=== PATIENT | female | born 1975 | race Caucasian/White ===

== ENCOUNTER 2019-11-19 10:32 | Outpatient (CLI) | payer BC, SELFPAY ==
--- NOTE | ~2019-11-19 | MM_ITS ---
EXAMINATION: MM screening [facility] BI w herrera HISTORY: Screening mammogram TECHNIQUE: Craniocaudal and mediolateral oblique 3-D tomosynthesis images were obtained and synthetic 2-D images were generated. CAD analysis was submitted and interpreted. COMPARISON: 10/10/2018 BREAST PARENCHYMAL COMPOSITION: There are scattered areas of fibroglandular density. FINDINGS: There is no evidence of suspicious mass, calcification, or architectural distortion to sugg est malignancy in either breast. There has been no suspicious interval change. IMPRESSION: 1. No mammographic evidence of malignancy. 2. Recommend routine screening mammography in one year. BI-RADS Category 1: Negative Reviewed, dictated and finalized at location A. AGE RECEIPT POSTER
== END 2019-11-19 10:33 | disposition home or self-care (01) ==
LOC: ANHIMG 10:34
PROVIDERS: PCP Family Medicine; Visit Provider Obstetrics & Gynecology
DX: Z12.31 Encounter for screening mammogram for malignant neoplasm of breast (principal)
CPT/HCPCS: 77063; 77067

== ENCOUNTER → 2020-07-18 12:40 | Outpatient (CLI) | payer BC, SELFPAY ==
--- NOTE | ~2020-07-18 | XR_ITS ---
EXAMINATION: XR finger 1st LT min 2V DATE: 07/18/2020 13:00 INDICATION: Left thumb pain. TECHNIQUE: 4 views of left thumb were obtained. COMPARISON: Left thumb radiograph 04/28/2018 FINDINGS: Bone alignment is normal. No fracture. There is mild osteoarthritis of first carpometacarpa l joint and first metacarpophalangeal joint. IMPRESSION: 1. Mild polyarticular osteoarthritis. Reviewed, dictated and finalized at location A. S COUNTERMAN
== END ==
PROVIDERS: PCP Family Medicine; Visit Provider Specialist
DX: M19.042 Primary osteoarthritis, left hand (principal)
CPT/HCPCS: 73140

== ENCOUNTER 2021-01-26 23:57 | Emergency (ER) | payer BC, SELFPAY ==
--- NOTE | ~2021-01-26 | XR_ITS ---
EXAMINATION: XR chest 1V portable DATE: 01/27/2021 00:38 INDICATION: Chest pain TECHNIQUE: frontal view of the chest was obtained. COMPARISON: Chest radiograph dated 05/11/2016 FINDINGS: The lungs remain clear with no focal airspace opacities, pulmonary edema, pleural effusion or pneumot horax. The cardiomediastinal silhouette is normal. Visualized bones and soft tissues are unremarkable . IMPRESSION: 1. No acute cardiopulmonary disease. Reviewed, dictated and finalized at location A.
[2021-01-27] VITALS (8 sets, daily range): BP systolic 105–178; BP diastolic 61–89; PULSE 59–103; RESP 15–24; TEMP 36.3; O2SAT 100
--- NOTE | 2021-01-27 00:26 | ECG_ITS ---
Measurements Intervals [place] Rate: 103 P: 66 CO: 144 QRS: 71 QRSD: 90 T: 45 QT: 337 QTc: 442 Interpretive Statements SINUS TACHYCARDIA VENTRICULAR BIGEMINY BASELINE ARTIFACT- V3 ABNORMAL ECG Electronically Signed On 01-27-2021 6:45:31 CDT by Slava Jenkins D.O.
[2021-01-27] MEDS: ASPIRIN 81 MG CHEWABLE TABLET 324 MG PO (00:48)
[2021-01-27] MEDS: LORazepam INJ (*CRX) 2 MG/ML VIAL 1 MG IV PUSH (00:57)
[2021-01-27 01:19] LABS: Basophils Percent Auto 0.4 % (0.2-1.2); Eosinophils Absolute Auto 0.1 K/mm3 (0-0.3); Eosinophils Percent Auto 1.6 % (0-4.4); Hematocrit 45.2 % (37.0-47.0); Hemoglobin 15.1 g/dL (12.0-15.0); Immature Granulocyte Absolute 0.02 K/mm3 (0.00-0.031); Immature Granulocyte Percent A 0.2 % (0-0.5); Lymphocytes Absolute Auto 2.14 K/mm3 (0.9-3.2); Lymphocytes Percent Auto 26.2 % (18.3-44.2); Mean Corpuscular HGB Conc 33.4 g/dl (32-36); Mean Corpuscular Hemoglobin 31.8 pg (26-34); Mean Corpuscular Volume 95.2 fl (80-100); Mean Platelet Volume 12.6 fl (7.4-10.4); Monocytes Absolute Auto 0.6 K/mm3 (0.1-0.6); Monocytes Percent Auto 7.7 % (2.6-8.5); Neutrophils Absolute Auto 5.2 K/mm3 (1.3-6.7); Neutrophils Percent Auto 63.9 % (45.5-73.1); Platelet Count Result 179 k/mm3 (150-375); Red Blood Count 4.75 M/mm3 (4.2-5.4); Red Cell Distribution Width 12.8 % (11.5-14.5); White Blood Count 8.2 K/mm3 (4.5-10.0)
[2021-01-27 01:30] LABS: Alanine Aminotransferase 19 U/L (4-35); Albumin Level 5.1 g/dL (3.5-5.1); Alkaline Phosphatase 59 U/L (38-126); Anion Gap 11 mmol/L (8-16); Aspartate Amino Transferase 24 U/L (14-36); Bilirubin,Total 0.5 mg/dL (0.2-1.3); Blood Urea Nitrogen 15 mg/dL (7-17); Calcium 10.2 mg/dL (8.4-10.2); Carbon Dioxide 27 mmol/L (22-30); Chloride 102 mmol/L (98-107); Estimated CRCL calculation 73 ml/min; Estimated Glomerular Filt Rate 60; Glucose 133 mg/dL (65-105); Potassium 3.6 mmol/L (3.4-5.0); Sodium 140 mmol/L (137-145)
[2021-01-27 01:41] LABS: Troponin I < 0.012 ng/mL (0.000-0.034)
--- NOTE | 2021-01-27 02:01 | ED.GENADULT ---
HPI - General Adult General Chief complaint: Unspecified Stated complaint: I feel off, I think I am having a heart attack. Time Seen by Provider: 01/27/21 00:07 History of Present Illness HPI narrative: Patient 45-year-old female presents the emergency department with chief complaint of feeling anxious and chest discomfort. Patient reports that she has been under a immense amount of stress and that her father just . 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 Patient states she was kind of overwhelmed by the sensation and decided to come to the emergency department for evaluation to make sure she was not having a heart attack. The patient reports she has no prior history of cardiac disease reports this has history of anxiety. Related Data Home Medications Medication Instructions Recorded Confirmed atorvastatin 01/27/21 01/27/21 buspirone mg 01/27/21 ergocalciferol (vitamin D2) 01/27/21 [Vitamin D2] metoprolol succinate PO 01/27/21 spironolactone 01/27/21 01/27/21 Allergies Allergy/AdvReac Type Severity Reaction Status Date / Time nitrofurantoin Allergy Hives Verified 01/27/21 00:09 [From Macrodantin] Review of Systems Review of Systems: Narrative: A 10 system review of systems was completed on the patient and is negative except for what is stated in the HPI. Nursing and ancillary documentation was reviewed. PMFSH Comments Patient has past medical history significant for anxiety, and PVCs Family history significant for atrial fibrillation Exam Narrative: Exam Narrative: GENERAL: Well-appearing, well-nourished, and in no acute distress. HEAD: Normocephalic, atraumatic. EYES: PERRLA and EOMI. ENT: Nares clear, no rhinorrhea or epistaxis. Mucous membranes moist. NECK: Supple. CHEST: Clear to auscultation. No respiratory distress. HEART: Regular rate and rhythm. No murmur heard. Normal peripheral pulses. ABDOMEN: Soft, nontender, nondistended, normal active bowel sounds. EXTREMITIES: Normal range of motion. No edema. SKIN: Warm, dry, no rash. NEURO: No focal deficits. Alert and oriented x3. PSYCH: Normal mood and affect. Course Course Emergency Course: EKG shows sinus rhythm rate of [address] elevation or ST depression Vital Signs Vital signs: Vital Signs Temperature 36.3 C L 01/27/21 00:03 Pulse Rate 103 H 01/27/21 00:03 Respiratory Rate 20 01/27/21 00:03 Blood Pressure 178/66 H 01/27/21 00:03 Pulse Oximetry 100 01/27/21 00:03 Temperature 36.3 C L 01/27/21 00:03 Pulse Rate 68 01/27/21 01:37 Respiratory Rate 24 H 01/27/21 01:37 Blood Pressure 111/73 01/27/21 01:37 Pulse Oximetry 100 01/27/21 01:37 Medical Decision Making Vital Signs Vital Signs: Vital Signs Temperature 36.3 C L 01/27/21 00:03 Pulse Rate 103 H 01/27/21 00:03 Respiratory Rate 20 01/27/21 00:03 Blood Pressure 178/66 H 01/27/21 00:03 Pulse Oximetry 100 01/27/21 00:03 Temperature 36.3 C L 01/27/21 00:03 Pulse Rate 68 01/27/21 01:37 Respiratory Rate 24 H 01/27/21 01:37 Blood Pressure 111/73 01/27/21 01:37 Pulse Oximetry 100 01/27/21 01:37 Lab Data Result diagrams: 01/27/21 01:01 01/27/21 01:01 Labs: Lab Results 01/27/21 01/27/21 Range/Units 01:01 01:01 WBC 8.2 (4.5-10.0) K/mm3 RBC 4.75 (4.2-5.4) M/mm3 Hgb 15.1 H (12.0-15.0) g/dL Hct 45.2 (37.0-47.0) % MCV 95.2 (80-100) fl MCH 31.8 (26-34) pg MCHC 33.4 (32-36) g/dl RDW 12.8 (11.5-14.5) % Plt Count 179 (150-375) k/mm3 MPV 12.6 H (7.4-10.4) fl Immature Gran % (Auto) 0.2 (0-0.5) % Neut % (Auto) 63.9 (45.5-73.1) % Lymph % (Auto) 26.2 (18.3-44.2) % [place] % (Auto) 7.7 (2.6-8.5) % Eos % (Auto) 1.6 (0-4.4) % Baso % (Auto) 0.4 (0.2-1.2) % Lymp
== END 2021-01-27 02:19 | disposition home or self-care (01) ==
PROVIDERS: Emergency Provider Emergency Medicine; PCP Family Medicine
DX: F41.0 Panic disorder [episodic paroxysmal anxiety] (principal); R07.89 Other chest pain; R00.0 Tachycardia, unspecified; R00.8 Other abnormalities of heart beat
CPT/HCPCS: 36415; 71045; 80053; 84484; 85025; 93005; 96374; 99284; A9270; J2060

== ENCOUNTER 2021-03-02 07:56 | Outpatient (CLI) | payer BC, SELFPAY ==
--- NOTE | ~2021-03-02 | MM_ITS ---
EXAMINATION: MM screening [facility] BI w herrera HISTORY: Screening mammogram TECHNIQUE: Craniocaudal and mediolateral oblique 3-D tomosynthesis images were obtained and synthetic 2-D images were generated. CAD analysis was submitted and interpreted. COMPARISON: 11/19/2019, 11/13/2018, 10/10/2018 BREAST PARENCHYMAL COMPOSITION: The breasts are heterogeneously dense, which may obscure small masses . FINDINGS: RIGHT BREAST: There is a possible mass in the middle third of inner breast best appreciated 4 cm from the nipple on the craniocaudal view. LEFT BREAST: An asymmetry is present in the posterior third breast just below the nipple axis on the mediolateral oblique view 8.5 cm from the nipple. IMPRESSION: 1. Bilateral breast findings as described above. 2. Additional mammographic views and possible breast ultrasound are recommended. BI-RADS Category 0: Incomplete: Needs additional imaging evaluation. Reviewed, dictated and finalized at location A. IMPRESSION: 1. Bilateral breast findings as described above. 2. Additional mammographic views and possible breast ultrasound are recommended . BI-RADS Category 0: Incomplete: Needs additional imaging evaluation.
== END 2021-03-02 07:57 | disposition home or self-care (01) ==
LOC: ANHIMG 07:58
PROVIDERS: PCP Family Medicine; Visit Provider Obstetrics & Gynecology
DX: Z12.31 Encounter for screening mammogram for malignant neoplasm of breast (principal); R92.8 Other abnormal and inconclusive findings on diagnostic imaging of breast
CPT/HCPCS: 77063; 77067

== ENCOUNTER 2021-05-18 11:56 | Outpatient (CLI) | payer OTHER, SELFPAY ==
--- NOTE | ~2021-05-18 | MMUS_ITS ---
EXAMINATION: MM diagnostic [facility] BI w herrera, US breast BI complete HISTORY: Follow-up breast asymmetries TECHNIQUE: Additional 3-D tomosynthesis images of the breasts were performed and synthetic 2-D images were generated. CAD analysis was submitted and interpreted. High resolution complete bilateral breas t ultrasound was performed. COMPARISON: Comparison to multiple prior studies sequentially, with oldest reviewed study dated 10/10. BREAST PARENCHYMAL COMPOSITION: Breast composed of scattered areas of fibroglandular density. FINDINGS: MAMMOGRAPHIC FINDINGS: There are no suspicious masses, calcifications or architectural distortion in either breast to sugges t malignancy. ULTRASOUND: Complete right breast ultrasound: At 2:00, 1 cm from the nipple, there is a 4 mm cyst. Complete left breast ultrasound: Normal heterogeneous echotexture without focal mass. IMPRESSION: 1. No evidence for malignancy in either breast. 2. Routine yearly screening mammogram and regular clinical breast examination are recommended. BI-RADS Category 2: Benign finding(s). Reviewed, dictated and finalized at location A. IMPRESSION: 1. No evidence for malignancy in either breast. 2. Routine yearly screening mammogram and regular clinical breast examination a re recommended. BI-RADS Category 2: Benign finding(s).
== END 2021-05-18 11:57 | disposition home or self-care (01) ==
PROVIDERS: PCP Family Medicine; Visit Provider Obstetrics & Gynecology
DX: R92.8 Other abnormal and inconclusive findings on diagnostic imaging of breast (principal)
CPT/HCPCS: 76641; 77062; 77066; G0279

== ENCOUNTER 2022-04-12 19:55 | Emergency (ER) | payer OTHER, SELFPAY ==
[2022-04-12] VITALS (7 sets, daily range): BP systolic 141–152; BP diastolic 53–87; PULSE 89–118; RESP 14–21; O2SAT 97–100
--- NOTE | ~2022-04-12 | XR_ITS ---
CORRECTED REPORT WRONG ORDER, TITLE CHANGE 04/13/22 PK EXAMINATION: XR chest PORTABLE 1 VIEW 04/12/2022 21:03 INDICATION: Chest palpitations PROCEDURE: AP portable chest COMPARISON: 01/27/2021 FINDINGS: The lungs are clear. The cardiomediastinal silhouette is within normal limits. There are no pleural effusions. There is no pneumothorax suspected. IMPRESSION: 1: NO ACUTE CARDIOPULMONARY DISEASE. Reviewed, dictated and finalized at location A. BERNSTEIN
--- NOTE | 2022-04-12 20:00 | ECG_ITS ---
Measurements Intervals [place] Rate: 128 P: 60 IA: 147 QRS: 58 QRSD: 91 T: 58 QT: 335 QTc: 489 Interpretive Statements SINUS TACHYCARDIA MINIMAL Q WAVES- ANTEROLAT/INF LEADS NONSPECIFIC ST & T-WAVE ABNORMALITY- ANTEROLAT/INF LEADS ABNORMAL ECG Electronically Signed On 04-12-2022 21:00:49 CDT by Slava Jenkins D.O.
[2022-04-12] MEDS: SODIUM CHLORIDE 0.9% IV 1,000 ML 999 ML IV CONT (20:58)
[2022-04-12 21:03] LABS: Basophils Percent Auto 0.3 % (0.2-1.2); Eosinophils Absolute Auto 0.3 K/mm3 (0-0.3); Eosinophils Percent Auto 5.1 % (0-4.4); Hematocrit 41.7 % (37.0-47.0); Immature Granulocyte Absolute 0.02 K/mm3 (0.00-0.031); Immature Granulocyte Percent A 0.3 % (0-0.5); Lymphocytes Absolute Auto 1.93 K/mm3 (0.9-3.2); Lymphocytes Percent Auto 30.6 % (18.3-44.2); Mean Corpuscular HGB Conc 33.6 g/dl (32-36); Mean Corpuscular Hemoglobin 31.3 pg (26-34); Mean Corpuscular Volume 93.1 fl (80-100); Mean Platelet Volume 11.6 fl (7.4-10.4); Monocytes Absolute Auto 0.4 K/mm3 (0.1-0.6); Neutrophils Absolute Auto 3.6 K/mm3 (1.3-6.7); Neutrophils Percent Auto 57.7 % (45.5-73.1); Platelet Count Result 173 k/mm3 (150-375); Red Blood Count 4.48 M/mm3 (4.2-5.4); Red Cell Distribution Width 12.6 % (11.5-14.5); White Blood Count 6.3 K/mm3 (4.5-10.0)
[2022-04-12 21:11] LABS: Prothrombin Time 12.8 Seconds (11.1-14.7)
[2022-04-12 21:12] LABS: Partial Thromboplastin Time 30.5 SECONDS (22.3-36.8)
[2022-04-12 21:14] LABS: Alanine Aminotransferase 20 U/L (6-35); Albumin Level 4.7 g/dL (3.5-5.1); Alkaline Phosphatase 68 U/L (38-126); Anion Gap 10 mmol/L (8-16); Aspartate Amino Transferase 26 U/L (14-36); Bilirubin,Total 0.5 mg/dL (0.2-1.3); Blood Urea Nitrogen 16 mg/dL (7-17); Calcium 9.6 mg/dL (8.4-10.2); Carbon Dioxide 31 mmol/L (22-30); Chloride 99 mmol/L (98-107); Estimated CRCL calculation 73 ml/min; Estimated Glomerular Filt Rate 60; Glucose 152 mg/dL (65-110); Potassium 3.8 mmol/L (3.4-5.0); Sodium 140 mmol/L (137-145)
[2022-04-12 21:25] LABS: Troponin I < 0.012 ng/mL (0.000-0.034)
--- NOTE | 2022-04-12 21:37 | ED.GENADULT ---
HPI - General Adult General Chief complaint: Arrhythmia/Palpitations Stated complaint: palpitations Time Seen by Provider: 04/12/22 20:33 History of Present Illness HPI narrative: Patient is a 46-year-old female who presents ER with concerns of palpitations. Reports her heart rate was going around 150 bpm. She was lightheaded. She also noted a significantly elevated blood pressure. She was evaluated by family Rosina who is a guillotine trimmer and was recommended that she take her metoprolol which she missed taking this morning. Typically patient takes 25 mg but she took an old dose of 50 mg this evening due to a missed dose. Patient has history of vasovagal syndrome that causes her to get lightheaded. Patient reports she was recently ill last week with a viral syndrome causing her to have postnasal drip which she still has. She took multiple COVID test that were all negative. Patient reports she feels bubbles in her lungs when she takes deep breath at times. She also has sensation of dropping beats frequently. Patient reports symptoms began after using an albuterol inhaler which she does not usually use. Her PCP also called her in a Z-Gal tonight which she did not take since she has had this cough for over a week. Patient also reports having a HIDA scan today because she has some chronic stomach issues since getting her COVID-vaccine. Related Data Home Medications Medication Instructions Recorded Confirmed atorvastatin 20 mg tablet 01/27/21 01/27/21 buspirone 7.5 mg tablet mg 01/27/21 ergocalciferol (vitamin D2) 1,250 01/27/21 mcg (50,000 unit) capsule (Vitamin D2) metoprolol succinate 25 mg PO 01/27/21 tablet,extended release 24 hr spironolactone 100 mg tablet 01/27/21 01/27/21 Allergies Allergy/AdvReac Type Severity Reaction Status Date / Time nitrofurantoin Allergy Intermediate HIVES Verified 02/09/21 12:31 adhesive tape Allergy Unknown Verified 02/09/21 12:31 Cephalosporins Allergy Unknown Unverified 02/09/21 12:31 erythromycin base Allergy Unknown Unverified 02/09/21 12:31 Iodinated Contrast Media Allergy Unknown Verified 02/09/21 12:31 meperidine Allergy Unknown Verified 02/09/21 12:31 morphine Allergy Unknown Verified 02/09/21 12:31 adhesive AdvReac Unknown BLISTERS Verified 02/09/21 12:31 NITROFURANTOIN MACROCRYSTAL Allergy Intermediate HIVES Uncoded 02/09/21 12:31 Contrast Media Allergy Unknown CT DYE Uncoded 02/09/21 12:31 GENERALANESTHET Allergy Unknown VASOVAGAL Uncoded 02/09/21 12:31 EFFECT -- HR DROP, N/V, TINGLING Review of Systems Review of Systems: All systems reviewed & are unremarkable except as noted in HPI and below Constitutional: Constitutional: Denies chills, Reports fatigue and Denies fever(s) ENT: Reports nasal congestion and Denies sore throat Cardiovascular: Cardiovascular: Reports chest pain (Tightness), Reports rapid heart rate and Denies radiating jaw, neck or arm pain Respiratory: Respiratory: Reports cough, Denies dyspnea and Denies wheezing Gastrointestinal: Gastrointestinal: Denies abdominal pain, Reports nausea and Denies vomiting Neurologic: Denies syncope, Denies focal weakness and Denies numbness PMFSH Past Medical History Medical History (Updated 04/12/22 @ 22:06 by Henrry Hamilton MD) Anxiety History of kidney stones Hypercholesterolemia Irritable bowel syndrome Vasovagal syncope Surgical History Surgical History (Updated 04/12/22 @ 22:06 by Henrry Hamilton MD) H/O shoulder surgery Right History of tonsillectomy Family History Family History (System 02/09/21 @ 12:31 by Radha Healy) Mother Family history of diabetes mellitus in first degree relative Other Diabetes mellitus Family history of arthritis Family history of cardiac disorder Family history of seizure disorder Hypertension Social History Social History (System 02/09/21 @ 12:31 by Radha Healy) Alcohol intake: current
[2022-04-12] MEDS: ONDANSETRON INJ 4 MG/2 ML VIAL IV PUSH (22:31)
== END 2022-04-12 22:39 | disposition home or self-care (01) ==
PROVIDERS: Emergency Provider Emergency Medicine; PCP Family Medicine
DX: I49.40 Unspecified premature depolarization (principal); E78.00 Pure hypercholesterolemia, unspecified; K58.9 Irritable bowel syndrome, unspecified; F41.9 Anxiety disorder, unspecified; Z87.442 Personal history of urinary calculi; R94.31 Abnormal electrocardiogram [ECG] [EKG]; R00.0 Tachycardia, unspecified
CPT/HCPCS: 36415; 71045; 71046; 80053; 84484; 85025; 85610; 85730; 93005; 96361; 96374; 99284; J2405; J7030

== ENCOUNTER 2022-06-07 07:24 | Outpatient (CLI) | payer BC, SELFPAY ==
--- NOTE | ~2022-06-07 | MM_ITS ---
EXAMINATION: MM screening [facility] BI w herrera HISTORY: Screening mammogram TECHNIQUE: Craniocaudal and mediolateral oblique 3-D tomosynthesis images were obtained and synthetic 2-D images were generated. CAD analysis was submitted and interpreted. COMPARISON: 05/18/2021, 03/02/2021, 11/19/2019 BREAST PARENCHYMAL COMPOSITION: The breasts are heterogeneously dense, which may obscure small masses . FINDINGS: There is no suspicious mass, calcification, or architectural distortion to suggest malignan cy in either breast. There has been no suspicious interval change. IMPRESSION: 1. No mammographic evidence of malignancy. 2. Recommend routine screening mammography in one year. BI-RADS Category 1: Negative Reviewed, dictated and finalized at location A.
== END 2022-06-07 07:25 | disposition home or self-care (01) ==
PROVIDERS: PCP Family Medicine; Visit Provider Obstetrics & Gynecology
DX: Z12.31 Encounter for screening mammogram for malignant neoplasm of breast (principal)
CPT/HCPCS: 77063; 77067

== ENCOUNTER 2022-06-26 07:47 | Outpatient (CLI) | payer BC, SELFPAY ==
--- NOTE | ~2022-06-26 | XR_ITS ---
EXAMINATION: XR barium swallow DATE: 06/26/2022 08:57 INDICATION: Chest pain and difficulty swallowing TECHNIQUE: The patient drank thick barium, gas-producing crystals, and thin barium. Fluoroscopy of th e hypopharynx and esophagus was performed. Fluoroscopy exposure time was 1.9 minutes. The DAP for thi s procedure was 11.87 Gycm2. COMPARISON: 10/24/2005 FINDINGS: There is no mass or stricture of the esophagus. Esophageal motility is normal. There is a s mall sliding hiatal hernia. There was no gastroesophageal reflux with provocative maneuvers. There is rightward deviation of the trachea and upper esophagus. IMPRESSION: 1. Rightward deviation of the trachea and upper esophagus. Further evaluation with CT of the chest is recommended. 2. Small sliding hiatal hernia, otherwise unremarkable esophagram. Reviewed, dictated and finalized at location A. IMPRESSION: 1. Rightward deviation of the trachea and upper esophagus. Further evaluation w ith CT of the chest is recommended. 2. Small sliding hiatal hernia, otherwise unremarkable esophagram.
== END 2022-06-26 07:48 | disposition home or self-care (01) ==
PROVIDERS: PCP Family Medicine
DX: R13.10 Dysphagia, unspecified (principal); J34.2 Deviated nasal septum; K44.9 Diaphragmatic hernia without obstruction or gangrene
CPT/HCPCS: 74220

== ENCOUNTER 2023-09-26 10:07 | Outpatient (CLI) | payer BC, SELFPAY ==
--- NOTE | ~2023-09-26 | MMUS_ITS ---
EXAMINATION: MM diagnostic [facility] BI w herrera, US breast BI limited HISTORY: Bilateral periareolar breast pain TECHNIQUE: Craniocaudal, mediolateral, and mediolateral oblique 3-D tomosynthesis images of the moises ts were performed and synthetic 2-D images were generated. CAD analysis was submitted and interpreted . High resolution limited bilateral breast ultrasound was performed. COMPARISON: 06/07/2022, 05/18/2021, 03/02/2021, 11/19/2019 BREAST PARENCHYMAL COMPOSITION: The breasts are heterogeneously dense, which may obscure small masses . FINDINGS: MAMMOGRAPHIC FINDINGS: No suspicious mass, calcification, or architectural distortion are identified in either breast to sug gest malignancy. There has been no suspicious interval change. No mammographic correlate is identifie d for the patient's reported bilateral periareolar breast pain. ULTRASOUND: There is no evidence of focal abnormal solid or cystic mass in the vicinity of the patient's bilatera l periareolar breast pain. IMPRESSION: 1. No specific mammographic or sonographic correlate is identified for the patient's bilateral periar eolar breast pain. Further evaluation at this time should be based on clinical assessment. Continued follow-up physical examination is recommended. 2. Recommend routine screening mammography in one year. BI-RADS Category 1: Negative Reviewed, dictated and finalized at location A. N ANNOUNCER IMPRESSION: 1. No specific mammographic or sonographic correlate is identified for the ewelina ent's bilateral periareolar breast pain. Further evaluation at this time should be based on clinical assessment. Continued follow-up physical examination is r ecommended. 2. Recommend routine screening mammography in one year. BI-RADS Category 1: Negative
== END 2023-09-26 10:08 | disposition home or self-care (01) ==
PROVIDERS: PCP Family Medicine; Visit Provider Obstetrics & Gynecology
DX: R92.8 Other abnormal and inconclusive findings on diagnostic imaging of breast (principal)
CPT/HCPCS: 76642; 77062; 77066; G0279

== ENCOUNTER 2024-05-14 10:15 | Outpatient (CLI) | payer BC, SELFPAY ==
--- NOTE | ~2024-05-14 | US_ITS ---
Renal-Bladder ultrasound Clinical History: Chronic kidney disease Technique: Real-time sonographic imaging of the kidneys and urinary bladder was performed. Findings: The right kidney measures 11.2 cm in length and the left kidney measures 11.1 cm. There is no hydronephrosis or renal calculus identified. Renal cortical echogenicity is within normal limits. No solid renal mass lesion is identified. Small right renal cyst present. The urinary bladder is moderately distended at the time of this exam. No intraluminal echoes are iden tified. No abnormal wall thickening is seen. Impression: Unremarkable ultrasound of the kidneys and urinary bladder. Reviewed, dictated and finalized at location M. Impression: Unremarkable ultrasound of the kidneys and urinary bladder.
== END 2024-05-14 10:16 | disposition home or self-care (01) ==
LOC: ANHIMG 10:18
PROVIDERS: PCP Family Medicine; Visit Provider Hospitalist
DX: I12.9 Hypertensive chronic kidney disease with stage 1 through stage 4 chronic kidney disease, or unspecified chronic kidney disease (principal); N18.2 Chronic kidney disease, stage 2 (mild); D86.9 Sarcoidosis, unspecified
CPT/HCPCS: 76775

== ENCOUNTER 2024-11-04 09:54 | Outpatient (CLI) | payer BC, SELFPAY ==
--- NOTE | ~2024-11-04 | MM_ITS ---
EXAMINATION: MM screening guido BI w herrera HISTORY: Screening TECHNIQUE: Craniocaudal and mediolateral oblique 3-D tomosynthesis images were obtained and synthetic 2-D images were generated. CAD analysis was submitted and interpreted. COMPARISON: Comparison to multiple prior studies sequentially, with oldest reviewed study dated 11/13. BREAST PARENCHYMAL COMPOSITION: Dense: The breasts are heterogeneously dense, which may obscure small masses FINDINGS: There is no evidence of suspicious mass, calcification, or architectural distortion to sugg est malignancy in either breast. There has been no suspicious interval change. IMPRESSION: 1. No mammographic evidence of malignancy. 2. Recommend routine screening mammography in one year. BI-RADS Category 1: Negative Reviewed, dictated and finalized at location B. E AND FLAME SPECIALIST
--- OUTSIDE RECORDS SUMMARY | 2024-11-04 10:07 | XMS_ITS ---
Author Organization [facility] Address [address] [place] [address] Care Team Providers Care Manager Client Name Role Phone Kirk NEGRON, William Primary Care Provider Agustin KOO CODING VALIDATOR, LESIA Nino [phone] REASON FOR VISIT HIDA 10.25 Encounters Encounter Location Date Provider Diagnosis [facility] [address] [facility] [address] [place] [address] 06/23/2024 LESIA KOO PLAN OF TREATMENT No Information Progress Notes * CONSUELO Rae SAENZB:0 1975 (49 yo F)Acc No.[id number]:06/23/2024 Patient: Petra BARON :1975 Age:49 Y Sex:Female [facility] [place] [address] * true * Date:
--- OUTSIDE RECORDS SUMMARY | 2024-11-04 10:07 | XMS_ITS | Referral Summary ---
Author Organization [facility] Address [address] [facility] [place] [address] Care Team Providers Care Line Repairer Name Role Phone Blake Herbert MD Primary Care Provider [phone] Source Comments [facility],non-owned Affiliates and Associated Physician Practices is amultiple site organization consisting of ambulatory clinics and hospital sitesin [place], [place], [place] and [place]. This disclosure is being madepursuant to the Care Everywhere program and may not contain all information available regarding this patient. Last updated 18.[facility] Allergies Active Allergy Reactions Criticality Noted Date Comments Adhesive Sensitivity Unknown High 01/01/2019 Surgical tap, Contrast-Iodinated Agents For Ct/Other Skin Reactions 07/28/2009 Demerol Skin Reactions 07/28/2009 Nitrofurantoin Other,Unknown,Rash Medium 01/01/2019 Medications * Be aware that medications may not be up to date on this document. Alwaysverify current medications with the patient. Medication Sig Dispensed Refills Start Date End Date Status Magnesium Glycinate 100 MG CAPS Take 100 mg by mouth once daily Active atorvastatin (Lipitor) 20 MG tablet 11/12/2022 Active busPIRone (Buspar) 7.5 MG tablet TAKE 1 & 1/2 (ONE & ONE-HALF) TABLETS BY MOUTH TWICE DAILY 12/25/2022 Active vitamin D3 (Cholecalciferol) 125 MCG (5000 UT) capsule Take 1 (one) capsule by mouth once daily Active vitamin B-12 (Cyanocobalamin) 1000 MCG tablet Take 1 (one) tablet by mouth once daily Active cyclobenzaprine (Flexeril) 5 MG tablet Take 1 (one) tablet by mouth 3 times daily 04/05/2023 Active dicyclomine (Bentyl) 10 MG capsule Take 1 (one) capsule by mouth as needed 03/01/2022 Active fluconazole (Diflucan) 200 MG tablet Take 1 (one) tablet by mouth as needed 12/21/2022 Active levothyroxine (Synthroid) 25 MCG tablet TAKE 1 TABLET BY MOUTH ONCE DAILY FOR 90 DAYS 04/11/2023 Active neomycin (Mycifradin) 500 MG tablet TAKE 1 TABLET BY MOUTH TWICE DAILY FOR 14 DAYS 12/14/2022 Active Xifaxan 550 MG tablet TAKE 1 TABLET BY MOUTH THREE TIMES DAILY FOR 14 DAYS 05/21/2023 Active propranolol ER 24hr (Inderal LA) 60 MG capsule Take 1 capsule by mouth once daily 90 capsule 3 08/12/2023 Active Active Problems Problem Noted Date Diagnosed Date 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 Stress incontinence 07/28/2009 Social History Tobacco Use Types Packs/Day Years Used Date Smoking Tobacco: Never Smokeless Tobacco: Never Tobacco Cessation:Counseling Given: Not Answered Alcohol Use Standard Drinks/Week Comments Never 0.8 (1 standard drink = 0.6 oz p ure alcohol) Sex and Gender Information Value Date Recorded Sex Assigned at Not on file Gender Identity Not on file Sexual Orientation Not on file Last Filed Vital Signs Vital Sign Reading Time Taken Comments Blood Pressure 117/71 05/27/2023 10:45 AM CDT Pulse 63 05/27/2023 10:45 AM CDT Temperature - - Respiratory Rate - - Oxygen Saturation - - Inhaled Oxygen Concentration - - Weight 91.6 kg (202 lb) 05/27/2023 10:45 AM CDT Height 172.7 cm (5' 8 ) 05/27/2023 10:45 AM CDT Body Mass Index 30.71 05/27/2023 10:45 AM CDT Plan of Treatment Not on file Care Teams Line Repairer Relationship Specialty Start Date End Date Blake Herbert MD [address] [place] [address] PCP - General 03/10/09
--- OUTSIDE RECORDS SUMMARY | 2024-11-04 10:07 | XMS_ITS ---
Author Organization [facility] Address [address] [place] [address] Care Team Providers Care Marketing Recruiter Name Role Phone Kirk NEGRON, William Primary Care Provider Agustin KOO CREAMERY WORKER, LESIA Nino REASON FOR VISIT New sxs Encounters Encounter Location Date Provider Diagnosis [facility] [address] [facility] [address] [place] [address] 08/17/2024 LESIA KOO PLAN OF TREATMENT No Information Progress Notes * JOSESITORae KWONGB:0 1975 (49 yo F)Acc No.[id number]:08/17/2024 Patient: Sarbjit BARONa :1975 Age:49 Y Sex:Female Address:[facility], [place] [address] * true * Date:
--- OUTSIDE RECORDS SUMMARY | 2024-11-04 10:07 | XMS_ITS | Clinical Summary ---
Author Organization [facility] Address [address] [facility] [place] [address] Care Team Providers Care Meatman Name Role Phone Blake Herbert MD Primary Care Provider [phone] Source Comments [facility],non-owned Affiliates and Associated Physician Practices is amultiple site organization consisting of ambulatory clinics and hospital sitesin [place], [place], [place] and [place]. This disclosure is being madepursuant to the Care Everywhere program and may not contain all information available regarding this patient. Last updated 18.[facility] [employer] Allergies Active Allergy Reactions Criticality Noted Date [...] disorders of urethra 11/01/2009 Stress incontinence 07/28/2009 Family History Medical History Relation Name Comments Elevated Lipids Father Hypertension Father Diabetes Maternal Grandfather Elevated Lipids Maternal Grandfather Hypertension Maternal Grandfather Osteoporosis Maternal Grandfather DVT - Deep Vein Thrombosis Maternal Grandmother Osteoporosis Maternal Grandmother Diabetes Mother Elevated Lipids Mother Hypertension Mother Osteoporosis Mother Cancer - Breast Other Cancer - Ovarian Other Depression Other bipolar Diabetes Other Endometriosis Other Diabetes Paternal Grandfather Hypertension Sister Cancer - Colon Neg Hx Heart Disease Neg Hx Interstitial Cystitis Neg Hx Pulmonary Embolism Neg Hx Vulvodynia Neg Hx Relation Name Status Comments Father Maternal Grandfather Maternal Grandmother Mother Other Paternal Grandfather Paternal Grandmother Sister Alive Social History Tobacco Use Types Packs/Day Years [...] 05/27/2023 10:45 AM CDT Plan of Treatment Health Maintenance Due Date Last Done Comments COLOGUARD (AGES 45-75) - COL ON CA SCREENING [address] COLONOGRAPHY - COLON CA SCREENING 1975 FIT - COLON CA SCREENING 1975 FLEX SIG - COLON CA SCREENING 1975 MAMMOGRAM 1975 PAP SMEAR 1975 HIV SCREENING 1990 HEPATITIS C SCREENING 05/30/1993 DTAP/TDAP/TD VACCINES (1 - Tdap) 1994 HEPATITIS B VACCINE (1 of 3 - 19+ 3-dose series) 1994 SCREENING FOR DIABETES 05/27/2023 COVID-19 VACCINE (3 - 2023-2 5 season) 2024 01/06/2021, 12/15/2020 INFLUENZA VACCINE (#1) 2024 07/16/2019 DEPRESSION SCREENING 09/16/2024 ZOSTER VACCINE (1 of 2) 2025 COLONOSCOPY - COLON CA SCREENING 04/07/2031 04/07/2021 Colorectal Cancer Screening 04/07/2031 HIB VACCINE Aged Out No longer eligi ble based on patient's age to complete this topic HPV VACCINE Aged Out No longer eligi ble based on patient's age to complete this topic MENINGOCOCCAL (Group B) VACCINE Aged Out No longer eligible b ased on patient's age to complete this topic MENINGOCOCCAL VACCINE Aged Out No marce porfirio eligible based on patient's age to complete this topic Care Teams Meatman Relationship Specialty Start Date End Date Blake Herbert MD [address] [place] [address] PCP - General 03/10/09
--- OUTSIDE RECORDS SUMMARY | 2024-11-04 10:07 | XMS_ITS | Continuity of Care Document ---
Author Organization [employer] Address [address] [place] [address] Phone Care Team Providers Care Manager Of Change Name Role Phone Lance Castellanos MD Unavailable Unavailable Allergies, Adverse Reactions, Alerts Substance Reaction Status Criticality MEPERIDINE HCL Active No Informatio n NITROFURANTOIN MACROCRYSTALLINE Active No Information Medications Medication Instructions Dosage Effective Dates (start - stop) Status Comments dicyclomine 10 mg capsule take 1 capsule by oral route 4 times every day 10 MG - Active Dr. Lance Castellanos Xifaxan 550 mg tablet take 1 tablet by oral route 3 times every day 550 MG - Active Dr. Lance Castellanos omeprazole 40 mg capsule,delayed release take 1 capsule by oral route every day before a meal 40 MG - Active Dr. Lance Castellanos magnesium 400 mg (as magnesium oxide) capsule - Active aspirin 81 mg tablet,delayed release take 1 tablet by oral route every day 81 MG - Active Flonase Allergy Relief 50 mcg/actuation nasal spray,suspension spray 1 - 2 spray by intranasal route every day in each nostril as needed 50-100 MCG - Active Zithromax Z-Gal 250 mg tablet take 2 tablet by oral route every day for 1 day then 1 tablet (250 mg) by oral route once daily for 4 days 500 MG - Active Diflucan 50 mg tablet take 2 tablet by oral route every day - Active Probiotic 10 billion cell capsule - Active spironolactone 100 mg tablet take 1 tablet by oral route every day 100 MG - Active atorvastatin 20 mg tablet take 1 tablet by oral route every day 20 MG - Active buspirone 7.5 mg tablet take 1 tablet by oral route every day 7.5 MG - Active METOPROLOL SUCCINATE (unknown strength) take 1 tablet by oral route every day Not Available - Active Procedures Procedure Date OFFICE [id number] BODY MASS INDEX [facility] SYST BP LT 130 MM HG DIAST BP < 80 MM HG GI TRACT CAPSULE ENDOSCOPY OFFICE QAZIX-RGA-BHPECYMJ BODY MASS INDEX DOCD SYST BP LT 130 MM HG DIAST BP < 80 MM HG OFFICE IZPMT-PUH-FUHPEIQN BODY MASS INDEX DOCD SYST BP LT 130 MM HG DIAST BP < 80 MM HG OFFICE VAGEE-RVK-[id number] BODY MASS INDEX DOCD SYST BP LT 130 MM HG DIAST BP < 80 MM HG COLONOSCOPY, FLEXIBLE, DIAGNOSTIC W/ COL LECTION OF SPECIMEN UPPER GI ENDOSCOPY BIOPSY DEAMIDATED GLADIN PEPTIDE IGA DEAMIDATED GLADIN PEPTIDE IGG TISSUE TRANSGLUTIMASE IGA TISSUE TRANSGLUTIMASE IGG ROUTINE VENIPUNCTURE OFFICE [id number]-NJQ-SGTWDCJG BODY MASS INDEX DOCD SYST BP LT 130 MM HG DIAST BP < 80 MM HG JLCBWFF-WINAQA-NTDM MED BODY MASS INDEX DOCD SYST BP LT 130 MM HG DIAST BP 80-89 MM HG Advance Directives Directive Yes / No Effective Date File Name No Information Encounters Encounter Description Practice Location Reason(s) For Visit Diagnoses Date Provider Providers Copied on Encounter [facility] [employer], [address], [place], [place], [id number] , [place] tel:[phone] [facility] No Information 3 Jasmin Lucas. [address] [facility] [place], [id number] , [place]. tel: [phone] [facility], [address], [place], [place], [address] , [place] tel: [phone] [facility] Enlarged thyroid 2 Jasmin Lucas. [address] [place] [address], [id number] , [place]. tel: [phone] [facility], [address], [place], [place], [address] , [place] tel: [phone] [facility] Deviated trachea 2 Jasmin Lucas. [address] [place] [address], [id number] , [place]. tel: [phone] OFFICE FITMK-SEX-PM PANDED [facility], [address], [place], [place], [address] , [place] tel: [phone] [facility] Dysphagia (chief complaint) Dysphagia, unspecified type 2 Juan Monet. [address] [place] [address], [id number] , [place]. tel: [phone] Referring Provider: William Bradley [address] [place] [address] , [place], [address]. tel:[phone] [facility], [address], [place], [place], [id number] , [place] tel: [phone] [facility] Generalized abdominal pain 2 Jasmin Lucas. [address] [place] [address], [id number] , [place]. tel: [phone] [facility] [address], [place], [place], [address] , [place] tel: [phone] [facility] Abdominal pain (chief complaint)C rohns flare up (chief complaint) No Information 2 Jasmin Lucas. [address] [place] [address], [id number] , [place]. tel: [phone] Referring Provider: Lance Castellanos, [address] [place] [address], [place], [address] . tel:[phone] OFFICE ZGKZQ-NAQ-MK [facility], [address], [place], [place], [address] , [place] tel: [phone] [facility] GI problems (chief complaint) Abdominal bloatingGeneraliz ed abdominal painIrritable bowel syndrome, unspecified typeFH: Crohn's disease 2 Jasmin Lucas. [address] [place] [address], [id number] , [place]. tel: [phone] Referring Provider: Jen[address] [place], [address]. tel:[phone] OFFICE HROEC-JHC-TL [facility], [address], [place], [place], [id number] , [place] tel: [phone] [facility] Abdominal pain (chief complaint) Irritable bowel syndrome with both constipation and diarrheaWeight lossGeneralized abdominal painAbdominal bloatingAbnormal finding on GI tract imaging 1 Juan Monet. [address] [place] [address], [id number] , [place]. tel: [phone] Referring Provider: Tierney Martinez, [address] [place] [address], [address] . tel:[phone] [facility], [address], [place], [place], [address] , [place] tel: [phone] [facility] No Information 1 Juan Monet. [address] [place] [address], [id number] , [place]. tel: [phone] OFFICE AXGWA-FBU-KE [facility], [address], [place], [place], [address] , [place] tel: [phone] [facility] Follow up from procedure (chief complaint) Generalized abdominal painIrritable bowel syndrome with both constipation and diarrheaWeight loss 1 Juan Monet. [address] [place] [address], [id number] , [place]. tel: [phone] Referring Provider: Jeni [address] [place], [address]. tel:[phone] [facility] [employer], [address], [place], [place], [id number] , [place] tel: [phone] [facility] No Information 1 Jasminmark Lucas. [address] [place], [place], [id number] , [place]. tel: [phone] Referring Provider: Jeni [address] [place], [address]. tel:[phone] [facility], [address], [place], [place], [address] , [place] tel: [phone] [facility] Elevated liver enzymes 1 Juan Monet. [address] [place], [place], [id number] , [place]. tel: [phone] OFFICE ZCCTZ-AVW-HJ [facility], [address], [place], [place], [id number] , [place] tel: [phone] [facility] Epigastric pain (chief complaint) Other dysphagiaElevated liver enzymesGeneralize d abdominal painWeight loss 1 Juan Monet. [address] [place] [address], [id number] , [place]. tel: [phone] Referring Provider: Jeni [address] [place], [address]. tel:[phone] CONSULT-OFFI CE-COMP [facility], [address], [place], [place], [address] , [place] tel: [phone] [facility] IBS (chief complaint) Irritable bowel syndrome with both constipation and diarrheaGeneraliz ed abdominal painOther hemorrhoids 0 Juan Monet. [address] [place], [place], [id number] , [place]. tel: [phone] Referring Provider: Jeni [address] [place], [address]. tel:[phone] Family History Family Member Type Diagnosis Age At Onset No Information Payers Payer name Insurance type Covered constitution party ID Authoriza tion(s) BCBS ACCESS BL [id number] Social History Type Description Quantity Date Captured Comments Alcohol Use Details Unknown Caffeine Use Details Unknown Tobacco Use Status No Information Smoking Status No Information Sex Female Chief Complaint And Reason For Visit No Information Reason For Referral Reason For Referral No Information Plan Of Treatment Date Type Action Status Referral Ordered: US Neck Appointment date/timeframe: 08/02/2022 ordered Referral Ordered: CT Chest WO contrast Appointment date/timeframe: 07/10/2022 ordered Referral Ordered: CT chest without contrast ordered Referral Ordered: Barium swallow Appointment date/timeframe: 06/26/2022 ordered Referral Ordered: Hepatobiliary iminodiacetic acid (HIDA) scan with gallbladder ejection fraction Appointment date/timeframe: 04/12/2022 ordered Referral Ordered: Capsule endoscopy from mouth to anus Appointment date/timeframe: 03/06/2022 ordered Referral Ordered: Small bowel series Appointment date/timeframe: 06/27/2021 ordered Referral Ordered: US RUQ abdomen Appointment date/timeframe: 03/21/2021 ordered Future Order: Lab Order Hepatic Function Panel (LFT) ([id number]), Collected on: , Sent on: Sent History Of Present Illness Encounter Date Complaint History Of Prese nt Illness Dysphagia Abdominal pain Crohns flare up GI problems Can't eat anythi ng or will get very distended and bloated. Makes it difficult to breath.Can only eat yogurt and smoothies (still get pain but not bloated as badly)Pain is in lower abdomen. Has gas pain in lower stomach. Has had extensive workup. US/ CT/EGD/Colon/labs/liver workupBentyl does help somewhat. If fast for 4-5 days will not get the pain.Bowels slightly on constipated side. (can go up to 3 days)Weight stable.Recent blood tests done (normal Abdominal pain Abdominal pain (comments) 46 yea r old female that presents for abdominal pain. She reports pain has been getting worse she had a CT scan that her pcp ordered. There was and area noted on the CT scan that was concerning to pcp. She has bloating, eating causes pain and bloating. Has been losing weight per patient, having intermittent fevers, swollen lymph nodes, having bone pain (legs feel heavy). She has normal bowel movements denies blood in stool. Was given Xifaxan and has not been able to take due to other infections. Follow up from procedure 45 year old female that presents for follow up from procedures. She had an EGD and colon. She has been feeling worse since her procedure. Having headache, feels like she has pins and needles. Was started on steroids, and antibiotics. She has seen OBGYN having pelvic US, is getting MRI next week for work up of MS. She is still losing weight, not eating much. She feels like when she needs to have BM pain on RLQ. She is on Bentyl helps with abd pain, taking omeprazole as needed. Stools are mostly diarrhea, has abdominal bloating. Lost 7 lbs since last seen. Denies blood in stool. Still some dysphagia with pills. She has to have BM shortly after eating this a new symptom for her. Has nausea when needing to have BM, then improves. Epigastric pain 45 year old that presents for several upper GI symptoms. She has increased stress due to her father passing away. She has had dysphagia, epigastric pain and lots of burning. She is not taking medications. Recently had appt with pcp and was noted to have elevated liver enzymes. She has + autoimmune markers. RUQ pain before BM. Bowel movements more on constipation side. Father one month ago. Weight loss, has lost 6 lbs over the past 2 weeks. IBS 44 year old irma brooks that presents for IBS. Family history of UC and Crohn's disease. Denies tob, rare ETOH. Anxiety triggers diarrhea, will start with diarrhea immediately after anxiety trigger. She also reports having constipation reports that stools are shaped like triangles, and other abnormal shapes. Some blood in stool, reports having hemorrhoids. Lower abdominal pain after bowel movement. Nauseated 15-20 minutes after bowel movement. When needs to have bowel movement will feel diaphoretic and dizzy. Weight stable. Denies UGI sx. Is on Elavil at bedtime, has been on for several years. Takes metamucil daily. Some back pain that radiates to right groin that gets better with bowel movements. Has had colonoscopies in late and 2004 only showed inflammation in colon from gastroenteritis. Functional Status Date Functional Assessmen t No Information Instructions Date Instruction Additional Infor nima We are ordering a ba rium swallow, our office will call with the results when they are availableFurther recommendations to follow when the results are availableTake omeprazole daily Related to Dysphagia, unspecified type Obtain SBC to rule o ut small bowel problems especially Crohn'sIf negative HIDA with EF to check Gall Bladder functionStart pancreatic enzymes Creon 36 unit (one with meals and large snacks)FODMAP list given for food that may cause symptoms of bloating and pain Related to Abdominal bloating See above Related to Irrit able bowel syndrome, unspecified type See above Related to FH: C rohn's disease See above Related to Gener alized abdominal pain Handout use dicyclomine as n eededstart night time medications Related to Generalized abdominal pain We are getting a small bowel ser ies Related to Abnormal finding on GI tract imaging monitor weight Related to Weigh t loss Take the Xifaxan Related to Abdo yadira bloating Start taking the ami triptyline at bedtimeContinue with probiotics dailyFollow the FODMAP dietFollow up in 6-[address] Castellanos Related to Irritable bowel syndrome with both constipation and diarrhea Continue to monitor your weight at home Related to Weight loss Continue to take the Bentyl as neededTake omeprazole as neededTry the WHOLE 30 dietFollow up in 6 months, or sooner for problems Related to Generalized abdominal pain Take the Xifaxan 1 p ill 3 times daily for 2 weeksCall the office for any problems Related to Irritable bowel syndrome with both constipation and diarrhea as above Related to Weigh t loss as above Related to Gener alized abdominal pain We are checking more labs and getting an ultrasound, our office will contact you with the results Related to Elevated liver enzymes We are getting you s cheduled for an EGD this will allow the doctor to examine your esophagus and stomachTake the omeprazole once daily 30 minutes before your 1st meal of the dayFurther recommendations to follow after the procedure Related to Other dysphagia use the cream for he morrhoids, use twice daily for 2 weeks Related to Other hemorrhoids Continue to avoid tr iggers for your IBSFollow up in 6 months or sooner Related to Irritable bowel syndrome with both constipation and diarrhea use the Bentyl as needed Related to Generalized abdominal pain Assessments Type Assessment Date No Information Patient Care Teams Name Effective Dates (start - stop) Status Members No Information
--- OUTSIDE RECORDS SUMMARY | 2024-11-04 10:07 | XMS_ITS | Encounter Summary ---
Author Organization [facility] Address [address] [place] [address] Care Team Providers Care Engineer Intern Name Role Phone William Bradley MD Primary Care Provider William Bradley MD Primary Care Provider Erik Reed MD Unavailable Abebe Moreau MD Unavailable [phone] Kanu Bustos MD Unavailable Karly Villarreal MD Unavailable Boogie Reilly MD Unavailable Encounter Details Date Type Department Care Team (Late st Contact Info) Description 03/05/2024 E-Visit [facility] Pulmonary [place] [address] [facility] [address] [place] [address] Abebe Moreau MD [address] [facility] [place] [address] [place] [address] Side effects/surgery Social History Tobacco Use Types Packs/Day Years Used Date Smoking Tobacco: Former Cigarettes 0.5 17 1 5 - 2011 Vaping Smokeless Tobacco: Never Alcohol Use Standard Drinks/Week Comments Yes 5 (1 standard drink = 0.6 oz pur e alcohol) AUDIT-C Answer Date Recorded Q1: How often do you have a drink containing alcohol? Never 01/08/2024 Q2: How many drinks containi ng alcohol do you have on a typical day when you are drinking? Patient does not drink Q3: How often do you have si x or more drinks on one occasion? Never 01/08/2024 PHQ-2 Answer Date Recorded PHQ-2 Total Score (If total score is 3 or more points, staff should administer the PHQ-9) 0 10/30/2022 Personal Safety Answer Date Recorded Have you ever been in or are you currently in a harmful physical or emotional relationship or is someone making you feel afraid or unsafe? 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 Not on file Not on file documented as of this encounter Plan of Treatment Not on file documented as of this encounter Visit Diagnoses Not on filedocumented in this encounter Care Teams Engineer Intern Relationship Specialty Start Date End Date William Bradley MD PCP - General Family Medicine 04/25/23 05/11/24 William Bradley MD PCP - General Family Medicine 05/12/24 Erik Reed MD [address] [place] [address] Referring Physician Interventional Cardiology 09/21/24 Abebe Moreau MD [address] [facility] [address] [place] [address] Consulting Physician Pulmonary Disease 09/21/24 Kanu Bustos MD [address] [facility] [address] [place] [address] Consulting Physician Internal Medicine 09/21/24 [place] [address] [facility] [address] [place] [address] Consulting Physician Rheumatology 09/21/24 Boogie Reilly MD [address] [id number] Referring Physician Hematology and Oncology 09/21/24 documented as of this encounter
--- OUTSIDE RECORDS SUMMARY | 2024-11-04 10:07 | XMS_ITS ---
Author Organization [facility] Address [address] [place] [address] Care Team Providers Care Taper Machine Name Role Phone Uri, Nini Primary Care Provider Unavail able Radha Lewis Unavailable [phone] [facility], Provider Unavailable Unavailab le Allergies Allergen (clinical drug ingredient) Drug/Non Drug Allergy documented on EMR Reaction Allergy Type Onset Date Status amoxicillin / clavulanate Augmentin hives Drug Allergy Active meperidine Demerol hives Drug Allergy Active nitrofurantoin Macrodantin hives Drug Allergy Active Penicillin shortness of breath Drug Allergy Active REASON FOR VISIT [facility] To [facility] Conversion Encounter Medications Medication SIG (Take, [...] Active Encounters Encounter Location Date Provider Diagnosis [facility] [address] [place] [address] 02/29/2024 Provider [facility]Migration Plan Of Treatment No Information Progress Notes * Rae DEWITTB: (49 yo F)Acc No.[id number]:02/29/2024 Patient: Carmelita Petra RUDD Provider: Naomi Chase :1975 A ge:48 Y S ex:Female Date:02/29/2024 [facility] Pcp:Nini Grewal Subjective: * Chief Complaints: * 1 . [facility] Conversion Encounter. * Medical History: * Medications: [...] * Procedure Codes: * Electronic signature of Isabel MARADIAGA-Migration on 11/04/2024 at 10:07 AM RECOOPERER Sign off status: Pending * Provider: Naomi Chase Date: 02/29/2024 Generated for Thomas garner/Benjy/Emile on: 11/04/2024 10:07 AM RECOOPERER
--- OUTSIDE RECORDS SUMMARY | 2024-11-04 10:07 | XMS_ITS | Encounter Summary ---
Author Organization [facility] Address [address] [place] [address] Care Team Providers Care Registered Sales Assistant Name Role Phone Blake Herbert MD Primary Care Provider [phone] Encounter Details Date Type Department Care Team (Late st Contact Info) Description 03/23/2022 Lab Requisition [facility] [address] [facility] [place] [id number] Jefry Smith MD [address] [facility] [address] [place] [address] Social History Tobacco Use Types Packs/Day Years Used Date Smoking Tobacco: Never Assessed Alcohol Use Standard Drinks/Week Comments Yes 0.8 (1 standard drink = 0.6 oz p ure alcohol) Sex and Gender Information Value Date Recorded Sex Assigned at Not on file Gender Identity Not on file Sexual Orientation Not on file documented as of this encounter Plan of Treatment Not on file documented as of this encounter Procedures Procedure Name Priority Date/Time Associated Diagnosis Comments DERMATOPATHOLOGY Routine 03/23/2022 12:0 0 AM CDT documented in this encounter Results * DERMATOPATHOLOGY (03/23/2022 12:00 AM CDT) Case Report Dermatopathology Report Case: [id number] Authorizing Provider: Jefry Smith MD Collected: 03/23/2022 12:00 AM Ordering Location: [facility] Received: 03/23/2022 04:49 PM Pathologist: Mary Arcos MD Specimen: Skin, right shoulder 2 12:18 PM CDT DERMATOPATHOLOGY LABORATORY Final Diagnosis Specimen A. SKIN, right shoulder: SEBORRHEIC KERATOSIS, IRRITATED AND INFLAMED (L82.0) 2 12:18 PM CDT DERMATOPATHOLOGY LABORATORY Clinical History Nevus vs. SK vs. Other. Path# [id number] 2 12:18 PM CDT DERMATOPATHOLOGY LABORATORY Gross Description Specimen A: Received is one formalin filled container labeled with the patient's name and designated right shoulder. The specimen consists of a shave biopsy measuring [id number]. Jar 0. 12:18 PM CDT DERMATOPATHOLOGY LABORATORY Microscopic Description Specimen A. SKIN, right shoulder: Sections show acanthosis, papillomatosis, hyperkeratosis, and squamous eddies. There is a lymphohistiocytic infiltrate within the papillary dermis. 12:18 PM CDT DERMATOPATHOLOGY LABORATORY Disclaimer An external and internal positive and negative controls are appropriate for the histochemical, immunohistochemical and immunofluorescence stain(s) in this case (if any), except where stated explicitly. The performance characteristics of the stain(s) cited in this report were developed and its performance characteristic determined by the Dermatopathology Laboratory at [facility], directed by Dr. Micha Gilbert. These tests need not be, and therefore are not, approved by the [place] Food and Drug Administration. The tests are used for clinical purposes. Billing Codes Specimen Charges Stain Charges 21970 1 2 12:18 PM CDT DERMATOPATHOLOGY LABORATORY Embedded Images 2 12:18 PM CDT DERMATOPATHOLOGY LABORATORY Pathology/Cytolog y TISSUE SPECIMEN FROM SKIN / Unknown 03/23/2022 03/23/2022 4:49 PM CDT Jefry Smith MD LAB - PATHOLOGY/CYTO LOGY ORDERABLES DERMATOPATHOLOGY LABORATORY [facility] - Department of Dermatology [address] [phone] documented in this encounter Visit Diagnoses Not on filedocumented in this encounter Care Teams Registered Sales Assistant Relationship Specialty Start Date End Date Blake Herbert MD [address] [place] [id number] PCP - General 03/10/09 documented as of this encounter
--- OUTSIDE RECORDS SUMMARY | 2024-11-04 10:07 | XMS_ITS | Patient Health Summary ---
Author Organization [facility] Address [address] [place] [address] Care Team Providers Care Communications Attendant Name Role Phone Blake Herbert MD Primary Care Provider [phone] Note from [facility],non-owned Affiliates and Associated Physician Practices is amultiple site organization consisting of ambulatory clinics and hospital sitesin [place], [place], [place] and [place]. This disclosure is being madepursuant to the Care Everywhere program and may not contain all information available regarding this patient. Last updated 18.[facility] Allergies * Adhesive Sensitivity(Unknown) -High Criticality * Contrast-Iodinated Agents For Ct/Other(Skin Reactions) * Demerol(Skin Reactions) * Nitrofurantoin(Other,Unknown,Rash) -Medium Criticality Medications * Be aware that medications may not be up to date on this document. Alwaysverify current medications with the patient. * Magnesium Glycinate 100 MG CAPS Take 100 mg by mouth once daily * atorvastatin (Lipitor) 20 MG tablet(Started 11/12/2022) * busPIRone (Buspar) 7.5 MG tablet(Started 12/25/2022) TAKE 1 & 1/2 (ONE & ONE-HALF) TABLETS BY MOUTH TWICE DAILY * vitamin D3 (Cholecalciferol) 125 MCG (5000 UT) capsule Take 1 (one) capsule by mouth once daily * vitamin B-12 (Cyanocobalamin) 1000 MCG tablet Take 1 (one) tablet by mouth once daily * cyclobenzaprine (Flexeril) 5 MG tablet(Started 04/05/2023) Take 1 (one) tablet by mouth 3 times daily * dicyclomine (Bentyl) 10 MG capsule(Started 03/01/2022) Take 1 (one) capsule by mouth as needed * fluconazole (Diflucan) 200 MG tablet(Started 12/21/2022) Take 1 (one) tablet by mouth as needed * levothyroxine (Synthroid) 25 MCG tablet(Started 04/11/2023) TAKE 1 TABLET BY MOUTH ONCE DAILY FOR 90 DAYS * neomycin (Mycifradin) 500 MG tablet(Started 12/14/2022) TAKE 1 TABLET BY MOUTH TWICE DAILY FOR 14 DAYS * Xifaxan 550 MG tablet(Started 05/21/2023) TAKE 1 TABLET BY MOUTH THREE TIMES DAILY FOR 14 DAYS * propranolol ER 24hr (Inderal LA) 60 MG capsule(Started 08/12/2023) Take 1 capsule by mouth once daily 3 refills by 08/11/2024 Active Problems Problem Noted Date Diagnosed Date [...] Mass Index 30.71 05/27/2023 10:45 AM CDT Procedures * CT CHEST WO CONTRAST(Performed 07/05/2022) Performed for Tracheal deviation * DERMATOPATHOLOGY(Performed 03/23/2022) * CULTURE URINE COMPREHENSIVE(Performed 07/28/2009) * URINALYSIS - POINT OF CARE (AMB) [facility](Performed 09/16/1998) Results * CT CHEST WO CONTRAST (07/05/2022 1:11 PM CDT) Anatomical Region Laterality Modality Chest Computed Tomogra phy 07/05/2022 1:15 PM CDT Impressions 07/05/2022 2:11 PM CDT IMPRESSION 1. PRESUMED ENLARGED LEFT THYROID GOITER WITH DEVIATION OF TRACHEA TO THE RIGHT. FURTHER EVALUATION WITH ULTRASOUND WOULD BE RECOMMENDED. 2. BILATERAL ATELECTASIS. 3. RIGHT RENAL CYST WITH CALCIFICATION. > Interpreting Provider: David Torres MD on 07/05/2022 2:11 PM Narrative 07/05/2022 2:[address] THORAX NONCONTRAST CLINICAL INDICATION: Shortness of breath. Tracheal deviation. TECHNIQUE: Axial images through thorax noncontrast. COMPARISON: None. FINDINGS There is a lobular presumed enlarged left thyroid lobe extending into the thoracic inlet. For instance, on series 4 image 65, this measures at least 3.60 x 3.3 cm x 6.74 cm (cephalocaudad). This deviates the trachea to the right. Heterogeneous appearance into the left lobe of the thyroid could represent nodules. This would be better evaluated with ultrasound. The unenhanced thoracic aorta is unremarkable. There is no pericardial effusion. There is mild right lower lobe atelectasis and left lower lobe atelectasis. No pleural effusion or pneumothorax is present. No pulmonary mass is demonstrated. There is no bulky axillary or mediastinal lymphadenopathy. There are multilevel degenerative changes of the spine. Images through the upper abdomen show a low-attenuation cyst on the right measuring 1.36 cm with some calcification in its dependent portion. Procedure Note David Torres MD - 07/05/2022 CT THORAX NONCONTRAST CLINICAL INDICATION: Shortness of breath. Tracheal deviation. TECHNIQUE: Axial images through thorax noncontrast. COMPARISON: None. FINDINGS There is a lobular presumed enlarged left thyroid lobe extending intothe thoracic inlet. For instance, on series 4 image 65, this measures atleast 3.60 x 3.3 cm x 6.74 cm (cephalocaudad). This deviates the trachea tothe right. Heterogeneous appearance into the left lobe of the thyroid could represent nodules. This would be better evaluated with ultrasound. The unenhanced thoracic aorta is unremarkable. There is no pericardial effusion. There is mild right lower lobe atelectasis and left lower lobe atelectasis. No pleural effusion or pneumothorax is present. Nopulmonary mass is demonstrated. There is no bulky axillary or mediastinal lymphadenopathy. There are multilevel degenerative changes of the spine. Images through the upper abdomen show a low-attenuation cyst on theright measuring 1.36 cm with some calcification in its dependent portion. IMPRESSION 1. PRESUMED ENLARGED LEFT THYROID GOITER WITH DEVIATION OF TRACHEA TOTHE RIGHT. FURTHER EVALUATION WITH ULTRASOUND WOULD BE RECOMMENDED. 2. BILATERAL ATELECTASIS. 3. RIGHT RENAL CYST WITH CALCIFICATION. > Interpreting Provider: David Torres MD on 07/05/2022 2:11 PM Lance Castellanos MD CT ORDERABLES * DERMATOPATHOLOGY (03/23/2022 12:00 AM CDT) Case Report Dermatopathology Report Case: [id number] Authorizing Provider: Jefry Smith MD Collected: 03/23/2022 12:00 AM Ordering Location: [facility] Lab Received: 03/23/2022 04:49 PM Pathologist: Mary Arcos MD Specimen: Skin, right shoulder 2 12:18 PM CDT DERMATOPATHOLOGY LABORATORY Final Diagnosis Specimen A. SKIN, right shoulder: SEBORRHEIC KERATOSIS, IRRITATED AND INFLAMED (L82.0) 2 12:18 PM CDT DERMATOPATHOLOGY LABORATORY Clinical History Nevus vs. SK vs. Other. Path# [id number] 2 12:18 PM CDT DERMATOPATHOLOGY LABORATORY Gross Description Specimen A: Received is one formalin filled container labeled with the patient's name and designated right shoulder. The specimen consists of a shave biopsy measuring [id number]. Jar 0. 2 12:18 PM CDT DERMATOPATHOLOGY LABORATORY Microscopic Description Specimen A. SKIN, right shoulder: Sections show acanthosis, papillomatosis, hyperkeratosis, and squamous eddies. There is a lymphohistiocytic infiltrate within the papillary dermis. 2 12:18 PM CDT DERMATOPATHOLOGY LABORATORY Disclaimer An external and internal positive and negative controls are appropriate for the histochemical, immunohistochemical and immunofluorescence stain(s) in this case (if any), except where stated explicitly. The performance characteristics of the stain(s) cited in this report were developed and its performance characteristic determined by the Dermatopathology Laboratory at [facility], directed by Dr. Micha Gilbert. These tests need not be, and therefore are not, approved by the [place] Food and Drug Administration. The tests are used for clinical purposes. Billing Codes Specimen Charges Stain Charges 34254 1 2 12:18 PM CDT DERMATOPATHOLOGY LABORATORY Embedded Images 2 12:18 PM CDT DERMATOPATHOLOGY LABORATORY Pathology/Cytolog y TISSUE SPECIMEN FROM SKIN / Unknown 03/23/2022 03/23/2022 4:49 PM CDT Jefry Smith MD LAB - PATHOLOGY/CYTO LOGY ORDERABLES DERMATOPATHOLOGY LABORATORY [facility] - Department of Dermatology [facility] Medicine [address] [place] [address], [address] [phone] * CULTURE URINE COMPREHENSIVE (07/28/2009 11:05 AM CLEANING VALIDATION CONSULTANT) Culture SEE NOTE [facility] ([facility]) Comment: CULTURE, URINE, SPECIAL MICRO NUMBER: [id number] TEST STATUS: FINAL SPECIMEN SOURCE: URINE (CATHETER COLLECTED) SPECIMEN COMMENTS: ADEQUATE RESULT: NO GROWTH REPORT COMMENT: PREFERRED LAB:->[facility] Test Performed at: [facility] [address] [place] [id number] CESAR GONZALEZ MD URINE SPECIMEN COLLECTION, CATHETERIZED / Unknown 07/28/2009 11:05 AM CLEANING VALIDATION CONSULTANT 07/28/2009 11:03 PM CLEANING VALIDATION CONSULTANT Narrative [facility] ([facility]) - 07/31/2009 10:00 AM CLEANING VALIDATION CONSULTANT Preferred Lab:->[facility] Evan Marsh MD LAB - MICROBIOLOGY O RDERABLES [facility] ([facility]) * URINALYSIS - POINT OF CARE (AMB) [facility] (09/16/1998 12:00 AM CLEANING VALIDATION CONSULTANT) Glucose UA neg [facility] Bilirubin UA POCT neg [facility] Ketones UA POCT neg [facility] Specific [place] UA 1.015 [facility] Blood Urine POCT [facility] pH UA 7.0 [facility] Protein UA neg [facility] Urobilinogen UA neg [facility] Nitrite UA neg [facility] WBC UA neg [facility] Urine specimen (specimen) 09/16/1998 [facility]ly [facility] Delfina Marsh MD LAB - POINT OF CARE ORDERABLES [facility] Care Teams Communications Attendant Relationship Specialty Start Date End Date Blake Herbert MD [address] [place] [address] PCP - General 03/10/09
--- OUTSIDE RECORDS SUMMARY | 2024-11-04 10:07 | XMS_ITS | Clinical Summary ---
Author Organization [facility] Address [address] [place] [address] Phone Care Team Providers Care Rubber Boots And Shoes Repairer Name Role Phone William Bradley MD Primary Care Provider [phone] Boogie Reilly MD Unavailable [phone] Allergies Active Allergy Reactions Criticality Noted Date Comments Meperidine Anaphylaxis,Hives High 10/18/2022 Nitrofurantoin Hives,Other (see Comments),Rash,Unknown Medium 01/01/2019 Wound Dressing Adhesive Rash High 01/01/2019 Surgical tap, Medications atorvastatin (LIPITOR) 20 MG Tablet Take 1 Tablet by mouth daily. 3 Active propranolol (INDERAL LA) 60 MG CAPSULE SR 24 HR Take 60 mg by mouth. 3 Active linaclotide (LINZESS) 145 MCG Capsule Take 145 mcg by mouth. 3 Active minoxidil (LONITEN) 2.5 MG Tablet TAKE 1/4 (ONE-FOURTH) TABLET BY MOUTH ONCE DAILY Active spironolactone (ALDACTONE) 100 MG Tablet Take 100 mg by mouth daily. Active Magnesium Gluconate 550 MG Tablet Take 30 mg by mouth. Active other by Other route. Catalyn vitamin Active [place] 3 1000 MG Capsule Take 2 g by mouth. Active PREMIUM NOTE INTEREST CALCULATOR CLERK Thyroid 30 MG Tablet 4 Active Cholecalciferol (D 5000) 125 mcg Capsule Take 5,000 Units by mouth. Active other by Other route. Ortho spore IG Active other by Other route. Christine colon CLR Active OIL OF [place] PO Take by mouth. Active Cetirizine HCl (ZYRTEC PO) Take by mouth. Active predniSONE (DELTASONE) 10 MG Tablet Take 10 mg by mouth daily. 4 Active atovaquone (MEPRON) 750 MG/5ML Suspension TAKE 10 ML BY MOUTH ONCE DAILY Active metoprolol tartrate (LOPRESSOR) 25 MG Tablet 4 Active ondansetron (ZOFRAN-ODT) 4 MG TABLET DISPERSIBLE DISSOLVE 1 TABLET IN MOUTH 4 TIMES DAILY NEEDED Active cyclobenzaprine (FLEXERIL) 5 MG Tablet Take 1 tablet 3 times a day by oral route as needed for 30 days. 4 Active Restasis 0.05 % Emulsion INSTILL 1 DROP INTO EACH EYE TWICE DAILY Active nystatin (MYCOSTATIN) 060116 UNIT/ML Suspension Take 5 mL 4 times a day by oral route for 7 days. Active nystatin (MYCOSTATIN) 313201 UNIT/GM Cream 4 Active Omeprazole 20 MG Tablet Delayed Response Take by mouth. Active Active Problems Problem Noted Date Diagnosed Date Coagulopathy 02/13/2024 Encounters Date Type Department Care Team Description 08/27/2024 11:00 AM FAMILY RESOURCE MANAGEMENT SPECIALIST Office Visit [facility] [address] [address] Boogie Reilly MD Coagulopathy (HCC) (Primary Dx) 08/27/2024 Travel from Last 3 Months Immunizations Immunization Administration Dates Next Due Covid-19, Mrna, Lnp-s, Pf, 30 Mcg/0.3 Ml Dose (P fizer) 01/06/2021,12/15/2020 TDAP Vaccine 12/17/2020 Family History Medical History Relation Name Comments Arthritis Father Cancer Father thyroid Cataract Father High Cholesterol Father Hypertension Father Other-comment Father scleroderma, r aynauds, ILD Arthritis Mother Cataract Mother Diabetes Mother Heart Attack Mother High Cholesterol Mother Hypertension Mother Hypothyroidism Mother Other-comment Mother ASRD Relation Name Status Comments Father Mother Social History Tobacco Use Types Packs/Day Years Used Date Smoking Tobacco: Former Cigarettes Q uit: 2012 Smokeless Tobacco: Never Tobacco Cessation:Counseling Given: Not Answered Alcohol Use Standard Drinks/Week Comments Never 0 (1 standard drink = 0.6 oz pur e alcohol) Comments Unknown Sex and Gender Information Value Date Recorded Sex Assigned at Not on file Legal Sex Female 12:29 PM CDT Gender Identity Not on file Sexual Orientation Not on file Last Filed Vital Signs Vital Sign Reading Time Taken Comments Blood Pressure 134/80 08/27/2024 11:00 AM FAMILY RESOURCE MANAGEMENT SPECIALIST Pulse 76 08/27/2024 11:00 AM FAMILY RESOURCE MANAGEMENT SPECIALIST Temperature 36.6 C (97.8 F) 08/27/2024 11:00 AM FAMILY RESOURCE MANAGEMENT SPECIALIST Respiratory Rate 18 08/27/2024 11:00 AM FAMILY RESOURCE MANAGEMENT SPECIALIST Oxygen Saturation 99% 08/27/2024 11:00 AM FAMILY RESOURCE MANAGEMENT SPECIALIST Inhaled Oxygen Concentration - - Weight 92.7 kg (204 lb 4.8 oz) 08/27/2024 11:00 AM FAMILY RESOURCE MANAGEMENT SPECIALIST Height 171.5 cm (5' 7.5 ) 08/27/2024 11:00 AM CS T Body Mass Index 31.53 08/27/2024 11:00 AM FAMILY RESOURCE MANAGEMENT SPECIALIST Plan of Treatment Upcoming Encounters Date Type Department Care Team (Late st Contact Info) Description 02/25/2025 11:00 AM CDT Lab [facility] [address] [phone] Lab, [facility] 02/25/2025 11:15 AM CDT Office Visit [facility] [address] [phone] Boogie Reilly MD [address] [place] [address] [place] [phone] Health Maintenance Due Date Last Done Comments Hepatitis C Virus (HCV) Screening 1975 Mammogram 1975 Hepatitis B Immunization (1 of 3 - 19+ 3-dose series) 1994 Pap Smear 1996 Cervical Cancer Screening (CCS) 2005 HPV/Cotest 2005 Discussion re Starting/Frequency of Mammograms 2015 Influenza Immunization (#1) 2024 07/16/2019 SARS-COV-2 Immunization ( season) 2024 01/06/2021, 12/15/2020 Td Immunization Every 10 Years (Adults With 1 Tdap) 12/17/2030 12/17/2020 Colonoscopy 01/07/2034 01/08/2024 Colorectal Cancer Screening 01/07/2034 Respiratory Syncytial Virus (RSV) Immunization (Adult) (1 - 1-dose 75+ series) 2050 01/08/2024 TdaP Immunization Discontinued 12/17/2020 Meningococcal Immunization (ACWY) Aged Out No longer eligible based on patient's age to complete this topic Pneumococcal Immunization Combined Aged Out No longer eligible based on patient's age to complete this topic Rotavirus Immunization Aged Out No lo nger eligible based on patient's age to complete this topic Insurance [facility] Care Teams Rubber Boots And Shoes Repairer Relationship Specialty Start Date End Date William Bradley MD [address] [place] [id number] PCP - General Family Medicine 01/13/24 Boogie Reilly MD [address] [place] [phone] Consulting Physician Oncology 01/13/24
--- OUTSIDE RECORDS SUMMARY | 2024-11-04 10:07 | XMS_ITS | Data Portability ---
Author Organization [facility] Address [address] [place] [address] Assessment No assessment recorded. Plan of Treatment Reminders Order Date Submit Date Provider Last Modified By Organization Details Last Modified Time Details Appointments ANY 2024 08:45A Huber Reed MD Not available Not available Not available ANY 2024 08:00A Huber Bradley MD Not available Not available Not available Lab lipid panel, serum 2024 025 [facility], [address] [place] [address] [place], [address], 10/07/2024 12:41:07 TSH, serum or plasma [address] Outpatient Lab, [address] [place] [address] [place], [address], 10/28/2024 08:11:49 CMP, serum or plasma 2024 025 [facility], [address] [place] [address] [place], [address], 10/07/2024 12:41:07 uric acid, serum or plasma [address] Outpatient Lab, [address] [place] [address] [place], [address], 10/28/2024 08:11:48 HbA1c (hemoglob in A1c), blood 2023 024 [facility], [address], [address], [place], [address], 08/11/2024 12:38:46 vitamin D, 25-hydrox y, total, serum 2023 024 [facility], [address], [address], [place], [address], 08/11/2024 12:38:49 potassium , serum or plasma 2023 024 [facility], [address], [address], [place], [address], 08/11/2024 12:38:44 TSH, ultra-sen sitive, serum 2023 024 [facility], [address], [address], [place], [address], 08/11/2024 12:38:47 Referral hand surgeon referral 2024 025 ATHBALDEV Hinds MD, [address], [address], [place], [address], 10/26/2024 11:35:[address] referral 2024 025 ATHBALDEV Fisher MD, [address] [facility], [address], [place], [address], 10/13/2024 12:23:10 gastroent erologist referral 2023 024 CRICKET Cardoza MD, [address] [facility] [address], [address], [place], [address], 09/01/2024 14:35:23 cardiolog ist referral 2023 024 CRICKET Young MD, [address] [facility], [address], [place], [address], 08/14/2024 15:55:19 dermatolo gist referral 2023 024 [facility]ICK[facility], [address] [facility] , [place], [address], 08/14/2024 15:40:32 otolaryng ologist referral 2023 024 CRICKET Hutchinson MD, [address], [place], [address], 07/15/2024 13:31:28 pulmonolo gist referral 2023 024 CRICKET Pirece DO, [address] [facility], [address], [place], [address], 07/15/2024 13:39:13 Procedures None recorded. Surgeries None recorded. Imaging CT, sinuses, w/o contrast [address] Patient Access Centralized Scheduling, Centralized Scheduling, [address] [facility] , [place], [address], 08/24/2024 12:58:37 Medication Orders triamcino lone acetonide 40 mg/mL suspensio n for injection [address] [facility] [address] [facility], [address] [place], [address], 10/15/2024 18:41:58 famotidin e 20 mg tablet [address] [facility], [address] [place], [address], 09/01/2024 13:42:41 sucralfat e 1 gram tablet [address] [facility], [address] [place], [address], 09/01/2024 13:42:41 nystatin 100,000 unit/mL oral suspensio n [address] [facility], [address] [place], [address], 08/10/2024 10:10:55 [place] Thyroid 30 mg tablet [address] [facility], [address] [place], [address], 08/10/2024 10:10:55 atorvasta tin 20 mg tablet [address] [facility], [address] [place], [address], 07/10/2024 10:05:52 [place] Thyroid 60 mg tablet [address] [facility], [facility] [place], [address], 07/10/2024 10:05:52 Patient TargetsNo targets recorded. Patient InstructionsNo instructions recorded. Reason for Referral Design Maker Referral fo r Chronic recurrent sinusitis Referring Physician: Family Alejandra Arango, Encounter Date: 07/10/2024 Air Transport Professionals Referral for O bstructive sleep apnea syndrome Referring Physician: Family Alejandra Arango, Encounter Date: 07/10/2024 Tour Bus Driver Referral for S ebaceous cyst of skin Referring Physician: Family Alejandra Arango, Encounter Date: 08/10/2024 Mail Handlers Supervisor Referral for At herosclerosis of coronary artery without angina pectoris Referring Physician: Family Alejandra Arango, Encounter Date: 08/10/2024 Metal Fabricator Apprentice Referral for Irritable bowel syndrome with diarrhea Referring Physician: Family Alejandra Arango, Encounter Date: 09/01/2024 Neurologist Referral for Pro lapsed cervical intervertebral disc Referring Physician: Family Alejandra Arango, Encounter Date: 10/07/2024 Hand Surgeon Referral for Os 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 Referring Physician: William Bradley, [facility], Encounter Date: 10/15/2024 Results Created Date Observation Date Name Description Value Unit Range Abnormal Flag Note LastModifiedBy Organization Detail LastModifiedTime 08/04/2008/04/2024 CBC WITH DIFF WBC 7.95 x10'3 /uL 4.5-11 .0 Not Available [facility] (Lab) [address], [place], [address], 08/04/2024 15:47:57 08/04/2008/04/2024 CBC WITH DIFF RBC 4.02 x10'6 /uL 4.20-5 .40 low Not Available [facility] (Lab) [address], [place], [address], 08/04/2024 15:47:57 08/04/2008/04/2024 CBC WITH DIFF hemoglobin 13.2 g/dL 12.0-1 6.0 Not Available [facility] (Lab) [address], [place], [address], 08/04/2024 15:47:57 08/04/2008/04/2024 CBC WITH DIFF hematocrit 39.9 % 38.0-4 8.0 Not Available [facility] (Lab) [address], [place], [address], 08/04/2024 15:47:57 08/04/2008/04/2024 CBC WITH DIFF MCV 99.3 fL 81.0-9 9.0 high Not Available [facility] (Lab) [address], [place], [address], 08/04/2024 15:47:57 08/04/2008/0408/04/2024 CBC WITH DIFF MCH 32.8 pg 27.0-3 1.0 high Not Available [facility] (Lab) [place], [address], 08/04/2024 15:47:57 08/04/20 24 08/04/2024 CBC WITH DIFF MCHC 33.1 g/dL 32.0-3 6.0 Not Available [facility] (Lab) [address], [place], [address], 08/04/2024 15:47:57 08/04/2008/04/2024 CBC WITH DIFF RDW 12.1 % 11.5-1 4.5 Not Available [facility] (Lab) [place], [address], 08/04/2024 15:47:57 08/04/20 24 08/04/2024 CBC WITH DIFF platelet count 179 x10'3 /uL 130-40 0 Not Available [facility] (Lab) [address], [place], [address], 08/04/2024 15:47:57 08/04/20 24 08/04/2024 CBC WITH DIFF MPV 10.6 fL 9.3-12 .2 Not Available [facility] (Lab) [address], [place], [address], 08/04/2024 15:47:57 08/04/20 24 08/04/2024 CBC WITH DIFF diff type AUTOMA KAY DIFFER ENTIAL Not Available [facility] (Lab) [address], [place], [address], 08/04/2024 15:47:57 08/04/20 24 08/04/2024 CBC WITH DIFF neutrophils 68.1 % Not Available [facility] (Lab) [address], [place], [address], 08/04/2024 15:47:57 08/04/20 24 08/04/2024 CBC WITH DIFF lymphocytes 21.3 % Not Available [facility] (Lab) [address], [place], [address], 08/04/2024 15:47:57 08/04/2008/04/2024 CBC WITH DIFF monocytes 7.9 % Not Available [facility] (Lab) [address], [place], [address], 08/04/2024 15:47:57 08/04/2008/04/2024 CBC WITH DIFF eosinophils 1.9 % Not Available [facility] (Lab) [address], [place], [address], 08/04/2024 15:47:57 08/04/2008/04/2024 CBC WITH DIFF basophils 0.3 % Not Available [facility] (Lab) [address], [place], [address], 08/04/2024 15:47:57 08/04/2008/04/2024 CBC WITH DIFF immature granulocytes 0.5 % Not Available [facility] (Lab) [address], [place], [address], 08/04/2024 15:47:57 08/04/20 24 08/04/2024 CBC WITH DIFF abs. neutrophils 5.42 x10'3 /uL 1.80-7 .70 Not Available [facility] (Lab) [address], [place], [address], 08/04/2024 15:47:57 08/04/20 24 08/04/2024 CBC WITH DIFF abs. lymphocytes 1.69 x10'3 /uL 1.00-4 .80 Not Available [facility] (Lab) [place], [address], 08/04/2024 15:47:57 08/04/20 24 08/04/2024 CBC WITH DIFF abs. monocytes 0.63 x10'3 /uL 0.24-0 .86 Not Available [facility] (Lab) [address], [place], [address], 08/04/2024 15:47:57 08/04/20 24 08/04/2024 CBC WITH DIFF abs. eosinophils 0.15 x10'3 /uL 0.04-0 .36 Not Available [facility] (Lab) [place], [address], 08/04/2024 15:47:57 08/04/20 24 08/04/2024 CBC WITH DIFF abs. basophils 0.02 x10'3 /uL 0.01-0 .08 Not Available [facility] (Lab) [address], [place], [address], 08/04/2024 15:47:57 08/04/20 24 08/04/2024 CBC WITH DIFF abs. immature grans 0.04 x10'3 /uL 0.00-0 .49 Not Available [facility] (Lab) [address], [place], [address], 08/04/2024 15:47:57 08/04/20 24 08/04/2024 IRON PROFI LE iron 69 mcg/d L 50.0-1 70.0 Not Available [facility] (Lab) [place], [address], 08/04/2024 16:17:13 08/04/20 24 08/04/2024 IRON PROFI LE iron binding cap 343 mcg/d L 250-45 0 Not Available [facility] (Lab) [place], [address], 08/04/2024 16:17:13 08/04/20 24 08/04/2024 IRON PROFI LE % iron saturation 20 % 20-55 Not Available [facility] (Lab) [address] [facility], [place], [address], 08/04/2024 16:17:13 08/04/20 24 08/04/2024 EDGAR TIN ferritin 38.3 NG/mL 8.0-38 8.0 Not Available [facility] (Lab) [place], [address], 08/04/2024 17:56:19 08/04/20 24 08/04/2024 FOLAT E folate 26.8 NG/mL 3.1-17 .5 high Not Available [facility] (Lab) [place], [address], 08/04/2024 17:56:21 08/04/20 24 08/04/2024 PLATE LET FUNCT ION ASSAY platelet function assay PLEASE SEE SCANNE D IMAGE IN EPIC NOTE: REFER TO [facility] REPOR T FOR INTER PRETI VE COMME NTS. [facility] [place], [place] [id number] [phone], CLIA [id number] Not Available [facility] (Lab) [place], [address], 08/04/2024 20:17:40 08/04/20 24 08/08/2024 INTRI NSIC FACTO R BLOCK ING AB intrinsic factor block Ab Negati ve Refer ence range : Negat terri For addit ional infor jael connelly refer to http: //[facility] lam.que stdia gnost ics.c om/fa q/IFA B (This link is being provi ded for infor марина larose/ educa tre l purpo ses only. ) Test Perfo rmed by [facility] , Betzy escalante, [facility], [address] [facility] , [facility], [place] Jacqui See M.D., Ph.D. , [facility] atori es [phone], CLIA [id number] Not Available [facility] (Lab) [address] [facility], [place], [address], 08/08/2024 17:23:57 08/04/2008/04/2024 Plate let funct ion.c ollag en + Adeno sine dipho sphat e induc ed and EPINE PHrin e induc ed panel - Blood platelet function.col lagen + adenosine diphosphate induced and epinephrine induced panel - blood PLEASE SEE SCANNE D IMAGE IN EPIC PLATE LET FUNCT ION ASSAY PLEAS E SEE SCANN ED IMAGE IN EPIC 08/04 7:17 PM [facility] Not Available Not Available 10/27/2024 14:49:19 08/04/2008/04/2024 Iron and Iron angelica ng capac ity panel - Serum or Plasm a iron [mass/volume ] in serum or plasma 69 text: 50.0 - 170.0 mcg/dL IRON 69 50.0 - 170.0 MCG/D L 08/04 3:17 PM [facility] Not Available Not Available 10/27/2024 14:49:19 08/04/20 24 08/04/2024 Iron and Iron angelica ng capac ity panel - Serum or Plasm a iron binding capacity [mass/volume ] in serum or plasma 343 text: 250 - 450 mcg/dL IRON ANGELICA NG CAPAC ITY 343 250 - 450 MCG/D L 08/04 3:17 PM [facility] Not Available Not Available 10/27/2024 14:49:19 08/04/20 24 08/04/2024 Iron and Iron angelica ng capac ity panel - Serum or Plasm a iron saturation [mass fraction] in serum or plasma 20 % low: 20%hig h: 55% IRON SATUR ATION 20 20 - 55 % 08/04 3:17 PM [facility] Not Available Not Available 10/27/2024 14:49:19 08/04/20 24 08/08/2024 Intri nsic facto r block ing Ab [Pres ence] in Serum intrinsic factor blocking Ab [presence] in serum Negati ve text: negati ve INTRI NSIC FACTO R BLOCK AB Negat terri Negat terri 08/08 4:23 PM [facility] Not Available Not Available 10/27/2024 14:49:19 08/04/20 24 08/04/2024 Folat e [Mass /volu me] in Serum or Plasm a folate [mass/volume ] in serum or plasma 26.8 text: 3.1 - 17.5 NG/mL high FOLAT E 26.8 (H) 3.1 - 17.5 NG/ML 08/04 4:56 PM [facility] Not Available Not Available 10/27/2024 14:49:19 08/04/20 24 08/04/2024 Folat e [Mass /volu me] in Serum or Plasm a interpretati on and review of laboratory results Abnorm al Not Available Not Available 14:49:19 08/04/20 24 08/04/2024 CBC W Auto Diffe bertrandti al panel - Blood leukocytes [#/volume] in blood by automated count 7.95 text: 4.5 - 11.0 x10'3/ uL WBC 7.95 4.5 - 11.0 x10'3 /uL 08/04 2:47 PM [facility] Not Available Not Available 10/27/2024 14:49:18 08/04/20 24 08/04/2024 CBC W Auto Diffe renti al panel - Blood erythrocytes [#/volume] in blood by automated count 4.02 text: 4.20 - 5.40 x10'6/ uL low RBC 4.02 (L) 4.20 - 5.40 x10'6 /uL 08/04 2:47 PM [facility] Not Available Not Available 10/27/2024 14:49:18 08/04/20 24 08/04/2024 CBC W Auto Diffe renti al panel - Blood hemoglobin [mass/volume ] in blood 13.2 text: 12.0 - 16.0 g/dL HGB 13.2 12.0 - 16.0 G/DL 08/04 2:47 PM [facility] Not Available Not Available 10/27/2024 14:49:18 08/04/20 24 08/04/2024 CBC W Auto Diffe renti al panel - Blood hematocrit [volume fraction] of blood 39.9 % low: 38%hig h: 48% HCT 39.9 38.0 - 48.0 % 08/04 2:47 PM [facility] Not Available Not Available 10/27/2024 14:49:18 08/04/20 24 08/04/2024 CBC W Auto Diffe renti al panel - Blood MCV [entitic volume] 99.3 text: 81.0 - 99.0 fL high MCV 99.3 (H) 81.0 - 99.0 FL 08/04 2:47 PM [facility] Not Available Not Available 10/27/2024 14:49:18 08/04/20 24 08/04/2024 CBC W Auto Diffe renti al panel - Blood MCH [entitic mass] 32.8 pg low: 27pghi gh: 31pg high MCH 32.8 (H) 27.0 - 31.0 PG 08/04 2:47 PM [facility] Not Available Not Available 10/27/2024 14:49:18 08/04/20 24 08/04/2024 CBC W Auto Diffe renti al panel - Blood MCHC [mass/volume ] 33.1 text: 32.0 - 36.0 g/dL MCHC 33.1 32.0 - 36.0 G/DL 08/04 2:47 PM [facility] Not Available Not Available 10/27/2024 14:49:18 08/04/20 24 08/04/2024 CBC W Auto Diffe renti al panel - Blood erythrocyte distribution width [entitic volume] by automated count 12.1 % low: 11.5%h igh: 14.5% RDW 12.1 11.5 - 14.5 % 08/04 2:47 PM [facility] Not Available Not Available 10/27/2024 14:49:18 08/04/20 24 08/04/2024 CBC W Auto Diffe renti al panel - Blood platelets [#/volume] in blood 179 text: 130 - 400 x10'3/ uL PLT 179 130 - 400 x10'3 /uL 08/04 2:47 PM [facility] Not Available Not Available 10/27/2024 14:49:18 08/04/20 24 08/04/2024 CBC W Auto Diffe renti al panel - Blood platelet mean volume [entitic volume] in blood 10.6 text: 9.3 - 12.2 fL MPV 10.6 9.3 - 12.2 FL 08/04 2:47 PM [facility] Not Available Not Available 10/27/2024 14:49:18 08/04/20 24 08/04/2024 CBC W Auto Diffe renti al panel - Blood differential cell count method - blood AUTOMA KAY DIFFER ENTIAL DIFFE RENTI AL TYPE AUTOM ATED DIFFE RENTI AL 08/04 2:47 PM [facility] Not Available Not Available 10/27/2024 14:49:18 08/04/20 24 08/04/2024 CBC W Auto Diffe renti al panel - Blood neutrophils/ 100 leukocytes in blood by automated count 68.1 % NEUTR OPHIL S % 68.1 % 08/04 2:47 PM [facility] Not Available Not Available 10/27/2024 14:49:18 08/04/20 24 08/04/2024 CBC W Auto Diffe renti al panel - Blood lymphocytes/ 100 leukocytes in blood by automated count 21.3 % LYMPH OCYTE S % 21.3 % 08/04 2:47 PM [facility] Not Available Not Available 10/27/2024 14:49:18 08/04/20 24 08/04/2024 CBC W Auto Diffe renti al panel - Blood monocytes/10 0 leukocytes in blood by automated count 7.9 % MONOC YTES % 7.9 % 08/04 2:47 PM [facility] Not Available Not Available 10/27/2024 14:49:18 08/04/20 24 08/04/2024 CBC W Auto Diffe renti al panel - Blood eosinophils/ 100 leukocytes in blood by automated count 1.9 % EOSIN OPHIL S 1.9 % 08/04 2:47 PM [facility] Not Available Not Available 10/27/2024 14:49:18 08/04/20 24 08/04/2024 CBC W Auto Diffe renti al panel - Blood basophils/10 0 leukocytes in blood by automated count 0.3 % BASOP HILS 0.3 % 08/04 2:47 PM [facility] Not Available Not Available 10/27/2024 14:49:18 08/04/20 24 08/04/2024 CBC W Auto Diffe renti al panel - Blood immature granulocytes /100 leukocytes in blood by automated count 0.5 % IMMAT URE GRANS % 0.5 % 08/04 2:47 PM [facility] Not Available Not Available 10/27/2024 14:49:18 08/04/20 24 08/04/2024 CBC W Auto Diffe renti al panel - Blood neutrophils [#/volume] in blood 5.42 text: 1.80 - 7.70 x10'3/ uL ABS. NEUTR OPHIL S 5.42 1.80 - 7.70 x10'3 /uL 08/04 2:47 PM [facility] Not Available Not Available 10/27/2024 14:49:18 08/04/20 24 08/04/2024 CBC W Auto Diffe renti al panel - Blood lymphocytes [#/volume] in blood 1.69 text: 1.00 - 4.80 x10'3/ uL ABS. LYMPH OCYTE S 1.69 1.00 - 4.80 x10'3 /uL 08/04 2:47 PM [facility] Not Available Not Available 10/27/2024 14:49:18 08/04/20 24 08/04/2024 CBC W Auto Diffe renti al panel - Blood monocytes [#/volume] in blood 0.63 text: 0.24 - 0.86 x10'3/ uL ABS. MONOC YTES 0.63 0.24 - 0.86 x10'3 /uL 08/04 2:47 PM [facility] Not Available Not Available 10/27/2024 14:49:18 08/04/20 24 08/04/2024 CBC W Auto Diffe renti al panel - Blood eosinophils [#/volume] in blood 0.15 text: 0.04 - 0.36 x10'3/ uL ABS. EOSIN OPHIL S 0.15 0.04 - 0.36 x10'3 /uL 08/04 2:47 PM [facility] Not Available Not Available 10/27/2024 14:49:18 08/04/20 24 08/04/2024 CBC W Auto Diffe renti al panel - Blood basophils [#/volume] in blood 0.02 text: 0.01 - 0.08 x10'3/ uL ABS. BASOP HILS 0.02 0.01 - 0.08 x10'3 /uL 08/04 2:47 PM [facility] Not Available Not Available 10/27/2024 14:49:18 08/04/20 24 08/04/2024 CBC W Auto Diffe renti al panel - Blood immature granulocytes [#/volume] in blood 0.04 text: 0.00 - 0.49 x10'3/ uL ABS. IMMAT URE GRANU LOCYT ES 0.04 0.00 - 0.49 x10'3 /uL 08/04 2:47 PM [facility] Not Available Not Available 10/27/2024 14:49:18 08/04/20 24 08/04/2024 CBC W Auto Diffe renti al panel - Blood interpretati on and review of laboratory results Abnorm al Not Available Not Available 14:49:18 08/04/20 24 08/04/2024 Edgar tin [Mass /volu me] in Serum or Plasm a ferritin [mass/volume ] in serum or plasma 38.3 text: 8.0 - 388.0 NG/mL EDGAR TIN 38.3 8.0 - 388.0 NG/ML 08/04 4:56 PM [facility] Not Available Not Available 10/27/2024 14:49:18 08/07/20 24 08/08/2024 VITAM IN B12 vitamin B12 1728 pg/mL 232-12 45 above high normal Not Available [facility] ([facility]) [address] [facility], [place], [address], 08/08/2024 08:24:54 08/10/2008/11/2024 POTAS SIUM potassium 4.1 mmol/ L 3.5-5. 2 Not Available [facility] ([facility]) [address] [facility], [place], [address], 08/11/2024 12:38:44 08/10/20 08/11/2024 HEMOG LOBIN A1C hemoglobin A1C 5.2 % 4.8-5. 6 Predi abete s: 5.7 - 6.4 Diabe krista: >6.4 Glyce oracio contr ol for adult s with diabe krista: <7.0 Not Available [facility] ([facility]) [address] [facility], [place], [address], 08/11/2024 12:38:46 08/10/2008/11/2024 TSH TSH 1.590 uIU/m L 0.450- 4.500 Not Available [facility] ([facility]) [address] [facility], [place], [address], 08/11/2024 12:38:47 08/10/2008/11/2024 VITAM IN D, 25-HY DROXY vitamin D, 25-hydroxy 37.4 NG/mL 30.0-1 00.0 Vitam in D defic iency has been defin ed by the Insti tute of Medic ine and an Endoc rine Socie ty pract ice guide line as a level of serum 25-OH vitam in D less than 20 ng/mL (1,2) . The Endoc rine Socie ty went on to furth er defin e vitam in D insuf ficie ncy as a level betwe en 21 and 29 ng/mL (2). 1. IOM (Inst itute of Medic ine). 2010. Dieta ry refer ence zeus es for calci um and D. Noris dooley [place]: [facility] Press . 2. Joseph melendez MF, Yenny bryant [place], Mercedes off-F errar i BECERRA, et al. Evalu ation , treat ment, and preve ntion of vitam in D defic iency : an Endoc rine Socie ty clini harvey pract ice guide line. JCEM. 2010; 96(7) :1911 -30. Not Available [facility] ([facility]) [address] [facility], [place], [address], 08/11/2024 12:38:49 10/28/19 25 08/04/2024 US, echoc ardio gram, trans thora cic, compl ete No observ ation record ed. [facility] Central Scheduling [address], [place], [address], 10/28/2024 17:40:22 Result Notes None recorded. Problems Name Problem SNOMED Code Status Onset Date Resolution Date Notes Provider Name and Address Organization Details Recorded Time Fatigue 50068533 Active 2022 William Bradley MD Attn: Herminia rodriges,[address] [facility], [place], [address], [place] [facility] 3 09:22:36 Hypercholester olemia 35617449 Active 2022 William Bradley MD Attn: Herminia rodriges,[address] [facility], [place], [address], [place] [facility] 3 09:22:36 Prolapsed lumbar intervertebral disc 625230046 Active 2022 William Bradley MD Attn: Herminia rodriges,[address] [facility], [place], [address], [place] [facility] 3 09:22:38 Prolapsed cervical intervertebral disc 288713794 Active 2022 William Bradley MD Attn: Herminia rodriges,[address] [facility], [place], [address], [place] [facility] 3 09:22:38 Irritable bowel syndrome with diarrhea 908994773 Active 2022 William Bradley MD Attn: Herminia rodriges,[address] [facility], [place], [address], [place] [facility] 3 09:22:39 Generalized anxiety disorder 22603389 Active 2022 William Bradley MD Attn: Herminia rodriges,[address] [facility], [place], [address], [place] [facility] 3 09:22:41 Ventricular premature complex 185425546 Active 2022 William Bradley MD Attn: Herminia rodriges,[address] [facility], [place], [address], [place] [facility] 3 09:22:43 Nausea [id number] Active 2022 William Bradley MD Attn: Frederickadrienne rodriges,[address] [facility], [place], [address], [place] [facility] 3 09:22:45 Esophageal dysphagia 94299189 Active 2022 William Bradley MD Attn: Herminia antelmo,[address] [facility], [place], [address], [place] [facility] 3 14:53:47 Hypothyroidism 28466508 Active 2022 William Bradley MD Attn: Herminia antelmo,[address] [facility], [place], [address], [place] [facility] 3 14:55:11 Goiter 3311857 Active 2022 William Bradley MD Attn: Herminia antelmo,[address] [facility], [place], [address], [place] [facility] 3 14:55:13 Dry eyes 134996600 Active 2023 William Bradley MD Attn: Herminia antelmo,[address] [facility] [facility], [place], [address], [place] [facility] 4 11:38:00 Mediastinal lymphadenopath y 85436674 Active 2023 William Bradley MD Attn: Herminia rodriges,[address] [facility], [place], [address], [place] [facility] 4 11:38:03 Palpitations 03466889 Active 2023 Erik Reed MD Attn: Herminia rodriges,[address] [facility], [place], [address], [place] [facility] 4 10:53:21 Peripheral edema 071125225 Active 2023 Erik Reed MD Attn: Herminia rodriges,[address] [place], [address], [place] [facility] 4 10:53:21 Mitral valve prolapse 123838467 Active 2023 Erik Reed MD Attn: Herminia antelmo,[address] [facility], [place], [address], [place] [facility] 4 10:53:22 Hyperlipidemia 34277440 Active 2023 Erik Reed MD Attn: Herminia rodriges,[address] [place], [address], [place] [facility] 4 10:53:24 Pure hypercholester olemia 402946804 Active 2023 Erik Reed MD Attn: Herminia rodriges,[address] [place], [address], [place] [facility] 4 11:48:26 Sarcoidosis 23130277 Active 2023 William Bradley MD Attn: Herminia rodriges,[address] [place], [address], [place] [facility] 4 12:44:40 Chronic constipation 186294429 Active 2023 William Bradley MD Attn: Herminia rodriges,[address] [place], [address], [place] [facility] 4 08:47:15 Abdominal pain 78162426 Active 2023 William Bradley MD Attn: Herminia rodriges,[address] [place], [address], [place] [facility] 4 08:47:18 Gastroesophage al reflux disease 162729262 Active 2023 Erik Reed MD Attn: Herminia rodriges,[address] [place], [address], [place] [facility] 4 10:51:29 Bilateral lower leg edema 620964345 Active 2023 William Bradley MD Attn: Herminia rodriges,[address], [place], [address] [facility] 4 10:19:59 Chronic recurrent sinusitis 436327712 Active 2023 William Bradley MD Attn: Herminia rodriges,[address] [facility], [place], [address], [place] [facility] 4 09:58:30 Obstructive sleep apnea syndrome 14911947 Active 2023 William Bradley MD Attn: Herminia rodriges,[address] [facility], [place], [address], [place] [facility] 4 09:58:33 Problem Notes None recorded. Procedures Surgical History Date Name Laterality Status Provider Name and Address Organization Details Recorded Time Tonsillectomy completed Melinda Moise MA [facility] 04/05/2023 09:01:44 Tubal Ligation completed Melinda Moise MA [facility] 04/05/2023 09:01:54 Imaging Results Imaging Date Name Status LastModified by Organiz ation Details LastModified Time 08/04/2024 US, echocardiogra m, transthoracic , complete completed [facility] Sched[facility] [address] [facility], [place], [address], 10/28/2024 17:40:22 Procedure Notes None recorded. Medical Equipment None Reported. Allergies Allergen ID Allergen Name Allergen Category Reaction Reaction Severity Criticality Documentation Date Start Date Code Code System Note Provider Name and Address Organization Details Recorded Time 923826 Demerol medicatio n Not available Not available Not available 04/05/2023 92076 1 RxNorm throa t const ricts Not Available Not Available Not Available 523942 Macrodant in medicatio n Not available Not available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
--- OUTSIDE RECORDS SUMMARY | 2024-11-04 10:08 | XMS_ITS | Encounter Summary ---
Author Organization [facility] Care Team Providers Care New Business Clerk Name Role Phone Unknown, Notinfile Primary Care Provider Unavail able William Bradley MD Primary Care Provider Nini Grewal Primary Care Provider + Nini Grewal Primary Care Provider + William Bradley MD Primary Care Provider [phone] William Bradley MD Primary Care Provider [phone] Erik Reed MD Unavailable [phone] Abebe Moreau MD Unavailable [phone] Kanu Bustos MD Unavailable Karly Villarreal MD Unavailable Boogie Reilly MD Unavailable [phone] Encounter Details Date Type Department Care Team (Latest Contact Info) Description 08/20/2017 Orders Only [facility]INCON[facility] ProviderWalker MD [address] [place] [address] Social History Tobacco Use Types Packs/Day Years Used Date Smoking Tobacco: Every Day Comments Unknown Sex and Gender Information Value Date Recorded Sex Assigned at Not on file Legal Sex Female 1:50 AM GRADER OPERATOR Gender Identity Female 05/17/2021 10:31 AM CDT Sexual Orientation Straight 05/17/2021 10 :31 AM CDT documented as of this encounter Plan of Treatment Not on file documented as of this encounter Procedures Procedure Name Priority Date/Time Associated Diagnosis Comments SCAN - LABS 08/21/2017 12:00 AM GRADER OPERATOR documented in this encounter Results * SCAN - LABS (08/21/2017 12:00 AM GRADER OPERATOR) Narrative 08/21/2017 12:00 AM GRADER OPERATOR Ordered by an unspecified provider. us Historical Provider Final Res ult documented in this encounter Visit Diagnoses Not on filedocumented in this encounter Additional Health Concerns Infection Onset Date Last Indicated Resolved Time COVID: Suspected 05/18/2021 05/18/2021 06/01/2021 3:05 AM CDT documented as of this encounter Care Teams New Business Clerk Relationship Specialty Start Date End Date Unknown, Notinfile PCP - General 04/30/18 05/13/18 William Bradley MD PCP - General 05/14/18 06/17/22 Nini Grewal PA PCP - General Family Medicine 06/18/22 03/21/23 Nini Grewal PA [address] [place] [address] [place] [address] PCP - General Family Medicine 03/25/23 04/24/23 William Bradley MD [address] [place] [address] [place] [address] PCP - General Family Medicine 04/25/23 05/11/24 William Bradley MD [address] [facility] [address] [place] [address] PCP - General Family Medicine 05/12/24 Erik Reed MD [address] [place] [address] 3 [place] [address] Referring Physician Interventional Cardiology 09/21/24 Abebe Moreau MD [address] [place] [address] Consulting Physician Pulmonary Disease 09/21/24 Kanu Bustos MD [address] [facility] [address] [place] [address] Consulting Physician Internal Medicine 09/21/24 [place] [address] [facility] [address] [place] [address] Consulting Physician Rheumatology 09/21/24 Boogie Reilly MD [address] [place] [address] Referring Physician Hematology and Oncology 09/21/24 documented as of this encounter
--- OUTSIDE RECORDS SUMMARY | 2024-11-04 10:08 | XMS_ITS | Encounter Summary ---
Author Organization [facility] Address [address] [place] [address] Care Team Providers Care Fundraising Coordinator Name Role Phone William Bradley MD Primary Care Provider [phone] Encounter Details Date Type Department Care Team (Late Contact Info) Description 02/20/2024 [employer] Message Enc [facility] - [place] [address] [place] [address] Aashish, [facility] Provider MRI cervical spine Social History Tobacco Use Types Packs/Day Years Used Date Smoking Tobacco: Former Cigarettes 0.5 25 1 987 - 2011 Smokeless Tobacco: Never Alcohol Use Standard Drinks/Week Comments Not Currently 0 (1 standard drink = 0.6 oz pur e alcohol) Comments No Sex and Gender Information Value Date Recorded Sex Assigned at Not on file Legal Sex Female 6:38 AM CDT Gender Identity Not on file Sexual Orientation Not on file documented as of this encounter Plan of Treatment Upcoming Encounters Date Type Department Care Team (Late Contact Info) Description 11/16/2024 8:40 AM INDUSTRY OPERATIONS INVESTIGATOR Office Visit [facility] Care - [facility] [address] [facility], [address] [place] [address] Tierney Constantino NP [address] [facility] [address] [place] [address] 11/16/2024 10:20 AM INDUSTRY OPERATIONS INVESTIGATOR Office Visit [facility] [place] [address] [place] [address] Bryan Parr MD [address] [place] [address] 11/19/2024 8:40 AM INDUSTRY OPERATIONS INVESTIGATOR Office Visit [facility]ty Care - [facility] [address] [facility] [place] [address] Ad Sawyer DO [address] [facility] [address] [place] [address] 01/01/2025 12:45 PM CDT Office Visit [facility] [address] Sabino Ambrose MD [address] [facility] [address] [place] [address] documented as of this encounter Visit Diagnoses Not on filedocumented in this encounter Care Teams Fundraising Coordinator Relationship Specialty Start Date End Date William Bradley MD [address] [facility] [address] [place] [address] PCP - General FAMILY PRACTICE 09/16/23 documented as of this encounter
--- OUTSIDE RECORDS SUMMARY | 2024-11-04 10:08 | XMS_ITS | Clinical Summary ---
Author Organization [facility] Address [address] [place] [address] Care Team Providers Care Research Psychologist Name Role Phone William Bradley MD Primary Care Provider [phone] Allergies Active Allergy Reactions Criticality Noted Date Comments Amoxicillin-Pot Clavulanate Hives 12/13/2023 Dermatitis Antigen Unknown High 01/01/2019 Surgical tap, Iodinated Contrast Media Rash,Other (see comment) Medium 07/28/2009 Meperidine Anaphylaxis,Hives High 10/18/2022 Meperidine Hcl Other (see comment),Hives,Rash Low 07/28/2009 Nitrofurantoin Hives,Other (see comment),Rash,Unknown Medium 01/01/2019 Penicillin G Shortness of Breath High 12/13/2023 Tape Contact Dermatitis High 01/01/2019 Surgical tap, Medications vitamin C (ASCORBIC ACID) 500 MG tablet Take 1 tablet (500 mg total) by mouth daily. Active atorvastatin (LIPITOR) 20 MG tablet Take 1 tablet (20 mg total) by mouth daily. 11/12/2022 Active Biotin w/ Vitamins C & E (HAIR SKIN & NAILS GUMMIES) 1250-7.5-7.5 MCG-MG-UNT Chew Tab Chew 1 tablet by mouth 2 (two) times daily. Active vitamin D3, cholecalciferol , (D 5000) 125 mcg capsule Take 1 capsule (5,000 Units total) by mouth daily. Active Cyanocobalamin 1000 MCG SL Tab Take 1,000 mcg by mouth daily. Active diphenhydrAMINE (BENADRYL) 50 MG Cap capsule Take 1 capsule (50 mg total) by mouth. 10/21/2023 Active propranolol LA (INDERAL LA) 60 MG 24 hr capsule Take 1 capsule (60 mg total) by mouth daily. 05/27/2023 Active aspirin 81 MG chewable tablet Chew 1 tablet (81 mg total) by mouth daily. Active linaCLOtide (LINZESS) 145 MCG capsule Take 1 capsule (145 mcg total) by mouth every morning before breakfast. Take on empty stomach at least 30 minutes prior to first meal of the day. Swallow whole. Do not open capsule or chew. Active minoxidil (LONITEN) 2.5 MG tablet Take 0.5 tablets (1.25 mg total) by mouth daily. Active spironolactone (ALDACTONE) 100 MG tablet Take 1 tablet (100 mg total) by mouth daily. Active cyanocobalamin (B-12) 1000 MCG/ML injection Inject 1,000 mLs (1,000,000 mcg total) into the muscle 2 (two) times a week. Active albuterol sulfate HFA 108 (90 Base) MCG/ACT inhaler Take 2 puffs by mouth. Active atovaquone (MEPRON) 750 MG/5ML suspension TAKE 10 ML BY MOUTH ONCE DAILY Active azithromycin (ZITHROMAX) 250 MG tablet TAKE 2 TABLETS BY MOUTH ON DAY 1, AND THEN TAKE 1 TABLET BY MOUTH ONCE A DAY ON DAY 2 THROUGH DAY 5 Active busPIRone (BUSPAR) 7.5 MG tablet Take 1.5 tablets (11.25 mg total) by mouth 2 (two) times daily. Active cephALEXin (KEFLEX) 500 MG capsule take 1 capsule by mouth three times daily for 5 days Active ciprofloxacin (CIPRO) 500 MG tablet Take 1 tablet (500 mg total) by mouth every 12 (twelve) hours. Active cyclobenzaprine (FLEXERIL) 5 MG tablet Take 1 tablet 3 times a day by oral route as needed for 30 days. 02/04/2024 Active fluconazole (DIFLUCAN) 100 MG tablet TAKE 1 TABLET BY MOUTH ONCE DAILY FOR 5 DAYS Active Active Problems Problem Noted Date Diagnosed Date Allergy to penicillin 12/13/2023 Dry eyes 10/23/2023 Mediastinal lymphadenopathy 10/21/2023 Goiter 05/17/2023 Hypothyroidism 05/17/2023 Fatigue 04/05/2023 Herniated lumbar intervertebral disc 04/05/2023 Prolapsed cervical intervertebral disc 3 Irritable bowel syndrome with diarrhea 3 Nausea 04/05/2023 Gastroesophageal reflux disease without esophagi tis 03/31/2023 Pulmonary nodule 03/26/2023 Rectal bleeding 01/25/2023 Overview (10/29/2023): Last Assessment & Plan: Intermittent bright red blood per rectum. -colonoscopy June 2023 with inadequate prep -reschedule colonoscopy in 6 months with extended bowel prep -The risks (risks of bleeding, infection, perforation requiring surgery, missed polyps/cancer, dental injury, aspiration pneumonia, anesthesia complications such as drug reaction and cardiopulmonary complications including rare chance of ), benefits, and alternatives of the planned procedure were explained to the patient who understands and consents to having procedure done. Abdominal pain 01/25/2023 Overview (12/13/2023): Last Assessment & Plan: Complains of abdominal pain since COVID vaccination December 2020, right lower quadrant, worse with standing, improved with sitting, sharp, occurs a few times a week, improved with BM. Prior workup has been unremarkable including colonoscopy in March of 2021 and capsule endoscopy in February of 2022. Given persistent symptoms for over 2 years, recommend further evaluation. Labs September 2022 with normal CBC and CMP. She was also tested for SIBO and was treated with Xifaxan with good results. Also started low FODMAP diet with good results. Suspect symptoms are secondary to IBS-C. -avoid NSAIDs -continue Linzess Irritable bowel syndrome with constipation 01/25 Overview (12/13/2023): Last Assessment & Plan: Chronic constipation for the past 2 years. -high-fiber diet -continue probiotics -continue Linzess Shortness of breath 12/31/2022 Bilateral atelectasis 12/31/2022 Thyroid nodule 11/01/2022 Seasonal allergic rhinitis 10/30/2022 Moderate persistent asthma without complication (HHS/HCC) 10/30/2022 Idiopathic urticaria 10/30/2022 Adverse reaction to food 10/30/2022 Allergic rhinitis due to animal hair and dander 10/30/2022 Chronic allergic conjunctivitis 10/30/2022 MVP (mitral valve prolapse) 05/10/2022 Gastroesophageal reflux dise ase with esophagitis without hemorrhage 02/02/2022 Elevated liver enzymes 06/16/2021 Dysphagia 06/16/2021 Overview (10/29/2023): Last Assessment & Plan: Intermittent dysphagia to solids. EGD June 2023 with irregular Z-line, status post dilation to 54 [place]bourg[place]. Pathology unremarkable. No further dysphagia since dilation. -monitor for recurrence Weight loss 06/16/2021 Heart palpitations 02/08/2021 Overview (12/13/2023): Last Assessment & Plan: Chronic condition uncontrolled Increase metoprolol xl 25mg bid 48 hr holter Echo 2d Frequent PVCs 11/07/2018 Vitamin D deficiency 03/06/2017 Vitamin B12 deficiency 03/06/2017 Panic attacks 02/07/2017 Constipation 02/07/2017 Overview (10/29/2023): Last Assessment & Plan: Chronic constipation for the past 2 years. -high-fiber diet -continue probiotics -continue Linzess Last Assessment & Plan: Chronic constipation for the past 2 years, recently having narrow caliber stool. -high-fiber diet -we will give Linzess samples and prescribe Linzess 145 mcg p.o. daily Generalized anxiety disorder 02/07/2017 Gastritis 06/21/2016 Hypercholesterolemia 08/30/2011 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 Stress incontinence 07/28/2009 Encounters Date Type Department Care Team Description 10/06/2024 Telephone [facility], [address] [address] Jacki Hartman, A Appointment Request (Self ref) 09/30/2024 Telephone [facility], [address] [place] [address] Jacki Hartman RMA Appointment Request (Self ref) 09/02/2024 Telephone [facility] - [facility] [address] [facility] [place] [id number] Tierney Constantino NP Referral 08/04/2024 2:23 PM TREE SURGEON - 08/04/2024 11:59 PM TREE SURGEON Hospital Encounter [facility] [place] [address] Boogie Reilly MD Discharge Disposition: Home or Self Care (Routine Discharge) 08/04/2024 Orders Only [facility] [place] [address] Boogie Reilly MD 08/04/2024 Travel from Last 3 Months Immunizations Name Administration Dates Next Due Influenza Adult (Generic) 07/16/2019 PFIZER COVID-19 (ORIGINAL FO RMULATION, PURPLE CAP) mRNA, LNP-S, PF, 30 MCG/0.3 ML DOSE 01/06/2021,12/15/2020 Tdap (Generic) 12/17/2020 Family History Medical History Relation Comments Arthritis Father Cancer Father Early Father Heart Disease Father Hyperlipidemia Father Hypertension Father Ulcerative Colitis Father aortic valve disease Father hypercholesterolemia Father malignant thyroid tumor Father sclerodermatomyositis Father Diabetes Maternal Grandfather Arthritis Mother Asthma Mother COPD Mother Diabetes Mother Early Mother HTN Mother Hyperlipidemia Mother Hypertension Mother Kidney Disease Mother Kidney failure Mother Miscarriages / Stillbirths Mother hypercholesterolemia Mother Arthritis Sister Crohns Disease Sister Relation Status Comments Father Maternal Grandfather Mother Sister Social History Tobacco Use Types Packs/Day Years Used Date Smoking Tobacco: Former Cigarettes 0.5 25 1 987 - 2012 Smokeless Tobacco: Never Tobacco Cessation:Counseling Given: Not Answered Alcohol Use Standard Drinks/Week Comments Not Currently 0 (1 standard drink = 0.6 oz pur e alcohol) Comments No Sex and Gender Information Value Date Recorded Sex Assigned at Not on file Legal Sex Female 6:38 AM CDT Gender Identity Not on file Sexual Orientation Not on file Last Filed Vital Signs Vital Sign Reading Time Taken Comments Blood Pressure 144/81 04/23/2024 10:10 AM CDT Pulse 79 04/23/2024 10:10 AM CDT Temperature 36.3 C (97.4 F) 04/23/2024 10:10 AM CDT Respiratory Rate 18 01/07/2024 8:44 AM CDT Oxygen Saturation 100% 04/23/2024 10:10 AM CDT Inhaled Oxygen Concentration - - Weight 88.7 kg (195 lb 9.6 oz) 04/23/2024 10:10 AM CDT Height 172.7 cm (5' 8 ) 04/23/2024 10:10 AM CDT Body Mass Index 29.74 04/23/2024 10:10 AM CDT Plan of Treatment Upcoming Encounters Date Type Department Care Team (Late st Contact Info) Description 11/16/2024 8:40 AM TREE SURGEON [facility] - [address], [address] [place] [phone] Tierney Constantino NP [address] [place] [address] [place] [address] 11/16/2024 10:20 AM TREE SURGEON Office Visit [facility] [place] [address] [place] [address] Bryan Parr MD [address] [place] [address] 11/19/2024 8:40 AM TREE SURGEON Office Visit [facility] - [address] [place] [phone] Ad Sawyer DO [address] [facility] [address] [place] [address] 01/01/2025 12:45 PM CDT Office Visit [facility] [address] Sabino Ambrose MD [address] [facility] [address] [place] [address] Health Maintenance Due Date Last Done Comments Cervical Cancer Screening Pa p Smear (Age 30 to 64) Every 3 Years 1975 Colorectal Cancer Screening Colonoscopy (10 Years) 1975 Annual Physical 1978 Pneumococcal Vaccine: Pediatrics (0 to 5 Years) and At-Risk Patients (6 to 64 Years) (1 of 2 - PCV) 1981 Hepatitis C 1993 Hepatitis B Vaccines (1 of 3 - 19+ 3-dose series) 1994 Cervical Cancer Screening Pa p with HPV Testing (Age 30 to 64) Every 5 Years 2005 Cervical Cancer Screening wi HPV 2005 Mammogram Screening 2015 COVID-19 Vaccine (2023-2 5 season) 2024 01/06/2021, 12/15/2020 Influenza Adult (#1) 2024 07/16/2019 PHQ-2 (Physician [place]) 09/16/2024 DTaP, Tdap and Td Vaccines ( 2 - Td or Tdap) 12/17/2030 12/17/2020 Meningococcal B Vaccine Aged Out No l onger eligible based on patient's age to complete this topic Meningococcal Vaccine Aged Out No marce porfirio eligible based on patient's age to complete this topic RSV Immunizations Under 20 Months Aged Out No longer eligible b ased on patient's age to complete this topic Procedures Procedure Name Priority Date/Time Associated Diagnosis Comments INTRINSIC FACTOR ANTIBODY Routine 08/04/2024 2:32 PM TREE SURGEON Coagulopathy ([facility]/HCC [facility]) FERRITIN Routine 08/04/2024 2:32 PM TREE SURGEON Coagulopathy (CMS/HCC HHS/HCC) IRON SAT PANEL (IRON,IBC,%SAT) Routine 08/04/2024 2:32 PM TREE SURGEON Coagulopathy (CMS/HCC HHS/HCC) FOLIC ACID SERUM Routine 08/04/2024 2:32 PM TREE SURGEON Coagulopathy (CMS/HCC HHS/HCC) PLATELET FUNCTION ASSAY Routine 08/04/2024 2:32 PM TREE SURGEON Coagulopathy (CMS/HCC HHS/HCC) CBC W/DIFF AUTOMATED Routine 08/04/2024 2:32 PM TREE SURGEON Coagulopathy (CMS/HCC HHS/HCC) from Last 3 Months Results * PLATELET FUNCTION ASSAY (08/04/2024 2:32 PM TREE SURGEON) [facility] PLATELET FUNCTION ASSAY PLEASE SEE SCANNED IMAGE IN EPIC 08/04/2024 7:17 PM TREE SURGEON [facility] Comment: NOTE: REFER TO [facility] REPORT FOR INTERPRETIVE COMMENTS. [place] [address] [phone], CLIA [id number] 08/04/2024 2:32 PM TREE SURGEON us Boogie Reilly MD LABORATORY Final Result [facility] [address] [place] [address], [place] [phone] * IRON SAT PANEL (IRON,IBC,%SAT) (08/04/2024 2:32 PM TREE SURGEON) Pathologist [facility] IRON 69 50.0 - 170.0 MCG/DL 08/04/2024 3:17 PM TREE SURGEON [facility] IRON BINDING CAPACITY 343 250 - 450 MCG/DL 08/04/2024 3:17 PM TREE SURGEON [facility] IRON SATURATION 20 20 - 55 % 3:17 PM TREE SURGEON [facility] 08/04/2024 2:32 PM TREE SURGEON Boogie Reilly MD LABORATORY Final Result Performing Organization Address [facility] Co de Phone Number [facility] [address] [place] [address], [place] [phone] * INTRINSIC FACTOR ANTIBODY (08/04/2024 2:32 PM TREE SURGEON) [facility] INTRINSIC FACTOR BLOCK AB Negative Negative 08/08/2024 4:23 PM TREE SURGEON [employer] [facility] Comment: For additional information, please refer to http://education.Storactive/faq/IFAB (This link is being provided for informational/ educational purposes only.) Test Performed by [employer], [employer] [place], [address] [place] [address] Mendez See M.D., Ph.D., Director of Laboratories , [facility] [id number] 08/04/2024 2:32 PM TREE SURGEON Boogie Reilly MD LABORATORY Final Result Performing Organization Address [facility] Co de Phone Number [facility] [id number] [place] [address], [place] [phone] * (ABNORMAL) FOLIC ACID SERUM (08/04/2024 2:32 PM TREE SURGEON) [facility] FOLATE 26.8(H) 3.1 - 17.5 NG/ML 08/04/2024 4:56 PM TREE SURGEON [facility] 08/04/2024 2:32 PM TREE SURGEON Boogie Reilly MD LABORATORY Final Result [facility] [address] [place] [address], [place] [phone] * (ABNORMAL) CBC W/DIFF AUTOMATED (08/04/2024 2:32 PM TREE SURGEON) [facility] WBC 7.95 4.5 - 11.0 x10'3/uL 08/04/2024 2:47 PM TREE SURGEON [facility] RBC 4.02(L) 4.20 - 5.40 x10'6/uL 08/04/2024 2:47 PM TREE SURGEON [facility] HGB 13.2 12.0 - 16.0 G/DL 08/04/2024 2:47 PM TREE SURGEON [facility] HCT 39.9 38.0 - 48.0 % 08/04/2024 2:47 PM TREE SURGEON [facility] MCV 99.3(H) 81.0 - 99.0 FL 08/04/2024 2:47 PM TREE SURGEON [facility] MCH 32.8(H) 27.0 - 31.0 PG 08/04/2024 2:47 PM TREE SURGEON [facility] MCHC 33.1 32.0 - 36.0 G/DL 08/04/2024 2:47 PM TREE SURGEON [facility] RDW 12.1 11.5 - 14.5 % 08/04/2024 2:47 PM TREE SURGEON [facility] PLT 179 130 - 400 x10'3/uL 08/04/2024 2:47 PM TREE SURGEON [facility] MPV 10.6 9.3 - 12.2 FL 08/04/2024 2:47 PM TREE SURGEON [facility] DIFFERENTIAL TYPE AUTOMATED DIFFERENTIAL 08/04/2024 2:47 PM TREE SURGEON [facility] NEUTROPHILS % 68.1 % 08/04/2024 2:47 PM TREE SURGEON [facility] LYMPHOCYTES % 21.3 % 08/04/2024 2:47 PM TREE SURGEON [facility] MONOCYTES % 7.9 % 08/04/2024 2:47 PM TREE SURGEON [facility] EOSINOPHILS 1.9 % 08/04/2024 2:47 PM TREE SURGEON [facility] BASOPHILS 0.3 % 08/04/2024 2:47 PM TREE SURGEON [facility] IMMATURE GRANS % 0.5 % 08/04/20 2:47 PM TREE SURGEON [facility] ABS. NEUTROPHILS 5.42 1.80 - 7.70 x10'3/uL 08/04/2024 2:47 PM TREE SURGEON [facility] ABS. LYMPHOCYTES 1.69 1.00 - 4.80 x10'3/uL 08/04/2024 2:47 PM TREE SURGEON [facility] ABS. MONOCYTES 0.63 0.24 - 0.86 x10'3/uL 08/04/2024 2:47 PM TREE SURGEON [facility] ABS. EOSINOPHILS 0.15 0.04 - 0.36 x10'3/uL 08/04/2024 2:47 PM TREE SURGEON [facility] ABS. BASOPHILS 0.02 0.01 - 0.08 x10'3/uL 08/04/2024 2:47 PM TREE SURGEON [facility] ABS. IMMATURE GRANULOCYTES 0.04 0.00 - 0.49 x10'3/uL 08/04/2024 2:47 PM TREE SURGEON [facility] 08/04/2024 2:32 PM TREE SURGEON us Boogie Reilly MD LABORATORY Final Result [facility] [address] [place] [address], [place] [phone] * FERRITIN (08/04/2024 2:32 PM TREE SURGEON) FERRITIN 38.3 8.0 - 388.0 NG/ML 08/04/2024 4:56 PM TREE SURGEON [facility] 08/04/2024 2:32 PM TREE SURGEON Boogie Reilly MD LABORATORY Final Result [facility] [address] [place] [address], [place] [phone] from Last 3 Months Insurance [facility] Care Teams Research Psychologist Relationship Specialty Start Date End Date William Bradley MD [address] [facility] [address] [place] [address] PCP - General FAMILY PRACTICE 09/16/23
--- OUTSIDE RECORDS SUMMARY | 2024-11-04 10:08 | XMS_ITS | Encounter Summary ---
Author Organization [facility] Facility Care Team Providers Care Manager Corporate Communications Name Role Phone iWlliam Bradley MD Primary Care Provider Nini Grewal Primary Care Provider + Nini Grewal Primary Care Provider + William Bradley MD Primary Care Provider [phone] William Bradley MD Primary Care Provider [phone] Erik Reed MD Unavailable [phone] Abebe Moreau MD Unavailable [phone] Kanu Bustos MD Unavailable Karly Villarreal MD Unavailable Boogie Reilly MD Unavailable [phone] Encounter Details Date Type Department Care Team (Latest Contact Info) Description 10/24/2018 Orders Only [facility] Provider, MD Walker [address] [place] [address] Social History Tobacco Use Types Packs/Day Years Used Date Smoking Tobacco: Every Day Comments Unknown Sex and Gender Information Value Date Recorded Sex Assigned at Not on file Legal Sex Female 1:50 AM EARTH SCIENCE 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 us Historical Provider [facility] Final Result documented in this encounter Visit Diagnoses Not on filedocumented in this encounter Additional Health Concerns Infection Onset Date Last Indicated Resolved Time COVID: Suspected 05/18/2021 05/18/2021 06/01/2021 3:05 AM CDT documented as of this encounter Care Teams Manager Corporate Communications Relationship Specialty Start Date End Date William Bradley MD PCP - General 05/14/18 06/17/22 Nini Grewal PA PCP - General Family Medicine 06/18/22 03/21/23 Nini Grewal PA [address] [facility] [address] [place] [address] PCP - General Family Medicine 03/25/23 04/24/23 William Bradley MD [address] [facility] [address] [place] [address] PCP - General Family Medicine 04/25/23 05/11/24 William Bradley MD [address] [facility] [address] [place] [address] PCP - General Family Medicine 05/12/24 Erik Reed MD [address] [place] [address] 3 [place] [address] Referring Physician Interventional Cardiology 09/21/24 Abebe Moreau MD [address] [facility] [address] [place], [place] [address] Consulting Physician Pulmonary Disease 09/21/24 Kanu Bustos MD [address] [facility] 1 [place], [place] [id number] Consulting Physician Internal Medicine 09/21/24 [place] [address] [facility] [address] [place] [address] Consulting Physician Rheumatology 09/21/24 Boogie Reilly MD [address] [place] [address] Referring Physician Hematology and Oncology 09/21/24 documented as of this encounter
--- OUTSIDE RECORDS SUMMARY | 2024-11-04 10:08 | XMS_ITS | Encounter Summary ---
Author Organization [facility] Facility Care Team Providers Care Leadership Program Intern Name Role Phone William Bradley MD Primary Care Provider Nini Grewal Primary Care Provider + Nini Grewal Primary Care Provider + William Bradley MD Primary Care Provider [phone] William Bradley MD Primary Care Provider [phone] Erik Reed MD Unavailable [phone] Abebe Moreau MD Unavailable [phone] Kanu Bustos MD Unavailable Karly Villarreal MD Unavailable Boogie Reilly MD Unavailable [phone] Encounter Details Date Type Department Care Team (Latest Contact Info) Description 10/10/2018 Orders Only [facility]IN[facility]V Provider, MD Walker [address] [place] [address] Social History Tobacco Use Types Packs/Day Years Used Date Smoking Tobacco: Every Day Comments Unknown Sex and Gender Information Value Date Recorded Sex Assigned at Not on file Legal Sex Female 1:50 AM 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 us Historical Provider [facility] Final Result documented in this encounter Visit Diagnoses Not on filedocumented in this encounter Additional Health Concerns Infection Onset Date Last Indicated Resolved Time COVID: Suspected 05/18/2021 05/18/2021 06/01/2021 3:05 AM CDT documented as of this encounter Care Teams Leadership Program Intern Relationship Specialty Start Date End Date William Bradley MD PCP - General 05/14/18 06/17/22 Nini Grewal PA PCP - General Family Medicine 06/18/22 03/21/23 Nini Grewal PA [address] [facility] [address] [address] [place] [address] PCP - General Family Medicine 03/25/23 04/24/23 William Bradley MD [address] [facility] [address] [place] [address] PCP - General Family Medicine 04/25/23 05/11/24 William Bradley MD [address] [facility] [address] [place] [address] PCP - General Family Medicine 05/12/24 Erik Reed MD [address] [place] [address] 3 [place] [address] Referring Physician Interventional Cardiology 09/21/24 Abebe Moreau MD [address] [facility] [address] [place], [place] [address] Consulting Physician Pulmonary Disease 09/21/24 Kanu Bustos MD [address] [facility] 1 [place], [place] [phone] Consulting Physician Internal Medicine 09/21/24 [place] [address] [facility] [address] [place] [address] Consulting Physician Rheumatology 09/21/24 Boogie Reilly MD [address] [place] [address] Referring Physician Hematology and Oncology 09/21/24 documented as of this encounter
--- OUTSIDE RECORDS SUMMARY | 2024-11-04 10:08 | XMS_ITS | Patient Health Record ---
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 Name Role Phone Kirk NEGRON, William Primary Care Provider Agustin KOO NP, [facility] [phone] ALLERGIES Allergen (clinical drug ingredient) Drug/Non Drug Allergy documented on EMR Reaction Allergy Type Onset Date Status meperidine Demerol throat swelling Drug Allergy Active nitrofurantoin Macrodantin hives Drug Allergy Active Adhesive blisters Allergy Active REASON FOR REFERRAL Reason EUS to assess pancre atic parenchyma; r/o chronic pancreatitis, papillary stenosis Scheduled for 06/15/24 1330 Diagnosis 1 Generalized abdomina l pain (R10.84) Diagnosis 2 Abdominal distension (gaseous) (R14.0) Referral Organization [facility] Referring Provider First Name LESIA Referring Provider Bang Name HAYES Referring Provider Speciality Gastrofaith perez Referred Organization [facility] Referred Provider Tanner Rehman Referred Address [address],[place], [id number], Referred Provider Specialty Gastroentero logy Procedure 1 ENDOSCOPIC ULTRASOUN D EXAM (95735) Referral Priority Routine Referral Appointment Date 06/15/2024 Reason Please consult for c onsideration of cholecystectomy Scheduled for 08/20/24 0945 Diagnosis 1 Abdominal distension (gaseous) (R14.0) Diagnosis 2 Generalized abdomina l pain (R10.84) Diagnosis 3 Abnormal findings on dx imaging of prt digestive tract (R93.3) Referral Organization [facility] Referring Provider First Name LESIA Referring Provider Bang Name HAYES Referring Provider Speciality Gastroente rology Referred Provider Pastor Webb Referred Provider Specialty Surgery Referral Priority Routine Referral Appointment Date 08/20/2024 MEDICATIONS Medication SIG (Take, Route, Frequency, Duration) Notes Start Date End Date Status Metoprolol Tartrate 25 MG 1 tablet with food Orally Twice a day Active Propranolol HCl ER 60 MG 1 capsule Orall y Once a day Active Spironolactone 100 MG 1 tablet Orally On ce a day Active GRADUATE RECRUITER Thyroid 30 MG 1 tablet on an empty stomach Orally Once a day Active predniSONE 20 MG 1 tablet Orally Once a day Active Minoxidil 2.5 MG 1/2 tablet orally on ce daily Orally Twice a day Active Linzess 145 MCG 1 capsule at least 3 0 minutes before the first meal of the day on an empty stomach Orally Once a day Not-Taking PROBLEMS Problem Type ICD Code Onset Dates Problem Status W/U Status Risk SNOMED Code Notes Problem Constipation, unspecified (K59.00) Active confirmed Constipation (47545532) Problem Irritable bowel syndrome with constipation (K58.1) Active confirmed Irritable bowel syndrome characterized by constipation (160707209) VITAL SIGNS Heart Rate 66 /min 06/23/2024 Blood pressure diastolic 85 mm Hg 06/23/2024 Height 68 in 06/23/2024 Blood pressure systolic 133 mm Hg 06/23/2024 Weight 203 lbs 06/23/2024 BMI 30.86 kg/m2 06/23/2024 Encounters Encounter Location Date Provider Diagnosis [facility] [address] [place] [address] 05/29/2024 LESIA KOO Abdominal distension (gaseous) R14.0 and Generalized abdominal pain R10.84 [facility] [address] [facility] [address] [place] [address] 06/23/2024 LESIA KOO Generalized abdominal pain R10.84 ; Abdominal distension (gaseous) R14.0 and Irritable bowel syndrome with constipation K58.1 [facility] [address] [facility] [address] [place] [address] 05/29/2024 LESIA KOO [facility] [address] [facility] [address] [place] [address] 06/23/2024 LESIA KOO [facility] [address] [facility] [address] [place] [address] 07/15/2024 LESIA KOO [facility] [address] [facility] [address] [place] [address] 08/17/2024 LESIA KOO ASSESSMENTS Encounter Date Diagnosis Assessment Notes Treatment Notes Treatment Clinical Notes Section Notes 05/29/2024 Generalized abdominal pain (ICD-10 - R10.84) discussed possible etiologies including SOD, chronic pancreatitis, functional GI, IBS, visceral hypersensitivity, MAST cell activation syndrome and others will start with EUS for evaluation at this time will discuss results after testing discussed possible trial of medication but would like to avoid at this time if normal discussed possible referral to saw repairer for further testing. 05/29/2024 Abdominal distension (gaseous) (ICD-10 - R14.0) discussed possible repeat SIBO testing recommended for her to start a daily probiotic like Align or Behance she no longer has constipation with using natural regimen, may continue at this time 06/23/2024 Generalized abdominal pain (ICD-10 - R10.84) I suspect that she may have two causes of her complaints. with the upper abdominal pain, distention and food intolerances, I suspect that her GB may be a factor as sludge was seen. Discussed HIDA scan and if EF is low, discussed possible surgcial referral As far as her lower abdominal pain, I suspect that she has IBS as she states that Elavil helped in the past and her new natural medication helps with her 'head' and seems to calm her stomach discussed possibly increasing her natural medciation as she is only taking 2tabs and it is recommended to take 4 Also discussed possible restart of TCA to help with her complaints. will call with update with the Ibsrela as this can help with her abdominal pain as well. 06/23/2024 Abdominal distension (gaseous) (ICD-10 - R14.0) 06/23/2024 Irritable bowel syndrome with constipation (ICD-10 - K58.1) samples of Ibsrela 50mg given at this time recommended for her to continue her probiotic but discontinue the digestive enzymes as this may be increasing her constiaption. 05/29/2024 Other Time spent: 45minutes. More than 50% spent reviewing diagnostic results, compliance with current medical therapy, counseling patient on low fat diet, weight reduction to normal BMI, normal BMI discussed, avoidance of ETOH/tobacco products, discussing treatment options. Have discussed details of EUS procedure including indications/risks/ex pected outcomes/limitations /possible medication side effects, and alternatives to procedure. All questions answered and patient expresses understanding. No contraindications noted. Instructed patient regarding management plan, follow-up visits, and stressed importance of compliance with plan. 06/23/2024 Other Time spent: 40 minutes. More than 50% spent reviewing diagnostic results, compliance with current medical therapy, counseling patient on low fat diet, weight reduction to normal BMI, normal BMI discussed, avoidance of ETOH/tobacco products, discussing treatment options. Have discussed details of EUS procedure. All questions answered and patient expresses understanding. No contraindications noted. Instructed patient regarding management plan, follow-up visits, and stressed importance of compliance with plan. PLAN OF TREATMENT Pending Test Test Name Order Date HIDA Scan 06/25/2024 Insurance Providers Payer Name Payer Address Payer Phone Subscriber Number Group Number Insured Name Patient Relationship to Insured Coverage Start Date Coverage End Date [facility] PPO [address] [place], [place] [id number] Petra Morejon Self - patient is the insured MEDICAL (GENERAL) HISTORY Medical History History ICD Code Hypothyroidism hypercholesterolemia hyperlipidemia anxiety irritable bowel syndrome sarcoidosis Surgical History Surgery Date(Month/Year) thyroidectomy tubal ligation EUS 06/15 [place]
--- OUTSIDE RECORDS SUMMARY | 2024-11-04 10:08 | XMS_ITS | Clinical Summary ---
Author Organization [facility] Building B Address [address] [place] [address] Care Team Providers Care Hat Brim Curler Name Role Phone William Bradley MD Primary Care Provider [phone] Erik Reed MD Unavailable Abebe Moreau MD Unavailable [phone] Kanu Bustos MD Unavailable Karly Villarreal MD Unavailable Boogie Reilly MD Unavailable Allergies Active Allergy Reactions Criticality Noted Date Comments Adhesive Blisters High 01/01/2019 Surgical tap, Iodinated Contrast Media Rash Medium 07/28/2009 As a child--recently had contrast with pre-med--tolerated well Meperidine Anaphylaxis,Hives High 10/18/2022 Nitrofurantoin Hives,Rash Medium 01/01/2019 Medications cholecalciferol (VITAMIN D-3) 5,000 unit capsule Take 1 capsule (5,000 Units total) by mouth daily K2 together Active atorvastatin (LIPITOR) 20 mg tabletIndications: Hypercholesterolem ia TAKE 1 TABLET DAILY 90 tablet 11/12/19 23 Active propranolol LA (INDERAL LA) 60 mg 24 hr capsule Take 1 capsule (60 mg total) by mouth daily 05/27/20 23 Active omega-3 fatty acids-fish oil 300-1,000 mg capsule Take 2 capsules (2 g total) by mouth daily Active RN TRANSITIONAL CARE Thyroid 60 mg tablet 0.5 tablets (30 mg total) daily 06/13/20 24 Active metoprolol tartrate (LOPRESSOR) 25 mg immediate release tablet Take 1 tablet (25 mg total) by mouth 2 (two) times a day as needed (PRN hor heart flutter/palpita tions) Active UNABLE TO FIND - ENTER DRUG NAME IN NOTES TO PHARMACY Albaplex Ac tive UNABLE TO FIND - ENTER DRUG NAME IN NOTES TO PHARMACY Arginex Ac tive UNABLE TO FIND - ENTER DRUG NAME IN NOTES TO PHARMACY Cerevive Ac tive UNABLE TO FIND - ENTER DRUG NAME IN NOTES TO PHARMACY Chapis Tomas's hair growth vitamin Active glutathione, bulk, 100 % powder Active UNABLE TO FIND - ENTER DRUG NAME IN NOTES TO PHARMACY Scrofulara Intrinsics ( inverted) Active UNABLE TO FIND - ENTER DRUG NAME IN NOTES TO PHARMACY Adapto code Active Restasis 0.05 % ophthalmic emulsion 1 drop 2 (two) times a day Active famotidine (PEPCID) 20 mg tablet Take 1 tablet (20 mg total) by mouth 2 (two) times a day 09/01/20 24 Active sucralfate (CARAFATE) 1 gram tablet 09/01/20 24 Active triamcinolone (KENALOG) 40 mg/mL injection Take 60 mg by injection route. 12/10/19 24 Active UNABLE TO FIND - ENTER DRUG NAME IN NOTES TO PHARMACY Med Name: L-Glutothyrone Active traMADoL (ULTRAM) 50 mg tablet Take 1 tablet (50 mg total) by mouth every 6 (six) hours 30 tablet 09/30/19 25 Active Additional Information Patient not taking.Reported on 10/15/2024 ondansetron ODT (ZOFRAN-ODT) 8 mg disintegrating tablet Take 1 tablet (8 mg total) by mouth every 8 (eight) hours as needed for nausea 20 tablet 09/30/19 25 Active UNABLE TO FIND Orthospore IG A ctive UNABLE TO FIND Gutflora complex Active predniSONE (DELTASONE) 10 mg tablet Take 1.5 tablets (15 mg) by mouth daily Take 1.5 tabs daily for 30 days then 1 tab daily for 30 days 45 tablet 1 10/15/19 25 025 Active atovaquone (MEPRON) suspension 750 mg/5 mL Take 10 mL (1,500 mg total) by mouth daily 300 mL 1 10/15/19 25 025 Active azithromycin (ZITHROMAX) 250 mg tablet Take 2 by mouth today then 1 daily for 4 days 6 tablet 10/15/19 25 025 Active Problems Problem Noted Date Diagnosed Date Chronic pansinusitis 09/01/2024 Assessment & Plan (09/01/2024 7:56 PM HELPDESK SPECIALIST): I am recommending a sinus CT scan for further evaluation this. She would like to go ahead and pursue that. I did note that she has a severe deviation of nasal septum to the right side with enlarged inferior turbinates. That could be causing some of her symptoms. She understands. Ear fullness, bilateral 09/01/2024 Assessment & Plan (09/01/2024 7:57 PM HELPDESK SPECIALIST): I reassured her that her ears look fine and I do not find any significant abnormalities. She is having no problems today. Ultimately we could consider doing some audiologic testing if this continues. For now I would watch it. Obstructive sleep apnea syndrome 07/10/2024 Essential hypertension 06/08/2024 Stage 3a chronic kidney disease 06/08/2024 Coagulopathy (CMS/HCC) 02/13/2024 Nonspecific abnormal finding of lung field 01/26 Dry eyes 10/23/2023 Mediastinal lymphadenopathy 10/21/2023 Herniated lumbar intervertebral disc 04/05/2023 Gastroesophageal reflux disease without esophagi tis 03/31/2023 Pulmonary nodule 03/26/2023 Abdominal pain 01/25/2023 Assessment & Plan (08/29/2023 11:28 AM HELPDESK SPECIALIST): Complains of abdominal pain since COVID vaccination [...] secondary to IBS-C. -avoid NSAIDs -continue Linzess Assessment & Plan (01/25/2023 8:51 AM CDT): Complains of abdominal pain since COVID vaccination [...] started low FODMAP diet with good results. -avoid NSAIDs -we will order labs: Lipase, TTG IgA, CRP, ESR -schedule EGD and colonoscopy -The risks (risks of bleeding, infection, perforation requiring surgery, missed polyps/cancer, dental injury, aspiration pneumonia, anesthesia complications such as drug reaction and cardiopulmonary complications including rare chance of ), benefits, and alternatives of the planned procedure were explained to the patient who understands and consents to having procedure done. Rectal bleeding 01/25/2023 Assessment & Plan (08/29/2023 11:28 AM HELPDESK SPECIALIST): Intermittent bright red blood per rectum. -colonoscopy [...] understands and consents to having procedure done. Assessment & Plan (01/25/2023 8:50 AM CDT): Intermittent bright red blood per rectum. -colonoscopy as above Irritable bowel syndrome with constipation 01/25 Assessment & Plan (08/29/2023 11:30 AM HELPDESK SPECIALIST): Chronic constipation for the past 2 years. -high-fiber diet -continue probiotics -continue Linzess Constipation 01/25/2023 Assessment & Plan (08/29/2023 11:18 AM HELPDESK SPECIALIST): Chronic constipation for the past 2 years, recently having narrow caliber stool. -high-fiber diet -we will give Linzess samples and prescribe Linzess 145 mcg p.o. daily Assessment & Plan (01/25/2023 8:50 AM CDT): Chronic constipation for the past 2 years, recently having narrow caliber stool. -high-fiber diet -we will give Linzess samples and prescribe Linzess 145 mcg p.o. daily Bilateral atelectasis 12/31/2022 Shortness of breath 12/31/2022 Thyroid nodule 11/01/2022 Adverse reaction to food 10/30/2022 Allergic rhinitis due to animal hair and dander 10/30/2022 Seasonal allergic rhinitis 10/30/2022 Chronic allergic conjunctivitis 10/30/2022 Chronic rhinitis 10/30/2022 Idiopathic urticaria 10/30/2022 Moderate persistent asthma without complication 10/30/2022 Uncomplicated severe persistent asthma 3 MVP (mitral valve prolapse) 05/10/2022 Gastroesophageal reflux dise ase with esophagitis without hemorrhage 02/02/2022 Hiatal hernia 02/01/2022 Elevated liver enzymes 06/16/2021 Dysphagia 06/16/2021 Assessment & Plan (08/29/2023 11:27 AM HELPDESK SPECIALIST): Intermittent dysphagia to solids. EGD June 2023 with irregular Z-line, status post dilation to 54 Armenian. Pathology unremarkable. No further dysphagia since dilation. -monitor for recurrence Assessment & Plan (01/25/2023 8:50 AM CDT): Intermittent dysphagia to solids. -schedule EGD -The risks (risks of bleeding, infection, perforation requiring surgery, missed polyps/cancer, dental injury, aspiration pneumonia, anesthesia complications such as drug reaction and cardiopulmonary complications including rare chance of ), benefits, and alternatives of the planned procedure were explained to the patient who understands and consents to having procedure done. Weight loss 06/16/2021 Heart palpitations 02/08/2021 Assessment & Plan (02/08/2021 12:33 PM CDT): Chronic condition uncontrolled Increase metoprolol xl 25mg bid 48 hr holter Echo 2d Frequent PVCs 11/07/2018 Vitamin B12 deficiency 03/06/2017 Vitamin D deficiency 03/06/2017 Mixed hyperlipidemia 02/08/2017 Generalized anxiety disorder 02/07/2017 Irritable bowel syndrome with diarrhea 7 Panic attacks 02/07/2017 Gastritis 06/21/2016 Hypercholesterolemia 08/30/2011 Stress incontinence 07/28/2009 Encounters Date Type Department Care Team Description 10/15/2024 9:45 AM HELPDESK SPECIALIST Lab [facility] Office Building [address] [place] [id number] Acute cough 10/15/2024 9:00 AM HELPDESK SPECIALIST Office Visit [facility] Pulmonary [address] [place] [address] bAebe Moreau MD Sarcoidosis (Primary Dx); Acute cough 10/07/2024 9:30 AM HELPDESK SPECIALIST Lab [facility] [address] [place] [address] 09/30/2024 12:55 PM HELPDESK SPECIALIST - 09/30/2024 2:50 PM HELPDESK SPECIALIST Surgery [facility] [place] [address] [place] [address] Pastor Webb MD LAPAROSCOPIC CHOLECYSTECTOMY 09/30/2024 12:13 PM HELPDESK SPECIALIST Anesthesia Event [facility] [place] [address] [place] [address] Carolynn Sim MD Lee, Walter, MD 09/30/2024 11:12 AM HELPDESK SPECIALIST - 09/30/2024 4:27 PM HELPDESK SPECIALIST Hospital Encounter [facility] [place] [address] [place] [address] Pastor Webb MD Biliary dyskinesia Discharge Disposition: Discharge to home or self care 09/24/[address] [facility] Otolaryngology [address] [place] [address] results 09/07/[address] [facility] Otolaryngology [address] [place] [phone] Gaetano Hutchinson MD Chronic pansinusitis (Primary Dx) 09/01/2024 9:00 AM HELPDESK SPECIALIST Office Visit [facility] Otolaryngology [address] [place] [phone] Gaetano Hutchinson MD Ear fullness, bilateral (Primary Dx); Chronic pansinusitis 08/30/2024 7:27 AM HELPDESK SPECIALIST - 08/30/2024 1:40 PM HELPDESK SPECIALIST Emergency [facility] Emergency Department [address] [place] [address] Domenic Fitch MD Abdominal pain, epigastric (Primary Dx); Acute LUQ pain; Diarrhea after vaccination Discharge Disposition: Discharge to home or self care 08/18/2024 2:30 PM HELPDESK SPECIALIST Office Visit [facility] Pulmonary [place] [address] [facility] [address] [place] [address] Abebe Moreau MD Sarcoidosis (Primary Dx); Mediastinal lymphadenopathy; Pulmonary nodule; Seasonal allergic rhinitis, unspecified trigger; Gastroesophageal reflux disease without esophagitis 08/04/2024 2:32 PM HELPDESK SPECIALIST - 08/04/2024 11:59 PM HELPDESK SPECIALIST [place] [address] Discharge Disposition: Discharge to home or self care from Last 3 Months Immunizations Immunization Administration Dates Next Due Influenza, Quadrivalent, Spl it, Preservative Free, Intramuscular 07/16/2019 Influenza, Unspecified 10/30/2022(Deferr ed: Patient Refused),05/30/2022(Deferred: Patient Refused) Pfizer SARS-CoV-2 Monovalent Vaccination (12+ Yrs) PURPLE 01/06/2021,12/15/2020 Tdap 12/17/2020 Surgical History Surgery Date Site/Laterality Comments KIDNEY STONE SURGERY TUBAL LIGATION SHOULDER SURGERY Right complete reconstruction x 3--somewhat restricted ROM ENDOPYLOMYOTOMY TONSILLECTOMY ABDOMINAL SURGERY COLONOSCOPY ESOPHAGOGASTRODUODENOSCOPY BLADDER SURGERY TVT ENDOMETRIAL ABLATION PELVIC LAPAROSCOPY for endometriosis WISDOM TOOTH EXTRACTION THYROIDECTOMY Left partial US GUIDED BIOPSY LYMPH NODE SUPERFICIAL LEFT 02/04/2024 N/A CHOLECYSTECTOMY 09/30/2024 lap rivera Medical History Medical History Date Comments tachycardia history--control led with meds--seethanh Nielsen Arthritis Kidney stone 10/18/2022 has 2 currently, but not causing any problems Anxiety Hypercholesteremia Pneumonia Peptic ulceration child IBS (irritable bowel syndrome) Small intestinal bacterial o vergrowth (SIBO) Mitral valve prolapse PONV (postoperative nausea and vomiting) Severe--usually gets a scopolomine patch Motion sickness Vasovagal syndrome Chronic constipation Hypothyroidism Fibroid Ovarian cyst Endometriosis Thyroid goiter 7 cm. removed 2022 Delayed emergence from general anesthesia chronic Stomach pain Sarcoidosis Cancer (CMS/HCC) (HCC) Autoimmune disease (CMS/HCC) (HCC) Kidney disease UTI (urinary tract infection) Sinusitis Hypercholesterolemia 08/30/2011 Generalized anxiety disorder 02/07/2017 Frequent PVCs 11/07/2018 Pulmonary nodule 03/26/2023 Stage 3a chronic kidney disease (HCC) 06/08/2024 Obstructive sleep apnea syndrome 07/10/2024 Coagulopathy (CMS/HCC) (HCC) 02/13/2024 SVT (supraventricular tachycardia) (HCC) GERD (gastroesophageal reflux disease) Chronic pain disorder Family History Medical History Relation Name Comments Arthritis Father Lance Cancer Father Lance Heart disease Father Lance Hypertension Father Lance Scleroderma Father Lance Thyroid disease Father Lance Alzheimer's disease Maternal Grandfather Dariel Cancer Maternal Grandfather Dariel Memory loss Maternal Grandfather Dariel Stroke Maternal Grandmother Chapis Anemia Mother Lauren Asthma Mother Lauren Depression Mother Lauren Diabetes Mother Lauren Hyperlipidemia Mother Lauren Hypertension Mother Lauren Kidney disease Mother Lauren Obesity Mother Lauren Relation Name Status Comments Father Lance Maternal Grandfather Dariel Maternal Grandmother Chapis Mother Lauren Sister Alive Social History Tobacco Use Types Packs/Day Years Used Date Smoking Tobacco: Former Cigarettes 0.5 17 1 995 - 2012 Vaping Smokeless Tobacco: Never Tobacco Cessation:Counseling Given: Not Answered Alcohol Use Standard Drinks/Week Comments Yes 5 (1 standard drink = 0.6 oz pur e alcohol) AUDIT-C Answer Date Recorded Q1: How often do you have a drink containing alcohol? Never 10/15/2024 Q2: How many drinks containi ng alcohol do you have on a typical day when you are drinking? Patient does not drink Q3: How often do you have si x or more drinks on one occasion? Never 10/15/2024 PHQ-2 Answer Date Recorded PHQ-2 Total Score (If total score is 3 or more points, staff should administer the PHQ-9) 0 10/30/2022 Personal Safety Answer Date Recorded Have you ever been in or are you currently in a harmful physical or emotional relationship or is someone making you feel afraid or unsafe? 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 Not on file Not on file Obstetrics History Last Filed Vital Signs Vital Sign Reading Time Taken Comments Blood Pressure 124/76 10/15/2024 9:09 AM HELPDESK SPECIALIST Pulse 76 10/15/2024 9:09 AM HELPDESK SPECIALIST Temperature 36.3 C (97.3 F) 10/15/2024 9:09 AM HELPDESK SPECIALIST Respiratory Rate 16 10/15/2024 9:09 AM HELPDESK SPECIALIST Oxygen Saturation 98% 10/15/2024 9:09 AM HELPDESK SPECIALIST Inhaled Oxygen Concentration - - Weight 90.9 kg (200 lb 6.4 oz) 10/15/2024 9:09 A M HELPDESK SPECIALIST Height 172.7 cm (5' 8 ) 10/15/2024 9:09 AM HELPDESK SPECIALIST Body Mass Index 30.47 10/15/2024 9:09 AM HELPDESK SPECIALIST Plan of Treatment Health Maintenance Due Date Last Done Comments Hepatitis B Screening 1993 Pneumococcal vaccine <65 (1 of 2 - PCV) 1994 Cervical Cancer Screening 09/14/2021 09/14/2020 Depression Screening 10/30/2023 10/30/2022, 02/08/2021, 11/21/2020, Additional history exists Regular Well Visit/Exam 18-64 10/30/2023 10/30/2022 Covid-19 Vaccine (3 - 2023-2 5 season) 2024 01/06/2021, 12/15/2020 Influenza Vaccine (#1) 2024 07/16/2019 Breast Cancer Screening-Mammogram 09/26/2024 09/26/2023, 06/07/2022, 03/02/2021 Colon Cancer Screening-Colonoscopy 01/07/2029 01/08/2024, 07/10/2023, 04/07/2021 DTaP/Tdap/Td Vaccine (2 - Td or Tdap) 12/17/2030 12/17/2020 Hepatitis C Screening Completed 09/24/2022 , 05/15/2021, 02/27/2021, Additional history exists Procedures Procedure Name Priority Date/Time Associated Diagnosis Comments INFLUENZA A/B, RSV, AND COVID-19 PCR Routine 10/15/2024 9:58 AM HELPDESK SPECIALIST Acute cough EGFR Routine 10/07/2024 9:43 AM HELPDESK SPECIALIST LIPID PANEL Routine 10/07/2024 9:43 AM HELPDESK SPECIALIST TSH Routine 10/07/2024 9:43 AM HELPDESK SPECIALIST URIC ACID Routine 10/07/2024 9:43 AM HELPDESK SPECIALIST COMPREHENSIVE METABOLIC PANEL Routine 10/07/2024 9:43 AM HELPDESK SPECIALIST SURGICAL PATHOLOGY Routine 09/30/2024 12 :42 PM HELPDESK SPECIALIST Biliary dyskinesia AR AN PROCEDURE PLACEHOLDER Routine 09/30/2024 12:26 PM HELPDESK SPECIALIST AR AN ELECTIVE ENDOTRACHEAL AIRWAY Routine 09/30/2024 12:26 PM HELPDESK SPECIALIST LAPAROSCOPIC CHOLECYSTECTOMY WITH CHOLANGIOGRAMS 09/30/2024 12:12 PM HELPDESK SPECIALIST BILIARY DYSKINESIA URINALYSIS AND REFLEX TO MICROSCOPIC AND CULTURE STAT 08/30/2024 12:[address] ABDOMEN PELVIS WO CONTRAST ED 08/30/2024 11:37 AM HELPDESK SPECIALIST US ABDOMEN LIMITED ED 08/30/2024 9: 04 AM HELPDESK SPECIALIST HCG, BLOOD, QUANTITATIVE STAT 08/30/2024 7:11 AM HELPDESK SPECIALIST EGFR STAT 08/30/2024 7:11 AM HELPDESK SPECIALIST DIFFERENTIAL AUTO STAT 08/30/2024 7:1 1 AM HELPDESK SPECIALIST LACTATE STAT 08/30/2024 7:11 AM HELPDESK SPECIALIST LIPASE STAT 08/30/2024 7:11 AM HELPDESK SPECIALIST COMPREHENSIVE METABOLIC PANEL STAT 08/30/2024 7:11 AM HELPDESK SPECIALIST CBC WITH AUTO DIFFERENTIAL STAT 08/30/2024 7:11 AM HELPDESK SPECIALIST PLATELET FUNCTION SCREEN STAT 08/04/2024 2:32 PM HELPDESK SPECIALIST COLONOSCOPY 01/08/2024 11:02 AM CDT HEPATITIS PANEL, ACUTE Routine 3 7:13 AM HELPDESK SPECIALIST Dizziness SOB (shortness of breath) Benign essential HTN Chronic fatigue HM MAMMOGRAPHY Routine 06/07/2022 PAP SMEAR Routine 09/14/2020 from Last 3 Months or Most Recently Relevant to Health Maintenance Results * Influenza A/B, RSV, and COVID-19 PCR Nasopharyngeal (10/15/2024 9:58 AM HELPDESK SPECIALIST) COVID-19 RNA Negative Negative Comment:Testing performed by : [facility], [address] [place] [address]., [id number] Influenza A RNA Negative Negative ULISES Comment:Testing performed by : [facility], [address] [place] [address], [place]., [address] Influenza B RNA Negative Negative ULISES GREEN Comment:Testing performed by : [facility], [address] [place] [address]., [id number] RSV RNA Negative Negative ULISES Comment: Interpretive data: Testing performed by [facility]. This test is performed using the [employer] Xpert Xpress CoV-2/Flu/RSV plus assay. This is a multiplex, real-time reverse transcriptase PCR assay intended for the qualitative detection of nucleic acid from SARS-CoV-2, influenza A, influenza B, and respiratory syncytial virus. This assay has been cleared by the [place] Food and Drug administration. The performance characteristics have been verified by the [facility]. Results must be considered in the clinical context, and a negative result does not rule out infection. Interpretive Data last revised 2023 Testing performed by: [address] [address] Nasopharyngeal 10/15/2024 9: 58 AM HELPDESK SPECIALIST 10/15/2024 10:38 AM HELPDESK SPECIALIST Narrative [facility]ISES GREEN - 10/15/2024 11:17 AM HELPDESK SPECIALIST Is the Patient experiencing symptoms consistent with COVID?->No Abebe Moreau MD LAB MICROBIOLOGY - GEN ERAL ORDERABLES Final Result [facility] [address] [facility] Department [place] [address] * eGFR (10/07/2024 9:43 AM HELPDESK SPECIALIST) eGFR 73 >=60 mL/min/1. 73 m2 Comment: Interpretive Data Reference Interval Normal >/= 90 mL/min/1.73m2 Mildly decreased* 60 - 89 mL/min/1.73m2 Mildly to moderately decreased 45 - 59 mL/min/1.73m2 Moderately to severely decreased 30 - 44 mL/min/1.73m2 Severely decreased 15 - 29 mL/min/1.73m2 Kidney Failure < 15 mL/min/1.73m2 *Relative to young adult level Estimated glomerular filtration rate is determined by the 2020 CKD-EPI equation recommended by the National Kidney Foundation (A Unifying Approach to GFR Estimation: Recommendations of the NKF-ASK Task Force on Reassessing the Inclusion of Race in Diagnosing Kidney Disease, JASN 2020). The CKD-EPI equation should not be used for patients with unstable renal function and has not been validated in children and those over 70. Current interpretive data was last reviewed 2021. Blood 10/07/2024 9:43 AM HELPDESK SPECIALIST 10/07/2024 9:51 AM HELPDESK SPECIALIST William Bradley MD LAB BLOOD ORDERABLES Final Resu lt Performing Organization Address [facility] Co de Phone Number [address] [place] [address] * Uric acid (10/07/2024 9:43 AM HELPDESK SPECIALIST) Uric acid 6.4 2.5 - 7.0 mg/dL Blood 10/07/2024 9:43 AM HELPDESK SPECIALIST 10/07/2024 9:51 AM HELPDESK SPECIALIST us William Bradley MD LAB BLOOD ORDERABLES Final Resu lt Performing Organization Address [facility] de Phone Number [address] [place] [address] * TSH (10/07/2024 9:43 AM HELPDESK SPECIALIST) Thyroid Stimulating Hormone 1.27 0.30 - 4.20 mcIUnit/mL Blood 10/07/2024 9:43 AM HELPDESK SPECIALIST 10/07/2024 9:51 AM HELPDESK SPECIALIST William Bradley MD LAB BLOOD ORDERABLES Final Resu lt Performing Organization Address [facility] de Phone Number [address] [place] [address] * Lipid panel (10/07/2024 9:43 AM HELPDESK SPECIALIST) Cholesterol 167 30 - 199 mg/dL Comment: Interpretive Data Ages < or = 19 years Acceptable: <170 mg/dL Borderline high: 170-199 mg/dL High: >or= 200 mg/dL Ages > or = 20 years Desirable: <200 mg/dL Borderline high: 200-239 mg/dL High: >or= 240 mg/dL Literature References: 1. Expert Panel on Integrated Guidelines for Cardiovascular Health and Risk Reduction in Children and Adolescents. Pediatrics 2011;128:S213 2. NCEP Expert Panel. Circulation 2004;110:227 Current Interpretive Data was last revised on 2018. Triglycerides 142 <=149 mg/dL ULISES Comment: Interpretive Data Ages < or = 9 years Acceptable: <75 mg/dL Borderline high: 75-99 mg/dL High: >or= 100 mg/dL Ages 10 to 20 years Acceptable: <90 mg/dL Borderline high: 90-129 mg/dL High: >or= 130 mg/dL Ages > or = 20 years Desirable: <150 mg/dL Borderline high: 150-199 mg/dL High: 200-499 mg/dL Very high: >or= 499 mg/dL Literature References: 1. Expert Panel on Integrated Guidelines for Cardiovascular Health and Risk Reduction in Children and Adolescents. Pediatrics 2011;128:S213 2. NCEP Expert Panel. Circulation 2004;110:227 Current Interpretive Data was last revised on 2018. HDL 48 >=40 mg/dL [facility] Comment: Interpretive Data Ages < or = 19 years Acceptable: >45 mg/dL Borderline low: 40-45 mg/dL Low: <40 mg/dL Ages > or = 20 years Desirable: >or= 60 mg/dL Low: <40 mg/dL Literature References: 1. Expert Panel on Integrated Guidelines for Cardiovascular Health and Risk Reduction in Children and Adolescents. Pediatrics 2011;128:S213 2. NCEP Expert Panel. Circulation 2004;110:227 Current Interpretive Data was last revised on 2018. LDL, calculated 94 <=129 mg/dL [facility] Comment: Interpretive Data Ages < or = 19 years Acceptable: <110 mg/dL Borderline high: 110-129 mg/dL High: >or= 130 mg/dL Ages > or = 20 years Optimal: <100 mg/dL Near optimal: 100-129 mg/dL Borderline high: 130-159 mg/dL High: >160 mg/dL Calculated using the Cowart LDL-C estimating equation. This equation was implemented on 2024. Prior to this date LDL-C was estimated using the Friedewald equation. Literature References: 1. Expert Panel on Integrated Guidelines for Cardiovascular Health and Risk Reduction in Children and Adolescents. Pediatrics 2011;128:S213 2. NCEP Expert Panel. Circulation 2004;110:227 3. Supa Ngo et al. CHANEL Cardiol. 2020 January 14;5(5):540-548. doi: 10.1001/[email or web address] Current Interpretive Data was last revised on 2024. Non-HDL Cholesterol 119 mg/dL [facility] Comment: Interpretive Data Ages < or = 19 years Acceptable: <120 mg/dL Borderline high: 120-144 mg/dL High: >145 mg/dL Ages > or = 20 years When triglycerides are >200 mg/dL, Non-HDL cholesterol is a secondary target of therapy with treatment goals that are 30 mg/dL greater than the LDL cholesterol target. Literature References: 1. Expert Panel on Integrated Guidelines for Cardiovascular Health and Risk Reduction in Children and Adolescents. Pediatrics 2011;128:S213 2. NCEP Expert Panel. Circulation 2004;110:227 Current Interpretive Data was last revised on 2018. Chol/HDL ratio 3 [facility] Blood 10/07/2024 9:43 AM HELPDESK SPECIALIST 10/07/2024 9:51 AM HELPDESK SPECIALIST us William Bradley MD LAB BLOOD ORDERABLES Final Resu lt [facility] [address] [facility] Department [place] [address] * Comprehensive metabolic panel (10/07/2024 9:43 AM HELPDESK SPECIALIST) Sodium 139 135 - 145 mmol/L Potassium, pl 4.5 3.3 - 4.9 mmol/L [facility] Chloride 101 97 - 110 mmol/L [facility] CO2 30 22 - 32 mmol/L [facility] Anion gap 8 2 - 15 mmol/L [facility] BUN 13 6 - 25 mg/dL [facility] Creatinine 0.95 0.60 - 1.10 mg/dL [facility] Glucose 95 70 - 199 mg/dL [facility] Comment: Interpretive Data Fasting glucose >/= 126 mg/dl is diagnostic for diabetes. Fasting is defined as no caloric intake for at least 8 hours. Fasting glucose between 100 mg/dl to 125 mg/dl is diagnostic of prediabetes. In a patient with classic symptoms of hyperglycemia or hyperglycemic crisis, a random glucose >/= 200 mg/dl is diagnostic for diabetes. In the absence of unequivocal hyperglycemia, results should be confirmed by repeat testing. The classification and Diagnosis of Diabetes Diabetes Care 202; 46: S19-S40. Current interpretive data was last revised 2022. Calcium 9.8 8.5 - 10.3 mg/dL [facility] Bilirubin, total 0.4 0.1 - 1.2 mg/dL [facility] Protein, pl 7.0 6.5 - 8.5 g/dL [facility] Albumin 4.4 3.5 - 5.0 g/dL [facility] Alk phos 62 40 - 130 Units/L [facility] ALT 14 7 - 45 Units/L [facility] AST 12 10 - 45 Units/L [facility] Blood 10/07/2024 9:43 AM HELPDESK SPECIALIST 10/07/2024 9:51 AM HELPDESK SPECIALIST us William Bradley MD LAB BLOOD ORDERABLES Final Resu lt [facility] [address] [place] [address] Department of Laboratories [place], [place] [id number] * Surgical pathology (09/30/2024 12:42 PM HELPDESK SPECIALIST) Tissue (Gallbladder) 09/30/2024 12:42 PM HELPDESK SPECIALIST Narrative PATHOLOGY [facility] - 10/05/2024 1:44 PM HELPDESK SPECIALIST [facility] Department of Pathology [address] [place] [id number] Note to Patients: This report may contain a detailed description of human tissue sent by a health care provider to the laboratory for pathologic evaluation. The content of this report is essential for diagnosis and may provide important critical findings. This information may be unfamiliar to patients to review without a medical professional present. It is advised that the patient review this report in the presence of a health care provider who can answer questions and explain the details. Final Report Patient Name: ALONSO DEWITT : 1975 (Age: 49) Gender: F Address: [address] [place] [address] Hospital #: [id number] Service: Surgery Location: Patient Type: [facility] OUTPATIENT Taken: 09/30/2024 Received: 09/30/2024 Accessioned: 10/01/2024 Reported: 10/05/2024 Physician(s): Elvia Joshi M.D. Diagnosis: Gallbladder, cholecystectomy: - Mild cholecystitis Cici Marina M.D., Ph.D. Report Electronically Reviewed and Signed Out By Cici Marina M.D., Ph.D. 10/05/2024 13:44:36 Specimen(s) Received: A: Gallbladder Microscopic Description: Unless gross-only is specified, the final diagnosis for each specimen is based on a microscopic examination of each tissue sample. Clinical History: The patient is a 49-year-old woman with biliary dyskinesia. Operative procedure: laparoscopic cholecystectomy with cholangiograms. Gross Description Received in a single formalin filled container labeled with the patient's identifiers and gallbladder is an 8.3 x 3.2 x 3.0 cm intact gallbladder with glistening, green serosa and stapled cystic duct. The wall thickness measures 0.1 cm and the mucosa is green and velvety. There are no stones within the gallbladder or specimen container. Labeled A1 including the cystic duct margin. Jar 1. [id number]/10/01/2024 11:00 Kathy Villalta MS, PA (ASC Microscopic slide review and interpretation for this case was performed at [facility], Department of Surgical Pathology, [address] [facility] [address], [id number], [place] [address] CLIA # [id number] us Pastor Webb MD LAB PATHOLOGY ORDERABLES Fi nal Result PATHOLOGY [facility] * AR AN ELECTIVE ENDOTRACHEAL AIRWAY, AR AN PROCEDURE PLACEHOLDER (09/30/2024 12:26 PM HELPDESK SPECIALIST) Narrative Kate Obrien CRNA - 09/30/2024 12:26 PM HELPDESK SPECIALIST Kate Obrien CRNA 09/30/2024 12:27 PM Airway Patient location: OR Urgency: elective Indications for airway management: anesthesia Difficult airway: no Staff: Placed by: MOLECULAR PHYSICIST: Kate Obrien CRNA Emergent airway documentation: Risks and benefits discussed: yes Consent obtained: yes Consent given by: patient Airway prep: Preoxygenated: yes Patient position: sniffing Mask difficulty assessment: 2 - vent by mask + OA or adjuvant Spontaneous ventilation during airway: absent Sedation level during airway: deep Final airway details: Final airway type: endotracheal airway Tube type: ETT ETT size: 7.0 mm Cuffed: yes Technique used for successful ETT placement: direct laryngoscopy Devices/Methods used in placement: intubating stylet Insertion site: oral Blade type: Ministerio Blade size: 3 Cormack-Lehane (direct): grade I - full view of glottis Cuff volume: 6 mL Cuff inflated with: air ETT to teeth: 20 cm Placement verified by: auscultation and CO2 detection Airway secured with: silk tape Number of attempts: 1 Additional comments: Atraumatic placement by Gisela GERARDO us Carolynn Sim MD ANESTHESIA ORDERABLES Final Resu lt * (ABNORMAL) Urinalysis reflex to microscopic and culture Urine (08/30/2024 12:09 PM HELPDESK SPECIALIST) Color, ur Yellow Yellow Comment:Testing performed by : [address] [address] Clarity, ur Clear Clear [facility] Comment:Testing performed by : [address] [address] Specific gravity, ur 1.021 1.003 - 1.030 [facility] Comment:Testing performed by : [address] [address] pH, urine 5.5 [facility] Comment: Interpretive Data U rine pH is affected by diet, medications, systemic acid-base disturbances, and renal tubular function. pH may affect urinary stone formation. For example, urine pH below 6.0 may help reduce the tendency for calcium phosphate stones and pH greater than 6.0 may reduce the tendency for uric acid stone formation. Source: [facility] Let Current Interpretive Data was last revised on 2017 Testing performed by: [facility], [address] [place] [address], [place]., [address] Protein, ur ql Negative Negative [facility] Comment:Testing performed by : [facility], [address] [place] [address], [place]., [address] Glucose, ur ql Negative Negative [facility] Comment:Testing performed by : [address], [place]., [address] Ketones, ur Trace(A) Negative [facility] Comment:Testing performed by : [address], [place]., [address] Bilirubin, ur Negative Negative [facility] Comment:Testing performed by : [facility], [address] [place] [address], [place]., [address] Blood, ur Negative Negative [facility] Comment:Testing performed by : [address], [place]., [address] Urobilinogen, ur <2.0 <2.0 mg/dL [facility] Comment:Testing performed by : [address], [place]., [address] Nitrite, ur Negative Negative [facility] Comment:Testing performed by : [address], [place]., [address] Leukocyte esterase, ur Negative Negative [facility] Comment:Testing performed by : [address], [place]., [address] UA reflex comment Reflex conditions for microscopic UA and culture not met. [facility] Comment:Testing performed by : [address] [address] Urine 08/30/2024 12:0 9 PM HELPDESK SPECIALIST 08/30/2024 12:11 PM HELPDESK SPECIALIST us Domenic Fitch MD LAB MICROBIOLOGY - GENERAL ORDERABLES Final Result [facility] [address] [facility] Department [place] [address] * CT Abdomen Pelvis WO Contrast (08/30/2024 11:37 AM HELPDESK SPECIALIST) Anatomical Region Laterality Modality Body N/A Computed Tomogra phy 08/30/2024 12:4 6 PM HELPDESK SPECIALIST Narrative 08/30/2024 12:56 PM HELPDESK SPECIALIST EXAM DESCRIPTION: CT ABDOMEN PELVIS WO CONTRAST REASON FOR STUDY: do with valsalva has hernia around 0200 woke up feeling nauseas and having diarrhea. Pt states she is having gallbladder removed in September. Also states a blocked bile duct. TECHNIQUE: CT scan of the abdomen and pelvis performed without intravenous and without oral contrast using helical scanning technique. Reconstructed coronal and sagittal MPR images reviewed. All images stored on PACS. Automated exposure control was used as a dose optimization technique for this examination. COMPARISON: 06/08/2021 FINDINGS: The sensitivity for detection of visceral lesions is diminished without the use of intravenous contrast. LOWER CHEST: No significant pulmonary abnormalities. No effusion. LIVER: Normal size. No identified cystic or solid masses. GALLBLADDER: No stones identified. No wall thickening or inflammatory changes. BILE DUCTS: No intrahepatic or extrahepatic ductal dilatation. SPLEEN: Normal size. No focal lesions. PANCREAS: No identified cystic or solid masses. No significant calcifications. No adjacent inflammation or peripancreatic fluid collections. Pancreatic duct not dilated. ADRENALS: Normal. KIDNEYS/URINARY TRACT: There is no mass or hydronephrosis. Nonobstructing calculi are seen in both kidneys. Urinary bladder is unremarkable. GI: No definite bowel obstruction. Several slightly prominent small bowel loops in the left abdomen might be related to adynamic ileus. No obvious wall thickening. Normal appendix. No significant diverticular disease. PERITONEUM: No ascites or free air. No definite hernia was seen on this exam. RETROPERITONEUM: No mass or adenopathy. REPRODUCTIVE: No significant abnormality. VASCULATURE: No abdominal aortic aneurysm. MUSCULOSKELETAL: No significant abnormality. OTHER: No other abnormality. IMPRESSION: Several slightly prominent small bowel loops in the left abdomen perhaps due to adynamic ileus or enteritis. If small bowel obstruction is suspected clinically at least follow-up abdomen x-rays are recommended. No definite hernia. THIS IS AN ELECTRONICALLY VERIFIED FINAL REPORT 08/30/2024 12:56 PM - Electronically signed by Tyler Glaser M.D. LACEY: LACEY Report ID: [id number] Reading Location: [id number] Procedure Note Ayaan Glaser MD - 08/30/2024 EXAM DESCRIPTION: CT ABDOMEN PELVIS WO CONTRAST REASON FOR STUDY: do with valsalva has hernia around 0200 woke up feeling nauseas and having diarrhea. Pt states she is having gallbladder removed in September. Also states a blocked bile duct. TECHNIQUE: CT scan of the abdomen and pelvis performed without intravenousand without oral contrast using helical scanning technique. Reconstructed coronal and sagittal MPR images reviewed. All images stored on PACS.Automated exposure control was used as a dose optimization technique for this examination. COMPARISON: 06/08/2021 FINDINGS: The sensitivity for detection of visceral lesions is diminished without the use of intravenous contrast. LOWER CHEST: No significant pulmonary abnormalities. No effusion. LIVER: Normal size. No identified cystic or solid masses. GALLBLADDER: No stones identified. No wall thickening or inflammatory changes. BILE DUCTS: No intrahepatic or extrahepatic ductal dilatation. SPLEEN: Normal size. No focal lesions. PANCREAS: No identified cystic or solid masses. No significant calcifications. No adjacent inflammation or peripancreatic fluidcollections. Pancreatic duct not dilated. ADRENALS: Normal. KIDNEYS/URINARY TRACT: There is no mass or hydronephrosis.Nonobstructing calculi are seen in both kidneys. Urinary bladder is unremarkable. GI: No definite bowel obstruction. Several slightly prominent smallbowel loops in the left abdomen might be related to adynamic ileus. No obviouswall thickening. Normal appendix. No significant diverticular disease. PERITONEUM: No ascites or free air. No definite hernia was seen onthis exam. RETROPERITONEUM: No mass or adenopathy. REPRODUCTIVE: No significant abnormality. VASCULATURE: No abdominal aortic aneurysm. MUSCULOSKELETAL: No significant abnormality. OTHER: No other abnormality. IMPRESSION: Several slightly prominent small bowel loops in the left abdomen perhapsdue to adynamic ileus or enteritis. If small bowel obstruction is suspected clinically at least follow-up abdomen x-rays are recommended. No definite hernia. THIS IS AN ELECTRONICALLY VERIFIED FINAL REPORT 08/30/2024 12:56 PM - Electronically signed by Tyler Glaser M.D. LACEY: LACEY Report ID: [id number] Reading Location: [id number] Domenic Fitch MD [facility] CT PROCEDURES F inal Result * US Abdomen Limited (08/30/2024 9:04 AM HELPDESK SPECIALIST) Anatomical Region Laterality Modality Abdomen N/A Ultrasound 08/30/2024 9:29 AM HELPDESK SPECIALIST Narrative 08/30/2024 9:38 AM HELPDESK SPECIALIST EXAM DESCRIPTION: US ABDOMEN LIMITED REASON FOR STUDY: epigastric luq pain, has gb scheduled for removal and also has CBD obstruction TECHNIQUE: Ultrasound of the complete abdomen was performed with grayscale and color doppler. COMPARISON: Cranial ultrasound dated 07/10/[address] of the abdomen and pelvis dated 06/08/2021. FINDINGS: PANCREAS: Significant portion of the pancreas is obscured due to bowel gas. Limited evaluation of the pancreas is unremarkable LIVER: The liver appears normal in echotexture and echogenicity. No focal lesion identified. The main portal vein is patent with antegrade flow. GALLBLADDER: The gallbladder appears unremarkable. No cholelithiasis. No gallbladder wall thickening or pericholecystic fluid. No positive sonographic Waggoner sign reported. BILIARY: There is no intrahepatic or extrahepatic biliary ductal dilatation. Common bile duct measures 0.3 cm in diameter. RIGHT KIDNEY: Normal size. Normal echogenicity. There are two benign simple cysts, largest measuring 1.7 x 1.7 x 1.4 cm at the superior pole. No solid renal masses. A hyperechoic 5 mm focus is seen at the superior pole adjacent to a cyst possibly representing a nonobstructing renal calculus. No hydronephrosis. Measures 10.5 x 4.0 x 3.8 cm. LEFT KIDNEY: Normal size. Normal echogenicity. There are two benign simple cysts, largest measuring 1.2 x 1.3 x 1.0 cm at the inferior pole. No solid renal masses. No hydronephrosis. Measures 11.3 x 4.7 x 4.9 cm. SPLEEN: Normal size. Normal echogenicity. No solid mass or cyst. Measures 11.9 cm in length. OTHER: No other significant findings. IMPRESSION: 1. No acute findings. 2. Benign bilateral renal cysts. 3. Possible 5 mm nonobstructing right renal calculus. THIS IS AN ELECTRONICALLY VERIFIED FINAL REPORT 08/30/2024 9:38 AM - Electronically signed by Darian Lugo M.D. MF: [id number] Report ID: [id number] Reading Location: [place] [address] Procedure Note Darian Lugo, DO - 08/30/2024 EXAM DESCRIPTION: US ABDOMEN LIMITED REASON FOR STUDY: epigastric luq pain, has gb scheduled for removal andalso has CBD obstruction TECHNIQUE: Ultrasound of the complete abdomen was performed with grayscaleand color doppler. COMPARISON: Cranial ultrasound dated 07/10/[address] of the abdomenand pelvis dated 06/08/2021. FINDINGS: PANCREAS: Significant portion of the pancreas is obscured dueto bowel gas. Limited evaluation of the pancreas is unremarkable LIVER: The liver appears normal in echotexture and echogenicity. Nofocal lesion identified. The main portal vein is patent with antegrade flow. GALLBLADDER: The gallbladder appears unremarkable. No cholelithiasis.No gallbladder wall thickening or pericholecystic fluid. No positivesonographic Waggoner sign reported. BILIARY: There is no intrahepatic or extrahepatic biliary ductaldilatation. Common bile duct measures 0.3 cm in diameter. RIGHT KIDNEY: Normal size. Normal echogenicity. There are two benignsimple cysts, largest measuring 1.7 x 1.7 x 1.4 cm at the superior pole. Nosolid renal masses. A hyperechoic 5 mm focus is seen at the superior poleadjacent to a cyst possibly representing a nonobstructing renal calculus. No hydronephrosis. Measures 10.5 x 4.0 x 3.8 cm. LEFT KIDNEY: Normal size. Normal echogenicity. There are two benignsimple cysts, largest measuring 1.2 x 1.3 x 1.0 cm at the inferior pole. Nosolid renal masses. No hydronephrosis. Measures 11.3 x 4.7 x 4.9 cm. SPLEEN: Normal size. Normal echogenicity. No solid mass or cyst.Measures 11.9 cm in length. OTHER: No other significant findings. IMPRESSION: 1. No acute findings. 2. Benign bilateral renal cysts. 3. Possible 5 mm nonobstructing right renal calculus. THIS IS AN ELECTRONICALLY VERIFIED FINAL REPORT 08/30/2024 9:38 AM - Electronically signed by Darian Lugo M.D. MF: [id number] Report ID: [id number] Reading Location: [place] [address] Domenic Fitch MD IMG US PROCEDURES F inal Result * Lactate (08/30/2024 7:11 AM HELPDESK SPECIALIST) Lactate 1.7 0.7 - 2.0 mmol/L Comment:Testing performed by : [facility], [address] [place] [address]., [address] Blood 08/30/2024 7:11 AM HELPDESK SPECIALIST 08/30/2024 7:17 AM HELPDESK SPECIALIST Domenic Fitch MD LAB BLOOD ORDERABLE S Final Result [facility] [address] [facility] Department [place] [address] * eGFR (08/30/2024 7:11 AM HELPDESK SPECIALIST) eGFR 78 >=60 mL/min/1. 73 m2 Comment: Interpretive Data Reference Interval Normal >/= 90 mL/min/1.73m2 Mildly decreased* 60 - 89 mL/min/1.73m2 Mildly to moderately decreased 45 - 59 mL/min/1.73m2 Moderately to severely decreased 30 - 44 mL/min/1.73m2 Severely decreased 15 - 29 mL/min/1.73m2 Kidney Failure < 15 mL/min/1.73m2 *Relative to young adult level Estimated glomerular filtration rate is determined by the 2020 CKD-EPI equation recommended by the National Kidney Foundation (A Unifying Approach to GFR Estimation: Recommendations of the NKF-ASK Task Force on Reassessing the Inclusion of Race in Diagnosing Kidney Disease, JASN 2020). The CKD-EPI equation should not be used for patients with unstable renal function and has not been validated in children and those over 70. Current interpretive data was last reviewed 2021. Testing performed by: [address] [address] Blood 08/30/2024 7:11 AM HELPDESK SPECIALIST 08/30/2024 7:16 AM HELPDESK SPECIALIST us Domenic Fitch MD LAB BLOOD ORDERABLE S Final Result [facility] [address] [facility] Department [place] [address] * (ABNORMAL) Differential, auto (08/30/2024 7:11 AM HELPDESK SPECIALIST) Neutrophil abs 10.1(H) 1.5 - 6.5 K/cumm Comment:Testing performed by : [address] [address] Imm gran abs 0.1 0.0 - 0.1 K/cumm [facility] Comment:Testing performed by : [address] [address] Lymphocyte abs 0.3(L) 0.8 - 3.3 K/cumm [facility] Comment:Testing performed by : [address] [address] Monocyte abs 0.6 0.2 - 0.8 K/cumm [facility] Comment:Testing performed by : [address] [address] Eosinophil abs 0.1 0.0 - 0.5 K/cumm [facility] Comment:Testing performed by : [address] [address] Basophil abs 0.0 0.0 - 0.1 K/cumm [facility] Comment:Testing performed by : [address] [address] Neutrophil pct 90.8 % [facility] Comment: Interpretive Data Percent cell count reference ranges are not reported, since discordance with absolute values may lead to misinterpretation of CBC data. Current Interpretive Data was last revised on 2017. Testing performed by: [address] [address] Imm gran pct 0.6 % [facility] Comment: Interpretive Data Percent cell count reference ranges are not reported, since discordance with absolute values may lead to misinterpretation of CBC data. Current Interpretive Data was last revised on 2017. Testing performed by: [address] [address] Lymphocyte pct 2.3 % [facility] Comment: Interpretive Data Percent cell count reference ranges are not reported, since discordance with absolute values may lead to misinterpretation of CBC data. Current Interpretive Data was last revised on 2017. Testing performed by: [address] [address] Monocyte pct 5.0 % [facility] Comment: Interpretive Data Percent cell count reference ranges are not reported, since discordance with absolute values may lead to misinterpretation of CBC data. Current Interpretive Data was last revised on 2017. Testing performed by: [address] [address] Eosinophil pct 0.9 % [facility] Comment: Interpretive Data Percent cell count reference ranges are not reported, since discordance with absolute values may lead to misinterpretation of CBC data. Current Interpretive Data was last revised on 2017. Testing performed by: [address] [address] Basophil pct 0.4 % [facility] Comment: Interpretive Data Percent cell count reference ranges are not reported, since discordance with absolute values may lead to misinterpretation of CBC data. Current Interpretive Data was last revised on 2017. Testing performed by: [address] [address] Blood 08/30/2024 7:11 AM HELPDESK SPECIALIST 08/30/2024 7:16 AM HELPDESK SPECIALIST us Domenic Fitch MD LAB BLOOD ORDERABLE S Final Result [facility] [address] [facility] Department [place] [address] * (ABNORMAL) CBC with auto differential (08/30/2024 7:11 AM HELPDESK SPECIALIST) [facility] WBC 11.2(H) 3.8 - 9.9 K/cumm Comment:Testing performed by : [address] [address] Hgb 15.5 11.9 - 15.5 g/dL [facility] Comment:Testing performed by : [address] [address] Hct 44.1 35.6 - 45.5 % [facility] Comment:Testing performed by : [address], [address] Plt 150 150 - 400 K/cumm [facility] Comment:Testing performed by : [address] [address] MPV 10.8 9.1 - 12.3 fL [facility] Comment:Testing performed by : [address], [address] RBC 4.76 3.90 - 5.20 M/cumm [facility] Comment:Testing performed by : [address], [address] MCV 92.6 81.3 - 96.4 fL [facility] Comment:Testing performed by : [address] [address] MCH 32.6 27.1 - 33.3 pg [facility] Comment:Testing performed by : [address] [address] MCHC 35.1 32.3 - 35.7 g/dL [facility] Comment:Testing performed by : [address], [address] RDW CV 11.9 11.1 - 14.9 % [facility] Comment:Testing performed by : [address], [address] RDW SD 40.3 35.7 - 48.1 fL [facility] Comment:Testing performed by : [address] [address] NRBC abs 0.00 0.00 - 0.01 K/cumm [facility] Comment:Testing performed by : [address] [address] Blood (Blood, Venous) 08/30/2024 7:11 AM HELPDESK SPECIALIST 08/30/2024 7:16 AM HELPDESK SPECIALIST Result [facility] Domenic Fitch MD LAB BLOOD ORDERABLE S Final Result Performing Organization Address [facility] de Phone Number [address] [address] * hCG, blood, quantitative (08/30/2024 7:11 AM HELPDESK SPECIALIST) Pathologist [facility] hCG, quant <5.0 0.0 - 5.0 IUnits/L Comment: Interpretive Data Male: < 5 IU/L Non- premenopausal Female: <5 IU/L The Rubi hCG Beta Quant assay procedure was used. Results from different manufacturers or methods may not be comparable. Serial testing should be performed using the same method. Interpretive Data was last revised on 2023 Testing performed by: [address] [address] Blood 08/30/2024 7:11 AM HELPDESK SPECIALIST 08/30/2024 7:16 AM HELPDESK SPECIALIST Result [facility] Domenic Fitch MD LAB BLOOD ORDERABLE S Final Result Performing Organization Address [facility] de Phone Number [address] [address] * Lipase (08/30/2024 7:11 AM HELPDESK SPECIALIST) Pathologist [facility] Lipase 28 10 - 99 Units/L Comment:Testing performed by : [address] [address] Blood (Blood, Venous) 08/30/2024 7:11 AM HELPDESK SPECIALIST 08/30/2024 7:16 AM HELPDESK SPECIALIST Result [facility] Domenic Fitch MD LAB BLOOD ORDERABLE S Final Result [facility] [address] [facility] Department [place] [address] * Comprehensive metabolic panel (08/30/2024 7:11 AM HELPDESK SPECIALIST) Sodium 141 135 - 145 mmol/L Comment:Testing performed by : [address] [address] Potassium, pl 3.9 3.3 - 4.9 mmol/L [facility] Comment:Testing performed by : [address], [place]., [address] Chloride 103 97 - 110 mmol/L [facility] Comment:Testing performed by : [address], [place]., [address] CO2 24 22 - 32 mmol/L [facility] Comment:Testing performed by : [address] [address] Anion gap 14 2 - 15 mmol/L [facility] Comment:Testing performed by : [address] [address] BUN 21 6 - 25 mg/dL [facility] Comment:Testing performed by : [address] [address] Creatinine 0.90 0.60 - 1.10 mg/dL [facility] Comment:Testing performed by : [address] [address] Glucose 139 70 - 199 mg/dL [facility] Comment: Interpretive Data Fasting glucose >/= 126 mg/dl is diagnostic for diabetes. Fasting is defined as no caloric intake for at least 8 hours. Fasting glucose between 100 mg/dl to 125 mg/dl is diagnostic of prediabetes. In a patient with classic symptoms of hyperglycemia or hyperglycemic crisis, a random glucose >/= 200 mg/dl is diagnostic for diabetes. In the absence of unequivocal hyperglycemia, results should be confirmed by repeat testing. The classification and Diagnosis of Diabetes Diabetes Care 202; 46: S19-S40. Current interpretive data was last revised 2022. Testing performed by: [address] [address] Calcium 9.6 8.5 - 10.3 mg/dL [facility] Comment:Testing performed by : [address], [address] Bilirubin, total 1.2 0.1 - 1.2 mg/dL [facility] Comment:Testing performed by : [address], [facility], [address] Protein, pl 6.8 6.5 - 8.5 g/dL [facility] Comment:Testing performed by : [address], [facility], [address] Albumin 4.5 3.5 - 5.0 g/dL [facility] Comment:Testing performed by : [address], [address] Alk phos 45 40 - 130 Units/L [facility] Comment:Testing performed by : [address], [address] ALT 19 7 - 45 Units/L [facility] Comment:Testing performed by : [address], [address] AST 14 10 - 45 Units/L [facility] Comment:Testing performed by : [address], [address] Blood 08/30/2024 7:11 AM HELPDESK SPECIALIST 08/30/2024 7:16 AM HELPDESK SPECIALIST us Domenic Fitch MD LAB BLOOD ORDERABLE S Final Result [facility] [address] [facility] Department [place] [address] * Platelet Function Screen (08/04/2024 2:32 PM HELPDESK SPECIALIST) [facility] PFA-100, epinephrine 118 60 - 160 sec PFA-100, ADP 109 50 - 110 sec [facility] Comment: Interpretive Data: The PFA-100 Collagen/Epinephrine (Col/Epi) and Collagen/ADP (Col/ADP) closure times are used to detect primary hemostasis dysfunction due to intrinsic platelet defects, exposure to some platelet inhibiting drugs, or von Willebrand disease. The closure times have not been validated for their negative or positive predictive values regarding bleeding complications following invasive procedures, or determination of aspirin or clopidogrel resistance. To minimize the likelihood of false positive results, testing should be performed on patients who are not anemic (HCT <35 %) or thrombocytopenic (PLT < 150,000/mcL), and who are taking no, or at least a minimum of, concurrent medications. Interpretation of Results: Prolonged Col/Epi and normal Col/ADP closure times may be due to aspirin or a medication containing a platelet function inhibiting drug (not sufficiently sensitive to clopidogrel to decide therapeutic decisions). Prolonged Col/Epi and/or Col/ADP closure times may be consistent with von Willebrand disease or congenital qualitative platelet disorders in the appropriate clinical setting. More specific tests for these disorders should be considered after assessing for possible acquired conditions that can result in prolonged closure times. Normal Col/Epi and/or Col/ADP closure times do not rule out all types of qualitative platelet disorders or von Willebrand disease. Current interpretive data last revised 2023. Blood 08/04/2024 2:32 PM HELPDESK SPECIALIST 08/04/2024 3:44 PM HELPDESK SPECIALIST us Notinfile Unknown LAB BLOOD ORDERABLES Final Res ult [facility] Department [place] [address] * Colonoscopy (01/08/2024 11:02 AM CDT) Anatomical Region Laterality Modality Other Narrative Procedure Note Dewayne Briggs MD - 01/08/2024 11:02 AM CDT [facility] GI ENDOSCOPY Patient Name: Alonso Hackett Procedure Date: 01/08/2024 11:02 AM Date of : 1975 Admit Type: Outpatient Age: 48 Gender: Female Attending MD: Dewayne Briggs M.D. Room: [facility] ENDOSCOPY ROOM 06 Note Status: Finalized Procedure: Colonoscopy Indications: Rectal bleeding, prior colonoscopy with poor prep Referring MD: William Bradley M.D. Providers: Dewayne Briggs M.D. Medicines: Monitored Anesthesia Care Complications: No immediate complications. Estimated Blood Loss: Estimated blood loss: none. Procedure: Pre-Anesthesia Assessment: - Prior to the procedure, a History and Physicalwas performed, and patient medications and allergieswere reviewed. The risks and benefits of the procedureand the sedation options and risks were discussed withthe patient. All questions were answered and informed consent was obtained. Patient identification and proposed procedure were verified. After reviewingthe risks and benefits, the patient was deemed in satisfactory condition to undergo the procedure.The anesthesia plan was to use monitored anesthesiacare (MAC). Immediately prior to administration of medications, the patient was re-assessed foradequacy to receive sedatives. The heart rate, respiratory rate, oxygen saturations, blood pressure, adequacyof pulmonary ventilation, and response to care were monitored throughout the procedure. The physical status of the patient was re-assessed after the procedure. The benefits, risks and alternatives of theprocedure and sedation were discussed and informed consentwas obtained. All questions were answered. Please referto the signed informed consent document in the medical record. The scope was passed under direct vision.The [id number]-[id number] colonoscope was introduced through theanus and advanced to the cecum, identified byappendiceal orifice and ileocecal valve. The colonoscopy was performed without difficulty. The patient tolerated the procedure well. The quality of the bowel preparation was adequate. Scope withdrawal time was11 minutes. Prep was administered in a split dose. Findings: The perianal and digital rectal examinations were normal. Two polyps were found in the recto-sigmoid colon. The polyps were diminutive in size. These polyps were removed with a cold biopsy forceps. Resection and retrieval were complete. Non-bleeding internal hemorrhoids were found during retroflexion. The hemorrhoids were small. The exam was otherwise without abnormality. Stool sent to rule out ova and parasites. A few small-mouthed diverticula were found in the sigmoid colon. Impression: - Two diminutive polyps at the recto-sigmoid colon, removed with a cold biopsy forceps. Resected and retrieved. - Non-bleeding internal hemorrhoids. - The examination was otherwise normal. - Diverticulosis in the sigmoid colon. Recommendation: - Patient has a contact number available for emergencies. The signs and symptoms of potential delayed complications were discussed with thepatient. Return to normal activities tomorrow. Written discharge instructions were provided to thepatient. - High fiber diet. - Continue present medications. - Await pathology results. - Repeat colonoscopy in 5 years for surveillance. - Return to GI clinic as previously scheduled. Dewayne Briggs M.D. Dewayne Briggs M.D. 01/08/2024 11:29:31 AM . Number of Addenda: 0 Note Initiated On: 01/08/2024 11:02 AM Recognized by the [employer] for promoting quality in endoscopy us Dewayne Briggs MD ENDOSCOPY PROCEDURES Final Resul t * Hepatitis panel, acute (09/24/2022 7:13 AM HELPDESK SPECIALIST) Hep A IgM Negative Negative [facility] - 01 HepBsAg Negative Negative [facility] - 01 Hep B core IgM Negative Negative [facility] - 01 Hep C Ab <0.1 0.0 - 0.9 s/co ratio [facility] - 01 Blood 09/24/2022 7:13 AM HELPDESK SPECIALIST 09/24/2022 Narrative [facility] - 09/25/2022 6:09 AM HELPDESK SPECIALIST Performed at: - [facility] [address] [id number] [employer]: Jose Dacosta PhD, Phone: [phone] us Nini MCCORMICK LAB MICROBIOLOGY - GENER AL ORDERABLES Final Result [facility] - 01 * HM MAMMOGRAPHY (06/07/2022) Historical Provider HEALTH MAINTENANCE Final Result * Pap Smear (09/14/2020) 09/14/2020 Historical Provider LAB PATHOLOGY ORDERABLES Final Result from Last 3 Months or Most Recently Relevant to Health Maintenance Insurance [employer] ACCESS CHOICE [employer] ACCESS CHOICE [facility] ACCESS CHOICE Advance Directives For more information, please contact: [phone] * Full Code (Latest Code Status on File) Date Activated Date Inactivated Comments 06/15/2024 2:04 PM 06/15/2024 7:50 PM * Full Code Date Activated Date Inactivated Comments 11/01/2022 1:53 PM 11/02/2022 6:56 PM Care Teams Hat Brim Curler Relationship Specialty Start Date End Date William Bradley MD PCP - General Family Medicine 05/12/24 Erik Reed MD [address] [facility] 3 [place] [address] Referring Physician Interventional Cardiology 09/21/24 Abebe Moreau MD [address] [facility] [address] [place], [place] [id number] Consulting Physician Pulmonary Disease 09/21/24 Kanu Bustos MD [address] [facility] 1 [place] [address] Consulting Physician Internal Medicine 09/21/24 [place] [address] [facility] [address] [place] [address] Consulting Physician Rheumatology 09/21/24 Boogie Reilly MD [address] [facility] 100 [place] [address] Referring Physician Hematology and Oncology 09/21/24
--- OUTSIDE RECORDS SUMMARY | 2024-11-04 10:08 | XMS_ITS | Clinical Summary ---
Author Organization [facility] Address [address] [place] [address] [place] [address] Care Team Providers Care Marine Fisheries Technician Name Role Phone Unavailable Primary Care Provider Unavailabl e Social History Tobacco Use Types Packs/Day Years Used Date Smoking Tobacco: Never Assessed Comments Unknown Sex and Gender Information Value Date Recorded Sex Assigned at Not on file Legal Sex Female 5:44 PM [employer] Gender Identity Not on file Sexual Orientation Not on file Plan of Treatment Health Maintenance Due Date Last Done Comments HEPATITIS B VACCINES (1 of 3 - 19+ 3-dose series) 05/17 CERVICAL CANCER SCREENING 2005 BREAST CANCER SCREENING 2015 COLORECTAL SCREENING 2020 Colorectal Cancer Screening 2020 FIT-DNA Q 3 years 2020 FIT/FOBT Q 1 year 2020 Flex Sig/CT Colonography Q 5 years 2020 INFLUENZA VACCINE (#1) 2024 07/16/2019 DTAP/TDAP/TD VACCINES (2 - Td or Tdap) 12/17/[address] [place] [address] [place] [address] [employer] ACCESS
--- OUTSIDE RECORDS SUMMARY | 2024-11-04 10:08 | XMS_ITS | Clinical Summary ---
Author Organization [facility] Address [address] [place] [phone] Phone Care Team Providers Care Grades 7 And 8 Teacher Name Role Phone William Bradley MD Primary Care Provider [phone] Allergies Active Allergy Reactions Criticality Noted Date Comments Meperidine throat issue 05/07/2024 Nitrofurantoin Hives 05/07/2024 Protective Adhesive Powder blisters 4 Medications Medication Sig Dispensed Refills Start Date End Date Status atovaquone (MEPRON) 750 MG/5ML suspension Take 750 mg by mouth 1 (one) time each day Active metoprolol tartrate (LOPRESSOR) 25 MG tablet Take 25 mg by mouth if needed Active propranolol LA (INDERAL LA) 60 MG 24 hr capsule Take 60 mg by mouth 1 (one) time each day Active predniSONE (DELTASONE) 20 MG tablet Take 20 mg by mouth 1 (one) time each day Active thyroid (ARMOUR) 30 MG tablet Take 30 mg by mouth 1 (one) time each day Active atorvastatin (LIPITOR) 20 MG tablet Take 20 mg by mouth 1 (one) time each day Active Gardiner-3 Fatty Acids (OMEGA-3 FISH OIL PO) Take by mouth Active Psyllium (NATRUL COLON CARE PO) Take by mouth Active Vitamin D-Vitamin K (D3 + K2 PO) Take 5,000 Units by mouth 1 (one) time each day Drops Active nystatin (MYCOSTATIN) cream Apply topically 2 (two) times a day Active Active Problems Problem Noted Date Diagnosed Date Stage 3a chronic kidney disease 06/08/2024 Essential hypertension 06/08/2024 Proteinuria 06/08/2024 Vitamin D deficiency 06/08/2024 Resolved Problems Problem Noted Date Diagnosed Date Resolved Date Dysuria 05/07/2024 07/02/2024 Hypothyroidism 05/07/2024 06/08/2024 Hyperlipidemia 05/07/2024 06/08/2024 Encounters Date Type Department Care Team Description 08/27/2024 2:40 PM SHEET METAL DUCT WORKER SUPERVISOR Office Visit [facility] [address] [place] [address] 1 [place] [address] Kanu Bustos MD Chronic kidney disease stage 2 (Primary Dx); Essential hypertension 08/20/2024 Orders Only [facility] [address] [place] [address] Kanu Bustos MD from Last 3 Months Family History Medical History Relation Comments Heart disease Father Hyperlipidemia Father Hypertension Father Hyperlipidemia Mother Hypertension Mother Kidney disease Mother Crohn's disease Sister Relation Status Comments Father Mother Sister Social History Tobacco Use Types Packs/Day Years Used Date Smoking Tobacco: Unknown Smokeless Tobacco: Never Tobacco Cessation:Counseling Given: Not Answered Alcohol Use Standard Drinks/Week Comments Not Currently 0 (1 standard drink = 0.6 oz pur e alcohol) Sex and Gender Information Value Date Recorded Sex Assigned at Not on file Gender Identity Not on file Sexual Orientation Not on file Last Filed Vital Signs Vital Sign Reading Time Taken Comments Blood Pressure 142/85 08/27/2024 2:41 PM SHEET [employer] WORKER SUPERVISOR Pulse 85 08/27/2024 2:41 PM SHEET [employer] WORKER SUPERVISOR Temperature - - Respiratory Rate - - Oxygen Saturation - - Inhaled Oxygen Concentration - - Weight 93 kg (205 lb) 08/27/2024 2:41 PM SHEET METAL [employer] WORKER SUPERVISOR Height 170.2 cm (5' 7 ) 08/27/2024 2:41 PM SHEET MET[employer] WORKER SUPERVISOR Body Mass Index 32.11 08/27/2024 2:41 PM SHEET METAL [employer] WORKER SUPERVISOR Plan of Treatment Upcoming Encounters Date Type Department Care Team ([facility] st Contact Info) Description 12/01/2024 3:20 PM CDT Office Visit [facility] [address] [facility] 1 [place] [address] Kanu Bustos MD [address] [place] [address] Health Maintenance Due Date Last Done Comments Pneumococcal PPSV23 Highest Risk Adult (1 of 3 - PCV13) 1994 Influenza Vaccine (#1) 2024 07/16/2019, 2018 Procedures Procedure Name Priority Date/Time Associated Diagnosis Comments SPECIMEN STATUS REPORT Routine 08/20/2024 6:50 AM SHEET METAL [employer] WORKER SUPERVISOR VITAMIN D, 25-HYDROXY, SERUM Routine 08/20/2024 6:50 AM SHEET MET[employer] WORKER SUPERVISOR HEMOGLOBIN A1C Routine 08/20/2024 6:50 AM SHEET METAL [employer] WORKER SUPERVISOR LITHOLINK CKD PROGRAM Routine 08/20/2024 6:50 AM SHEET METAL DU[employer] WORKER SUPERVISOR TOTAL PROTEIN W/ CREATININE, URINE, RANDOM Routine 08/20/2024 6:50 AM SHEET METAL DU[employer] WORKER SUPERVISOR RENAL FUNCTION PANEL (RFP) Routine 08/20/2024 6:50 AM SHEET METAL DU[employer] WORKER SUPERVISOR URINALYSIS ROUTINE W/ REFLEX MICROSCOPIC Routine 08/20/2024 6:50 AM SHEET METAL DU[employer] WORKER SUPERVISOR CBC/DIFF AMBIGUOUS DEFAULT Routine 08/20/2024 6:50 AM SHEET METAL [employer] WORKER SUPERVISOR from Last 3 Months Results * Specimen Status Report (08/20/2024 6:50 AM SHEET METAL DU[employer] WORKER SUPERVISOR) Specimen Status Report Comment [facility] 1 Comment: Ambig Abbrev RP10 Default Ambig Abbrev RP10 Default A hand-written panel/profile was received from your office. In accordance with the [facility] Ambiguous Test Code Policy dated March 2003, we have completed your order by using the closest currently or formerly recognized AMA panel. We have assigned Renal Panel (10), Test Code #326146 to this request. If this is not the testing you wished to receive on this specimen, please contact the [facility] Client Inquiry/Technical Services Department to clarify the test order. We appreciate your business. 08/20/2024 6:50 AM SHEET METAL [employer] WORKER SUPERVISOR 08/19/2024 11:00 PM SHEET METAL DU[employer] WORKER SUPERVISOR Narrative [facility] - 08/21/2024 10:12 AM SHEET METAL DUCT WORKER SUPERVISOR Performed at: [address] [id number] Costume Draper: Jose Dacosta PhD, Phone: [phone] Kanu Bustos MD LAB BLOOD ORDERABLES Performing Organization Address [facility] de Phone Number [facility] 1 * Total Protein w/ Creatinine, Urine, Random (08/20/2024 6:50 AM SHEET METAL DU[employer] WORKER SUPERVISOR) Creatinine, Urine 49.9 Not Estab. mg/dL [facility] 1 Protein, Urine 4.4 Not Estab. mg/dL [facility] 1 Protein/Creatin ine, Urine 88 0 - 200 mg/g creat [facility] 1 08/20/2024 6:50 AM SHEET METAL DU[employer] WORKER SUPERVISOR 08/19/2024 11:00 PM SHEET METAL DU[employer] WORKER SUPERVISOR Narrative [facility] - 08/21/2024 10:12 AM SHEET METAL DUCT WORKER SUPERVISOR Performed at: [address] [id number] Costume Draper: Jose Dacosta PhD, Phone: [phone] Kanu Bustos MD LAB URINE ORDERABLES Performing Organization Address [facility] de Phone Number [facility] 1 * Vitamin D, 25-Hydroxy, Serum (08/20/2024 6:50 AM SHEET METAL DU[employer] WORKER SUPERVISOR) 25-Hydroxyvitami n D2+25-Hydroxyvit johnson D3, Serum/Plasma 39.8 30.0 - 100.0 ng/mL [facility] 1 Comment: Vitamin D deficiency has been defined by the [place] of [employer] and an Endocrine Society practice guideline as a level of serum 25-OH vitamin D less than 20 ng/mL (1,2). The Endocrine Society went on to further define vitamin D insufficiency as a level between 21 and 29 ng/mL (2). 1. IOM ([place] of Medicine). 2010. Dietary reference intakes for calcium and D. [place]: The National Academies Press. 2. Marko JIMENEZ, Fermin BOWER, Raymundo BECERRA, et al. Evaluation, treatment, and prevention of vitamin D deficiency: an Endocrine Society clinical practice guideline. JCEM. 2010; 96(1):1911-30. 08/20/2024 6:50 AM SHEET METAL DUCT WORKER SUPERVISOR 08/19/2024 11:00 PM SHEET METAL DUCT WORKER SUPERVISOR Narrative [facility] - 08/21/2024 10:12 AM SHEET METAL DUCT WORKER SUPERVISOR Performed at: 01 - [address] [id number] Costume Draper: Jose Dacosta PhD, Phone: [phone] Kanu Bustos MD LAB BLOOD ORDERABLES [facility] * (ABNORMAL) CBC/Diff Ambiguous Default (08/20/2024 6:50 AM SHEET METAL [employer] WORKER SUPERVISOR) Leukocytes, Blood 7.1 3.4 - 10.8 x10E3/uL [facility] 1 Erythrocytes (RBC) 4.09 3.77 - 5.28 x10E6/uL [facility] 1 Hemoglobin (HGB) 13.4 11.1 - 15.9 g/dL [facility] 1 Hematocrit (HCT) 39.9 34.0 - 46.6 % [facility] 1 MCV 98(H) 79 - 97 fL [facility] 1 MCH 32.8 26.6 - 33.0 pg [facility] 1 MCHC 33.6 31.5 - 35.7 g/dL [facility] 1 Erythrocyte Distribution Width (RDW) 11.4(L) 11.7 - 15.4 % [facility] 1 Platelets, Blood 192 150 - 450 x10E3/uL [facility] 1 Neutrophils/100 leukocytes, Blood 60 Not Estab. % [facility] 1 Lymphocytes/100 leukocytes, Blood 27 Not Estab. % [facility] 1 Monocytes/100 leukocytes, Blood 10 Not Estab. % [facility] 1 Eosinophils/100 leukocytes, Blood 2 Not Estab. % [facility] 1 Basophils/100 leukocytes, Blood 1 Not Estab. % [facility] 1 Neutrophils, Blood 4.4 1.4 - 7.0 x10E3/uL [facility] 1 Lymphocytes, Blood 1.9 0.7 - 3.1 x10E3/uL [facility] 1 Monocytes, Blood 0.7 0.1 - 0.9 x10E3/uL [facility] 1 Eosinophils, Blood 0.1 0.0 - 0.4 x10E3/uL [facility] 1 Basophils, Blood 0.0 0.0 - 0.2 x10E3/uL [facility] 1 Immature granulocytes/100 leukocytes, Blood 0 Not Estab. % [facility] 1 Immature granulocytes, Blood 0.0 0.0 - 0.1 x10E3/uL [facility] 1 Comment: A hand-written panel/profile was received from your office. In accordance with the [facility] Ambiguous Test Code Policy dated March 2003, we have assigned CBC with Differential/Platelet, Test Code #[id number] to this request. If this is not the testing you wished to receive on this specimen, please contact the [facility] Client Inquiry/ Technical Services Department to clarify the test order. We appreciate your business. 08/20/2024 6:50 AM SHEET METAL [employer] WORKER SUPERVISOR 08/19/2024 11:00 PM SHEET METAL [employer] WORKER SUPERVISOR Narrative [facility] - 08/21/2024 10:12 AM SHEET METAL [employer] WORKER SUPERVISOR Performed at: [address] [id number] Costume Draper: Jose Dacosta PhD, Phone: [phone] Specimen Comment: A courtesy copy of this report has been sent to [phone] Kanu Bustos MD LAB BLOOD ORDERABLES [facility] 1 * [facility] (08/20/2024 6:50 AM SHEET METAL DUCT WORKER SUPERVISOR) Interpretation Note [facility] 2 Comment: Wash Tub Machine Operator's Note: CBC Note: A hand-written panel/profile was received from your office. In accordance with the [facility] Ambiguous Test Code Policy dated March 2003, we have assigned CBC with Differential/Platelet, Test Code #[id number] to this request. If this is not the testing you wished to receive on this specimen, please contact the [facility] Client Inquiry/ Technical Services Department to clarify the test order. We appreciate your business. Wash Tub Machine Operator's Note: Kasey Rea RP10 Default: A hand-written panel/profile was received from your office. In accordance with the [facility] Code [facility] dated March 2003, we have completed your order by using the closest currently or formerly recognized AMA panel. We have assigned Renal Panel (10), Test Code #[id number] to this request. If this is not the testing you wished to receive on this specimen, please contact the [facility] to clarify the test order. We appreciate your business. Supplemental report is available. PDF Image . [facility] 2 08/20/2024 6:50 AM SHEET METAL DUCT WORKER SUPERVISOR 08/19/2024 11:00 PM SHEET METAL DUCT WORKER SUPERVISOR Narrative [facility] - 08/21/2024 10:12 AM SHEET METAL DUCT WORKER SUPERVISOR Performed at: [address] [place] [address] Clinical / Digital [address] [place] [id number] Costume Draper: Tierney Albert MD, Phone: [phone] Kanu Bustos MD LAB BLOOD ORDERABLES [facility] 2 * (ABNORMAL) Renal Function Panel (RFP) (08/20/2024 6:50 AM SHEET METAL DUCT WORKER SUPERVISOR) Glucose, Serum/Plasma 80 70 - 99 mg/dL [facility] 1 Urea nitrogen, Serum/Plasma (BUN) 23 6 - 24 mg/dL [facility] 1 Creatinine, Serum/Plasma 1.16(H) 0.57 - 1.00 mg/dL [facility] 1 Estimated Glomerular Filtration Rate (eGFR) 58(L) >59 mL/min/1.7 3 [facility] 1 Urea nitrogen/Creati nine, Serum/Plasma 20 9 - 23 [facility] 1 Sodium, Serum/Plasma 143 134 - 144 mmol/L [facility] 1 Potassium, Serum/Plasma 4.3 3.5 - 5.2 mmol/L [facility] 1 Chloride, Serum/Plasma 102 96 - 106 mmol/L [facility] 1 Carbon dioxide CO2), total, Serum/Plasma 29 20 - 29 mmol/L [facility] 1 Calcium, Serum/Plasma 9.5 8.7 - 10.2 mg/dL [facility] 1 Phosphate, Serum/Plasma 4.6(H) 3.0 - 4.3 mg/dL [facility] 1 Albumin, Serum/Plasma 4.3 3.9 - 4.9 g/dL [facility] 1 08/20/2024 6:50 AM SHEET METAL DUCT WORKER SUPERVISOR 08/19/2024 11:00 PM SHEET METAL DUCT WORKER SUPERVISOR Narrative [facility] - 08/21/2024 10:12 AM SHEET METAL DUCT WORKER SUPERVISOR Performed at: [address] [place] [id number] Costume Draper: Jose Dacosta PhD, Phone: [phone] Kanu Bustos MD LAB BLOOD ORDERABLES Performing Organization Address City/[facility] Co de Phone Number [facility] 1 * Hemoglobin A1c (08/20/2024 6:50 AM SHEET METAL DUCT WORKER SUPERVISOR) Pathologist [facility] Hemoglobin A1c/Hemoglobin, total, Blood 5.3 4.8 - 5.6 % [facility] 1 Comment: Prediabetes: 5.7 - 6.4 Diabetes: >6.4 Glycemic control for adults with diabetes: <7.0 08/20/2024 6:50 AM SHEET METAL DUCT WORKER SUPERVISOR 08/19/2024 11:00 PM SHEET METAL DUCT WORKER SUPERVISOR Narrative [facility] - 08/21/2024 10:12 AM SHEET METAL DUCT WORKER SUPERVISOR Performed at: [address] [place] [id number] Costume Draper: Jose Dacosta PhD, Phone: [phone] Kanu Bustos MD LAB BLOOD ORDERABLES Performing Organization Address City/[facility]/ZIP Co de Phone Number [facility] * Urinalysis, Routine W/ Reflex Microscopic (08/20/2024 6:50 AM SHEET METAL DUCT WORKER SUPERVISOR) Specific gravity of Urine 1.010 1.005 - 1.030 [facility] 1 pH of Urine 6.5 5.0 - 7.5 [facility] 1 Color of Urine Yellow Yellow [facility] 1 Appearance of Urine Clear Clear [facility] 1 Leukocyte esterase, Urine Negative Negative [facility] 1 Protein, Urine Negative Negative/Tra ce [facility] 1 Glucose, Urine Negative Negative [facility] 1 Ketones, Urine Negative Negative [facility] 1 Hemoglobin, Urine Negative Negative [facility] 1 Bilirubin, total, Urine Negative Negative [facility] 1 Urobilinogen, Urine 0.2 0.2 - 1.0 mg/dL [facility] 1 Nitrite, Urine Negative Negative [facility] 1 Microscopic Examination Comment [facility] 1 Comment:Microscopic not susanne cated and not performed. 08/20/2024 6:50 AM SHEET METAL DUCT WORKER SUPERVISOR 08/19/2024 11:00 PM SHEET METAL DUCT WORKER SUPERVISOR Narrative [facility] - 08/21/2024 10:12 AM SHEET METAL DUCT WORKER SUPERVISOR Performed at: 01 - [facility] [address] [id number] Costume Draper: Jose Dacosta PhD, Phone: [phone] Kanu Bustos MD LAB URINE ORDERABLES [facility] 1 from Last 3 Months Care Teams Grades 7 And 8 Teacher Relationship Specialty Start Date End Date William Bradley MD [address] [place] [id number] PCP - General 05/11/24
--- OUTSIDE RECORDS SUMMARY | 2024-11-04 10:08 | XMS_ITS | Referral Summary ---
Author Organization [facility] Medical Office Building B Address [address] [place] [address] Care Team Providers Care Countersinker Name Role Phone William Bradley MD Primary Care Provider Erik Reed MD Unavailable Abebe Moreau MD Unavailable Kanu Bustos MD Unavailable Karly Villarreal MD Unavailable Boogie Reilly MD Unavailable [phone] Encounters Date Type Department Care Team Description 10/15/2024 9:45 AM SPOOL HAULER Lab [facility] Building 1 Lab [address] [place] [address] Acute cough 10/15/2024 9:00 AM SPOOL HAULER Office Visit [facility] Pul[facility] [place] [address] [facility] [address] [place] [address] Abebe Moreau MD Sarcoidosis (Primary Dx); Acute cough 10/07/2024 9:30 AM SPOOL HAULER Lab [facility] Lab [address] [place] [address] 09/30/2024 12:55 PM SPOOL HAULER - 09/30/2024 2:50 PM SPOOL HAULER Surgery [facility] OR [address] [place] [address] Pastor Webb MD LAPAROSCOPIC CHOLECYSTECTOMY 09/30/2024 12:13 PM SPOOL HAULER Anesthesia Event [facility] OR [address] [place] [address] Carolynn Sim MD Lee, Walter, MD 09/30/2024 11:12 AM SPOOL HAULER - 09/30/2024 4:27 PM SPOOL HAULER Hospital Encounter [facility] OR [address] [place] [address] Pastor Webb MD Biliary dyskinesia Discharge Disposition: Discharge to home or self care 09/24/2024 Telephone [facility] [address] [place] [phone] results 09/07/2024 Imaging Exam [facility] [address] [place] [phone] Gaetano Hutchinson MD Chronic pansinusitis (Primary Dx) 09/01/2024 9:00 AM SPOOL HAULER Office Visit [facility] [address] [place] [phone] Gaetano Hutchinson MD Ear fullness, bilateral (Primary Dx); Chronic pansinusitis 08/30/2024 7:27 AM SPOOL HAULER - 08/30/2024 1:40 PM SPOOL HAULER Emergency [facility] Emergency Department [address] [place] [address] Domenic Fitch MD Abdominal pain, epigastric (Primary Dx); Acute LUQ pain; Diarrhea after vaccination Discharge Disposition: Discharge to home or self care 08/18/2024 2:30 PM SPOOL HAULER Office Visit [facility] Pul[facility] [place] [address] 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 She would like to go ahead and pursue that. I did note that she has a severe deviation of nasal septum to the right side with enlarged inferior turbinates. That could be causing some of her symptoms. She understands. Ear fullness, bilateral 09/01/2024 Assessment & Plan (09/01/2024 7:57 PM SPOOL HAULER): I reassured her that her ears look [...] 01/25/2023 Assessment & Plan (08/29/2023 11:28 AM SPOOL HAULER): Complains of abdominal pain since COVID vaccination [...] 01/25/2023 Assessment & Plan (08/29/2023 11:28 AM SPOOL HAULER): Intermittent bright red blood per rectum. -colonoscopy [...] 01/25 Assessment & Plan (08/29/2023 11:30 AM SPOOL HAULER): Chronic constipation for the past 2 years. -high-fiber diet -continue probiotics -continue Linzess Constipation 01/25/2023 Assessment & Plan (08/29/2023 11:18 AM SPOOL HAULER): Chronic constipation for the past 2 years, [...] 06/16/2021 Assessment & Plan (08/29/2023 11:27 AM SPOOL HAULER): Intermittent dysphagia to solids. EGD June 2023 with irregular Z-line, status post dilation to 54 [place]. Pathology unremarkable. No further dysphagia since dilation. [...] Gastritis 06/21/2016 Hypercholesterolemia 08/30/2011 Stress incontinence 07/28/2009 Immunizations Immunization Administration Dates Next Due Influenza, Quadrivalent, Spl it, Preservative Free, Intramuscular 07/16/2019 Influenza, Unspecified 10/30/2022(Deferr ed: Patient Refused),05/30/2022(Deferred: Patient Refused) Pfizer SARS-CoV-2 Monovalent Vaccination (12+ Yrs) PURPLE 01/06/2021,12/15/2020 Tdap 12/17/2020 Social History Tobacco Use Types Packs/Day Years Used Date Smoking Tobacco: Former Cigarettes 0.5 17 1 5 - 2011 Vaping Smokeless Tobacco: Never Tobacco Cessation:Counseling Given: [...] on file Legal Sex Female 1:50 AM SPOOL HAULER Gender Identity Female 05/17/2021 10:31 AM CDT Sexual Orientation Straight 05/17/2021 10 :31 AM CDT 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 Not on file Not on file Last Filed Vital Signs Vital Sign Reading Time Taken Comments Blood Pressure 124/76 10/15/2024 9:09 AM SPOOL HAULER Pulse 76 10/15/2024 9:09 AM SPOOL HAULER Temperature 36.3 C (97.3 F) 10/15/2024 9:09 AM SPOOL HAULER Respiratory Rate 16 10/15/2024 9:09 AM SPOOL HAULER Oxygen Saturation 98% 10/15/2024 9:09 AM SPOOL HAULER Inhaled Oxygen Concentration - - Weight 90.9 kg (200 lb 6.4 oz) 10/15/2024 9:09 A M SPOOL HAULER Height 172.7 cm (5' 8 ) 10/15/2024 9:09 AM SPOOL HAULER Body Mass Index 30.47 10/15/2024 9:09 AM SPOOL HAULER Plan of Treatment Not on file Procedures Procedure Name Priority Date/Time Associated Diagnosis Comments INFLUENZA A/B, RSV, AND COVID-19 PCR Routine 10/15/2024 9:58 AM SPOOL HAULER Acute cough EGFR Routine 10/07/2024 9:43 AM SPOOL HAULER LIPID PANEL Routine 10/07/2024 9:43 AM SPOOL HAULER TSH Routine 10/07/2024 9:43 AM SPOOL HAULER URIC ACID Routine 10/07/2024 9:43 AM SPOOL HAULER COMPREHENSIVE METABOLIC PANEL Routine 10/07/2024 9:43 AM SPOOL HAULER SURGICAL PATHOLOGY Routine 09/30/2024 12 :42 PM SPOOL HAULER Biliary dyskinesia CO AN PROCEDURE PLACEHOLDER Routine 09/30/2024 12:26 PM SPOOL HAULER CO AN ELECTIVE ENDOTRACHEAL AIRWAY Routine 09/30/2024 12:26 PM SPOOL HAULER LAPAROSCOPIC CHOLECYSTECTOMY WITH CHOLANGIOGRAMS 09/30/2024 12:12 PM SPOOL HAULER BILIARY DYSKINESIA URINALYSIS AND REFLEX TO MICROSCOPIC AND CULTURE STAT 08/30/2024 12:[address] ABDOMEN PELVIS WO CONTRAST ED 08/30/2024 11:37 AM SPOOL HAULER US ABDOMEN LIMITED ED 08/30/2024 9: 04 AM SPOOL HAULER HCG, BLOOD, QUANTITATIVE STAT 08/30/2024 7:11 AM SPOOL HAULER EGFR STAT 08/30/2024 7:11 AM SPOOL HAULER DIFFERENTIAL AUTO STAT 08/30/2024 7:1 1 AM SPOOL HAULER LACTATE STAT 08/30/2024 7:11 AM SPOOL HAULER LIPASE STAT 08/30/2024 7:11 AM SPOOL HAULER COMPREHENSIVE METABOLIC PANEL STAT 08/30/2024 7:11 AM SPOOL HAULER CBC WITH AUTO DIFFERENTIAL STAT 08/30/2024 7:11 AM SPOOL HAULER PLATELET FUNCTION SCREEN STAT 08/04/2024 2:32 PM SPOOL HAULER COLONOSCOPY 01/08/2024 11:02 AM CDT HEPATITIS PANEL, ACUTE Routine 7:13 AM SPOOL HAULER Dizziness SOB (shortness of breath) Benign essential HTN Chronic fatigue HM MAMMOGRAPHY Routine 06/07/2022 PAP SMEAR Routine 09/14/2020 from Last 3 Months or Most Recently Relevant to Health Maintenance Results * Influenza A/B, RSV, and COVID-19 PCR Nasopharyngeal (10/15/2024 9:58 AM SPOOL HAULER) COVID-19 RNA Negative Negative Comment:Testing performed by : [address] [address] Influenza A RNA Negative Negative [facility] Comment:Testing performed by : [address] [address] Influenza B RNA Negative Negative [facility] Comment:Testing performed by : [address] [address] RSV RNA Negative Negative [facility] Comment: Interpretive data: Testing performed by [facility]. This test is performed using the [employer] Xpert Xpress CoV-2/Flu/RSV plus assay. This is a multiplex, real-time reverse transcriptase PCR assay intended for the qualitative detection of nucleic acid from SARS-CoV-2, influenza A, influenza B, and respiratory syncytial virus. This assay has been cleared by the [place] Food and Drug administration. The performance characteristics have been verified by the [facility]. Results must be considered in the clinical context, and a negative result does not rule out infection. Interpretive Data last revised 2023 Testing performed by: [address] [address] Nasopharyngeal 10/15/2024 9: 58 AM SPOOL HAULER 10/15/2024 10:38 AM SPOOL HAULER Narrative [facility] - 10/15/2024 11:17 AM SPOOL HAULER Is the Patient experiencing symptoms consistent with COVID?->No bAebe Moreau MD LAB MICROBIOLOGY - GEN ERAL ORDERABLES Final Result Performing Organization Address [facility] Co de Phone Number [address] [place] [address] * eGFR (10/07/2024 9:43 AM SPOOL HAULER) eGFR 73 >=60 mL/min/1. 73 m2 Comment: [...] last reviewed 2021. Blood 10/07/2024 9:43 AM SPOOL HAULER 10/07/2024 9:51 AM SPOOL HAULER us William Bradley MD LAB BLOOD ORDERABLES Final Resu lt Performing Organization Address City/[facility]/ZIP Co de Phone Number [address] [place] [address] * Uric acid (10/07/2024 9:43 AM SPOOL HAULER) Uric acid 6.4 2.5 - 7.0 mg/dL Blood 10/07/2024 9:43 AM SPOOL HAULER 10/07/2024 9:51 AM SPOOL HAULER William Bradley MD LAB BLOOD ORDERABLES Final Resu lt Performing Organization Address City/[facility] Co de Phone Number [address] [address] * TSH (10/07/2024 9:43 AM SPOOL HAULER) Thyroid Stimulating Hormone 1.27 0.30 - 4.20 mcIUnit/mL Blood 10/07/2024 9:43 AM SPOOL HAULER 10/07/2024 9:51 AM SPOOL HAULER William Bradley MD LAB BLOOD ORDERABLES Final Resu lt Performing Organization Address [facility] de Phone Number [address] [address] * Lipid panel (10/07/2024 9:43 AM SPOOL HAULER) Cholesterol 167 30 - 199 mg/dL Comment: [...] revised on 2018. Triglycerides 142 <=149 mg/dL [facility] Comment: Interpretive Data Ages < or [...] mg/dL High: >160 mg/dL Calculated using the Supa LDL-C estimating equation. This equation was implemented [...] revised on 2024. Non-HDL Cholesterol 119 mg/dL [facility] Comment: Interpretive Data Ages < [...] last revised on 2018. Chol/HDL ratio 3 [facility] Blood 10/07/2024 9:43 AM SPOOL HAULER 10/07/2024 9:51 AM SPOOL HAULER William Bradley MD LAB BLOOD ORDERABLES Final Resu lt [facility] [address] [facility] Department [place] [address] * Comprehensive metabolic panel (10/07/2024 9:43 AM SPOOL HAULER) Sodium 139 135 - 145 mmol/L Potassium, pl 4.5 3.3 - 4.9 mmol/L [facility] Chloride 101 97 - 110 mmol/L [facility] CO2 30 22 - 32 mmol/L [facility] Anion gap 8 2 - 15 mmol/L [facility] BUN 13 6 - 25 mg/dL [facility] Creatinine 0.95 0.60 - 1.10 mg/dL [facility] Glucose 95 70 - 199 mg/dL [facility] Comment: Interpretive Data Fasting glucose >/= [...] 2022. Calcium 9.8 8.5 - 10.3 mg/dL [facility] Bilirubin, total 0.4 0.1 - 1.2 mg/dL [facility] Protein, pl 7.0 6.5 - 8.5 g/dL [facility] Albumin 4.4 3.5 - 5.0 g/dL [facility] Alk phos 62 40 - 130 Units/L [facility] ALT 14 7 - 45 Units/L [facility] AST 12 10 - 45 Units/L [facility] Blood 10/07/2024 9:43 AM SPOOL HAULER 10/07/2024 9:51 AM SPOOL HAULER us William Bradley MD LAB BLOOD ORDERABLES Final Resu lt [facility] [address] [place] [address] * Surgical pathology (09/30/2024 12:42 PM SPOOL HAULER) Tissue (Gallbladder) 09/30/2024 12:42 PM SPOOL HAULER Narrative PATHOLOGY [facility] - 10/05/2024 1:44 PM SPOOL HAULER [facility] Department of Pathology [address] [place] [address] Note to Patients: This report may contain [...] : 1975 (Age: 49) Gender: F Address: [address] [place] [address] Hospital #: [id number] Service: Surgery Location: Patient Type: [facility] OUTPATIENT Taken: 09/30/2024 Received: 09/30/2024 Accessioned: 10/01/2024 [...] interpretation for this case was performed at [facility], Department of Surgical Pathology, [address] [facility] [place], [id number], [place] [address] CLIA # [id number] Pastor Webb MD LAB PATHOLOGY ORDERABLES Fi nal Result PATHOLOGY [facility] * CO AN ELECTIVE ENDOTRACHEAL AIRWAY, CO AN PROCEDURE PLACEHOLDER (09/30/2024 12:26 PM SPOOL HAULER) Narrative Kate Obrien CRNA - 09/30/2024 12:26 PM SPOOL HAULER Kate Obrien CRNA 09/30/2024 12:27 PM Airway Patient location: OR Urgency: elective Indications for airway management: anesthesia Difficult airway: no Staff: Placed by: STONE REPAIRER: Kate Obrien CRNA Emergent airway documentation: Risks [...] microscopic and culture Urine (08/30/2024 12:09 PM SPOOL HAULER) Color, ur Yellow Yellow Comment:Testing performed by : [address] [address] Clarity, ur Clear Clear [facility] Comment:Testing performed by : [address] [address] Specific gravity, ur 1.021 1.003 - 1.030 [facility] Comment:Testing performed by : [address] [address] pH, urine 5.5 [facility] Comment: Interpretive Data U rine pH is affected by diet, medications, systemic acid-base disturbances, and renal tubular function. pH may affect urinary stone formation. For example, urine pH below 6.0 may help reduce the tendency for calcium phosphate stones and pH greater than 6.0 may reduce the tendency for uric acid stone formation. Source: [facility] [employer] Current Interpretive Data was last revised on 2017 Testing performed by: [address] [address] Protein, ur ql Negative Negative [facility] Comment:Testing performed by : [address] [address] Glucose, ur ql Negative Negative [facility] Comment:Testing performed by : [address] [address] Ketones, ur Trace(A) Negative [facility] Comment:Testing performed by : [address] [address] Bilirubin, ur Negative Negative [facility] Comment:Testing performed by : [address] [address] Blood, ur Negative Negative [facility] Comment:Testing performed by : [address], [place]., [address] Urobilinogen, ur <2.0 <2.0 mg/dL [facility] GREEN Comment:Testing performed by : [address] [address] Nitrite, ur Negative Negative [facility] Comment:Testing performed by : [address] [address] Leukocyte esterase, ur Negative Negative [facility] Comment:Testing performed by : [address] [address] UA reflex comment Reflex conditions for microscopic UA and culture not met. [facility] Comment:Testing performed by : [address] [address] Urine 08/30/2024 12:0 9 PM SPOOL HAULER 08/30/2024 12:11 PM SPOOL HAULER Domenic Fitch MD LAB MICROBIOLOGY - GENERAL ORDERABLES Final Result Performing Organization Address City/State/[facility] Co de Phone Number [facility] [address] [facility] Department [place] [address] * CT Abdomen Pelvis WO Contrast (08/30/2024 11:37 AM SPOOL HAULER) Anatomical Region Laterality Modality Body N/A Computed Tomogra phy 08/30/2024 12:4 6 PM SPOOL HAULER Narrative 08/30/2024 12:56 PM SPOOL HAULER EXAM DESCRIPTION: CT ABDOMEN PELVIS WO CONTRAST [...] Tyler Glaser M.D. LACEY: LACEY Report ID: [id number] Reading Location: [id number] Procedure Note Ayaan Glaser MD - 08/30/2024 [...] Tyler Glaser M.D. LACEY: LACEY Report ID: [id number] Reading Location: [id number] Domenic Fitch MD IMG CT PROCEDURES F inal Result * US Abdomen Limited (08/30/2024 9:04 AM SPOOL HAULER) Anatomical Region Laterality Modality Abdomen N/A Ultrasound 08/30/2024 9:29 AM SPOOL HAULER Narrative 08/30/2024 9:38 AM SPOOL HAULER EXAM DESCRIPTION: US ABDOMEN LIMITED REASON FOR [...] thickening or pericholecystic fluid. No positive sonographic Lyford sign reported. BILIARY: There is no intrahepatic [...] Darian Lugo M.D. MF: BARBARA Report ID: [id number] Reading Location: [id number] Procedure Note Darian Lugo, DO - 08/30/2024 [...] wall thickening or pericholecystic fluid. No positivesonographic Lyford sign reported. BILIARY: There is no intrahepatic [...] Darian Lugo M.D. MF: BARBARA Report ID: [id number] Reading Location: [place] [address] us Domenic Fitch MD [facility] US PROCEDURES F inal Result * Lactate (08/30/2024 7:11 AM SPOOL HAULER) Lactate 1.7 0.7 - 2.0 mmol/L Comment:Testing performed by : [facility], [address] [place] [address], [place]., [address] Blood 08/30/2024 7:11 AM SPOOL HAULER 08/30/2024 7:17 AM SPOOL HAULER Domenic Fitch MD LAB BLOOD ORDERABLE S Final Result Performing Organization Address [facility] Co de Phone Number [facility] [address] [facility] [place] [address] * eGFR (08/30/2024 7:11 AM SPOOL HAULER) eGFR 78 >=60 mL/min/1. 73 m2 Comment: [...] was last reviewed 2021. Testing performed by: [facility], [address] [place] [address]., [address] Blood 08/30/2024 7:11 AM SPOOL HAULER 08/30/2024 7:16 AM SPOOL HAULER Domenic Fitch MD LAB BLOOD ORDERABLE S Final Result [facility] [address] [facility] Department [place] [address] * (ABNORMAL) Differential, auto (08/30/2024 7:11 AM SPOOL HAULER) Neutrophil abs 10.1(H) 1.5 - 6.5 K/cumm Comment:Testing performed by : [address] [address] Imm gran abs 0.1 0.0 - 0.1 K/cumm [facility] Comment:Testing performed by : [address] [address] Lymphocyte abs 0.3(L) 0.8 - 3.3 K/cumm [facility] Comment:Testing performed by : [address] [address] Monocyte abs 0.6 0.2 - 0.8 K/cumm [facility] Comment:Testing performed by : [address], [place]., [address] Eosinophil abs 0.1 0.0 - 0.5 K/cumm [facility] Comment:Testing performed by : [address] [address] Basophil abs 0.0 0.0 - 0.1 K/cumm [facility] Comment:Testing performed by : [address] [address] Neutrophil pct 90.8 % [facility] Comment: Interpretive Data Percent cell count reference ranges are not reported, since discordance with absolute values may lead to misinterpretation of CBC data. Current Interpretive Data was last revised on 2017. Testing performed by: [address] [address] Imm gran pct 0.6 % [facility] Comment: Interpretive Data Percent cell count reference ranges are not reported, since discordance with absolute values may lead to misinterpretation of CBC data. Current Interpretive Data was last revised on 2017. Testing performed by: [address] [address] Lymphocyte pct 2.3 % [facility] Comment: Interpretive Data Percent cell count reference ranges are not reported, since discordance with absolute values may lead to misinterpretation of CBC data. Current Interpretive Data was last revised on 2017. Testing performed by: [address] [address] Monocyte pct 5.0 % [facility] Comment: Interpretive Data Percent cell count reference ranges are not reported, since discordance with absolute values may lead to misinterpretation of CBC data. Current Interpretive Data was last revised on 2017. Testing performed by: [address] [address] Eosinophil pct 0.9 % [facility] Comment: Interpretive Data Percent cell count reference ranges are not reported, since discordance with absolute values may lead to misinterpretation of CBC data. Current Interpretive Data was last revised on 2017. Testing performed by: [address] [address] Basophil pct 0.4 % [facility] Comment: Interpretive Data Percent cell count reference ranges are not reported, since discordance with absolute values may lead to misinterpretation of CBC data. Current Interpretive Data was last revised on 2017. Testing performed by: [address] [address] Blood 08/30/2024 7:11 AM SPOOL HAULER 08/30/2024 7:16 AM SPOOL HAULER us Domenic Fitch MD LAB BLOOD ORDERABLE S Final Result [facility] [address] [facility] Department of Laboratories [place], [place] [id number] * (ABNORMAL) CBC with auto differential (08/30/2024 7:11 AM SPOOL HAULER) WBC 11.2(H) 3.8 - 9.9 K/cumm Comment:Testing performed by : [address] [address] Hgb 15.5 11.9 - 15.5 g/dL [facility] GREEN Comment:Testing performed by : [address] [address] Hct 44.1 35.6 - 45.5 % [facility] GREEN Comment:Testing performed by : [address] [address] Plt 150 150 - 400 K/cumm [facility] GREEN Comment:Testing performed by : [address] [address] MPV 10.8 9.1 - 12.3 fL [facility] GREEN Comment:Testing performed by : [facility], [address] [place] [address]., [address] RBC 4.76 3.90 - 5.20 M/cumm [facility] GREEN Comment:Testing performed by : [address] [address] MCV 92.6 81.3 - 96.4 fL [facility] GREEN Comment:Testing performed by : [address] [address] MCH 32.6 27.1 - 33.3 pg [facility] GREEN Comment:Testing performed by : [address] [address] MCHC 35.1 32.3 - 35.7 g/dL [facility] GREEN Comment:Testing performed by : [address] [address] RDW CV 11.9 11.1 - 14.9 % [facility] Comment:Testing performed by : [address], [address] RDW SD 40.3 35.7 - 48.1 fL [facility] Comment:Testing performed by : [address] [address] NRBC abs 0.00 0.00 - 0.01 K/cumm [facility] Comment:Testing performed by : [address] [address] Blood (Blood, Venous) 08/30/2024 7:11 AM SPOOL HAULER 08/30/2024 7:16 AM SPOOL HAULER us Domenic Fitch MD LAB BLOOD ORDERABLE S Final Result [facility] [address] [facility] Department [place] [address] * hCG, blood, quantitative (08/30/2024 7:11 AM SPOOL HAULER) Pathologist [facility] [place] hCG, quant <5.0 0.0 - 5.0 IUnits/L Comment: Interpretive Data Male: < 5 IU/L Non- premenopausal Female: <5 IU/L The [employer]i hCG Beta Quant assay procedure was used. Results from different manufacturers or methods may not be comparable. Serial testing should be performed using the same method. Interpretive Data was last revised on 2023 Testing performed by: [address] [address] Blood 08/30/2024 7:11 AM SPOOL HAULER 08/30/2024 7:16 AM SPOOL HAULER Domenic Fitch MD LAB BLOOD ORDERABLE S Final Result Performing Organization Address [facility] Co de Phone Number [address] [place] [address] * Lipase (08/30/2024 7:11 AM SPOOL HAULER) Pathologist [facility] [place] Lipase 28 10 - 99 Units/L Comment:Testing performed by : [address] [address] Blood (Blood, Venous) 08/30/2024 7:11 AM SPOOL HAULER 08/30/2024 7:16 AM SPOOL HAULER Domenic Fitch MD LAB BLOOD ORDERABLE S Final Result Performing Organization Address City/[facility] Co de Phone Number [address] [address] * Comprehensive metabolic panel (08/30/2024 7:11 AM SPOOL HAULER) Pathologist [facility] [place] Sodium 141 135 - 145 mmol/L Comment:Testing performed by : [address] [address] Potassium, pl 3.9 3.3 - 4.9 mmol/L [facility] GREEN Comment:Testing performed by : [address] [address] Chloride 103 97 - 110 mmol/L [facility] Comment:Testing performed by : [address] [address] CO2 24 22 - 32 mmol/L [facility] [place] Comment:Testing performed by : [address] [address] Anion gap 14 2 - 15 mmol/L ULISES Comment:Testing performed by : [address] [address] BUN 21 6 - 25 mg/dL ULISES Comment:Testing performed by : [address], [place]., [address] Creatinine 0.90 0.60 - 1.10 mg/dL ULISES Comment:Testing performed by : [address] [address] Glucose 139 70 - 199 mg/dL ULISES [...] last revised 2022. Testing performed by: [address] [address] Calcium 9.6 8.5 - 10.3 mg/dL ULISES Comment:Testing performed by : [address] [address] Bilirubin, total 1.2 0.1 - 1.2 mg/dL ULISES Comment:Testing performed by : [address] [address] Protein, pl 6.8 6.5 - 8.5 g/dL [facility]ISES Comment:Testing performed by : [address] [address] Albumin 4.5 3.5 - 5.0 g/dL ULISES Comment:Testing performed by : [address] [address] Alk phos 45 40 - 130 Units/L ULISES Comment:Testing performed by : [address] [address] ALT 19 7 - 45 Units/L [facility] [place] Comment:Testing performed by : [facility], [address] [place] [address]., [address] AST 14 10 - 45 Units/L ULISES Comment:Testing performed by : [facility], [address] [place] [address]., [address] Blood 08/30/2024 7:11 AM SPOOL HAULER 08/30/2024 7:16 AM SPOOL HAULER us Domenic Fitch MD LAB BLOOD ORDERABLE S Final Result [facility] [address] [facility] [place] [address] * Platelet Function Screen (08/04/2024 2:32 PM SPOOL HAULER) PFA-100, epinephrine 118 60 - 160 sec PFA-100, ADP 109 50 - 110 sec [facility] Comment: Interpretive Data: The PFA-100 [...] last revised 2023. Blood 08/04/2024 2:32 PM SPOOL HAULER 08/04/2024 3:44 PM SPOOL HAULER us Notinfile Unknown LAB BLOOD ORDERABLES Final Res ult [facility] [place] [address] * Colonoscopy (01/08/2024 11:02 AM CDT) Anatomical Region Laterality Modality Other Narrative Procedure Note Dewayne Briggs MD - 01/08/2024 11:02 AM CDT [facility] END[facility] Patient Name: Alonso Hackett Procedure Date: 01/08/2024 11:02 AM Date of : 1975 Admit Type: Outpatient Age: 48 Gender: Female Attending MD: Dewayne Briggs M.D. Room: [facility] ENDOSCOPY ROOM 06 Note Status: Finalized Procedure: [...] The scope was passed under direct vision.The [id number]-[id number] colonoscope was introduced through theanus and advanced [...] On: 01/08/2024 11:02 AM Recognized by the Citizen Of [place] [employer] Gastrointestinal Endoscopy for promoting quality in endoscopy Dewayne Briggs MD ENDOSCOPY PROCEDURES Final Resul t * Hepatitis panel, acute (09/24/2022 7:13 AM SPOOL HAULER) Hep A IgM Negative Negative [facility] - 01 HepBsAg Negative Negative [facility] - 01 Hep B core IgM Negative Negative [facility] - 01 Hep C Ab <0.1 0.0 - 0.9 s/co ratio [facility] - 01 Blood 09/24/2022 7:13 AM SPOOL HAULER 09/24/2022 Narrative [facility] - 09/25/2022 6:09 AM SPOOL HAULER Performed at: [facility] [address] [id number] Ordnance Artificer Helper: Jose Dacosta PhD, Phone: [phone] Nini MCCORMICK LAB MICROBIOLOGY - GENER AL ORDERABLES Final Result [facility] - 01 * HM MAMMOGRAPHY (06/07/2022) Historical Provider HEALTH MAINTENANCE Final Result * Pap Smear (09/14/2020) 09/14/2020 Historical Provider LAB PATHOLOGY ORDERABLES Final Result from Last 3 Months or Most Recently Relevant to Health Maintenance Insurance [facility] ACCESS CHOICE [facility] [place] CHOICE [facility] ACCESS CHOICE Advance Directives For more information, please contact: [phone] * Full Code (Latest Code Status on File) Date Activated Date Inactivated Comments 06/15/2024 2:04 PM 06/15/2024 7:50 PM * Full Code Date Activated Date Inactivated Comments 11/01/2022 1:53 PM 11/02/2022 6:56 PM Care Teams Countersinker Relationship Specialty Start Date End Date William Bradley MD PCP - General Family Medicine 05/12/24 Erik Reed MD [address] [place] [address] 3 [place] [address] Referring Physician Interventional Cardiology 09/21/24 Abebe Moreau MD [address] [facility] 350 [place] [address] Consulting Physician Pulmonary Disease 09/21/24 Kanu Bustos MD [address] [facility] 1 [place] [address] Consulting Physician Internal Medicine 09/21/24 [place] [address] [address] Consulting Physician Rheumatology 09/21/24 Boogie Reilly MD [address] [place] [address] Referring Physician Hematology and Oncology 09/21/24
--- OUTSIDE RECORDS SUMMARY | 2024-11-04 10:08 | XMS_ITS ---
Author Organization [facility] Address [address] [place] [address] Care Team Providers Care Machine Bender Name Role Phone Kirk NEGRON, William Primary Care Provider Agustin KOO HIGH SCHOOL SOCIAL STUDIES TUTOR, LESIA Nino REASON FOR VISIT refer to [facility] Encounters Encounter Location Date Provider Diagnosis [facility] [address] [place] [address] 07/15/2024 LESIA KOO PLAN OF TREATMENT No Information Progress Notes * CONSUELO Rae SAENZB:0 1975 (49 yo F)Acc No.[id number]:07/15/2024 Patient: Petra BARON :1975 Age:49 Y Sex:Female [facility] [place] [address] * true * Date:
--- OUTSIDE RECORDS SUMMARY | 2024-11-04 10:08 | XMS_ITS | Encounter Summary ---
Author Organization [facility] Facility Care Team Providers Care Radiological Defense Officer Name Role Phone Unknown, Notinfile Primary Care Provider Unavail able William Bradley MD Primary Care Provider Nini Grewal Primary Care Provider + Nini Grewal Primary Care Provider + William Bradley MD Primary Care Provider William Bradley MD Primary Care Provider [phone] Erik Reed MD Unavailable [phone] Abebe Moreau MD Unavailable Kanu Bustos MD Unavailable Karly Villarreal MD Unavailable Boogie Reilly MD Unavailable [phone] Encounter Details Date Type Department Care Team (Latest Contact Info) Description 01/30/2017 Orders Only [facility]IN[facility] ProviderWalker MD [address] [place] [address] Social History Tobacco Use Types Packs/Day Years Used Date Smoking Tobacco: Every Day Comments Unknown Sex and Gender Information Value Date Recorded Sex Assigned at Not on file Legal Sex Female 1:50 AM INCIDENT RESPONSE MANAGER Gender Identity Female 05/17/2021 10:31 AM CDT Sexual Orientation Straight 05/17/2021 10 :31 AM CDT documented as of this encounter Plan of Treatment Not on file documented as of this encounter Procedures Procedure Name Priority Date/Time Associated Diagnosis Comments PROCEDURE - RESULT 02/20/2017 12 :00 AM CDT documented in this encounter Results * PROCEDURE - RESULT (02/20/2017 12:00 AM CDT) Narrative 02/20/2017 12:00 AM CDT Ordered by an unspecified provider. us Historical Provider Final Res ult documented in this encounter Visit Diagnoses Not on filedocumented in this encounter Additional Health Concerns Infection Onset Date Last Indicated Resolved Time COVID: Suspected 05/18/2021 05/18/2021 06/01/2021 3:05 AM CDT documented as of this encounter Care Teams Radiological Defense Officer Relationship Specialty Start Date End Date Unknown, Notinfile PCP - General 04/30/18 05/13/18 William Bradley MD PCP - General 05/14/18 06/17/22 Nini Grewal PA PCP - General Family Medicine 06/18/22 03/21/23 Nini Grewal PA [address] [facility] [address] [place] [address] PCP - General Family Medicine 03/25/23 04/24/23 [place] [address] [place] [address] [place] [address] PCP - General Family Medicine 04/25/23 05/11/24 William Bradley MD [address] [facility] [address] [place] [address] PCP - General Family Medicine 05/12/24 Erik Reed MD [address] [place] [address] 3 [place] [address] Referring Physician Interventional Cardiology 09/21/24 [place] [address] [place] [address] [address] [place] [address] Consulting Physician Pulmonary Disease 09/21/24 Kanu Bustos MD [address] [facility] 1 [place] [address] Consulting Physician Internal Medicine 09/21/24 [place] [address] [facility] 70 [place] [address] Consulting Physician Rheumatology 09/21/24 Boogie Reilly MD [address] [place] [address] Referring Physician Hematology and Oncology 09/21/24 documented as of this encounter
--- OUTSIDE RECORDS SUMMARY | 2024-11-04 10:08 | XMS_ITS | Patient Health Record ---
Author Organization [facility] Address [address] [place] [address] Care Team Providers Care Real Estate Loan Officer Name Role Phone Nini Grewal Primary Care Provider Unavail able Radha Lewis Unavailable [phone] [facility], Provider Unavailable Unavailab le Allergies Allergen (clinical drug ingredient) Drug/Non Drug Allergy documented on EMR Reaction Allergy Type Onset Date Status amoxicillin / clavulanate Augmentin hives Drug Allergy Active meperidine Demerol hives Drug Allergy Active nitrofurantoin Macrodantin hives Drug Allergy Active nitrofurantoin Macrodantin hives Drug Allergy Active Penicillin shortness of breath Drug Allergy Active Reason For Referral No Information Medications Medication SIG (Take, Route, Frequency, Duration) Notes Start Date End Date Status METOPROLOL 25 mg 1 tab(s) orally once a day Active MAGNESIUM ACETATE, 500 G *Please review for potential replacement for e-prescription and drug interaction check* Active ATORVASTATIN 20 mg 1 tab(s) orally once a day Active busPIRone HCl 7.5 MG 1 tab(s) orally 2 times a day Active BUSPIRONE 7.5 mg 1 tab(s) orally 2 times a day Active Atorvastatin Calcium 20 MG 1 tab(s) orally once a day Active Metoprolol Succinate ER 25 MG 1 tab(s) orally once a day Active Social History Tobacco Use: Social History Observation Description Date Details (start date - stop date) Former Smoker 10/19/1987 - 10/17/2011 Smoking Smart Form: Question Answer Notes Are you a: former smoker When did you start smoking? 10/19/1987 When did you stop smoking? 10/17/2011 How long it has been since you last smoked? > 10 years Problems Problem Type SNOMED Code ICD Code Onset Dates Problem Status W/U Status Risk Notes Problem Chronic allergic conjunctivitis (49737979) Other chronic allergic conjunctivitis (H10.45) Active confirmed Problem Allergic rhinitis caused by pollen (disorder) (67357512) Allergic rhinitis due to pollen (J30.1) Active confirmed Problem Allergic rhinitis (47586254) Other allergic rhinitis (J30.89) Active confirmed Problem Chronic rhinitis (49795933) Chronic rhinitis (J31.0) Active confirmed Problem Uncomplicated mild persistent asthma (732539555) Mild persistent asthma, uncomplicated (J45.30) Active confirmed Problem Uncomplicated moderate persistent asthma (618173483) Moderate persistent asthma, uncomplicated (J45.40) Active confirmed Problem Uncomplicated severe persistent asthma (803846192) Severe persistent asthma, uncomplicated (J45.50) Active confirmed Problem Adverse reaction to food (553949500) Other adverse food reactions, not elsewhere classified, initial encounter (T78.1XXA) Active confirmed Problem Allergic rhinitis caused by animal hair and dander (550873918532875) Allergic rhinitis due to animal (cat) (dog) hair and dander (J30.81) Active confirmed Problem Chronic rhinitis (49501114) Chronic rhinitis (J31.0) Active confirmed Problem Idiopathic urticaria (44443602) Idiopathic urticaria (L50.1) Active confirmed Problem Allergy to penicillin (65639950) Allergy status to penicillin (Z88.0) Active confirmed Encounters Encounter Location Date Provider Diagnosis [facility] - [address] [address] 02/29/2024 Provider ZZ-Migration Plan Of Treatment No Information Insurance Providers Payer Name Payer Address Payer Phone Subscriber Number Group Number Insured Name Patient Relationship to Insured Coverage Start Date Coverage End Date [facility] [id number] [place] [address] [id number] Petra Will Self - patient is the insured Medical (General) History Surgical History Surgery Date(Month/Year) tonsillectomy 09/16/1981 shoulder recon 09/16/1996 TUBAL AND ABLATION 09/16/2016 TVT 09/16/2006
== END 2024-11-04 09:55 | disposition home or self-care (01) ==
LOC: ANHIMG 09:57
PROVIDERS: PCP Family Medicine; Visit Provider Obstetrics & Gynecology
DX: Z12.31 Encounter for screening mammogram for malignant neoplasm of breast (principal)
CPT/HCPCS: 77063; 77067

== ENCOUNTER 2025-01-07 20:22 | Emergency (ER) | payer BC, SELFPAY ==
--- NOTE | ~2025-01-07 | XR_ITS ---
CHEST RADIOGRAPH, PA AND LATERAL CLINICAL HISTORY: cp . COMPARISON: 04/12/2022 TECHNIQUE: PA and lateral views of the chest. FINDINGS The cardiomediastinal silhouette is unremarkable. The lungs are clear. Visualized osseous structures and soft tissues are unremarkable. IMPRESSION: No focal infiltrate or effusion. Reviewed, dictated and finalized at location A.
--- OUTSIDE RECORDS SUMMARY | 2025-01-07 20:25 | XMS_ITS ---
Author Organization [facility] Address [address] [place] [address] Care Team Providers Care Gear Tester Name Role Phone Kirk NEGRON, William Primary Care Provider Agustin KOO ENVIRONMENTAL RESOURCE SPECIALIST, LESIA Nino [phone] REASON FOR VISIT New sxs Encounters Encounter Location Date Provider Diagnosis [facility] [address] [facility] [address] [place] [address] 08/17/2024 LESIA KOO PLAN OF TREATMENT No Information Progress Notes * CONSUELORae JERRYB:0 1975 (49 yo F)Acc No.[id number]:08/17/2024 Patient: Sarbjit BARONa :1975 Age:49 Y Sex:Female Address:[facility] [facility], [place] [address] * true * Date:
--- OUTSIDE RECORDS SUMMARY | 2025-01-07 20:25 | XMS_ITS | Clinical Summary ---
Author Organization [facility] Address [address] [facility] [place] [address] Care Team Providers Care Railroad Wheels And Axles Inspector Name Role Phone Blake Herbert MD Primary Care Provider [phone] Source Comments [facility],non-owned Affiliates and Associated Physician Practices is amultiple site organization consisting of ambulatory clinics and hospital sitesin [place], [place], [place] and [place]. This disclosure is being madepursuant to the Care Everywhere program and may not contain all information available regarding this patient. Last updated [facility] [employer] Allergies Active Allergy Reactions Criticality Noted Date Comments Adhesive Sensitivity Unknown High 01/01/2019 Surgical tap, Contrast-Iodinated Agents For Ct/Other Skin Reactions 07/28/2009 Demerol Skin Reactions 07/28/2009 Nitrofurantoin Other,Unknown,Rash Medium 01/01/2019 Medications * Be aware that medications may not be up to date on this document. Alwaysverify current medications with the patient. Magnesium Glycinate 100 MG CAPS Take 100 mg by mouth once daily Active atorvastatin (Lipitor) 20 MG tablet 11/12/2022 Active busPIRone (Buspar) 7.5 MG tablet TAKE 1 & 1/2 (ONE & ONE-HALF) TABLETS BY MOUTH TWICE DAILY 12/25/2022 Active vitamin D3 (Cholecalcifero l) 125 MCG (5000 UT) capsule Take 1 (one) capsule by mouth once daily Active vitamin B-12 (Cyanocobalamin ) 1000 MCG tablet Take 1 (one) tablet [...] drink = 0.6 oz p ure alcohol) Comments Unknown Sex and Gender Information Value Date Recorded Sex Assigned at Not on file Legal Sex Female 7:32 PM FINANCIAL SERVICES PROFESSIONAL Gender Identity Not on file Sexual Orientation [...] - 2023-2 5 season) 2024 01/06/2021, 12/15/2020 DEPRESSION SCREENING 09/16/2024 INFLUENZA VACCINE (Season Ended) 2025 07/16/2019 ZOSTER VACCINE (1 of 2) 2025 COLONOSCOPY - COLON CA SCREENING 04/07/2031 04/07/2021 Colorectal Cancer Screening 04/07/2031 HIB VACCINE Aged Out No longer eligi ble based on patient's age to complete this topic HPV VACCINE Aged Out No longer eligi ble based on patient's age to complete this topic MENINGOCOCCAL (Group B) VACCINE SHARED DECISION-MAKING Aged Out No longer eligible based on patient's age to complete this topic MENINGOCOCCAL GROUPS A/C/Y/W VACCINE Aged Out No longer eligible b ased on patient's age to complete this topic Insurance [facility] Address: [facility] [id number] [place] [address] Care Teams Railroad Wheels And Axles Inspector Relationship Specialty Start Date End Date Blake Herbert MD [address] [place] [address] PCP - General 03/10/09
--- OUTSIDE RECORDS SUMMARY | 2025-01-07 20:25 | XMS_ITS | Data Portability ---
Author Organization [facility] JONJennifer Address [address] [place] [address] Assessment No assessment recorded. Plan of Treatment Reminders Order Date Submit Date Provider Last Modified By Organization Details Last Modified Time Details Appointments ANY 2024 08:00A Huber Bradley MD Not available Not available Not available ANY 2024 08:45A Huber Bradley MD Not available Not available Not available Lab unlisted lab - vitamin D, 25-hydrox y 20[email or web address], [address], [place], [place], [address], 01/07/2025 09:35:54 celiac disease comprehen sive panel, serum 2024 [email or web address], [address], [facility] [address], [place], [address], 01/07/2025 09:35:54 cortisol, am, serum [email or web address], [address], [facility] [address], [place], [address], 01/07/2025 09:35:54 CBC [address], [address], [address], [place], [address], 01/07/2025 21:04:13 folate, serum [address], [address], [address], [place], [address], 01/07/2025 09:35:54 iron + total iron-bind ing capacity (TIBC), serum [address], [address], [address], [place], [address], 01/07/2025 09:35:54 vitamin B12, serum [address], [address], [address], [place], [address], 01/07/2025 09:35:54 CMP, serum or plasma [address], [address], [address], [place], [address], 01/07/2025 09:35:54 vitamin B1 (thiamine ), blood [address], [address], [address], [place], [address], 01/07/2025 09:35:54 vitamin B6 (pyridoxi ne), plasma [address], [address], [address], [place], [address], 01/07/2025 09:35:54 lipid panel, serum 2024 025 ASHU [facility], [facility] [place], [address], 10/07/2024 12:41:07 TSH, serum or plasma 2024 025 [email or web address] [facility], [facility] [place], [address], 10/28/2024 08:11:49 CMP, serum or plasma 2024 025 [facility], [facility] [place], [address], 10/07/2024 12:41:07 uric acid, serum or plasma 2024 025 [email or web address] [facility], [address] [facility] [place], [address], 10/28/2024 08:11:48 HbA1c (hemoglob in A1c), blood 2023 024 ASHU [facility], [address], [address], [place], [address], 08/11/2024 12:38:46 vitamin D, 25-hydrox y, total, serum 2023 024 ARCADIA [facility], [address] [facility], [address], [place], [address], 08/11/2024 12:38:49 potassium , serum or plasma 2023 024 ARCADIA [facility], [address] [facility], [address], [place], [address], 08/11/2024 12:38:44 TSH, ultra-sen sitive, serum 2023 024 [facility], [address] [facility], [address], [place], [address], 08/11/2024 12:38:47 Referral handling tech & immunolog ist referral 2024 025 [facility], [place], [address] [place], [address], 01/07/2025 10:33:04 hand surgeon referral 2024 025 ASHU Hinds MD, [address], [address], [place], [address], 11/16/2024 12:02:[address] referral 2024 025 CRICKET Fisher MD, [address] [facility], [address], [place], [address], 11/19/2024 12:25:21 gastroent erologist referral 2023 024 ASHU Cardoza MD, [address] [facility], [address], [place], [address], 12/30/2024 04:28:27 cardiolog ist referral 2023 024 CRICKET Young MD, [address] [facility], [address], [place], [address], 08/14/2024 15:55:19 dermatolo gist referral 2023 024 ASHU [facility], [address] [place] [address] , [place], [address], 11/12/2024 10:33:09 Procedures None recorded. Surgeries None recorded. Imaging None recorded. Medication Orders Medrol (Gal) 4 mg tablets in a dose pack 2024 025 [email or web address] [facility], [address] [facility], [place], [address], 01/07/2025 09:35:54 triamcino lone acetonide 40 mg/mL suspensio n for injection 2024 025 [facility] [address] [place], [address], 01/06/2025 13:29:50 famotidin e 20 mg tablet 2023 024 [email or web address] [facility], [address] [place], [address], 09/01/2024 13:42:41 sucralfat e 1 gram tablet 2023 024 [email or web address], [address] [place], [address], 09/01/2024 13:42:41 nystatin 100,000 unit/mL oral suspensio n 2023 024 [email or web address], [address] [place], [address], 08/10/2024 10:10:55 Sigurd Thyroid 30 mg tablet 2023 024 [email or web address], [address] [place], [address], 08/10/2024 10:10:55 Patient TargetsNo targets recorded. Patient Instructions Encounter Date Encounter Id Patient Instructions Last Modified By Organization Details Last Modified Time 01/07/2025 [id number] A healthy lifestyle: care instructions [email or web address] Not available 01/07/2025 09:35:54 Reason for Referral Aerodynamics Teacher Referral for S ebaceous cyst of skin Referring Physician: Family Alejandra Arango, Encounter Date: 08/10/2024 Home Hospice Rn Referral for At herosclerosis of coronary artery without angina pectoris Referring Physician: Family Alejandra Arango, Encounter Date: 08/10/2024 Pail Bailer Referral for Irritable bowel syndrome with diarrhea Referring Physician: Family Alejandra Arango, Encounter Date: 09/01/2024 Neurologist Referral for Pro lapsed cervical intervertebral disc Referring Physician: Family Alejandra Arango, Encounter Date: 10/07/2024 Hand Surgeon Referral for Os 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 Referring Physician: Family Alejandra Arango, Encounter Date: 10/15/2024 Water/Wastewater Project Manager & Rubberizing Mechanic Ref erral for Itching Referring Physician: William Bradley, [facility], Encounter Date: 01/07/2025 Results Created Date Observation Date Name Description Value Unit Range Abnormal Flag Note LastModifiedBy Organization Detail LastModifiedTime 08/04/20 24 08/04/2024 CBC WITH DIFF WBC 7.95 x10'3 /uL 4.5-11 .0 Not Available [facility] (Lab) [address] [facility], [place], [address], 08/04/2024 15:47:57 08/04/20 24 08/04/2024 CBC WITH DIFF RBC 4.02 x10'6 /uL 4.20-5 .40 low Not Available [facility] (Lab) [address] [facility], [place], [address], 08/04/2024 15:47:57 08/04/20 24 08/04/2024 CBC WITH DIFF hemoglobin 13.2 g/dL 12.0-1 6.0 Not Available [facility] (Lab) [address] [facility], [place], [address], 08/04/2024 15:47:57 08/04/20 24 08/04/2024 CBC WITH DIFF hematocrit 39.9 % 38.0-4 8.0 Not Available [facility] (Lab) [address] [facility], [place], [address], 08/04/2024 15:47:57 08/04/20 24 08/04/2024 CBC WITH DIFF MCV 99.3 fL 81.0-9 9.0 high Not Available [facility] (Lab) [address] [facility], [place], [address], 08/04/2024 15:47:57 08/04/20 24 08/04/2024 CBC WITH DIFF MCH 32.8 pg 27.0-3 1.0 high Not Available [facility] (Lab) [address], [place], [address], 08/04/2024 15:47:57 08/04/2008/04/2024 CBC WITH DIFF MCHC 33.1 g/dL 32.0-3 6.0 Not Available [facility] (Lab) [address] [facility], [place], [address], 08/04/2024 15:47:57 08/04/2008/04/2024 CBC WITH DIFF RDW 12.1 % 11.5-1 4.5 Not Available [facility] (Lab) [address] [facility], [place], [address], 08/04/2024 15:47:57 08/04/2008/04/2024 CBC WITH DIFF platelet count 179 x10'3 /uL 130-40 0 Not Available [facility] (Lab) [address] [facility], [place], [address], 08/04/2024 15:47:57 08/04/20 24 08/04/2024 CBC WITH DIFF MPV 10.6 fL 9.3-12 .2 Not Available [facility] (Lab) [address] [facility], [place], [address], 08/04/2024 15:47:57 08/04/2008/04/2024 CBC WITH DIFF diff type AUTOMA KAY DIFFER ENTIAL Not Available [facility] (Lab) [address], [place], [address], 08/04/2024 15:47:57 08/04/20 24 08/04/2024 CBC WITH DIFF neutrophils 68.1 % Not Available [facility] (Lab) [address], [place], [address], 08/04/2024 15:47:57 08/04/20 24 08/04/2024 CBC WITH DIFF lymphocytes 21.3 % Not Available [facility] (Lab) [address], [place], [address], 08/04/2024 15:47:57 08/04/20 24 08/04/2024 CBC WITH DIFF monocytes 7.9 % Not Available [facility] (Lab) [address], [place], [address], 08/04/2024 15:47:57 08/04/2008/04/2024 CBC WITH DIFF eosinophils 1.9 % Not Available [facility] (Lab) [address] [facility], [place], [address], 08/04/2024 15:47:57 08/04/20 24 08/04/2024 CBC WITH DIFF basophils 0.3 % Not Available [facility] (Lab) [address] [facility], [place], [address], 08/04/2024 15:47:57 08/04/20 24 08/04/2024 CBC WITH DIFF immature granulocytes 0.5 % Not Available [facility] (Lab) [address] [facility], [place], [address], 08/04/2024 15:47:57 08/04/20 24 08/04/2024 CBC WITH DIFF abs. neutrophils 5.42 x10'3 /uL 1.80-7 .70 Not Available [facility] (Lab) [address], [place], [address], 08/04/2024 15:47:57 08/04/20 24 08/04/2024 CBC WITH DIFF abs. lymphocytes 1.69 x10'3 /uL 1.00-4 .80 Not Available [facility] (Lab) [place], [address], 08/04/2024 15:47:57 08/04/20 24 08/04/2024 CBC WITH DIFF abs. monocytes 0.63 x10'3 /uL 0.24-0 .86 Not Available [facility] (Lab) [place], [address], 08/04/2024 15:47:57 08/04/20 24 08/04/2024 CBC WITH DIFF abs. eosinophils 0.15 x10'3 /uL 0.04-0 .36 Not Available [facility] (Lab) [place], [address], 08/04/2024 15:47:57 08/04/20 24 08/04/2024 CBC WITH DIFF abs. basophils 0.02 x10'3 /uL 0.01-0 .08 Not Available [facility] (Lab) [address], [place], [address], 08/04/2024 15:47:57 08/04/20 24 08/04/2024 CBC WITH DIFF abs. immature grans 0.04 x10'3 /uL 0.00-0 .49 Not Available [facility] (Lab) [address], [place], [address], 08/04/2024 15:47:57 08/04/20 24 08/04/2024 IRON PROFI LE iron 69 mcg/d L 50.0-1 70.0 Not Available [facility] (Lab) [place], [address], 08/04/2024 16:17:13 08/04/20 24 08/04/2024 IRON PROFI LE iron binding cap 343 mcg/d L 250-45 0 Not Available [facility] (Lab) [place], [address], 08/04/2024 16:17:13 08/04/20 24 08/04/2024 IRON PROFI LE % iron saturation 20 % 20-55 Not Available [facility] (Lab) [place], [address], 08/04/2024 16:17:13 08/04/20 24 08/04/2024 EDGAR TIN ferritin 38.3 NG/mL 8.0-38 8.0 Not Available [facility] (Lab) [place], [address], 08/04/2024 17:56:19 08/04/20 24 08/04/2024 FOLAT E folate 26.8 NG/mL 3.1-17 .5 high Not Available [facility] (Lab) [place], [address], 08/04/2024 17:56:21 08/04/20 24 08/04/2024 PLATE LET FUNCT ION ASSAY platelet function assay PLEASE SEE SCANNE D IMAGE IN EPIC NOTE: REFER TO [facility] REPOR T FOR INTER PRETI VE COMME NTS. Test Perfo rmed by [facility] [place] [address] 1005 [phone], CLIA [id number] Not Available [facility] (Lab) [place], [address], 08/04/2024 20:17:40 08/04/20 24 08/08/2024 INTRI NSIC FACTO R BLOCK ING AB intrinsic factor block Ab Negati ve Refer ence range : Negat summer For addit ional infor jael connelly refer to http: //allison grandeque stdia gnost ics.c om/fa q/IFA B (This link is being provi ded for infor марина larose/ educa tre l purpo ses only. ) Test Perfo rmed by Betzy Glez, [facility], [id number] [facility] , [facility], [place] Jacqui See M.D., Ph.D. , [employer]c tor of [employer] atori es , CLIA [id number] Not Available [facility] (Lab) [address] [facility], [place], [address], 08/08/2024 17:23:57 08/04/20 24 08/04/2024 Plate let funct ion.c ollag en + Adeno sine dipho sphat e induc ed and EPINE PHrin e induc ed panel - Blood platelet function.col lagen + adenosine diphosphate induced and epinephrine induced panel - blood PLEASE SEE SCANNE D IMAGE IN EPIC PLATE LET FUNCT ION ASSAY PLEAS E SEE SCANN ED IMAGE IN EPIC 08/04 7:17 PM SHIP KEEPER [facility] Not Available Not Available 10/27/2024 14:49:19 08/04/20 24 08/04/2024 Iron and Iron ketan ng capac ity panel - Serum or Plasm a iron [mass/volume ] in serum or plasma 69 text: 50.0 - 170.0 mcg/dL IRON 69 50.0 - 170.0 MCG/D L 08/04 3:17 PM SHIP KEEPER [facility] Not Available Not Available 10/27/2024 14:49:19 08/04/20 24 08/04/2024 Iron and Iron ketan ng capac ity panel - Serum or Plasm a iron binding capacity [mass/volume ] in serum or plasma 343 text: 250 - 450 mcg/dL IRON KETAN NG CAPAC ITY 343 250 - 450 MCG/D L 08/04 3:17 PM SHIP KEEPER [facility] Not Available Not Available 10/27/2024 14:49:19 08/04/20 24 08/04/2024 Iron and Iron ketan ng capac ity panel - Serum or Plasm a iron saturation [mass fraction] in serum or plasma 20 % low: 20%hig h: 55% IRON SATUR ATION 20 20 - 55 % 08/04 3:17 PM SHIP KEEPER [facility] Not Available Not Available 10/27/2024 14:49:19 08/04/20 24 08/08/2024 Intri nsic facto r block ing Ab [Pres ence] in Serum intrinsic factor blocking Ab [presence] in serum Negati ve text: negati ve INTRI NSIC FACTO R BLOCK AB Negat summer Negat summer 08/08 4:23 PM SHIP KEEPER [facility] Not Available Not Available 10/27/2024 14:49:19 08/04/20 24 08/04/2024 Folat e [Mass /volu me] in Serum or Plasm a folate [mass/volume ] in serum or plasma 26.8 text: 3.1 - 17.5 NG/mL high FOLAT E 26.8 (H) 3.1 - 17.5 NG/ML 08/04 4:56 PM SHIP KEEPER [facility] Not Available Not Available 10/27/2024 14:49:19 08/04/20 24 08/04/2024 Folat e [Mass /volu me] in Serum or Plasm a interpretati on and review of laboratory results Abnorm al Not Available Not Available 14:49:19 08/04/20 24 08/04/2024 CBC W Auto Diffe renti al panel - Blood leukocytes [#/volume] in blood by automated count 7.95 text: 4.5 - 11.0 x10'3/ uL WBC 7.95 4.5 - 11.0 x10'3 /uL 08/04 2:47 PM SHIP KEEPER [facility] Not Available Not Available 10/27/2024 14:49:18 11/19/08/04/2024 CBC W Auto Diffe renti al panel - Blood erythrocytes [#/volume] in blood by automated count 4.02 text: 4.20 - 5.40 x10'6/ uL low RBC 4.02 (L) 4.20 - 5.40 x10'6 /uL 08/04 2:47 PM SHIP KEEPER [facility] Not Available Not Available 10/27/2024 14:49:18 08/04/20 24 08/04/2024 CBC W Auto Diffe renti al panel - Blood hemoglobin [mass/volume ] in blood 13.2 text: 12.0 - 16.0 g/dL HGB 13.2 12.0 - 16.0 G/DL 08/04 2:47 PM SHIP KEEPER [facility] Not Available Not Available 10/27/2024 14:49:18 08/04/20 24 08/04/2024 CBC W Auto Diffe renti al panel - Blood hematocrit [volume fraction] of blood 39.9 % low: 38%hig h: 48% HCT 39.9 38.0 - 48.0 % 08/04 2:47 PM SHIP KEEPER [facility] Not Available Not Available 10/27/2024 14:49:18 08/04/20 24 08/04/2024 CBC W Auto Diffe renti al panel - Blood MCV [entitic volume] 99.3 text: 81.0 - 99.0 fL high MCV 99.3 (H) 81.0 - 99.0 FL 08/04 2:47 PM SHIP KEEPER [facility] Not Available Not Available 10/27/2024 14:49:18 08/04/20 24 08/04/2024 CBC W Auto Diffe renti al panel - Blood MCH [entitic mass] 32.8 pg low: 27pghi gh: 31pg high MCH 32.8 (H) 27.0 - 31.0 PG 08/04 2:47 PM SHIP KEEPER [facility] Not Available Not Available 10/27/2024 14:49:18 08/04/20 24 08/04/2024 CBC W Auto Diffe renti al panel - Blood MCHC [mass/volume ] 33.1 text: 32.0 - 36.0 g/dL MCHC 33.1 32.0 - 36.0 G/DL 08/04 2:47 PM SHIP KEEPER [facility] Not Available Not Available 10/27/2024 14:49:18 08/04/20 24 08/04/2024 CBC W Auto Diffe renti al panel - Blood erythrocyte distribution width [entitic volume] by automated count 12.1 % low: 11.5%h igh: 14.5% RDW 12.1 11.5 - 14.5 % 08/04 2:47 PM SHIP KEEPER [facility] Not Available Not Available 10/27/2024 14:49:18 08/04/20 24 08/04/2024 CBC W Auto Diffe renti al panel - Blood platelets [#/volume] in blood 179 text: 130 - 400 x10'3/ uL PLT 179 130 - 400 x10'3 /uL 08/04 2:47 PM SHIP KEEPER [facility] Not Available Not Available 10/27/2024 14:49:18 08/04/20 24 08/04/2024 CBC W Auto Diffe renti al panel - Blood platelet mean volume [entitic volume] in blood 10.6 text: 9.3 - 12.2 fL MPV 10.6 9.3 - 12.2 FL 08/04 2:47 PM SHIP KEEPER [facility] Not Available Not Available 10/27/2024 14:49:18 08/04/20 24 08/04/2024 CBC W Auto Diffe renti al panel - Blood differential cell count method - blood AUTOMA KAY DIFFER ENTIAL DIFFE RENTI AL TYPE AUTOM ATED DIFFE RENTI AL 08/04 2:47 PM SHIP KEEPER [facility] Not Available Not Available 10/27/2024 14:49:18 08/04/20 24 08/04/2024 CBC W Auto Diffe renti al panel - Blood neutrophils/ 100 leukocytes in blood by automated count 68.1 % NEUTR OPHIL S % 68.1 % 08/04 2:47 PM SHIP KEEPER [facility] Not Available Not Available 10/27/2024 14:49:18 08/04/20 24 08/04/2024 CBC W Auto Diffe renti al panel - Blood lymphocytes/ 100 leukocytes in blood by automated count 21.3 % LYMPH OCYTE S % 21.3 % 08/04 2:47 PM SHIP KEEPER [facility] Not Available Not Available 10/27/2024 14:49:18 08/04/20 24 08/04/2024 CBC W Auto Diffe renti al panel - Blood monocytes/10 0 leukocytes in blood by automated count 7.9 % MONOC YTES % 7.9 % 08/04 2:47 PM SHIP KEEPER [facility] Not Available Not Available 10/27/2024 14:49:18 08/04/20 24 08/04/2024 CBC W Auto Diffe renti al panel - Blood eosinophils/ 100 leukocytes in blood by automated count 1.9 % EOSIN OPHIL S 1.9 % 08/04 2:47 PM SHIP KEEPER [facility] Not Available Not Available 10/27/2024 14:49:18 08/04/20 24 08/04/2024 CBC W Auto Diffe renti al panel - Blood basophils/10 0 leukocytes in blood by automated count 0.3 % BASOP HILS 0.3 % 08/04 2:47 PM SHIP KEEPER [facility] Not Available Not Available 10/27/2024 14:49:18 08/04/20 24 08/04/2024 CBC W Auto Diffe renti al panel - Blood immature granulocytes /100 leukocytes in blood by automated count 0.5 % IMMAT URE GRANS % 0.5 % 08/04 2:47 PM SHIP KEEPER [facility] Not Available Not Available 10/27/2024 14:49:18 08/04/20 24 08/04/2024 CBC W Auto Diffe renti al panel - Blood neutrophils [#/volume] in blood 5.42 text: 1.80 - 7.70 x10'3/ uL ABS. NEUTR OPHIL S 5.42 1.80 - 7.70 x10'3 /uL 08/04 2:47 PM SHIP KEEPER [facility] Not Available Not Available 10/27/2024 14:49:18 08/04/20 24 08/04/2024 CBC W Auto Diffe renti al panel - Blood lymphocytes [#/volume] in blood 1.69 text: 1.00 - 4.80 x10'3/ uL ABS. LYMPH OCYTE S 1.69 1.00 - 4.80 x10'3 /uL 08/04 2:47 PM SHIP KEEPER [facility] Not Available Not Available 10/27/2024 14:49:18 08/04/20 24 08/04/2024 CBC W Auto Diffe renti al panel - Blood monocytes [#/volume] in blood 0.63 text: 0.24 - 0.86 x10'3/ uL ABS. MONOC YTES 0.63 0.24 - 0.86 x10'3 /uL 08/04 2:47 PM SHIP KEEPER [facility] Not Available Not Available 10/27/2024 14:49:18 08/04/20 24 08/04/2024 CBC W Auto Diffe renti al panel - Blood eosinophils [#/volume] in blood 0.15 text: 0.04 - 0.36 x10'3/ uL ABS. EOSIN OPHIL S 0.15 0.04 - 0.36 x10'3 /uL 08/04 2:47 PM SHIP KEEPER [facility] Not Available Not Available 10/27/2024 14:49:18 08/04/20 24 08/04/2024 CBC W Auto Diffe renti al panel - Blood basophils [#/volume] in blood 0.02 text: 0.01 - 0.08 x10'3/ uL ABS. BASOP HILS 0.02 0.01 - 0.08 x10'3 /uL 08/04 2:47 PM SHIP KEEPER [facility] Not Available Not Available 10/27/2024 14:49:18 08/04/20 24 08/04/2024 CBC W Auto Diffe renti al panel - Blood immature granulocytes [#/volume] in blood 0.04 text: 0.00 - 0.49 x10'3/ uL ABS. IMMAT URE GRANU LOCYT ES 0.04 0.00 - 0.49 x10'3 /uL 08/04 2:47 PM SHIP KEEPER [facility] Not Available Not Available 10/27/2024 14:49:18 [...] 8.0 - 388.0 NG/ML 08/04 4:56 PM SHIP KEEPER [facility] Not Available Not Available 10/27/2024 14:49:18 08/07/20 24 08/08/2024 VITAM IN B12 vitamin B12 1728 pg/mL 232-12 45 above high normal Not Available [facility] ([facility]) [address] [facility], [place], [address], 08/08/2024 08:24:54 08/10/20 24 08/11/2024 POTAS SIUM potassium 4.1 mmol/ L 3.5-5. 2 Not Available [facility] ([facility]) [address] [facility], [place], [address], 08/11/2024 12:38:44 08/10/20 24 08/11/2024 HEMOG LOBIN A1C hemoglobin A1C 5.2 % 4.8-5. 6 Predi abete s: 5.7 - 6.4 Diabe olive: >6.4 Glyce oracio contr ol for adult s with diabe olive: <7.0 Not Available [facility] ([facility]) [address] [facility], [place], [address], 08/11/2024 12:38:46 08/10/20 24 08/11/2024 TSH TSH 1.590 uIU/m L 0.450- 4.500 Not Available [facility] ([facility]) [address] [facility], [place], [address], 08/11/2024 12:38:47 08/10/2008/11/2024 VITAM IN D, 25-HY [...] 1. IOM (Inst itute of Medic ine). 2009. Dieta ry refer ence intak es for calci um and D. Noris dooley DC: [facility] . 2. Joseph melendez MF, Yenny bryant [place], Mercedes off-F lobo i BECERRA, et al. Evalu ation , treat ment, and preve ntion of vitam in D defic iency : an Endoc rine Socie ty clini harvey pract ice guide line. JCEM. 2010; 96(7) :1911 -30. Not Available [facility] ([facility]) [address] [facility], [place], [address], 08/11/2024 12:38:49 08/20/20 24 08/21/2024 Hemog lobin A1c/H emogl obin. total in Blood hemoglobin A1C/hemoglob in.total in blood 5.3 % low: 4.8%hi gh: 5.6% Hemog lobin A1c/H emogl obin, total , Blood 5.3 4.8 - 5.6 % [facility] RP 1 Not Available Not Available 11/11/2024 12:09:52 08/20/20 24 08/21/2024 Hemog lobin A1c/H emogl obin. total in Blood Unknown Analyte Perfor med at: 01 - [facility] [place] [id number] [place] [phone] [facility] or: Austin zarate PhD, Not Available Not Available 12:09:52 11/20/19 25 11/23/2024 HELENE,S STEVEN HELENE 11 Refer ence range : 9 to 67 Unit: U/L Test Perfo rmed by Betzy Glez, [facility] Diagn [facility]stic s [facility], [address] [facility] , [place], [place] Jacqui See M.D., Ph.D. , [facility]irec tor of Labor atori es [phone], CLIA [id number] Not Available [facility] (Lab) [address] [facility], [place], [address], 11/23/2024 21:05:43 11/20/19 25 11/19/2024 Prote in/Cr eatin ine [Mass Ratio ] in Urine protein [mass/volume ] in urine 10.4 text: <10 mg/dL high PROTE IN URINE TOTAL RANDO M 10.4 (H) <10 MG/DL 11/19 3:27 PM [facility] Not Available Not Available 11/27/2024 14:43:38 11/20/19 25 11/19/2024 Prote in/Cr eatin ine [Mass Ratio ] in Urine creatinine [mass/volume ] in urine 83.4 text: 28 - 217 mg/dL CREAT ININE (U) 83.4 28 - 217 MG/DL 11/19 3:27 PM [facility] Not Available Not Available 11/27/2024 14:43:38 11/20/19 25 11/19/2024 Prote in/Cr eatin ine [Mass Ratio ] in Urine protein/crea tinine [mass ratio] in urine 0.1 PROTE IN/CR EATIN INE RATIO 0.1 11/19 3:27 PM [facility] Not [facility] Not Available 11/27/2024 14:43:38 11/20/19 25 11/19/2024 Prote in/Cr eatin ine [Mass Ratio ] in Urine interpretati on and review of laboratory results Abnorm al Not Available Not Available 14:43:38 11/20/19 25 11/19/2024 Urina lysis dipst ick W Refle x Micro scopi c panel - Urine collection method - specimen URINE CLEAN CATCH SPECI MEN TYPE URINE CLEAN CATCH 11/19 8:24 AM [facility] Not Available Not Available 11/19/2024 12:42:19 11/20/19 25 11/19/2024 Urina lysis dipst ick W Refle x Micro scopi c panel - Urine color of urine LIGHT YELLOW COLOR (U) LIGHT YELLO W 11/19 8:57 AM [facility] Not Available Not Available 11/19/2024 12:42:19 11/20/19 25 11/19/2024 Urina lysis dipst ick W Refle x Micro scopi c panel - Urine clarity of urine CLEAR TRANS PAREN CY CLEAR 11/19 8:57 AM [facility] Not Available Not Available 11/19/2024 12:42:19 11/20/19 25 11/19/2024 Urina lysis dipst ick W Refle x Micro scopi c panel - Urine specific gravity of urine 1.016 low: 1.001h igh: 1.03 SPECI FIC GRAVI TY (U) 1.016 1.001 - 1.030 11/19 8:57 AM [facility] Not Available Not Available 11/19/2024 12:42:19 11/20/1911/19/2024 Urina lysis dipst ick W Refle x Micro scopi c panel - Urine pH of urine 6.5 low: 5high: 9 U PH 6.5 5.0 - 9.0 11/19 8:57 AM [facility] Not Available Not Available 11/19/2024 12:42:19 11/20/1911/19/2024 Urina lysis dipst ick W Refle x Micro scopi c panel - Urine leukocytes [#/volume] in urine by test strip 25 text: negati ve abnormal LEUKO CYTES (U) 25 (A) NEGAT SUMMER 11/19 8:57 AM [facility] Not Available Not Available 11/19/2024 12:42:19 11/20/19 25 11/19/2024 Urina lysis dipst ick W Refle x Micro scopi c panel - Urine nitrite [presence] in urine NEGATI VE text: negati ve NITRI OLIVE NEGAT SUMMER NEGAT SUMMER 11/19 8:57 AM [facility] Not Available Not Available 11/19/2024 12:42:19 11/20/1911/19/2024 Urina lysis dipst ick W Refle x Micro scopi c panel - Urine protein [mass/volume ] in urine by test strip NEGATI VE text: <30 mg/dL PROTE IN RANDO M (U) NEGAT SUMMER <30 MG/DL 11/19 8:57 AM [facility] Not Available Not Available 11/19/2024 12:42:19 11/20/1911/19/2024 Urina lysis dipst ick W Refle x Micro scopi c panel - Urine glucose [mass/volume ] in urine NORMAL text: normal mg/dL GLUCO SE (U) CAROL L CAROL L MG/DL 11/19 8:57 AM [facility] Not Available Not Available 11/19/2024 12:42:19 11/20/19 25 11/19/2024 Urina lysis dipst ick W Refle x Micro scopi c panel - Urine ketones [mass/volume ] in urine by test strip NEGATI VE text: negati ve mg/dL KETON ES MG/DL (U) NEGAT SUMMER NEGAT SUMMER MG/DL 11/19 8:57 AM [facility] Not Available Not Available 11/19/2024 12:42:19 11/20/19 25 11/19/2024 Urina lysis dipst ick W Refle x Micro scopi c panel - Urine urobilinogen [units/volum e] in urine by test strip NORMAL text: normal mg/dL UROBI LINOG EN CAROL L CAROL L MG/DL 11/19 8:57 AM [facility] Not Available Not Available 11/19/2024 12:42:19 11/20/19 25 11/19/2024 Urina lysis dipst ick W Refle x Micro scopi c panel - Urine bilirubin.to marlon [mass/volume ] in urine NEGATI VE text: negati ve mg/dL BILIR UBIN (U) NEGAT SUMMER NEGAT SUMMER MG/DL 11/19 8:57 AM [facility] Not Available Not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
--- OUTSIDE RECORDS SUMMARY | 2025-01-07 20:25 | XMS_ITS ---
Author Organization [facility] [employer] ([address]) Address [address] [place] [address] Care Team Providers Care Production Posting Clerk Name Role Phone Uri Nini Primary Care Provider Unavail able Radha Lewis Unavailable [phone] [employer], Provider Unavailable Unavailab le Allergies Allergen (clinical drug ingredient) Drug/Non Drug Allergy documented on EMR Reaction Allergy Type Onset Date Status amoxicillin / clavulanate Augmentin hives Drug Allergy Active meperidine Demerol hives Drug Allergy Active nitrofurantoin Macrodantin hives Drug Allergy Active Penicillin shortness of breath Drug Allergy Active REASON FOR VISIT [facility] To [facility] Conversion Encounter Medications Medication SIG (Take, Route, [...] Active Encounters Encounter Location Date Provider Diagnosis [address] [address] 02/29/2024 Provider ZZ-Migration Plan Of Treatment No Information Progress Notes * Rae DEWITTB: (49 yo F)Acc No.[id number]:02/29/2024 Patient: Carmelita Petra RUDD Provider: Naomi Chase :1975 A ge:48 Y S ex:Female Date:02/29/2024 [facility] Pcp:Nini Grewal Subjective: * Chief Complaints: * [...] Codes: * Electronic signature of Prov mirtar DonnieZ-Migration on 01/07/2025 at 09:51 AM CDT Sign off status: Pending * Provider: Naomi Chase Date: 02/29/2024 Generated for Thomas garner/Benjy/Emile on: 01/07/2025 09:51 AM CDT
--- OUTSIDE RECORDS SUMMARY | 2025-01-07 20:25 | XMS_ITS | Encounter Summary ---
Author Organization [facility] Healthcare Address [address] [place] [address] Care Team Providers Care Hide House Supervisor Name Role Phone William Bradley MD Primary Care Provider [phone] William Bradley MD Primary Care Provider [phone] Erik Reed MD Unavailable Abebe Moreau MD Unavailable Kanu Bustos MD Unavailable Karly Villarreal MD Unavailable Boogie Reilly MD Unavailable [phone] Encounter Details Date Type Department Care Team (Late st Contact Info) Description 03/05/2024 E-Visit [facility] Medical Group Pulmonary Harini [address] [facility] [address] [place] [address] Abebe Moreau MD [address] [facility] [address] [place] [address] Side effects/surgery Social History Tobacco Use [...] on file Legal 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 Gender Identity Female 05/17/2021 10:31 AM CDT Sexual Orientation Straight 05/17/2021 10 :31 AM CDT 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 Not on file Not on file documented as of this encounter Plan of Treatment Not on file documented as of this encounter Visit Diagnoses Not on filedocumented in this encounter Care Teams Hide House Supervisor Relationship Specialty Start Date End Date William Bradley MD PCP - General Family Medicine 04/25/23 05/11/24 William Bradley MD PCP - General Family Medicine 05/12/24 Erik Reed MD [address] [place] [address] Referring Physician Interventional Cardiology 09/21/24 Abebe Moreau MD [address] [facility] [address] [place] [address] Consulting Physician Pulmonary Disease 09/21/24 Kanu Bustos MD [address] [facility] 1 [place] [address] Consulting Physician Internal Medicine 09/21/24 [place] [address] [facility] [address] [place] [address] Consulting Physician Rheumatology 09/21/24 Boogie Reilly MD [address] [facility] 100 [facility] 100 [place] [address] Referring Physician Hematology and Oncology 09/21/24 documented as of this encounter
--- OUTSIDE RECORDS SUMMARY | 2025-01-07 20:25 | XMS_ITS ---
Author Organization [facility] [place] ([address]) Address [address] [place] [address] Care Team Providers Care Canceling And Cutting Control Clerk Name Role Phone Nini Grewal Primary Care Provider Unavail Radha Alejandre Unavailable [phone] REASON FOR VISIT For scheduling Encounters Encounter Location Date Provider Diagnosis [facility] [address] [place] [address] 01/07/2025 Radha Lewis Plan Of Treatment No Information Progress Notes * Rae HYATTB: (49 yo F)Acc No.[id number]:01/07/2025 Patient: Carmelita SMITHPetra SCHMITT :1975 A ge:49 Y S ex:Female Address:[address] [place] [address], [place] [address] * * Date:
--- OUTSIDE RECORDS SUMMARY | 2025-01-07 20:25 | XMS_ITS | Clinical Summary ---
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
--- OUTSIDE RECORDS SUMMARY | 2025-01-07 20:25 | XMS_ITS ---
Author Organization [facility] Address [address] [place] [address] Care Team Providers Care Rn Ed Name Role Phone Kirk NEGRON, William Primary Care Provider Agustin KOO HVAC R TECH, LESIA Nino REASON FOR VISIT HIDA 10.25 Encounters Encounter Location Date Provider Diagnosis [facility] [address] [facility] [address] [place] [address] 06/23/2024 LESIA KOO PLAN OF TREATMENT No Information Progress Notes * CONSUELO Rae SAENZB:0 1975 (49 yo F)Acc No.[id number]:06/23/2024 Patient: Petra BARON :1975 Age:49 Y Sex:Female Address[facility], [place] [address] * true * Date:
--- OUTSIDE RECORDS SUMMARY | 2025-01-07 20:25 | XMS_ITS | Encounter Summary ---
Author Organization [facility] Address [address] [facility] [place] [address] Care Team Providers Care Childbirth Educator Name Role Phone Blake Herbert MD Primary Care Provider [phone] Encounter Details Date Type Department Care Team (Late st Contact Info) Description 03/23/[address] 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 Gender Identity Not on file Sexual Orientation Not on file documented as of this encounter Plan of Treatment Not on file documented as of this encounter Procedures Procedure Name Priority Date/Time Associated Diagnosis Comments DERMATOPATHOLOGY Routine 03/23/2022 12:0 0 AM CDT documented in this encounter Results * DERMATOPATHOLOGY (03/23/2022 12:00 AM CDT) Case Report Dermatopathology Report Case: [id number] Authorizing Provider: Jefry Smith MD Collected: 03/23/2022 12:00 AM Ordering Location: [facility] DermPath Lab Received: 03/23/2022 04:49 PM Pathologist: Mary Arcos MD Specimen: Skin, right shoulder 12:18 PM CDT DERMATOPATHOLOGY LABORATORY Final Diagnosis Specimen A. SKIN, right shoulder: SEBORRHEIC KERATOSIS, IRRITATED AND INFLAMED (L82.0) 12:18 PM CDT DERMATOPATHOLOGY LABORATORY Clinical History Nevus vs. SK vs. Other. Path# [id number] 12:18 PM CDT DERMATOPATHOLOGY LABORATORY Gross Description Specimen A: Received is one formalin filled container labeled with the patient's name and designated right shoulder. The specimen consists of a shave biopsy measuring [id number]. Jar 0. 12:18 PM CDT DERMATOPATHOLOGY LABORATORY [...] purposes. Billing Codes Specimen Charges Stain Charges 75021 1 2 12:18 PM CDT DERMATOPATHOLOGY LABORATORY Embedded Images 12:18 PM CDT DERMATOPATHOLOGY LABORATORY Pathology/Cytolog y TISSUE SPECIMEN FROM SKIN / Unknown 03/23/2022 03/23/2022 4:49 PM CDT us Jefry Smith MD LAB - PATHOLOGY/CYTOLOGY ORDER BATOOL Final Result DERMATOPATHOLOGY LABORATORY [facility] - Department of Dermatology [facility] Specialized Medicine [address] [place] [address], [address] [phone] documented in this encounter Visit Diagnoses Not on filedocumented in this encounter Care Teams Childbirth Educator Relationship Specialty Start Date End Date Blake Herbert MD [address] [place] [address] PCP - General 03/10/09 documented as of this encounter
--- OUTSIDE RECORDS SUMMARY | 2025-01-07 20:25 | XMS_ITS | Encounter Summary ---
Author Organization [facility] Address [address] [place] [address] Care Team Providers Care Facilities Administrator Name Role Phone William Bradley MD Primary Care Provider [phone] Encounter Details Date Type Department Care Team (Late st Contact Info) Description 04/07/[address] [address] Scanned, Doc Pccl Social History Tobacco Use Types Packs/Day Years Used Date Smoking Tobacco: Former Cigarettes 0.5 25 1 987 - 2011 Smokeless Tobacco: Never Alcohol Use Standard Drinks/Week Comments Not Currently 0 (1 standard drink = 0.6 oz pur e alcohol) PHQ-2 Answer Date Recorded Patient Health Questionnaire-2 Score 0 11/16/2024 Comments No Sex and Gender Information Value Date Recorded Sex Assigned at Female 11/16/2024 8:34 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 Question Answer Date of Assessment Author Status Little interest or pleasure in doing things Not at all 11/16/2024 8:33 AM COLD STRIP FEEDER Vicky Alston MA Active Feeling down, depressed, or hopeless Not at all 11/16/2024 8:33 AM COLD STRIP FEEDER Barbara Alston MA Active Patient Health Questionnaire-2 Score 0 11/16/2024 8:33 AM COLD STRIP FEEDER Camilla Alston MA Active documented as of this encounter Plan of Treatment Upcoming Encounters Date Type Department Care Team (Late st Contact Info) Description 01/18/2025 8:00 AM CDT Office Visit [facility] [address] [facility], [address] [place] [address] Kavita Mandujano NP [address] [facility] [address] [place] [address] 02/25/2025 9:40 AM CDT Office Visit [facility] [address] [facility] [place] [address] Tierney Constantino NP [address] [facility] [address] [place] [address] 02/25/2025 1:30 PM CDT Appointment [facility] Non [place] [address] Sabino Ambrose MD [address] [facility] [address] [place] [address] 07/02/2025 9:30 AM CDT Office Visit [facility] [address] Sabino Ambrose MD [address] [facility] [address] [place] [address] documented as of this encounter Procedures Procedure Name Priority Date/Time Associated Diagnosis Comments ECG GENERIC (SCAN ORDER) Routine 04/07/2024 documented in this encounter Results * ECG (04/07/2024) us Doc Pccl Scanned SCANNING Final Result [facility] documented in this encounter Visit Diagnoses Not on filedocumented in this encounter Care Teams Facilities Administrator Relationship Specialty Start Date End Date William Bradley MD [address] [facility] [address] [place] [phone] PCP - General FAMILY PRACTICE 09/16/23 documented as of this encounter
--- OUTSIDE RECORDS SUMMARY | 2025-01-07 20:25 | XMS_ITS | Clinical Summary ---
Author Organization [facility] Address [address] [place] [address] Phone Care Team Providers Care Automotive Worker Foreman Name Role Phone William Bradley MD Primary Care Provider [phone] Boogie Reilly MD Unavailable [phone] Allergies Active Allergy Reactions Criticality Noted Date [...] other by Other route. Catalyn vitamin Active Rhodes 3 1000 MG Capsule Take 2 g by mouth. Active CORPORATE HEALTH CONSULTANT Thyroid 30 MG Tablet 4 Active Cholecalciferol [...] EACH EYE TWICE DAILY Active nystatin (MYCOSTATIN) 736992 UNIT/ML Suspension Take 5 mL 4 times a day by oral route for 7 days. Active nystatin (MYCOSTATIN) 865633 UNIT/GM Cream 4 Active Omeprazole 20 MG Tablet Delayed Response Take by mouth. Active Active Problems Problem Noted Date Diagnosed Date Coagulopathy 02/13/2024 Immunizations Immunization Administration Dates Next Due Covid-19, Mrna, Lnp-s, Pf, 30 Mcg/0.3 Ml Dose (P adizer) 01/06/2021,12/15/2020 TDAP Vaccine 12/17/2020 Family History Medical [...] Comments Blood Pressure 134/80 08/27/2024 11:00 AM INSTRUMENT SHOP SUPERVISOR Pulse 76 08/27/2024 11:00 AM INSTRUMENT SHOP SUPERVISOR Temperature 36.6 C (97.8 F) 08/27/2024 11:00 AM INSTRUMENT SHOP SUPERVISOR Respiratory Rate 18 08/27/2024 11:00 AM INSTRUMENT SHOP SUPERVISOR Oxygen Saturation 99% 08/27/2024 11:00 AM INSTRUMENT SHOP SUPERVISOR Inhaled Oxygen Concentration - - Weight 92.7 kg (204 lb 4.8 oz) 08/27/2024 11:00 AM INSTRUMENT SHOP SUPERVISOR Height 171.5 cm (5' 7.5 ) 08/27/2024 11:00 AM CS T Body Mass Index 31.53 08/27/2024 11:00 AM INSTRUMENT SHOP SUPERVISOR Plan of Treatment Upcoming Encounters Date Type Department Care Team (Late st Contact Info) Description 02/25/2025 11:00 AM CDT Lab [facility] [address] [phone] Lab, [facility] 02/25/2025 11:15 AM CDT Office Visit [facility] [address] [address] Boogie Reilly MD [address] [place] [address] [place] [address] Health Maintenance Due Date Last Done Comments Hepatitis C Virus (HCV) Screening 1975 Mammogram 1975 Hepatitis B Immunization (1 of 3 - 19+ 3-dose series) 1994 Pap Smear 1996 Cervical Cancer Screening (CCS) 2005 HPV/Cotest 2005 Discussion re Starting/Frequency of Mammograms 2015 SARS-COV-2 Immunization ( season) 2024 01/06/2021, 12/15/2020 Influenza Immunization (Season Ended) 2025 07/16/2019 Td Immunization Every 10 Years (Adults With [...] patient's age to complete this topic Insurance [facility] Care Teams Automotive Worker Foreman Relationship Specialty Start Date End Date William Bradley MD [address] [place] [address] PCP - General Family Medicine 01/13/24 Boogie Reilly MD [address] [place] [phone] Consulting Physician Oncology 01/13/24
--- OUTSIDE RECORDS SUMMARY | 2025-01-07 20:26 | XMS_ITS | Referral Summary ---
Author Organization [facility] Address [address] [place] [address] Care Team Providers Care Chemist Water Purification Name Role Phone William Bradley MD Primary Care Provider Erik Reed MD Unavailable Abebe Moreau MD Unavailable [phone] Kanu Bsutos MD Unavailable Karly Villarreal MD Unavailable Boogei Reilly MD Unavailable Encounters Date Type Department Care Team Description 12/28/2024 Results Follow-Up [facility] Endocrinology Metabolism and Lipid [address] [facility] 5th [place] [address] [place] [address] Keren Olson MD 12/25/2024 9:46 AM CDT - 12/25/2024 11:59 PM CDT Hospital Encounter [facility] [address] [place] [address] Fatigue, unspecified type; Hypothyroidism, unspecified type Discharge Disposition: Discharge to home or self care 12/25/2024 9:50 AM CDT Lab [facility] Infectious Diseases 1 [facility] [address] [place] [address] 12/25/2024 8:40 AM CDT Office Visit [facility] Endocrinology Metabolism and Lipid 1 [facility] [address] [place] [address] Keren Olson MD Fatigue, unspecified type (Primary Dx); Hypothyroidism, unspecified type; H/O systemic steroid therapy 12/15/2024 12:00 PM CDT Office Visit [facility] Pulmonary [place] [address] [facility] [address] [place] [phone] Abebe Moreau MD Sarcoidosis (Primary Dx); Mediastinal lymphadenopathy; Pulmonary nodule; Seasonal allergic rhinitis, unspecified trigger; Gastroesophageal reflux disease without esophagitis 12/04/2024 Telephone [facility] Otolaryngology [address] [place] [address] Daphne Eleni 11/16/2024 7:39 AM CLIP BAKER - 11/16/2024 11:59 PM CLIP BAKER Hospital Encounter [facility] [address] [place] [address] Sarcoidosis; Mediastinal lymphadenopathy Discharge Disposition: Discharge to home or self care 10/15/2024 9:45 AM CLIP BAKER Lab [facility] 1 Lab [address] [place] [address] Acute cough 10/15/2024 9:00 AM CLIP BAKER Office Visit [facility] Pulmonary [place] [address] [facility] [address] [place] [phone] Abebe Moreau MD Sarcoidosis (Primary Dx); Acute cough from Last 3 Months Allergies Active Allergy [...] (2 g total) by mouth daily Active UNABLE TO FIND - ENTER DRUG NAME IN NOTES TO PHARMACY Albaplex Ac tive UNABLE TO FIND - ENTER DRUG NAME IN NOTES TO PHARMACY Arginex Ac tive UNABLE TO FIND - ENTER DRUG NAME IN NOTES TO PHARMACY Chapis Tomas' hair growth vitamin Active UNABLE TO FIND - ENTER DRUG NAME IN NOTES TO PHARMACY Scrofulara Intrinsics ( inverted) Active Restasis 0.05 % ophthalmic emulsion 1 drop 2 (two) times a day Active famotidine (PEPCID) 20 mg tablet Take 1 tablet (20 mg total) by mouth 2 (two) times a day 09/01/20 24 Active ondansetron ODT (ZOFRAN-ODT) 8 mg disintegrating tablet Take 1 tablet (8 mg total) by mouth every 8 (eight) hours as needed for nausea 20 tablet 09/30/19 25 Active UNABLE TO FIND Gutflora complex Active albuterol HFA (ProAir HFA) 90 mcg/actuation inhaler Inhale 2 puffs every 4 (four) hours as needed for wheezing or shortness of breath 8.5 g 5 12/16/[address] (PROTONIX) 40 mg EC tablet Take 1 tablet (40 mg total) by mouth daily 10/08/19 25 Active predniSONE (DELTASONE) 5 mg tablet Take 1 tablet (5 mg) by mouth daily 02/13/20 24 Active thyroid ([place] Thyroid) 30 mg tablet 1 tablet (30 mg total) daily Active MARKETING PROPOSAL SPECIALIST Thyroid 60 mg tablet 0.5 tablets (30 mg total) daily 06/13/20 24 025 Discontin ued(Alter jessica therapy) metoprolol tartrate (LOPRESSOR) 25 mg immediate release tablet Take 1 tablet (25 mg total) by mouth 2 (two) times a day as needed (PRN hor heart flutter/palpit ations) Discontin ued(Thera py completed ) UNABLE TO FIND - ENTER DRUG NAME IN NOTES TO PHARMACY Cerevive Discontin ued(Thera py completed ) glutathione, bulk, 100 % powder Discontin ued(Thera py completed ) UNABLE TO FIND - ENTER DRUG NAME IN NOTES TO PHARMACY Adapto code Discontin ued(Thera py completed ) sucralfate (CARAFATE) 1 gram tablet 09/01/20 24 Discontin ued(Thera py completed ) triamcinolone (KENALOG) 40 mg/mL injection 12/10/19 24 Discontin ued(Thera py completed ) UNABLE TO FIND - ENTER DRUG NAME IN NOTES TO PHARMACY Med Name: L-Glutothyrone Discontin ued(Thera py completed ) traMADoL (ULTRAM) 50 mg tablet Take 1 tablet (50 mg total) by mouth every 6 (six) hours 30 tablet 09/30/19 25 Discontin ued(Thera py completed ) UNABLE TO FIND Orthospore IG Discontin ued(Thera py completed ) Active Problems Problem Noted Date Diagnosed Date Chronic pansinusitis 09/01/2024 Assessment & Plan (09/01/2024 7:56 PM CLIP BAKER): I am recommending a sinus CT scan for further evaluation this. She would like to go ahead and pursue that. I did note that she has a severe deviation of nasal septum to the right side with enlarged inferior turbinates. That could be causing some of her symptoms. She understands. Ear fullness, bilateral 09/01/2024 Assessment & Plan (09/01/2024 7:57 PM CLIP BAKER): I reassured her that her ears look fine and I do not find any significant abnormalities. She is having no problems today. Ultimately we could consider doing some audiologic testing if this continues. For now I would watch it. Obstructive sleep apnea syndrome 07/10/2024 Essential hypertension 06/08/2024 Stage 3a chronic kidney disease 06/08/2024 Coagulopathy 02/13/2024 Nonspecific abnormal finding of lung field 01/26 Dry eyes 10/23/2023 Mediastinal lymphadenopathy 10/21/2023 Herniated lumbar intervertebral disc 04/05/2023 Gastroesophageal reflux disease without esophagi tis 03/31/2023 Pulmonary nodule 03/26/2023 Abdominal pain 01/25/2023 Assessment & Plan (08/29/2023 11:28 AM CLIP BAKER): Complains of abdominal pain since COVID vaccination [...] 01/25/2023 Assessment & Plan (08/29/2023 11:28 AM CLIP BAKER): Intermittent bright red blood per rectum. -colonoscopy [...] 01/25 Assessment & Plan (08/29/2023 11:30 AM CLIP BAKER): Chronic constipation for the past 2 years. -high-fiber diet -continue probiotics -continue Linzess Constipation 01/25/2023 Assessment & Plan (08/29/2023 11:18 AM CLIP BAKER): Chronic constipation for the past 2 years, [...] 06/16/2021 Assessment & Plan (08/29/2023 11:27 AM CLIP BAKER): Intermittent dysphagia to solids. EGD June 2023 with irregular Z-line, status post dilation to 54 [place]. Pathology unremarkable. No further dysphagia since dilation. 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 Not on file Not on file Last Filed Vital Signs Vital Sign Reading Time Taken Comments Blood Pressure 131/83 12/25/2024 8:30 AM CDT Pulse 81 12/25/2024 8:30 AM CDT Temperature 36.4 C (97.5 F) 12/25/2024 8:30 AM CDT Respiratory Rate 16 12/15/2024 11:47 AM CDT Oxygen Saturation 97% 12/15/2024 11:47 AM CDT Inhaled Oxygen Concentration - - Weight 96.9 kg (213 lb 9.6 oz) 12/25/2024 8:30 A M CDT Height 172.7 cm (5' 8 ) 12/25/2024 8:30 AM CDT Body Mass Index 32.48 12/25/2024 8:30 AM CDT Plan of Treatment Not on file Procedures Procedure Name Priority Date/Time Associated Diagnosis Comments REFLEX THYROGLOBULIN, TUMOR MARKER, IA, S Routine 12/25/2024 9:46 AM CDT TSH Routine 12/25/2024 9:46 AM CDT Fatigue, unspecified type Hypothyroidism, unspecified type T4, FREE Routine 12/25/2024 9:46 AM CDT Fatigue, unspecified type Hypothyroidism, unspecified type T3, FREE Routine 12/25/2024 9:46 AM CDT Fatigue, unspecified type Hypothyroidism, unspecified type THYROID PEROXIDASE ANTIBODY Routine 12/25/2024 9:46 AM CDT Fatigue, unspecified type Hypothyroidism, unspecified type THYROGLOBULIN REFLEX TO MS OR IA Routine 12/25/2024 9:46 AM CDT Fatigue, unspecified type Hypothyroidism, unspecified type CT CHEST WO CONTRAST Routine 11/16/2024 7:44 AM CLIP BAKER Sarcoidosis Mediastinal lymphadenopathy INFLUENZA A/B, RSV, AND COVID-19 PCR Routine 10/15/2024 9:58 AM CLIP BAKER Acute cough COLONOSCOPY 01/08/2024 11:02 AM CDT HEPATITIS PANEL, ACUTE Routine 09/24/2022 7:13 AM CLIP BAKER Dizziness SOB (shortness of breath) Benign essential HTN Chronic fatigue HM MAMMOGRAPHY Routine 06/07/2022 PAP SMEAR Routine 09/14/2020 from Last 3 Months or Most Recently Relevant to Health Maintenance Results * Reflex thyroglobulin, tumor marker, IA, S (12/25/2024 9:46 AM CDT) Thyroglobulin, Tumor Marker 13 < or = 33 ng/mL [facility] ref [facility] Thyroglobulin interp See Footnote ULISES TERRAZAS Comment: Thyroglobulin (Tg) reference intervals are for patients with an intact thyroid and not for patients who have had surgery for thyroid cancer. Tg reference intervals in patients that have undergone thyroidectomy or any treatment for follicular thyroid cancer are dependent on the residual mass of the thyroid tissue after surgery. Tg results, regardless of concentration, should not be interpreted as absolute evidence for the presence or absence of papillary or follicular thyroid cancer. This result needs to be interpreted in the context of the clinical evaluation. ADDITIONAL INFORMATION PLEASE NOTE: The given cutoff of <1.8 IU/mL is for the detection of potential thyroglobulin antibody (TgAb) interference in thyroglobulin immunoassays. A thyroglobulin antibody (TgAb) reference cutoff of <4.0 IU/mL may be more suitable for the evaluation of autoimmune thyroiditis. The thyroglobulin and thyroglobulin antibody testing methods are immunoenzymatic assays manufactured by [employer] and performed on the [employer] DXI 800. Values obtained from different assay methods or kits may be different and cannot be used interchangeably. The results cannot be interpreted as absolute evidence for the presence or absence of malignant disease. Test Performed by: [place] [address] Airset Molder: Kitty Azevedo Ph.D.; CLIA# [id number] Blood 12/25/2024 9:46 AM CDT 12/25/2024 7:50 PM CDT Keren Olson MD LAB BLOOD ORDERABLES Final Resul t Performing Organization Address [facility] Co de Phone Number ULISES [address] [place] [address] [facility] * Thyroglobulin reflex to MS or IA (12/25/2024 9:46 AM CDT) Anti-thyroglobulin <1.8 <1.8 IUnits/mL [facility] Comment: Thyroglobulin Antibody < 1.8 IU/mL. Thyroglobulin performed by Immunoassay to follow. Test Performed by: [place] [address] Airset Molder: Kitty Azevedo Ph.D.; CLIA# [id number] Blood 12/25/2024 9:46 AM CDT 12/25/2024 7:50 PM CDT Keren Olson MD LAB BLOOD ORDERABLES Final Resul t Performing Organization Address City/[facility]/ZIP Co de Phone Number ULISES [address] [place] [address] [facility] ref [facility] * Thyroid peroxidase antibody (TPO) (12/25/2024 9:46 AM CDT) Anti Thyroid Peroxidase <30 <=34 IUnits/mL Comment: ATPO Interpretive Data Results may be up to 28% higher in patients receiving Itraconazole. Current interpretive data was last revised 2020. Testing performed by: [facility], [address] [place]., [address] Blood 12/25/2024 9:46 AM CDT 12/26/2024 12:02 AM CDT us Keren Olson MD LAB BLOOD ORDERABLES Final Resul t ULISES [address] [address] [place] [address] * T3, free (12/25/2024 9:46 AM CDT) Free T3 3.2 2.0 - 4.4 pg/mL Blood 12/25/2024 9:46 AM CDT 12/25/2024 7:09 PM CDT us Keren Olson MD LAB BLOOD ORDERABLES Final Resul t Performing Organization Address City/[facility]/ZIP Co de Phone Number ULISES [phone] [address] [place] [address] * TSH (12/25/2024 9:46 AM CDT) Thyroid Stimulating Hormone 2.08 0.30 - 4.20 mcIUnit/mL Blood 12/25/2024 9:46 AM CDT 12/25/2024 7:09 PM CDT us Keren Olson MD LAB BLOOD ORDERABLES Final Resul t Performing Organization Address City/[facility]/ZIP Co de Phone Number ULISES [phone] [address] [place] [address] * T4, free (12/25/2024 9:46 AM CDT) Free T4 1.12 0.90 - 1.70 ng/dL Blood 12/25/2024 9:46 AM CDT 12/25/2024 7:09 PM CDT us Keren Olson MD LAB BLOOD ORDERABLES Final Resul t ULISES TERRAZAS [address] [address] Department [place] [address] * CT Chest WO Contrast (11/16/2024 7:44 AM CLIP BAKER) Anatomical Region Laterality Modality Body N/A Computed Tomogra phy 11/19/2024 3:20 AM CLIP BAKER Narrative 11/19/2024 3:49 AM CLIP BAKER EXAM DESCRIPTION: CT CHEST WO CONTRAST REASON FOR STUDY: Lymphadenopathy, chest or axilla Lymphadenopathy, chest or axilla, Sarcoidosis, Mediastinal lymphadenopathy TECHNIQUE: CT scan of the chest performed without intravenous contrast using helical scanning technique. Reconstructed coronal and sagittal MPR images reviewed. All images stored on PACS. Automated exposure control was used as a dose optimization technique for this examination. COMPARISON: 05/12/2024 FINDINGS: The sensitivity for detection of solid visceral lesions is diminished without the use of intravenous contrast. LUNGS: Redemonstrated are multiple bilateral pulmonary nodules unchanged compared to prior examination. No new suspicious pulmonary nodules. For reference, unchanged 2 mm right apical pulmonary nodule (image 19). Unchanged right middle lobe pulmonary nodule measuring 5 mm on image 47. Unchanged left lower lobe pulmonary nodule measuring 5 mm on image 57. No focal pneumonic consolidation or pulmonary edema. PLEURA: No effusion. No pneumothorax. MEDIASTINUM/KERRY: Redemonstrated are multiple enlarged mediastinal lymph nodes similar compared to prior examination. No definite hilar lymphadenopathy within limitations of this noncontrast CT examination. No supraclavicular lymphadenopathy. HEART: Heart size is normal with no pericardial effusion. CORONARY ARTERY CALCIFICATION: None VASCULATURE: No thoracic aortic aneurysm. AXILLA: No adenopathy. CHEST WALL: Unchanged nodular densities in the bilateral breast. Unchanged subcutaneous posterior chest wall lesion (image 32) measuring 0.8 cm, possibly a sebaceous cyst. HARDWARE/LINES/TUBES: None. UPPER ABDOMEN: No significant abnormality. MUSCULOSKELETAL: No suspicious osseous lytic or blastic lesions. Unchanged T6-T7 mild to moderate osseous central spinal canal stenosis. Multilevel degenerative disc disease. OTHER: No other significant abnormality. IMPRESSION: Unchanged, multiple bilateral pulmonary nodules measuring up to 5 mm. No new suspicious pulmonary nodules. These findings are in keeping with known history of sarcoidosis. Unchanged, mediastinal lymphadenopathy. Unchanged, nodular densities in the bilateral breast. Unchanged, subcutaneous posterior chest wall lesion measuring 0.8 cm, possibly a sebaceous cyst. THIS IS AN ELECTRONICALLY VERIFIED FINAL REPORT 11/19/2024 3:49 AM - Electronically signed by Steffen Erazo M.D. BB: GAIL Report ID: [id number] Reading Location: [place] [address] Procedure Note Steffen Erazo MD PhD - 11/19/2024 EXAM DESCRIPTION: CT CHEST WO CONTRAST REASON FOR STUDY: Lymphadenopathy, chest or axilla Lymphadenopathy, chest or axilla, Sarcoidosis, Mediastinal lymphadenopathy TECHNIQUE: CT scan of the chest performed without intravenous contrastusing helical scanning technique. Reconstructed coronal and sagittal MPR images reviewed. All images stored on PACS. Automated exposure control was usedas a dose optimization technique for this examination. COMPARISON: 05/12/2024 FINDINGS: The sensitivity for detection of solid visceral lesions is diminished without the use of intravenous contrast. LUNGS: Redemonstrated are multiple bilateral pulmonary nodules unchanged compared to prior examination. No new suspicious pulmonary nodules. For reference, unchanged 2 mm right apical pulmonary nodule (image 19).Unchanged right middle lobe pulmonary nodule measuring 5 mm on image 47. Unchangedleft lower lobe pulmonary nodule measuring 5 mm on image 57. No focalpneumonic consolidation or pulmonary edema. PLEURA: No effusion. No pneumothorax. MEDIASTINUM/KERRY: Redemonstrated are multiple enlarged mediastinal lymph nodes similar compared to prior examination. No definite hilar lymphadenopathy within limitations of this noncontrast CT examination. No supraclavicular lymphadenopathy. HEART: Heart size is normal with no pericardial effusion. CORONARY ARTERY CALCIFICATION: None VASCULATURE: No thoracic aortic aneurysm. AXILLA: No adenopathy. CHEST WALL: Unchanged nodular densities in the bilateral breast.Unchanged subcutaneous posterior chest wall lesion (image 32) measuring 0.8 cm,possibly a sebaceous cyst. HARDWARE/LINES/TUBES: None. UPPER ABDOMEN: No significant abnormality. MUSCULOSKELETAL: No suspicious osseous lytic or blastic lesions.Unchanged T6-T7 mild to moderate osseous central spinal canal stenosis. Multilevel degenerative disc disease. OTHER: No other significant abnormality. IMPRESSION: Unchanged, multiple bilateral pulmonary nodules measuring up to 5 mm. Nonew suspicious pulmonary nodules. These findings are in keeping with known history of sarcoidosis. Unchanged, mediastinal lymphadenopathy. Unchanged, nodular densities in the bilateral breast. Unchanged, subcutaneous posterior chest wall lesion measuring 0.8 cm, possibly a sebaceous cyst. THIS IS AN ELECTRONICALLY VERIFIED FINAL REPORT 11/19/2024 3:49 AM - Electronically signed by Steffen Erazo M.D. BB: BB Report ID: [id number] Reading Location: [place] [address] Abebe Moreau MD IMG CT PROCEDURES Melania l Result * Influenza A/B, RSV, and COVID-19 PCR Nasopharyngeal (10/15/2024 9:58 AM CLIP BAKER) COVID-19 RNA Negative Negative Comment:Testing performed by : [address] [address] Influenza A RNA Negative Negative [facility] Comment:Testing performed by : [address] [address] Influenza B RNA Negative Negative [facility] Comment:Testing performed by : [address] [address] RSV RNA Negative Negative [facility] Comment: Interpretive data: Testing performed by [facility]. This test is performed using the [employer] Xpert Xpress CoV-2/Flu/RSV plus assay. This is a multiplex, real-time reverse transcriptase PCR assay intended for the qualitative detection of nucleic acid from SARS-CoV-2, influenza A, influenza B, and respiratory syncytial virus. This assay has been cleared by the [place] Food and Drug administration. The performance characteristics have been verified by the [facility]. Results must be considered in the clinical context, and a negative result does not rule out infection. Interpretive Data last revised 2023 Testing performed by: [facility], [address] [place] [address], [place]., [address] Nasopharyngeal 10/15/2024 9: 58 AM CLIP BAKER 10/15/2024 10:38 AM CLIP BAKER Narrative ULISES - 10/15/2024 11:17 AM CLIP BAKER Is the Patient experiencing symptoms consistent with COVID?->No Abebe Moreau MD LAB MICROBIOLOGY - GEN ERAL ORDERABLES Final Result [facility] [address] [facility] Department [place] [address] * Colonoscopy (01/08/2024 11:02 AM CDT) Anatomical Region Laterality Modality Other Narrative Procedure Note Dewayne Briggs MD - 01/08/2024 11:02 AM CDT [facility] GI ENDOSCOPY Patient Name: Petra Hackett Procedure Date: 01/08/2024 11:02 AM Date of : 1975 Admit Type: Outpatient Age: 48 Gender: Female Attending MD: Dewayne Briggs M.D. Room: [facility] ENDOSCOPY ROOM 06 Note Status: [...] The scope was passed under direct vision.The [id number]-[id number] colonoscope was introduced through theanus and advanced [...] On: 01/08/2024 11:02 AM Recognized by the [employer] for promoting quality in endoscopy us Dewayne Briggs MD ENDOSCOPY PROCEDURES Final Resul t * Hepatitis panel, acute (09/24/2022 7:13 AM CLIP BAKER) Hep A IgM Negative Negative [facility] - 01 HepBsAg Negative Negative [facility] - 01 Hep B core IgM Negative Negative [facility] - 01 Hep C Ab <0.1 0.0 - 0.9 s/co ratio [facility] - 01 Blood 09/24/2022 7:13 AM CLIP BAKER 09/24/2022 Narrative [facility] - 09/25/2022 6:09 AM CLIP BAKER Performed at: [facility] [id number] Airset Molder: Jose Dacosta PhD, Phone: [phone] us Nini MCCORMICK LAB MICROBIOLOGY - GENE RAL ORDERABLES Final Result [facility] - 01 * HM MAMMOGRAPHY (06/07/2022) Historical Provider HEALTH MAINTENANCE Final Result * Pap Smear (09/14/2020) 09/14/2020 Historical Provider LAB PATHOLOGY ORDERABLES Final Result from Last 3 Months or Most Recently Relevant to Health Maintenance Insurance [employer] MRA ACCESS CHOICE Advance Directives For more information, please contact: [phone] * Full Code (Latest Code Status on File) Date Activated Date Inactivated Comments 06/15/2024 2:04 PM 06/15/2024 7:50 PM * Full Code Date Activated Date Inactivated Comments 11/01/2022 1:53 PM 11/02/2022 6:56 PM Care Teams Chemist Water Purification Relationship Specialty Start Date End Date William Bradley MD PCP - General Family Medicine 05/12/24 Erik Reed MD [address] [place] [address] [address] [place] [address] Referring Physician Interventional Cardiology 09/21/24 Abebe Moreau MD [address] [address] Consulting Physician Pulmonary Disease 09/21/24 Kanu Bustos MD [address] [facility] [address] [place] [address] Consulting Physician Internal Medicine 09/21/24 [place] [address] [facility] [address] [place] [address] Consulting Physician Rheumatology 09/21/24 Boogie Reilly MD [address] [facility] [address] [address] Referring Physician Hematology and Oncology 09/21/24
--- OUTSIDE RECORDS SUMMARY | 2025-01-07 20:26 | XMS_ITS | Patient Health Record ---
Author Organization [facility] Address [address] [facility] [address] [place] [address] Care Team Providers Care Sales Account Associate Name Role Phone Kirk NEGRON, William Primary Care Provider Agustin KOO NP, [facility] ALLERGIES Allergen (clinical drug ingredient) Drug/Non Drug [...] 2 Abdominal distension (gaseous) (R14.0) Referral Organization [facility] Referring Provider First Name LESIA Referring Provider Bang Name HAYES Referring Provider Speciality Gastrofaith perez Referred Organization [facility] - Op Referred Provider Tanner Rehman Referred Address [address],[place], [id number], Referred Provider Specialty Gastroentero logy Procedure 1 ENDOSCOPIC ULTRASOUN D EXAM (11429) Referral Priority Routine Referral Appointment Date 06/15/2024 Reason Please consult for c onsideration of cholecystectomy Scheduled for 08/20/24 0945 Diagnosis 1 Abdominal distension (gaseous) (R14.0) Diagnosis 2 Generalized abdomina l pain (R10.84) Diagnosis 3 Abnormal findings on dx imaging of prt digestive tract (R93.3) Referral Organization [facility] Referring Provider First [...] tablet Orally On ce a day 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 30 MG 1 tablet on an [...] Problem Constipation, unspecified (K59.00) Active confirmed Constipation (74355973) Problem Irritable bowel syndrome with constipation (K58.1) Active confirmed Irritable bowel syndrome characterized by constipation (256035744) VITAL SIGNS Heart Rate 66 /min 06/23/2024 Blood pressure diastolic 85 mm Hg 06/23/2024 Height 68 in 06/23/2024 Blood pressure systolic 133 mm Hg 06/23/2024 Weight 203 lbs 06/23/2024 BMI 30.86 kg/m2 06/23/2024 Encounters Encounter Location Date Provider Diagnosis [facility] [address] [place] [address] 05/29/2024 LESIA KOO Abdominal distension (gaseous) R14.0 and Generalized abdominal pain R10.84 [facility] [address] [facility] [address] [place] [address] 06/23/2024 LESIA KOO Generalized abdominal pain R10.84 ; Abdominal distension (gaseous) R14.0 and Irritable bowel syndrome with constipation K58.1 [facility] [address] [facility] [address] [place] [address] 05/29/2024 LESIA KOO [facility] [address] [facility] [address] [place] [address] 06/23/2024 LESIA KOO [facility] [address] [facility] [address] [place] [address] 07/15/2024 LESIA KOO [facility] [address] [facility] [address] [place] [address] 08/17/2024 LESIA KOO ASSESSMENTS Encounter Date Diagnosis [...] time if normal discussed possible referral to inclusion teacher for further testing. 05/29/2024 Abdominal distension (gaseous) (ICD-10 - R14.0) discussed possible repeat SIBO testing recommended for her to start a daily probiotic like Align or Swift Shift she no longer has constipation with using [...] Insured Coverage Start Date Coverage End Date [facility] PPO [address] [place], [place] [phone] [id number] Petra Morejon Self - patient is the insured MEDICAL (GENERAL) HISTORY Medical History History ICD Code Hypothyroidism hypercholesterolemia hyperlipidemia anxiety irritable bowel syndrome sarcoidosis Surgical History Surgery Date(Month/Year) thyroidectomy tubal ligation EUS 06/15 Ori
--- OUTSIDE RECORDS SUMMARY | 2025-01-07 20:26 | XMS_ITS | Encounter Summary ---
Author Organization [facility] Care Team Providers Care Interstate Bus Driver Name Role Phone William Bradley MD Primary Care Provider [phone] Nini Grewal Primary Care Provider Nini Grewal Primary Care Provider William Bradley MD Primary Care Provider [phone] William Bradley MD Primary Care Provider [phone] Erik Reed MD Unavailable [phone] Abebe Moreau MD Unavailable [phone] Kanu Bustos MD Unavailable Karly Villarreal MD Unavailable Boogie Reilly MD Unavailable [phone] Encounter Details Date Type Department Care Team (Latest Contact Info) Description 10/24/2018 Orders Only [facility] Provider, MD Walker [address] [place] [address] Social History Tobacco Use Types Packs/Day Years Used Date Smoking Tobacco: Every Day Comments Unknown Sex and Gender Information Value Date Recorded Sex Assigned at Not on file Legal Sex Female 1:50 AM 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 Gender Identity Female 05/17/2021 10:31 AM CDT Sexual Orientation Straight 05/17/2021 10 :31 AM CDT documented as of this encounter Plan of Treatment Not on file documented as of this encounter Procedures Procedure Name Priority Date/Time Associated Diagnosis Comments CARDIOLOGY REPORT 10/27/2018 12: 00 AM 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 documented in this encounter Results * CARDIOLOGY REPORT (10/27/2018 12:00 AM 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) Anatomical Region Laterality Modality Other Narrative 10/27/2018 12:00 AM 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 Ordered by an unspecified provider. us Historical Provider [facility] Final Result documented in this encounter Visit Diagnoses Not on filedocumented in this encounter Additional Health Concerns Infection Onset Date Last Indicated Resolved Time COVID: Suspected 05/18/2021 05/18/2021 06/01/2021 3:05 AM CDT documented as of this encounter Care Teams Interstate Bus Driver Relationship Specialty Start Date End Date William Bradley MD PCP - General 05/14/18 06/17/22 Nini Grewal PA PCP - General Family Medicine 06/18/22 03/21/23 Nini Grewal PA [address] [facility] [address] [place] [address] PCP - General Family Medicine 03/25/23 04/24/23 William Bradley MD [address] [facility] [address] [place] [address] PCP - General Family Medicine 04/25/23 05/11/24 William Bradley MD [address] [facility] [address] [place] [address] PCP - General Family Medicine 05/12/24 Erik Reed MD [address] [place] [address] [address] [place] [address] Referring Physician Interventional Cardiology 09/21/24 Abebe Moreau MD [address] [facility] [address] [place], [place] [id number] Consulting Physician Pulmonary Disease 09/21/24 Kanu Bustos MD [address] [facility] [address] [place] [address] Consulting Physician Internal Medicine 09/21/24 [place] [address] [facility] [address] [place] [address] Consulting Physician Rheumatology 09/21/24 Boogie Reilly MD [address] [facility] [address] [facility] 100 [place] [address] Referring Physician Hematology and Oncology 09/21/24 documented as of this encounter
--- OUTSIDE RECORDS SUMMARY | 2025-01-07 20:26 | XMS_ITS | Encounter Summary ---
Author Organization [facility] Address [address] [place] [address] Care Team Providers Care Assembled Wood Products Repairer Name Role Phone William Bradley MD Primary Care Provider [phone] Reason for Visit * Reason Onset Date Comments Question 01/07/2025 Encounter Details Date Type Department Care Team (Late st Contact Info) Description 01/07/2025 Telephone [facility] [address] [address] Ad Sawyer DO [address] [facility] [address] [place] [address] Question Social History Tobacco Use Types Packs/Day Years Used Date Smoking Tobacco: Former Cigarettes Q uit: 2012 Smokeless Tobacco: Never Comments:On and off for 10-1 5 years; 0.5 pack a day Alcohol Use Standard Drinks/Week Comments Not Currently 0 (1 standard drink = 0.6 oz pur e alcohol) PHQ-2 Answer Date Recorded Patient Health Questionnaire-2 Score 0 11/16/2024 Comments No Sex and Gender Information Value Date Recorded Sex Assigned at Female 11/16/2024 8:34 AM ATHLETIC GEAR CUSTODIAN Legal Sex Female 6:38 AM CDT Gender Identity Female 11/16/2024 8:34 AM ATHLETIC GEAR CUSTODIAN Sexual Orientation Not on file 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 Authorzation [id number] valid 01/07/25 through 04/06 documented in this encounter Plan of Treatment Upcoming Encounters Date Type Department Care Team (Late st Contact Info) Description 01/18/2025 8:00 AM CDT Office Visit [facility] [address] [facility], [address] [place] [phone] Kavita Mandujano NP [address] [facility] [address] [place] [address] 02/25/2025 9:40 AM CDT Office Visit [facility] [address] [facility] [address] [place] [phone] Tierney Constantino NP [address] [facility] [address] [place] [address] 02/25/2025 1:30 PM CDT Appointment [facility] Non [place]vasive [place] [address] Sabino Ambrose MD [address] [facility] [address] [place] [phone] 07/02/2025 9:30 AM CDT Office Visit [facility] [address] Sabino Ambrose MD [address] [facility] [address] [place] [address] documented as of this encounter Visit Diagnoses Not on filedocumented in this encounter Care Teams Assembled Wood Products Repairer Relationship Specialty Start Date End Date William Bradley MD [address] [place] [address] PCP - General FAMILY PRACTICE 09/16/23 documented as of this encounter
--- OUTSIDE RECORDS SUMMARY | 2025-01-07 20:26 | XMS_ITS | Clinical Summary ---
Author Organization [facility] Address [facility] [place] [address] Care Team Providers Care Shirt Operator Name Role Phone William Bradley MD Primary Care Provider [phone] Allergies Active Allergy Reactions Criticality Noted Date Comments Amoxicillin-Pot Clavulanate Hives 12/13/2023 Dermatitis Antigen Unknown High 01/01/2019 Surgical tap, Iodinated Contrast Media Rash,Other (see comment) Medium 07/28/2009 Meperidine Anaphylaxis,Hives High 10/18/2022 Meperidine Hcl Other (see comment),Hives,Rash Low 07/28/2009 Nitrofurantoin Hives,Other (see comment),Rash,Unknown Medium 01/01/2019 Tape Contact Dermatitis High 01/01/2019 Surgical tap, Wound Dressing Adhesive Rash High 01/01/2019 Surgical tap, Medications atorvastatin (LIPITOR) 20 MG tablet Take 1 tablet (20 mg total) by mouth daily. 11/12/19 23 Active vitamin D3, cholecalciferol, (D 5000) 125 mcg capsule Take 1 capsule (5,000 Units total) by mouth daily. Active diphenhydrAMINE (BENADRYL) 50 MG Cap capsule Take 1 capsule (50 mg total) by mouth. 10/21/19 24 Active propranolol LA (INDERAL LA) 60 MG 24 hr capsule Take 1 capsule (60 mg total) by mouth daily. 05/27/20 23 Active RESTASIS 0.05 % ophthalmic emulsion 1 drop 2 (two) times daily. Active famotidine (PEPCID) 20 MG tablet Take 1 tablet (20 mg total) by mouth 2 (two) times daily. 09/01/20 24 Active fish oil (OMEGA-3 FATTY ACID) 1000 MG Cap capsule Take 2 capsules (2,000 mg total) by mouth. Active ondansetron (ZOFRAN-ODT) 8 MG disintegrating tablet Take 1 tablet (8 mg total) by mouth every 8 (eight) hours as needed. 09/30/19 25 Active predniSONE (DELTASONE) 10 mg tablet TAKE 1.5 TABLETS BY MOUTH DAILY FOR 30 DAYS THEN 1 TABLET DAILY FOR 30 DAYS 02/13/20 24 Active TECHNICAL PROJECT MANAGER THYROID 30 MG tablet Take 1 tablet every day by oral route for 30 days. 02/09/20 24 Active pantoprazole EC (PROTONIX) 40 MG tablet Take 1 tablet (40 mg total) by mouth 2 (two) times daily. 10/08/19 25 Active albuterol sulfate HFA 108 (90 Base) MCG/ACT inhaler Inhale 2 puffs into the lungs every 4 (four) hours as needed. 01/02/20 Active linaCLOtide (LINZESS) 72 MCG capsuleIndications :Irritable bowel syndrome with constipation Take 1 capsule (72 mcg total) by mouth as needed. 01/02/20 25 Active MISC NATURAL PRODUCTS OR Take 1 tablet by mouth 2 (two) times daily. Orthospore Active probiotic (FLORAJEN3) Cap capsule Take 1 capsule by mouth 2 (two) times daily with meals. Gut Patricia Complex Active MISC NATURAL PRODUCTS OR Take 1 tablet by mouth 3 (three) times daily. Arainex Active MISC NATURAL PRODUCTS OR Take 1 tablet by mouth 3 (three) times daily. Albaplex Active vitamin C (ASCORBIC ACID) 500 MG tablet Take 1 tablet (500 mg total) by mouth daily. Discontinu ed(Discont inued by another clinician) Biotin w/ Vitamins C & E (HAIR SKIN & NAILS GUMMIES) 1250-7.5-7.5 MCG-MG-UNT Chew Tab Chew 1 tablet by mouth 2 (two) times daily. Discontinu ed(Discont inued by another clinician) Cyanocobalamin 1000 MCG SL Tab Take 1,000 mcg by mouth daily. 025 Discontinu ed(Discont inued by another clinician) aspirin 81 MG chewable tablet Chew 1 tablet (81 mg total) by mouth daily. Discontinu ed(Discont inued by another clinician) minoxidil (LONITEN) 2.5 MG tablet Take 0.5 tablets (1.25 mg total) by mouth daily. Discontinu ed(Discont inued by another clinician) spironolactone (ALDACTONE) 100 MG tablet Take 1 tablet (100 mg total) by mouth daily. Discontinu ed(Discont inued by another clinician) cyanocobalamin (B-12) 1000 MCG/ML injection Inject 1,000 mLs (1,000,000 mcg total) into the muscle 2 (two) times a week. Discontinu ed(Discont inued by another clinician) albuterol sulfate HFA 108 (90 Base) MCG/ACT inhaler Take 2 puffs by mouth. Discontinu ed(Sig Adjustment ) atovaquone (MEPRON) 750 MG/5ML suspension TAKE 10 ML BY MOUTH ONCE DAILY Discontinu ed(Discont inued by another clinician) azithromycin (ZITHROMAX) 250 MG tablet TAKE 2 TABLETS BY MOUTH ON DAY 1, AND THEN TAKE 1 TABLET BY MOUTH ONCE A DAY ON DAY 2 THROUGH DAY 5 Discontinu ed(Discont inued by another clinician) busPIRone (BUSPAR) 7.5 MG tablet Take 1.5 tablets (11.25 mg total) by mouth 2 (two) times daily. Discontinu ed(Discont inued by another clinician) cephALEXin (KEFLEX) 500 MG capsule take 1 capsule by mouth three times daily for 5 days Discontinu ed(Discont inued by another clinician) ciprofloxacin (CIPRO) 500 MG tablet Take 1 tablet (500 mg total) by mouth every 12 (twelve) hours. Discontinu ed(Discont inued by another clinician) cyclobenzaprine (FLEXERIL) 5 MG tablet Take 1 tablet 3 times a day by oral route as needed for 30 days. 02/04/20 Discontinu ed(Discont inued by another clinician) fluconazole (DIFLUCAN) 100 MG tablet TAKE 1 TABLET BY MOUTH ONCE DAILY FOR 5 DAYS 025 Discontinu ed(Discont inued by another clinician) linaCLOtide (LINZESS) 72 MCG capsuleIndications :Irritable bowel syndrome with constipation Take 1 capsule (72 mcg total) by mouth every morning before breakfast. 30 capsule 3 11/17/19 25 025 Discontinu ed(Sig Adjustment ) Active Problems Problem Noted Date Diagnosed Date Obstructive sleep apnea syndrome 07/10/2024 Essential hypertension 06/08/2024 Stage 3a chronic kidney disease 06/08/2024 Sarcoidosis 03/31/2024 Allergy to penicillin 12/13/2023 Dry eyes 10/23/2023 Mediastinal lymphadenopathy 10/21/2023 Goiter 05/17/2023 Hypothyroidism 05/17/2023 Fatigue 04/05/2023 Herniated lumbar intervertebral disc 04/05/2023 Prolapsed cervical intervertebral disc Nausea 04/05/2023 Gastroesophageal reflux disease without esophagi [...] Thyroid nodule 11/01/2022 Seasonal allergic rhinitis 10/30/2022 Idiopathic urticaria 10/30/2022 Adverse reaction to food 10/30/2022 Chronic allergic conjunctivitis 10/30/2022 MVP (mitral valve prolapse) 05/10/2022 Gastroesophageal reflux dise ase with esophagitis without hemorrhage 02/02/2022 Elevated liver enzymes 06/16/2021 Dysphagia 06/16/2021 Overview (10/29/2023): Last Assessment & Plan: Intermittent dysphagia to solids. EGD June 2023 with irregular Z-line, status post dilation to 54 Russian. Pathology unremarkable. No further dysphagia since dilation. [...] disorders of urethra 11/01/2009 Stress incontinence 07/28/2009 Resolved Problems Problem Noted Date Diagnosed Date Resolved Date Moderate persistent asthma w ithout complication ([facility]) 10/30/2022 01/01/2025 Allergic rhinitis due to ani mal hair and dander 10/30/2022 01/01/2025 Encounters Date Type Department Care Team Description 01/07/2025 1:00 PM CDT Telephone [facility] [place] [address] [place] [id number] Sabino Ambrose MD Holter Monitor 01/07/2025 Results Follow-Up [facility] Mult[facility]pecialty Care - [facility] [address] [facility] [address] [place] [phone] Tierney Holder NP NM GASTRIC EMPTYING STUDY 01/07/2025 Telephone [facility] - [address] [phone] Amrita Brooks DO Question 01/05/2025 6:57 AM CDT - 01/05/2025 11:59 PM CDT Hospital Encounter [facility] [place] [address] Tierney Holder NP Arrived Discharge Disposition: Home or Self Care (Routine Discharge) 01/05/2025 Travel 01/01/2025 12:45 PM CDT Office Visit [facility] [address] [phone] Sabino Ambrose MD Mitral Valve Disorders (New Patient) 01/01/2025 Telephone [facility] [address] [address] Christo Azevedo Chago Schedule Test (ECHO & EM) 01/01/2025 Travel 12/25/2024 Telephone [facility] - [place] [address] [place] [address] Amrita Brooks DO Results 11/25/2024 4:38 PM CDT - 11/25/2024 11:59 PM CDT Hospital Encounter [facility] [address] [place] [address] Amrita Brooks DO Snoring; Obesity Discharge Disposition: Home or Self Care (Routine Discharge) 11/25/2024 Travel 11/19/2024 8:40 AM CASUALTY UNDERWRITER Office Visit [facility] - [facility] [address] [facility], [address] [place] [phone] Amrita Brooks DO Obstructive Sleep Apnea ( has been told that she snores; sometimes wakes with a dry mouth ) 11/19/2024 8:10 AM CASUALTY UNDERWRITER - 11/19/2024 11:59 PM CASUALTY UNDERWRITER Hospital Encounter [facility] [place] [address] Abebe Moreau MD Discharge Disposition: Home or Self Care (Routine Discharge) 11/19/2024 8:09 AM CASUALTY UNDERWRITER Hospital Encounter [facility] [place] [address] Kanu Bustos MD Discharge Disposition: Home or Self Care (Routine Discharge) 11/19/2024 Orders Only [facility] [place] [address] Abebe Moreau MD 11/19/2024 Orders Only [facility] [place] [address] Kanu Bustos MD 11/19/2024 Travel 11/16/2024 10:20 AM CASUALTY UNDERWRITER Office Visit [facility] Orthopedic & Sports Medicine - [address] [address] Bryan Parr MD New Patient (LT thumb pain) 11/16/2024 8:40 AM CASUALTY UNDERWRITER Office Visit [facility] Medical [facility] Multispecialty Care - [address] [place] [phone] Tierney Holder NP New Patient; IBS (Referral IBS/D) 11/16/2024 Travel from Last 3 Months Immunizations Immunization Administration Dates Next Due Influenza Adult (Generic) 07/16/2019 PFIZER COVID-19 (ORIGINAL FO RMULATION, PURPLE CAP) mRNA, LNP-S, PF, 30 MCG/0.3 ML DOSE 01/06/2021,12/15/2020 Tdap (Generic) 12/17/2020 Family History Medical History Relation Comments Early Father covid vaccine--i nflammatory response Heart Disease Father Hyperlipidemia Father Hypertension Father Interstitial cystitis Father Rheumatoid Arthritis Father Scleroderma Father Thyroid cancer Father malignant thyroi d tumor Ulcerative Colitis Father Valve Disease Father Tricuspid CABG Maternal Grandfather 3v Coronary artery disease Maternal Grandfather Diabetes Maternal Grandfather Heart Attack Maternal Grandfather Pacemaker Maternal Grandfather Stent Cardiac Maternal Grandfather Atrial fibrillation Maternal Grandmother Arthritis Mother Asthma Mother CABG Mother 3v COPD Mother Coronary artery disease Mother Diabetes Mother Early Mother Heart Attack Mother Hyperlipidemia Mother Hypertension Mother Kidney failure Mother Miscarriages / Stillbirths Mother Stent Cardiac Mother [place]'s disease Sister Asthma Sister Crohns Disease Sister Hypertension Sister Osteoarthritis Sister POTS Sister Raynaud syndrome Sister UCTV Sister Relation Status Comments Father (Age 65) Maternal Grandfather Maternal Grandmother Mother (Age 62) Sister Social History Tobacco Use Types Packs/Day Years Used Date Smoking Tobacco: Former Cigarettes Q uit: 2012 Smokeless Tobacco: Never Tobacco Cessation:Counseling Given: Yes Comments:On and off for 10-15 years; 0.5 pack a day Alcohol Use Standard Drinks/Week Comments Not Currently 0 (1 standard drink = 0.6 oz pur e alcohol) PHQ-2 Answer Date Recorded Patient Health Questionnaire-2 Score 0 11/16/2024 Comments No Sex and Gender Information Value Date Recorded Sex Assigned at Female 11/16/2024 8:34 AM CASUALTY UNDERWRITER Legal Sex Female 6:38 AM CDT Gender Identity Female 11/16/2024 8:34 AM CASUALTY UNDERWRITER Sexual Orientation Not on file 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 on file Not on file Not on file Last Filed Vital Signs Vital Sign Reading Time Taken Comments Blood Pressure 116/70 01/01/2025 12:53 PM CDT Pulse 83 01/01/2025 12:53 PM CDT Temperature 36.4 C (97.6 F) 11/16/2024 10:18 AM CASUALTY UNDERWRITER Respiratory Rate 16 11/19/2024 8:32 AM CASUALTY UNDERWRITER Oxygen Saturation 97% 01/01/2025 12:53 PM CDT Inhaled Oxygen Concentration - - Weight 96.2 kg (212 lb) 01/01/2025 12:53 PM CDT Height 172.7 cm (5' 8 ) 01/01/2025 12:53 PM CDT Body Mass Index 32.23 01/01/2025 12:53 PM CDT Plan of Treatment Upcoming Encounters Date Type Department Care Team (Late st Contact Info) Description 01/18/2025 8:00 AM CDT [facility] - [address], [address] [place] [phone] Kavita Mandujano NP [address] [place] [address] [place] [address] 02/25/2025 9:40 AM CDT [facility] - [address] [place] [phone] Tierney Holder NP [address] [facility] [address] [place] [address] 02/25/2025 1:30 PM CDT Appointment [facility] Non Invasive Cardiology [address] [address] Sabino Ambrose MD [address] [facility] [address] [place] [phone] 07/02/2025 9:30 AM CDT Office Visit [facility] [phone] Sabino Ambrose MD 3 [facility] [address] [place] [phone] Health Maintenance Due Date Last Done Comments Cervical Cancer Screening Pa p Smear (Age 30 to 64) Every 3 Years 1975 Colorectal Cancer Screening Colonoscopy (10 Years) 1975 Annual Physical 1978 Hepatitis C 1993 Hepatitis B Vaccines (1 of 3 - 19+ 3-dose series) 1994 Pneumococcal Vaccine: Pediatrics (0 to 5 Years) and At-Risk Patients (6 to 49 Years) (1 of 2 - PCV) 1994 Cervical Cancer Screening Pa p with HPV Testing (Age 30 to 64) Every 5 Years 2005 Cervical Cancer Screening wi HPV 2005 Mammogram Screening 2015 COVID-19 Vaccine (3 - 2023-2 5 season) 2024 01/06/2021, 12/15/2020 DTaP, Tdap and Td Vaccines ( 2 - Td or Tdap) 12/17/2030 12/17/2020 PHQ-2 (Physician [place]) Completed 11/16/2024 Meningococcal B Vaccine Aged Out No l onger eligible based on patient's age to complete this topic Meningococcal Vaccine Aged Out No marce porfirio eligible based on patient's age to complete this topic RSV Immunizations Under 20 Months Aged Out No longer eligible b ased on patient's age to complete this topic Procedures Procedure Name Priority Date/Time Associated Diagnosis Comments NM GASTRIC EMPTYING STUDY Routine 01/05/2025 11:31 AM CDT Indigestion HOME SLEEP STUDY - WATCHPAT Routine 11/25/2024 7:30 PM CDT Snoring Class 1 obesity due to excess calories with serious comorbidity and body mass index (BMI) of 31.0 to 31.9 in adult HC URINALYSIS AUTO W/O MICRO Routine 11/19/2024 8:24 AM CASUALTY UNDERWRITER Chronic kidney disease, stage II (mild) Essential hypertension, malignant HC CREATININE OTH SOURCE Routine 11/19/2024 8:24 AM CASUALTY UNDERWRITER Chronic kidney disease, stage II (mild) Essential hypertension, malignant ANGIOTENSIN I ENZYME SERUM Routine 11/19/2024 8:20 AM CASUALTY UNDERWRITER Sarcoidosis VITAMIN D, 25 OH Routine 11/19/2024 8:20 AM CASUALTY UNDERWRITER Chronic kidney disease, stage II (mild) Essential hypertension, malignant RENAL FUNCTION PANEL Routine 11/19/2024 8:20 AM CASUALTY UNDERWRITER Chronic kidney disease, stage II (mild) Essential hypertension, malignant CBC W/DIFF AUTOMATED Routine 11/19/2024 8:20 AM CASUALTY UNDERWRITER Chronic kidney disease, stage II (mild) Essential hypertension, malignant from Last 3 Months Results * NM GASTRIC EMPTYING STUDY (01/05/2025 11:31 AM CDT) Anatomical Region Laterality Modality Abdomen Nuclear Medicine 01/05/2025 11:4 2 AM CDT Impressions 01/05/2025 3:56 PM CDT IMPRESSION: 1. Initially slightly delayed at 1 hour but ultimately normal gastric emptying with only 2% residual gastric activity at 4 hours. The attending radiologist has reviewed the image(s) and agrees with the content of this report. Ordered By: TIERNEY HOLDER Interpreted By: Alin Francisco MD, 01/05/2025 11:42 AM Narrative 01/05/2025 3:[address] PM [address]T [address] [address] EXAMINATION: GASTRIC EMPTYING STUDY Exam date/time: 01/05/2025 7:04 AM RADIOPHARMACEUTICAL: 1.1 mCi Tc-99m sulfur colloid incorporated into scrambled eggs, along with 2 slices toast, and 120 mL water p.o. Patient only drank 2.5 ounces of water. HISTORY: Stomach issues for 4 years, indigestion, and food will drop after sitting for a while. COMPARISON: No prior gastric emptying study available for comparison. FINDINGS: After oral ingestion of the radiolabeled meal, sequential anterior and posterior abdominal images were obtained through 4 hours. There is normal emptying of gastric contents into the intestine. The residual gastric activity is 97% at 1 hour, 47% at 2 hours, 12% at 3 hours, and 2% at 4 hours. Normal limits: The corresponding upper limit values in normal subjects are 90% at 1 hour, 60% at 2 hours, 30% at 3 hours, and 10% at 4 hours. Procedure Note Rubina Gallardo MD - 01/05/[address] [address] EXAMINATION: GASTRIC EMPTYING STUDY Exam date/time: 01/05/2025 7:04 AM RADIOPHARMACEUTICAL: 1.1 mCi Tc-99m sulfur colloid incorporated intoscrambled eggs, along with 2 slices toast, and 120 mL water p.o. Patientonly drank 2.5 ounces of water. HISTORY: Stomach issues for 4 years, indigestion, and food will drop after sitting for a while. COMPARISON: No prior gastric emptying study available for comparison. FINDINGS: After oral ingestion of the radiolabeled meal, sequentialanterior and posterior abdominal images were obtained through 4 hours. There is normal emptying of gastric contents into the intestine. Theresidual gastric activity is 97% at 1 hour, 47% at 2 hours, 12% at 3hours, and 2% at 4 hours. Normal limits: The corresponding upper limit values in normal subjects are90% at 1 hour, 60% at 2 hours, 30% at 3 hours, and 10% at 4 hours. IMPRESSION: 1. Initially slightly delayed at 1 hour but ultimately normal gastricemptying with only 2% residual gastric activity at 4 hours. The attending radiologist has reviewed the image(s) and agrees with thecontent of this report. Ordered By: TIERNEY HOLDER Interpreted By: Alin Francisco MD, 01/05/2025 11:42 AM us Tierney Holder TECHNICAL PROJECT MANAGER NUC MED Final Resul t * Home Sleep Study - WatchPat ([id number]) (11/25/2024 7:30 PM CDT) Narrative [facility] - 11/25/2024 7:30 PM CDT Edward Laura MD 12/24/2024 11:27 AM Patient Information First Name: ALONSO Last Name: JOSESITO SAENZ ID: [id number] Date: 1975 Age: 49 Gender: Female BMI: 30.1 (W=198 lb, H=5' 8) Sleep Study Information Study Date:12/18/2024 Referring Physician Information First Name: Last Name: AMRITA BROOKS 5.3.82.5 / 4.2.1210 / 82 S/H/A Version: WATCHPAT HOME SLEEP APNEA TEST REPORT SUMMARY DATA SLEEP STUDY/ARCHITECTURE: This patient was studied using a WatchPAT home sleep study device, The evaluation was initiated on 12/18/2024 at 10:21:09 PM and was stopped at 5:48:52 AM. The total recording time was 7 hrs, 27 min with total sleep evaluation of 6 hrs, 50 min. ANALYSIS: (pAHI = PAT Apnea-Hypopnea Index, pRDI = PAT Respiratory Disturbance Index) Total pAHI 3%: 17.1 Total pAHI 4%: 9.7 Total pRDI: 21.8 Average Sleep Oxygen Saturation: 95 Minimum Sleep Oxygen Saturation: 84 Mean Heart Rate During Sleep: 75 Afib Total Duration: Not detected Afib Longest Duration: Not detected (Afib events < 60 seconds may be artifact) Rev. Printed on:12/24/2024 12/18/2024,[id number],1975,Female *The automatic analysis events or stages have been edited. 539 Page 1 of 2 Sleep Study Report SUMMARY/DIAGNOSIS 1.) Moderate Obstructive Sleep Apnea. 2.) This patient's oxygen saturation was at or below 88.0% for 15.2 minutes during this study. RECOMMENDATIONS [place] treatment option should be discussed with the patient and a plan for treatment should be made. Potential health consequences and medical importance of treatment should also be discussed with the patient. This patient's oxygen saturation was at or below 88.0% for 15.2 minutes during this study. Possible need to do additional testing with full night titration with possible supplemental oxygen addition if there are still significant desaturations when patient's AHI is within normal limits should be considered. Also, the possibility of additional medical evaluation based on noted desaturations should be considered. This patient should maintain good sleep hygiene techniques, maintain a consistent sleep/wake schedule with adequate hours of sleep, and avoid hazardous activities when sleepy. The patient should be cautioned about factors that may potentially exacerbate snoring and other sleep-related issues, such as FAITH HEALER depressants, especially at bedtime. Raw data reviewed and electronically signed by: Edward Laura on 12/24/2024 11:25:43 AM at 4:25:47PM, [facility] Amrita Brooks SLEEP CENTER ORDERABLES Fi nal Result [facility] [address] [place] [address], * (ABNORMAL) PROTEIN CREAT RATIO URINE (11/19/2024 8:24 AM CASUALTY UNDERWRITER) PROTEIN URINE TOTAL RANDOM 10.4(H) <10 MG/DL 11/19/2024 3:27 PM CASUALTY UNDERWRITER [facility] CREATININE (U) 83.4 28 - 217 MG/DL 11/19/2024 3:27 PM CASUALTY UNDERWRITER [facility] PROTEIN/CREATIN INE RATIO 0.1 11/19/2024 3:27 PM [facility] URINE SPECIMEN / Unknown 11/19/2024 8:24 AM CASUALTY UNDERWRITER Kanu Bustos MD URINE ORDERABLES Final Result [facility] [address] [place] [address], * (ABNORMAL) URINALYSIS (11/19/2024 8:24 AM CASUALTY UNDERWRITER) SPECIMEN TYPE URINE CLEAN CATCH 11/19/2024 8:24 AM [facility] COLOR (U) LIGHT YELLOW 11/19/2024 8:57 AM [facility] TRANSPARENCY CLEAR 11/19/2024 8:57 AM [facility] SPECIFIC GRAVITY (U) 1.016 1.001 - 1.030 11/19/2024 8:57 AM [facility] U PH 6.5 5.0 - 9.0 11/19/2024 8:57 AM [facility] LEUKOCYTES (U) 25(A) NEGATIVE 11/19/2024 8:57 AM [facility] NITRITES NEGATIVE NEGATIVE 11/19/2024 8:57 AM [facility] PROTEIN RANDOM (U) NEGATIVE <30 MG/DL 11/19/2024 8:57 AM [facility] GLUCOSE (U) NORMAL NORMAL MG/DL 11/19/2024 8:57 AM [facility] KETONES MG/DL (U) NEGATIVE NEGATIVE MG/DL 11/19/2024 8:57 AM [facility] UROBILINOGEN NORMAL NORMAL MG/DL 11/19/2024 8:57 AM CASUALTY UNDERWRITER [facility] BILIRUBIN (U) NEGATIVE NEGATIVE MG/DL 11/19/2024 8:57 AM [facility] BLOOD (U) NEGATIVE NEGATIVE 11/19/2024 8:57 AM [facility] MUCUS RARE /LPF 11/19/2024 8:57 AM [facility] WBC/HPF 4 <6 /HPF 11/19/2024 8:57 AM [facility] RBC/HPF 1 <6 /HPF 11/19/2024 8:57 AM [facility] SQUAMOUS EPITHELIALS FEW /HPF 11/19/2024 8:57 AM [facility] URINE SPECIMEN OBTAINED BY CLEAN CATCH PROCEDURE / Unknown 11/19/2024 8:24 AM [facility] [[email or web address]] Kanu Bustos MD URINE ORDERABLES Final Result [facility] [address] [place] [address], * (ABNORMAL) RENAL FUNCTION PANEL (11/19/2024 8:20 AM CASUALTY UNDERWRITER) GLUCOSE 94 70 - 99 MG/DL 11/19/2024 9:20 AM [facility] BUN 19(H) 7 - 18 MG/DL 11/19/2024 9:20 AM [facility] CREATININE S/P/B 0.88 0.55 - 1.02 MG/DL 11/19/2024 9:20 AM [facility] SODIUM S/P/B 142 136 - 145 MMOL/L 11/19/2024 9:20 AM [facility] POTASSIUM S/P/B 4.4 3.5 - 5.1 MMOL/L 11/19/2024 9:20 AM [facility] CHLORIDE S/P/B 108 97 - 115 MMOL/L 11/19/2024 9:20 AM [facility] CO2 32.1(H) 21 - 32 MMOL/L 11/19/2024 9:20 AM [facility] CALCIUM S/P/B 9.5 8.5 - 10.1 MG/DL 11/19/2024 9:20 AM [facility] ALBUMIN S/P/B 3.5 3.4 - 5.0 G/DL 11/19/2024 9:20 AM [facility] PHOSPHORUS 4.1 2.5 - 4.9 MG/DL 11/19/2024 9:20 AM [facility] LAB ANION GAP 1.9(L) 2 - 10 MMOL/L 11/19/2024 9:20 AM [facility] BUN CREATININE RATIO 21.6 6 - 26 11/19/2024 9:20 AM [facility] GFR ESTIMATE 81(L) >90 ML/MIN/1.7 3 M2 11/19/2024 9:20 AM [facility] Comment: NOTE: eGFR is not calculated for patients <18 years of age or gender unknown. This is an estimated GFR calculation using the new CKD EPI creatinine equation without race and so does not require a correction factor for race. This estimated GFR should not be used for calculating drug doses. 11/19/2024 8:20 AM CASUALTY UNDERWRITER Kanu Bustos MD LABORATORY Final Result [facility] [address] [place] [address], [place] [phone] * (ABNORMAL) CBC W/DIFF AUTOMATED (11/19/2024 8:20 AM CASUALTY UNDERWRITER) [facility] WBC 7.97 4.5 - 11.0 x10'3/uL 11/19/2024 8:47 AM [facility] RBC 4.15(L) 4.20 - 5.40 x10'6/uL 11/19/2024 8:47 AM [facility] HGB 13.2 12.0 - 16.0 G/DL 11/19/2024 8:47 AM [facility] HCT 40.0 38.0 - 48.0 % 11/19/2024 8:47 AM [facility] MCV 96.4 81.0 - 99.0 FL 11/19/2024 8:47 AM [facility] MCH 31.8(H) 27.0 - 31.0 PG 11/19/2024 8:47 AM [facility] MCHC 33.0 32.0 - 36.0 G/DL 11/19/2024 8:47 AM [facility] RDW 12.7 11.5 - 14.5 % 11/19/2024 8:47 AM [facility] PLT 192 130 - 400 x10'3/uL 11/19/2024 8:47 AM [facility] MPV 10.9 9.3 - 12.2 FL 11/19/2024 8:47 AM [facility] DIFFERENTIAL TYPE AUTOMATED DIFFERENTIAL 11/19/2024 8:47 AM [facility] NEUTROPHILS % 66.8 % 11/19/2024 8:47 AM [facility] LYMPHOCYTES % 21.1 % 11/19/2024 8:47 AM [facility] MONOCYTES % 8.5 % 11/19/2024 8:47 AM [facility] EOSINOPHILS 2.8 % 11/19/2024 8:47 AM [facility] BASOPHILS 0.4 % 11/19/2024 8:47 AM [facility] IMMATURE GRANS % 0.4 % 11/20/19 8:47 AM [facility] ABS. NEUTROPHILS 5.33 1.80 - 7.70 x10'3/uL 11/19/2024 8:47 AM [facility] ABS. LYMPHOCYTES 1.68 1.00 - 4.80 x10'3/uL 11/19/2024 8:47 AM [facility] ABS. MONOCYTES 0.68 0.24 - 0.86 x10'3/uL 11/19/2024 8:47 AM [facility] ABS. EOSINOPHILS 0.22 0.04 - 0.36 x10'3/uL 11/19/2024 8:47 AM [facility] ABS. BASOPHILS 0.03 0.01 - 0.08 x10'3/uL 11/19/2024 8:47 AM [facility] ABS. IMMATURE GRANULOCYTES 0.03 0.00 - 0.49 x10'3/uL 11/19/2024 8:47 AM [facility] 11/19/2024 8:20 AM [facility] [[email or web address]] Kanu Bustos MD LABORATORY Final Result [facility] [address] [place] [address], * VITAMIN D, 25 [place] (11/19/2024 8:20 AM [facility] [[email or web address] Pathologist [facility] VITAMIN D 25 HYDROXY S/P/B 34 30 - 100 NG/ML 11/19/2024 9:20 AM [facility] Comment: INTERPRETATION DEFICIENT <20 INSUFFICIENT 20-29 SUFFICIENT 30-100 11/19/2024 8:20 AM CASUALTY UNDERWRITER Kanu Bustos MD LABORATORY Final Result [facility] [address] [place] [address], [place] [phone] * ANGIOTENSIN I ENZYME SERUM (11/19/2024 8:20 AM CASUALTY UNDERWRITER) HELENE S/P/B 11 9 - 67 U/L 11/23/2024 8:05 PM CDT [facility] Comment: Test Performed by Benoit Glez, [facility], [address] [place] [address] Mendez See M.D., Ph.D., Director of Laboratories , [facility] [id number] 11/19/2024 8:20 AM CASUALTY UNDERWRITER Abebe Moreau MD LABORATORY Final Result Performing Organization Address City/[facility]/ZIP Co de Phone Number [facility] [place] [id number] [place] [address], [place] [phone] from Last 3 Months Insurance Care Teams Shirt Operator Relationship Specialty Start Date End Date William Bradley MD [address] [place], [place] [id number] PCP - General FAMILY PRACTICE 09/16/23
--- OUTSIDE RECORDS SUMMARY | 2025-01-07 20:26 | XMS_ITS | Patient Health Record ---
Author Organization [facility]ly [facility] [place] ([address]) Address [address] [place] [address] Care Team Providers Care Buckle Attacher Name Role Phone Nini Grewal Primary Care Provider Unavail able Radha Lewis Unavailable [phone] [facility], Provider Unavailable Unavailab le Allergies Allergen [...] Status Risk Notes Problem Chronic allergic conjunctivitis (95358665) Other chronic allergic conjunctivitis (H10.45) Active confirmed Problem Allergic rhinitis caused by pollen (disorder) (58599880) Allergic rhinitis due to pollen (J30.1) Active confirmed Problem Allergic rhinitis (58844730) Other allergic rhinitis (J30.89) Active confirmed Problem Chronic rhinitis (09018619) Chronic rhinitis (J31.0) Active confirmed Problem Uncomplicated mild persistent asthma (161208817) Mild persistent asthma, uncomplicated (J45.30) Active confirmed Problem Uncomplicated moderate persistent asthma (866918474) Moderate persistent asthma, uncomplicated (J45.40) Active confirmed Problem Uncomplicated severe persistent asthma (208042028) Severe persistent asthma, uncomplicated (J45.50) Active confirmed Problem Adverse reaction to food (972551453) Other adverse food reactions, not elsewhere classified, initial encounter (T78.1XXA) Active confirmed Problem Allergic rhinitis caused by animal hair and dander (245551366666003) Allergic rhinitis due to animal (cat) (dog) hair and dander (J30.81) Active confirmed Problem Chronic rhinitis (37503762) Chronic rhinitis (J31.0) Active confirmed Problem Idiopathic urticaria (72198360) Idiopathic urticaria (L50.1) Active confirmed Problem Allergy to penicillin (26003560) Allergy status to penicillin (Z88.0) Active confirmed Encounters Encounter Location Date Provider Diagnosis [facility] - [address] [address] 02/29/2024 Provider [facility]-Migration Plan Of Treatment No Information Insurance Providers Payer Name Payer Address Payer Phone Subscriber Number Group Number Insured Name Patient Relationship to Insured Coverage Start Date Coverage End Date [facility] [id number] [place] [address] [id number] Petra Will Self - patient is the insured Medical (General) History Surgical History Surgery Date(Month/Year) tonsillectomy 09/16/1981 shoulder recon 09/16/1996 TUBAL AND ABLATION 09/16/2016 TVT 09/16/2006
--- OUTSIDE RECORDS SUMMARY | 2025-01-07 20:26 | XMS_ITS | Encounter Summary ---
Author Organization [facility] Facility Care Team Providers Care Die Set Up Worker Name Role Phone Unknown, Notinfile Primary Care Provider Unavail able William Bradley MD Primary Care Provider [phone] Nini Grewal Primary Care Provider Nini Grewal Primary Care Provider William Bradley MD Primary Care Provider [phone] William Bradley MD Primary Care Provider [phone] Erik Reed MD Unavailable [phone] Abebe Moreau MD Unavailable [phone] Kanu Bustos MD Unavailable Karly Villarreal MD Unavailable Boogie Reilly MD Unavailable [phone] Encounter Details Date Type Department Care Team (Latest Contact Info) Description 08/20/2017 Orders Only [facility] CLINCONV ProviderWalker MD [address] [place] [address] Social History Tobacco Use Types Packs/Day Years Used Date Smoking Tobacco: Every Day Comments Unknown Sex and Gender Information Value Date Recorded Sex Assigned at Not on file Legal Sex Female 1:50 AM LICENSING REPRESENTATIVE Gender Identity Female 05/17/2021 10:31 AM CDT Sexual Orientation Straight 05/17/2021 10 :31 AM CDT documented as of this encounter Plan of Treatment Not on file documented as of this encounter Procedures Procedure Name Priority Date/Time Associated Diagnosis Comments SCAN - LABS 08/21/2017 12:00 AM LICENSING REPRESENTATIVE documented in this encounter Results * SCAN - LABS (08/21/2017 12:00 AM LICENSING REPRESENTATIVE) Narrative 08/21/2017 12:00 AM LICENSING REPRESENTATIVE Ordered by an unspecified provider. us Historical Provider Final Res ult documented in this encounter Visit Diagnoses Not on filedocumented in this encounter Additional Health Concerns Infection Onset Date Last Indicated Resolved Time COVID: Suspected 05/18/2021 05/18/2021 06/01/2021 3:05 AM CDT documented as of this encounter Care Teams Die Set Up Worker Relationship Specialty Start Date End Date Unknown, Notinfile PCP - General 04/30/18 05/13/18 William Bradley MD PCP - General 05/14/18 06/17/22 Nini Grewal PA PCP - General Family Medicine 06/18/22 03/21/23 Nini Grewal PA [address] [facility] [address] [place] [address] [place] [address] PCP - General Family Medicine 03/25/23 04/24/23 William Bradley MD [address] [facility] [address] [place] [address] [place] [address] PCP - General Family Medicine 04/25/23 05/11/24 William Bradley MD [address] [facility] [address] [place] [address] PCP - General Family Medicine 05/12/24 Erik Reed MD [address] [place] [address] 3 [place] [address] Referring Physician Interventional Cardiology 09/21/24 Abebe Moreau MD [address] [place] [address] [address] [place] [address] Consulting Physician Pulmonary Disease 09/21/24 Kanu Bustos MD [address] [facility] 1 [place] [address] Consulting Physician Internal Medicine 09/21/24 [place] [address] [facility] [address] [place] [address] Consulting Physician Rheumatology 09/21/24 Boogie Reilly MD [address] [address] Referring Physician Hematology and Oncology 09/21/24 documented as of this encounter
--- OUTSIDE RECORDS SUMMARY | 2025-01-07 20:26 | XMS_ITS | Encounter Summary ---
Author Organization [facility] Facility Care Team Providers Care Customizer Name Role Phone Unknown, Notinfile Primary Care Provider Unavail able William Bradley MD Primary Care Provider Nini Grewal Primary Care Provider Nini Grewal Primary Care Provider Willima Bradley MD Primary Care Provider [phone] William Bradley MD Primary Care Provider [phone] Erik Reed MD Unavailable [phone] Abebe Moreau MD Unavailable [phone] Kanu Bustos MD Unavailable Karly Villarreal MD Unavailable Boogie Reilly MD Unavailable [phone] Encounter Details Date Type Department Care Team (Latest Contact Info) Description 01/30/2017 Orders Only [facility]G CLINCONV ProviderWalker MD [address] [place] [address] Social History Tobacco Use Types Packs/Day Years Used Date Smoking Tobacco: Every Day Comments Unknown Sex and Gender Information Value Date Recorded Sex Assigned at Not on file Legal Sex Female 1:50 AM RURAL CARRIER Gender Identity Female 05/17/2021 10:31 AM CDT [...] AM CDT Ordered by an unspecified provider. Historical Provider Final Res ult documented in this encounter Visit Diagnoses Not on filedocumented in this encounter Additional Health Concerns Infection Onset Date Last Indicated Resolved Time COVID: Suspected 05/18/2021 05/18/2021 06/01/2021 3:05 AM CDT documented as of this encounter Care Teams Customizer Relationship Specialty Start Date End Date Unknown, Notinfile PCP - General 04/30/18 05/13/18 William Bradley MD PCP - General 05/14/18 06/17/22 Nini Grewal PA PCP - General Family Medicine 06/18/22 03/21/23 Nini Grewal PA [address] [facility] [address] [place] [address] PCP - General Family Medicine 03/25/23 04/24/23 William Bradley MD [address] [facility] [address] [place] [address] PCP - General Family Medicine 04/25/23 05/11/24 William Bradley MD [address] [facility] [address] [place] [address] PCP - General Family Medicine 05/12/24 Erik Reed MD [address] [place] [address] 3 [place] [address] Referring Physician Interventional Cardiology 09/21/24 [place] [address] [place] [address] 350 [place] [address] Consulting Physician Pulmonary Disease 09/21/24 Kanu Bustos MD [address] [facility] 1 [place] [address] Consulting Physician Internal Medicine 09/21/24 [place] [address] [facility] 70 [place] [address] Consulting Physician Rheumatology 09/21/24 Boogie Reilly MD [address] [place] [address] Referring Physician Hematology and Oncology 09/21/24 documented as of this encounter
--- OUTSIDE RECORDS SUMMARY | 2025-01-07 20:26 | XMS_ITS | Encounter Summary ---
Author Organization [facility] Address [address] [place] [address] Care Team Providers Care Escort Vehicle Driver Name Role Phone William Bradley MD Primary Care Provider [phone] Reason for Referral * Imaging (Routine) - Closed Specialty Diagnoses / Procedures Referred By Johnny mera Referred To Contact RADIOLOGY Diagnoses Indigestion Procedures NM GASTRIC EMPTYING STUDY Consuelo Constantino NP 3 [place] [address] Phone: tel: fax: Referral ID Status Reason Start Date Expiration Date Visits Re quested Visits Authorized Closed 11/16/2024 11/16/2025 1 1 Reason for Visit * Imaging (Routine) - Closed Specialty Diagnoses / Procedures Referred By Johnny mera Referred To Contact RADIOLOGY Diagnoses Indigestion Procedures NM GASTRIC EMPTYING STUDY Consuelo Constantino NP [address] [address] Phone: tel: fax: Referral ID Status Reason Start Date Expiration Date Visits Re quested Visits Authorized Closed 11/16/2024 11/16/2025 1 1 Encounter Details Date Type Department Care Team (Latest Contact Info) Description 01/05/2025 6:57 AM CDT - 01/05/2025 11:59 PM CDT Hospital Encounter [facility] Nuclear Medicine [address] [place] [address] Consuelo Constantino NP [address] [facility] [address] [place] [address] Arrived Discharge Disposition: Home or Self Care (Routine Discharge) Social History Tobacco Use Types Packs/Day Years Used Date Smoking Tobacco: Former Cigarettes Q uit: 2011 Smokeless Tobacco: Never Comments:On and off for 10-1 5 years; 0.5 pack a day Alcohol Use Standard Drinks/Week Comments Not Currently 0 (1 standard drink = 0.6 oz pur e alcohol) PHQ-2 Answer Date Recorded Patient Health Questionnaire-2 Score 0 11/16/2024 Comments No Sex and Gender Information Value Date Recorded Sex Assigned at Female 11/16/2024 8:34 AM ROUGHER MACHINE OPERATOR Legal Sex Female 6:38 AM CDT Gender Identity Female 11/16/2024 8:34 AM ROUGHER MACHINE OPERATOR Sexual Orientation Not on file 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 01/01/2025 atorvastatin (LIPITOR) 20 MG tablet Take 1 tablet (20 mg total) by mouth daily. 11/12/2022 diphenhydrAMINE (BENADRYL) 50 MG Cap capsule Take 1 capsule (50 mg total) by mouth. 10/21/2023 famotidine (PEPCID) 20 MG tablet Take 1 tablet (20 mg total) by mouth 2 (two) times daily. 09/01/2024 fish oil (OMEGA-3 FATTY ACID) 1000 MG Cap capsule Take 2 capsules (2,000 mg total) by mouth. linaCLOtide (LINZESS) 72 MCG capsuleIndications: Irritable bowel syndrome with constipation Take 1 capsule (72 mcg total) by mouth as needed. 01/01/2025 MISC NATURAL PRODUCTS OR Take 1 tablet by mouth 2 (two) times daily. Orthospore MISC NATURAL PRODUCTS OR Take 1 tablet by mouth 3 (three) times daily. Arainex MISC NATURAL PRODUCTS OR Take 1 tablet by mouth 3 (three) times daily. Albaplex HOUSING AND RESIDENCE LIFE DIRECTOR THYROID 30 MG tablet Take 1 tablet every day by oral route for 30 days. 02/09/2024 ondansetron (ZOFRAN-ODT) 8 MG disintegrating tablet Take 1 tablet (8 mg total) by mouth every 8 (eight) hours as needed. 09/30/2024 pantoprazole EC (PROTONIX) 40 MG tablet Take 1 tablet (40 mg total) by mouth 2 (two) times daily. 10/08/2024 predniSONE (DELTASONE) 10 mg tablet TAKE 1.5 TABLETS BY MOUTH DAILY FOR 30 DAYS THEN 1 TABLET DAILY FOR 30 DAYS 02/13/2024 probiotic (FLORAJEN3) Cap capsule Take 1 capsule by mouth 2 (two) times daily with meals. Gut Patricia Complex propranolol LA (INDERAL LA) 60 MG 24 hr capsule Take 1 capsule (60 mg total) by mouth daily. 05/27/2023 RESTASIS 0.05 % ophthalmic emulsion 1 drop 2 (two) times daily. vitamin D3, cholecalciferol, (D 5000) 125 mcg capsule Take 1 capsule (5,000 Units total) by mouth daily. documented as of this encounter Plan of Treatment Upcoming Encounters Date Type Department Care Team (Late st Contact Info) Description 01/18/2025 8:00 AM CDT [facility] [address], [address] [place] [phone] Kavita Mandujano NP 3 [facility] [address] [place] [phone] 02/25/2025 9:40 AM CDT [facility] - [address] [place] [phone] Consuelo Constantino NP 3 [facility] [address] [place] [address] 02/25/2025 1:30 PM CDT Appointment [facility] Non Invasive Cardiology [place] [address] Sabino Ambrose MD 3 [facility] [address] [place] [phone] 07/02/2025 9:30 AM CDT Office Visit [facility] [address] [address] Sabino Ambrose MD 3 [facility] [address] [place] [address] documented as of this encounter Procedures Procedure Name Priority Date/Time Associated Diagnosis Comments NM GASTRIC EMPTYING STUDY Routine 01/05/2025 11:31 AM CDT Indigestion documented in this encounter Results * NM GASTRIC EMPTYING STUDY (01/05/2025 [...] the content of this report. Ordered By: CONSUELO CONSTANTINO Interpreted By: Alin Francisco MD, 01/05/2025 11:42 AM Narrative 01/05/2025 3:56 PM CDT [facility] [place] [address] EXAMINATION: GASTRIC EMPTYING STUDY Exam date/time: 01/05/2025 [...] Procedure Note Rubina Gallardo MD - 01/05/2025 [place] [address] EXAMINATION: GASTRIC EMPTYING STUDY Exam date/time: 01/05/2025 [...] with thecontent of this report. Ordered By: CONSUELO CONSTANTINO Interpreted By: Alin Francisco MD, 01/05/2025 11:42 AM us Consuelo Constantino HOUSING AND RESIDENCE LIFE DIRECTOR NUC MED Final Resul t documented in this encounter Visit Diagnoses Diagnosis Indigestion Dyspepsia and other specified disorders of function of stomach documented in this encounter Administered Medications Inactive Administered Medications - up to 3 most recent administrations Medication Order MAR Action Action Date Dose Rate Site technetium Tc 99M sulfur colloid radio-isotope oral solution 1.1 millicurie 1.1 millicurie (rounded from 1.07 millicurie), Oral, Once, 1 dose, On Sat01/05/25 at 1200, RADIOPHARMACEUTICAL: Use appropriate precautions for handling & disposal. Follow appropriate safety measures to minimize radiation exposure during administration; use waterproof gloves & effective shielding, including syringe victor. Given 01/05/2025 11:32 AM CDT 1.1 millicuries documented in this encounter Care Teams Escort Vehicle Driver Relationship Specialty Start Date End Date William Bradley MD [address] [place] [phone] PCP - General FAMILY PRACTICE 09/16/23 documented as of this encounter
--- OUTSIDE RECORDS SUMMARY | 2025-01-07 20:26 | XMS_ITS | Encounter Summary ---
Author Organization [facility] Address [address] [place] [address] Care Team Providers Care Tree Trimmer Name Role Phone William Bradley MD Primary Care Provider [phone] Encounter Details Date Type Department Care Team (Latest Contact Info) Description 01/07/2025 Results Follow-Up [facility] Multispecialty Care - [facility] 3 [facility] [place] [facility], [address] [place] [phone] Tierney Constantino NP 3 [facility] [address] [place] [address] [place] GASTRIC EMPTYING STUDY Social History Tobacco Use Types Packs/Day Years [...] Sex Assigned at Female 11/16/2024 8:34 AM REED REPAIRER Legal Sex Female 6:38 AM CDT Gender Identity Female 11/16/2024 8:34 AM REED REPAIRER Sexual Orientation Not on file 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 Not on file Not on file documented as of this encounter Plan of Treatment Upcoming Encounters Date Type Department Care Team (Late st Contact Info) Description 01/18/2025 8:00 AM CDT Office Visit [facility] - [facility] 3 [facility], [address] [place] [phone] Kavita Mandujano NP 3 [facility] [address] [place] [address] 02/25/2025 9:40 AM CDT Office Visit [facility] - [address] [place] [phone] Tierney Constantino NP 3 [facility] [address] [place] [address] 02/25/2025 1:30 PM CDT Appointment [facility] [place] [address] Sabino Ambrose MD 3 [facility] [address] [place] [phone] 07/02/2025 9:30 AM CDT Office Visit [facility] [phone] Sabino Ambrose MD 3 [facility] [address] [place] [phone] documented as of this encounter Visit Diagnoses Not on filedocumented in this encounter Care Teams Tree Trimmer Relationship Specialty Start Date End Date William Bradley MD [address] [place] [phone] PCP - General FAMILY PRACTICE 09/16/23 documented as of this encounter
--- OUTSIDE RECORDS SUMMARY | 2025-01-07 20:26 | XMS_ITS | Clinical Summary ---
Author Organization [facility] Office Building B Address [address] [place] [address] Care Team Providers Care [employer] Teacher Name Role Phone William Bradley MD Primary Care Provider Erik Reed MD Unavailable [phone] Abebe Moreau MD Unavailable [phone] Kanu Bustos MD Unavailable Karly Villarreal MD Unavailable Boogie Reilly MD Unavailable [phone] Allergies Active Allergy Reactions Criticality Noted Date [...] DRUG NAME IN NOTES TO PHARMACY Chapis Genoveva's hair growth vitamin Active UNABLE TO FIND [...] by mouth daily 02/13/20 24 Active thyroid ([place] Thyroid) 30 mg tablet 1 tablet (30 mg total) daily Active DRILL DOCTOR Thyroid 60 mg tablet 0.5 tablets (30 mg total) daily 06/13/20 24 025 Discontin ued(Alter jessica therapy) metoprolol tartrate (LOPRESSOR) 25 mg immediate release tablet Take 1 tablet (25 mg total) by mouth 2 (two) times a day as needed (PRN hor heart flutter/palpit ations) 025 Discontin ued(Thera py completed ) UNABLE TO [...] 09/01/2024 Assessment & Plan (09/01/2024 7:56 PM BUCKLE WIRE INSERTER): I am recommending a sinus CT scan for further evaluation this. She would like to go ahead and pursue that. I did note that she has a severe deviation of nasal septum to the right side with enlarged inferior turbinates. That could be causing some of her symptoms. She understands. Ear fullness, bilateral 09/01/2024 Assessment & Plan (09/01/2024 7:57 PM BUCKLE WIRE INSERTER): I reassured her that her ears look [...] 01/25/2023 Assessment & Plan (08/29/2023 11:28 AM BUCKLE WIRE INSERTER): Complains of abdominal pain since COVID vaccination [...] 01/25/2023 Assessment & Plan (08/29/2023 11:28 AM BUCKLE WIRE INSERTER): Intermittent bright red blood per rectum. -colonoscopy [...] 01/25 Assessment & Plan (08/29/2023 11:30 AM BUCKLE WIRE INSERTER): Chronic constipation for the past 2 years. -high-fiber diet -continue probiotics -continue Linzess Constipation 01/25/2023 Assessment & Plan (08/29/2023 11:18 AM BUCKLE WIRE INSERTER): Chronic constipation for the past 2 years, [...] 06/16/2021 Assessment & Plan (08/29/2023 11:27 AM BUCKLE WIRE INSERTER): Intermittent dysphagia to solids. EGD June 2023 with irregular Z-line, status post dilation to 54 [place]. Pathology unremarkable. No further dysphagia since dilation. [...] Department Care Team Description 12/28/2024 Results Follow-Up [facility] Endocrinology Metabolism and Lipid [address] [facility] 5th [place] [address] [place] [address] Keren Olson MD 12/25/2024 9:50 AM CDT Lab [facility] Infectious Diseases 1 [facility] [address] [place] [address] 12/25/2024 9:46 AM CDT - 12/25/2024 11:59 PM CDT Hospital [facility] [address] [place] [address] Fatigue, unspecified type; Hypothyroidism, unspecified type Discharge Disposition: Discharge to home or self care 12/25/2024 8:40 AM CDT Office Visit [facility] Endocr[facility]ology Metabolism and Lipid 1 [facility] [address] [place] [address] Keren Olson MD Fatigue, unspecified type (Primary Dx); Hypothyroidism, unspecified type; H/O systemic steroid therapy 12/15/2024 12:00 PM CDT Office Visit [facility] Medical [facility] Pulmonary [address] [place] [address] Abebe Moreau MD Sarcoidosis (Primary Dx); Mediastinal lymphadenopathy; Pulmonary nodule; Seasonal allergic rhinitis, unspecified trigger; Gastroesophageal reflux disease without esophagitis 12/04/2024 Telephone [facility] [place] [address] Serna Eleni 11/16/2024 7:39 AM BUCKLE WIRE INSERTER - 11/16/2024 11:59 PM BUCKLE WIRE INSERTER Hospital Encounter [facility] [address] [place] [address] Sarcoidosis; Mediastinal lymphadenopathy Discharge Disposition: Discharge to home or self care 10/15/2024 9:45 AM BUCKLE WIRE INSERTER Lab [facility] Medical Office Building 1 Lab [address] [place] [address] Acute cough 10/15/2024 9:00 AM BUCKLE WIRE INSERTER Office Visit 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] 12/25/2024 8:30 AM CDT Plan of Treatment Health Maintenance Due Date Last Done Comments Hepatitis B Screening 1993 Pneumococcal vaccine <65 (1 of 2 - PCV) 1994 Cervical Cancer Screening 09/14/2021 09/14/2020 Depression Screening 10/30/2023 10/30/2022, 02/08/2021, 11/21/2020, Additional history exists Regular Well Visit/Exam 18-64 10/30/2023 10/30/2022 Covid-19 Vaccine (2023-2 5 season) 2024 01/06/2021, 12/15/2020 Breast Cancer Screening-Mammogram 09/26/2024 09/26/2023, 06/07/2022, 03/02/2021 Influenza Vaccine (Season Ended) 2025 07/16/20 19 Colon Cancer Screening-Colonoscopy 01/07/2029 01/08/2024, 07/10/2023, 04/07/2021 [...] CHEST WO CONTRAST Routine 11/16/2024 7:44 AM BUCKLE WIRE INSERTER Sarcoidosis Mediastinal lymphadenopathy INFLUENZA A/B, RSV, AND COVID-19 PCR Routine 10/15/2024 9:58 AM BUCKLE WIRE INSERTER Acute cough COLONOSCOPY 01/08/2024 11:02 AM CDT HEPATITIS PANEL, ACUTE Routine 09/24/2022 7:13 AM BUCKLE WIRE INSERTER Dizziness SOB (shortness of breath) Benign essential HTN Chronic fatigue HM MAMMOGRAPHY Routine 06/07/2022 PAP SMEAR Routine 09/14/2020 from Last 3 Months or Most Recently Relevant to Health Maintenance Results * Reflex thyroglobulin, tumor marker, IA, S (12/25/2024 9:46 AM CDT) Thyroglobulin, Tumor Marker 13 < or = 33 ng/mL [facility] Lab Thyroglobulin interp See Footnote ULISES TERRAZAS [...] testing methods are immunoenzymatic assays manufactured by [employer] and performed on the [employer] DXI 800. Values obtained from different assay methods or kits may be different and cannot be used interchangeably. The results cannot be interpreted as absolute evidence for the presence or absence of malignant disease. Test Performed by: [place] [address] Forming Process Worker: Kitty Azevedo Ph.D.; CLIA# [id number] Blood 12/25/2024 9:46 AM CDT 12/25/2024 7:50 PM CDT us Keren Olson MD LAB BLOOD ORDERABLES Final Resul t [facility] [address] [place] [address] [place] ref Lab * Thyroglobulin reflex to MS or IA (12/25/2024 9:46 AM CDT) Anti-thyroglobulin <1.8 <1.8 IUnits/mL [facility] ref [facility] Comment: Thyroglobulin Antibody < 1.8 IU/mL. Thyroglobulin performed by Immunoassay to follow. Test Performed by: [facility] [address] [place] [address] Forming Process Worker: Kitty Azevedo Ph.D.; CLIA# [id number] Blood 12/25/2024 9:46 AM CDT 12/25/2024 7:50 PM CDT Keren Olson MD LAB BLOOD ORDERABLES Final Resul t [facility] [place] [address] [place] [address] [place] ref Lab * Thyroid peroxidase antibody (TPO) (12/25/2024 9:46 AM CDT) Anti Thyroid Peroxidase <30 <=34 IUnits/mL Comment: ATPO Interpretive Data Results may be up to 28% higher in patients receiving Itraconazole. Current interpretive data was last revised 2020. Testing performed by: [facility], [address] [place]., [address] Blood 12/25/2024 9:46 AM CDT 12/26/2024 12:02 AM CDT Keren Olson MD LAB BLOOD ORDERABLES Final Resul t [facility] [address] [place] [address] * T3, free (12/25/2024 9:46 AM CDT) Free T3 3.2 2.0 - 4.4 pg/mL Blood 12/25/2024 9:46 AM CDT 12/25/2024 7:09 PM CDT Keren Olson MD LAB BLOOD ORDERABLES Final Resul t Performing Organization Address [facility] Co de Phone Number [facility] [address] [facility] [place] [address] * TSH (12/25/2024 9:46 AM CDT) Thyroid Stimulating Hormone 2.08 0.30 - 4.20 mcIUnit/mL Blood 12/25/2024 9:46 AM CDT 12/25/2024 7:09 PM CDT Keren Olson MD LAB BLOOD ORDERABLES Final Resul t Performing Organization Address [facility] de Phone Number [facility]ISES TERRAZ[facility] [address] [facility] [place] [address] * T4, free (12/25/2024 9:46 AM CDT) Free T4 1.12 0.90 - 1.70 ng/dL Blood 12/25/2024 9:46 AM CDT 12/25/2024 7:09 PM CDT Keren Olson MD LAB BLOOD ORDERABLES Final Resul t Performing Organization Address [facility] de Phone Number ULIS[facility] TERRAZ[facility] [address] [facility] [place] [address] * CT Chest WO Contrast (11/16/2024 7:44 AM BUCKLE WIRE INSERTER) Anatomical Region Laterality Modality Body N/A Computed Tomogra phy 11/19/2024 3:20 AM BUCKLE WIRE INSERTER Narrative 11/19/2024 3:49 AM BUCKLE WIRE INSERTER EXAM DESCRIPTION: CT CHEST WO CONTRAST REASON [...] Steffen Erazo M.D. BB: GAIL Report ID: [id number] Reading Location: [id number] Procedure Note Steffen Erazo MD PhD - [...] Steffen Erazo M.D. BB: GAIL Report ID: [id number] Reading Location: [id number] Abebe Moreau MD IMG CT PROCEDURES Melania l Result * Influenza A/B, RSV, and COVID-19 PCR Nasopharyngeal (10/15/2024 9:58 AM BUCKLE WIRE INSERTER) COVID-19 RNA Negative Negative Comment:Testing performed by : [address] [address] Influenza A RNA Negative Negative [facility] Comment:Testing performed by : [address] [address] Influenza B RNA Negative Negative [facility] Comment:Testing performed by : [address] [address] RSV RNA Negative Negative [facility] Comment: Interpretive data: Testing performed by [facility]. This test is performed using the [employer] Xpert Xpress CoV-2/Flu/RSV plus assay. This is a multiplex, real-time reverse transcriptase PCR assay intended for the qualitative detection of nucleic acid from SARS-CoV-2, influenza A, influenza B, and respiratory syncytial virus. This assay has been cleared by the [place] Food and Drug administration. The performance characteristics have been verified by the [facility]. Results must be considered in the clinical context, and a negative result does not rule out infection. Interpretive Data last revised 2023 Testing performed by: [address] [address] Nasopharyngeal 10/15/2024 9: 58 AM BUCKLE WIRE INSERTER 10/15/2024 10:38 AM BUCKLE WIRE INSERTER Narrative [facility] - 10/15/2024 11:17 AM BUCKLE WIRE INSERTER Is the Patient experiencing symptoms consistent with COVID?->No Abebe Moreau MD LAB MICROBIOLOGY - GEN ERAL ORDERABLES Final Result [facility] [address] [facility] Department [place] [address] * Colonoscopy (01/08/2024 11:02 AM CDT) Anatomical Region Laterality Modality Other Narrative Procedure Note Dewayne Briggs MD - 01/08/2024 11:02 AM CDT [facility] GI ENDOSCOPY Patient Name: Petra Hackett Procedure Date: 01/08/2024 11:02 AM Date of : 1975 Admit Type: Outpatient Age: 48 Gender: Female Attending MD: Dewayne Briggs M.D. Room: [facility] ENDOSCOPY ROOM 06 Note Status: Finalized [...] The scope was passed under direct vision.The [id number]-[id number] colonoscope was introduced through theanus and advanced [...] On: 01/08/2024 11:02 AM Recognized by the [employer] for promoting quality in endoscopy us Dewayne Briggs MD ENDOSCOPY PROCEDURES Final Resul t * Hepatitis panel, acute (09/24/2022 7:13 AM BUCKLE WIRE INSERTER) Hep A IgM Negative Negative [facility] - 01 HepBsAg Negative Negative [facility] - 01 Hep B core IgM Negative Negative [facility] - 01 Hep C Ab <0.1 0.0 - 0.9 s/co ratio [facility] - 01 Blood 09/24/2022 7:13 AM BUCKLE WIRE INSERTER 09/24/2022 Narrative [facility] - 09/25/2022 6:09 AM BUCKLE WIRE INSERTER Performed at: - [facility] [address] [id number] Forming Process Worker: Jose Dacosta PhD, Phone: [phone] Nini MCCORMICK LAB MICROBIOLOGY - GENE RAL ORDERABLES Final Result [facility] - * HM MAMMOGRAPHY (06/07/2022) Historical Provider HEALTH MAINTENANCE Final Result * Pap Smear (09/14/2020) 09/14/2020 Historical Provider MD LAB PATHOLOGY ORDERABLES Final Result from Last 3 Months or Most Recently Relevant to Health Maintenance Insurance [facility] ACCESS CHOICE [facility] ACCESS CHOICE [facility] ACCESS CHOICE Advance Directives For more information, please contact: [phone] * Full Code (Latest Code Status on File) Date Activated Date Inactivated Comments 06/15/2024 2:04 PM 06/15/2024 7:50 PM * Full Code Date Activated Date Inactivated Comments 11/01/2022 1:53 PM 11/02/2022 6:56 PM Care Teams [employer] Relationship Specialty Start Date End Date William Bradley MD PCP - General Family Medicine 05/12/24 Erik Reed MD [address] [place] [address] [address] [place] [address] Referring Physician Interventional Cardiology 09/21/24 Abebe Moreau MD [address] [facility] [address] [place], [place] [id number] Consulting Physician Pulmonary Disease 09/21/24 Kanu Bustos MD [address] [facility] 1 [place], [place] [id number] Consulting Physician Internal Medicine 09/21/24 [place] [address] [facility] [address] [place] [address] Consulting Physician Rheumatology 09/21/24 Boogie Reilly MD [address] [facility] [address] [place], [place] [id number] Referring Physician Hematology and Oncology 09/21/24
--- OUTSIDE RECORDS SUMMARY | 2025-01-07 20:26 | XMS_ITS ---
Author Organization [facility] Address [address] [place] [address] Care Team Providers Care Fountain Jerk Name Role Phone Kirk NEGRON, William Primary Care Provider Agustin KOO PROJECT BUILDER, LESIA Nino REASON FOR VISIT refer to [facility] Encounters Encounter Location Date Provider Diagnosis [facility] [address] [place] [address] 07/15/2024 LESIA KOO PLAN OF TREATMENT No Information Progress Notes * CONSUELO Rae SAENZB:0 1975 (49 yo F)Acc No.[id number]:07/15/2024 Patient: Petra BARON :1975 Age:49 Y Sex:Female [facility] [facility] [place] [address] * true * Date:
--- OUTSIDE RECORDS SUMMARY | 2025-01-07 20:26 | XMS_ITS | Continuity of Care Document ---
Author Organization [place] - [facility], [facility] Address [address] [facility] [address] [place] [address] Assessment No assessment recorded. Plan of Treatment Reminders Order Date Submit Date Provider Last Modified By Organization Details Last Modified Time Details Appointments ANY 2024 08:00A Huber Bradley MD Not available Not available Not available ANY 2024 08:45A Huber Bradley MD Not available Not available Not available Lab unlisted lab - vitamin D, 25-hydrox y [email or web address] [place] [address], [address], [address], [address], 01/07/2025 09:35:54 celiac disease comprehen sive panel, serum 2024 025 [facility] [address], [address] [address], [place], [address], 01/07/2025 09:35:54 cortisol, am, serum [email or web address] [place] [address], [address] [facility] [address], [place], [address], 01/07/2025 09:35:54 CBC 2024 025 [facility] [address] [place] [address], [facility] [address], [facility] [address], [place], [address], 01/07/2025 21:04:13 folate, serum [address], [address], [facility] [address], [place], [address], 01/07/2025 09:35:54 iron + total iron-bind ing capacity (TIBC), serum [address], [address], [facility] [address], [place], [address], 01/07/2025 09:35:54 vitamin B12, serum [address], [facility] [address], [facility] [address], [place], [address], 01/07/2025 09:35:54 CMP, serum or plasma [address], [address] [place] [address], [facility] [address], [place], [address], 01/07/2025 09:35:54 vitamin B1 (thiamine ), blood [address], [facility] [address], [facility] [address], [place], [address], 01/07/2025 09:35:54 vitamin B6 (pyridoxi ne), plasma [address], [address] [place] [address], [facility] [address], [place], [address], 01/07/2025 09:35:54 Referral web weaver & immunolog ist referral 2024 025 [facility], [place], [address] [place], [address], 01/07/2025 10:33:04 Procedures None recorded. Surgeries None recorded. Imaging None recorded. Medication Orders Medrol (Gal) 4 mg tablets in a dose pack 2024 025 [email or web address] [facility], [address] [facility], [place], [address], 01/07/2025 09:35:54 Patient TargetsNo targets recorded. Patient Instructions Encounter Date Encounter Id Patient Instructions Last Modified By Organization Details Last Modified Time 01/07/2025 [id number] A healthy lifestyle: care instructions [email or web address] Not available 01/07/2025 09:35:54 Reason for Referral Arboriculture Teacher & Adult Education Professional Ref erral for Itching Referring Physician: William Bradley, Family Medicine, Encounter Date: 01/07/2025 Results Created Date Observation Date Name Description Value Unit Range Abnormal Flag Note LastModifiedBy Organization Detail LastModifiedTime 12/25/19 25 11/25/2024 sleep study , diagn ostic (PROC ) No observ ation record ed. [facility] [address] [facility], [place], [address], 12/24/2024 13:50:47 01/06/20 25 NM, gastr ic empty ing scan [facility] [address] [facility] [place] [address] [facility] [address] [place] [address] EXAMIN ATION: GASTRI C EMPTYI NG STUDY Access ion: [id number] Exam date/t macrina: 025 7:04 AM RADIOP HARMAC EUTICA L: 1.1 mCi Tc-99m sulfur colloi d incorp orated into scramb led eggs, along with 2 slices toast, and 120 mL water p.o. Patien t only drank 2.5 ounces of water. HISTOR Y: Stomac h issues for 4 years, indige stion, and food will drop after sittin g for a while. COMPAR KIMBER: No prior gastri c emptyi ng study availa ble for compar kimber. FINDIN GS: After oral ingest ion of the radiol abeled meal, sequen tial anteri or and mink farmer ior abdomi nal images were obtain ed [...] this report . Ordere d By: ROCIO AMADOR Electr onical ly Signed By: Loulou Gallardo MD on 3:56 PM Interp reted By: Alin morgan MD, 11:42 AM [email or web address], [address], 01/05/2025 18:20:33 01/06/2001/05/2025 imagi ng/di agnos tic resul t No observ ation record ed. [email or web address], [address], 01/05/2025 18:20:25 Result Notes None recorded. Problems Name Problem SNOMED Code Status Onset Date Resolution Date Notes Provider Name and Address Organization Details Recorded Time Fatigue 75395508 Active 2022 William Bradley MD Attn: Herminia rodriges,[address] [place], [address], [facility] - [facility] 5 09:09:57 Hypercholester olemia 59816984 Active 2022 William Bradley MD Attn: Herminia rodriges,[address] [facility], [place], [address], [place] [facility] 3 09:22:36 Prolapsed lumbar intervertebral disc 167921054 Active 2022 William Bradley MD Attn: Herminia antelmo,[address] [facility], [place], [address], [place] [facility] 3 09:22:38 Prolapsed cervical intervertebral disc 512662449 Active 2022 William Bradley MD Attn: Herminia rodriges,[address] [facility], [place], [address], [place] [facility] 3 09:22:38 Irritable bowel syndrome with diarrhea 945953806 Active 2022 William Bradley MD Attn: Herminia rodriges,[address] [facility], [place], [address], [place] [facility] 3 09:22:39 Generalized anxiety disorder 09814977 Active 2022 William Bradley MD Attn: Herminia rodriges,[address] [facility], [place], [address], [place] [facility] 3 09:22:41 Ventricular premature complex 845410903 Active 2022 William Bradley MD Attn: Herminia rodriges,[address] [facility], [place], [address], [place] [facility] 3 09:22:43 Nausea 893841841 Active 2022 William Bradley MD Attn: Herminia rodriges,[address] [facility], [place], [address], [place] [facility] 3 09:22:45 Esophageal dysphagia 05969311 Active 2022 William Bradley MD Attn: Herminia rodriges,[address] [facility], [place], [address], [place] [facility] 3 14:53:47 Hypothyroidism 04724493 Active 2022 William Bradley MD Attn: Herminia rodriges,[address] [facility], [place], [address], [place] [facility] 3 14:55:11 Goiter 5610811 Active 2022 William Bradley MD Attn: Frederickadrienne rodriges,[address] [facility], [place], [address], [place] [facility] 3 14:55:13 Dry eyes 037421201 Active 2023 William Bradley MD Attn: Frederickadrienne rodriges,[address] [facility], [place], [address], [place] [facility] 4 11:38:00 Mediastinal lymphadenopath y 08883417 Active 2023 William Bradley MD Attn: Frederickadrienne rodriges,[address] [facility], [place], [address], [place] [facility] 4 11:38:03 Palpitations 86525001 Active 2023 Erik Reed MD Attn: Herminia antelmo,[address] [facility], [place], [address], [place] [facility] 4 10:53:21 Peripheral edema 916092165 Active 2023 Erik Reed MD Attn: Herminia antelmo,[address] [facility], [place], [address], [place] [facility] 4 10:53:21 Mitral valve prolapse 744497205 Active 2023 Erik Reed MD Attn: Herminia rodriges,[address] [facility], [place], [address], [place] [facility] 4 10:53:22 Hyperlipidemia 48338214 Active 2023 Erik Reed MD Attn: Herminia antelmo,[address] [facility], [place], [address], [place] [facility] 4 10:53:24 Pure hypercholester olemia 230584601 Active 2023 Erik Reed MD Attn: Herminia rodriges,[address] [place], [address], [place] [facility] 4 11:48:26 Sarcoidosis 44091075 Active 2023 William Bradley MD Attn: Frederickadrienne rodriges,[address] [place], [address], [place] [facility] 4 12:44:40 Chronic constipation 706122760 Active 2023 William Bradley MD Attn: Herminia antelmo,[address] [place], [address], [place] [facility] 4 08:47:15 Abdominal pain 43828394 Active 2023 William Bradley MD Attn: Herminia antelmo,[address] [place], [address], [place] [facility] 4 08:47:18 Gastroesophage al reflux disease 397245668 Active 2023 Erik Reed MD Attn: Herminia rodriges,[address] [place], [address], [place] [facility] 4 10:51:29 Bilateral lower leg edema 957709715 Active 2023 William Bradley MD Attn: Herminia rodriges,[address] [place], [address], [place] [facility] 4 10:19:59 Chronic recurrent sinusitis 357615258 Active 2023 William Bradley MD Attn: Herminia rodriges,[address] [place], [address], [place] [facility] 4 09:58:30 Obstructive sleep apnea syndrome 05935121 Active 2023 William Bradley MD Attn: Herminia rodriges,[address] [place], [address], [place] [facility] 5 09:10:25 Itching 400320147 Active 2024 William Bradley MD Attn: Herminia rodriges,[address] [place], [address], [place] [facility] 5 09:09:55 Upper abdominal pain 73751762 Active 2024 William Bradley MD Attn: Herminia rodriges,[address] [facility], [place], [address], [place] [facility] 5 09:09:56 Obesity 211807689 Active 2024 William Bradley MD Attn: Herminia rodriges,[address] [facility], [place], [address], [place] [facility] 5 09:12:55 Vitamin D deficiency 59052476 Active 2024 William Bradley MD Attn: Herminia rodriges,[address] [facility], [place], [address], [place] [facility] 5 09:12:57 Problem Notes None recorded. Procedures Surgical History Date Name Laterality Status Provider Name and Address Organization Details Recorded Time Tonsillectomy completed Melinda Moise MA [facility] 04/05/2023 09:01:44 Tubal Ligation completed Melinda Moise MA [facility] 04/05/2023 09:01:54 Imaging Results None recorded. Procedure Notes None recorded. Medical Equipment None Reported. Allergies Allergen ID Allergen Name Allergen Category Reaction Reaction Severity Criticality Documentation Date Start Date Code Code System Note Provider Name and Address Organization Details Recorded Time 514566 Demerol medicatio n Not available Not available Not available 04/05/2023 03293 1 RxNorm throa t const ricts Not Available Not Available Not Available 965802 Macrodant in medicatio n Not available Not available Not available 04/05/2023 54672 4 RxNorm hives Not Available Not Available Not Available 155499 adhesive environme nt,medica tion Not available Not available Not available 04/05/2023 13806 UNK blist ers Not Available Not Available [...] completed Not Available Not Available Not Available [place] Thyroid 30 mg tablet TAKE 1 TABLET [...] completed Not Available Not Available Not Available [place] Thyroid 60 mg tablet TAKE 1 TABLET [...] Updated DateTime 5 170.18 cm 33 kg/m2 96016.5 5 g 100 % 100 % 83 /min 120 mm[Hg] 82 mm[Hg] Ac Encinas [place] [facility] 08:59:58 Social History Question Answer Notes LastModified by Organizat ion Details LastModified Time Tobacco Smoking Status Never Smoker Melinda Moise MA [facility], [place] - [facility] 04/05/2023 09:01:02 What Is Your Level Of [...] Atrial Fibrillation N High Blood Pressure Y Thyroid Problems Y Kidney or Bladder Problems Y Depression N COPD N Blood Clots N GI Problems Y Skin Problems N Eating Disorder N Anemia N Heart Attack (NC) N Diabetes N Anxiety Disorder Y Muscle, Joint, or Bone Problems Y Seizures/Epilepsy N Acid Reflux (GERD) N Cancer N Stroke N Allergies Y Asthma N ADHD N Substance Abuse N High Cholesterol Y Hepatitis N Liver Disease N Schizophrenia N Headaches N Osteoporosis Y Heart Failure N Gynecological HistoryNo gynecological history recorded. Obstetrics History GPAL:G 0 P 0 0 0 0 Past Encounters Encounter ID Performer Location Encounter Start Date Encounter Closed Date Diagnosis/Indication Diagnosis SNOMED-CT Code Diagnosis ICD10 Code Diagnosis Note [id number] William Bradley MD [facility] e - [place] [address] [facility] [address] [place] [address] 01/07/2025 08:52:43 01/07/2025 10:58:20 Fatigue 10172217 R53.82 conditon chronic and not at goal order am cortisol, b1, b6, b12, folic acid, cmp Upper abdominal pain 831 07829 R10.10 conditon aucte with diarhea order celiac panel Itching 807976397 L29.9 conditon acute order medrol dose pack refer to allergy and immunology Obstructiv e sleep apnea syndrome 81761764 G47.33 conditon acute study + start the apap Sarcoidosis 43286487 D86 .9 conditon chronic nad not at goal follow with rheumatolg y and continue the steroids. drink plenty of water. Vitamin D deficiency 347 [address] E55.9 conditon chronic and not at goal continue the vit d daily order vit d level Obesity 218418812 E66.9 condition chroin cnad not at goal start low fat diet. Health Concerns Section Related Observation LastModified by Organization Detai ls LastModified Time None Recorded Concern Status LastModified by Organization Details LastModified Time None Recorded Payers Encounter Date Sequence Insurance Name Policy Number Policy Eason Covered Member ID Eason Member ID Guarantor Name 01/07/2025 1 [place] [id number] Petra arechiga [id number] Petra Sandy ado Notes Date Note Type Note Provider Name and Address Organization Details Recorded Time 01/07/2025 text/html she has been having a large amount of itching all over her body, since the gallbladder is out has nausea, diarrhea and abdominal pain states that she has a large amount of fatigue has reaction to bread sleep study is + William Bradley MD Attn: Accounting[address] [place], [address], [facility] - [facility] 01/07/2025 10:58:18 OBGyn Episode No OBEpisode recorded.
--- OUTSIDE RECORDS SUMMARY | 2025-01-07 20:26 | XMS_ITS | Encounter Summary ---
Author Organization [facility] Address [address] [place] [address] Care Team Providers Care Silk Winding Machine Operator Name Role Phone William Bradley MD Primary Care Provider [phone] Encounter Details Date Type Department Care Team (Late Contact Info) Description 02/20/2024 Chumby Message Enc [facility] Medical [facility] Orthopedic & Sports Medicine - [place] [address] [place] [address] Aashish, [facility] Provider MRI cervical spine Social History Tobacco Use Types Packs/Day Years Used Date Smoking Tobacco: Former Cigarettes 0.5 25 1 987 - 2011 Smokeless Tobacco: Never Alcohol Use Standard Drinks/Week Comments Not Currently 0 (1 standard drink = 0.6 oz pur e alcohol) Comments No Sex and Gender Information Value Date Recorded Sex Assigned at Female 11/16/2024 8:34 AM ICER MACHINE Legal Sex Female 6:38 AM CDT Gender Identity Female 11/16/2024 8:34 AM ICER MACHINE Sexual Orientation Not on file documented as of this encounter Plan of Treatment Upcoming Encounters Date Type Department Care Team (Late Contact Info) Description 01/18/2025 8:00 AM CDT Office Visit [facility] Multispecialty Care - [address], [address] [place] [address] Kavita Mandujano NP 3 [facility] [address] [place] [address] 02/25/2025 9:40 AM CDT Office Visit [facility] Multispecialty Care - [facility] [address] [facility] [place] [address] Tierney Constantino NP 3 [facility] [address] [place] [address] 02/25/2025 1:30 PM CDT Appointment [facility] Non Invasive Cardiology [place] [address] Sabino Ambrose MD 3 [facility] [address] [place] [phone] 07/02/2025 9:30 AM CDT Office Visit [facility]-[address] [address] Sabino Ambrose MD 3 [facility] [address] [place] [address] documented as of this encounter Visit Diagnoses Not on filedocumented in this encounter Care Teams Silk Winding Machine Operator Relationship Specialty Start Date End Date William Bradley MD [address] [place] [address] PCP - General FAMILY PRACTICE 09/16/23 documented as of this encounter
--- OUTSIDE RECORDS SUMMARY | 2025-01-07 20:26 | XMS_ITS | Encounter Summary ---
Author Organization [facility] Address [address] [place] [address] Care Team Providers Care Mortgage Loan Originator Name Role Phone William Bradley MD Primary Care Provider [phone] Reason for Visit * Reason Onset Date Comments Holter Monitor 01/07/2025 * Imaging (Routine) - Closed Specialty Diagnoses / Procedures Referred By Johnny mera Referred To Contact Diagnoses Ventricular arrhythmia Procedures CLINIC - OUTPATIENT EVENT RECORDER (ECG) UP TO 30 DAYS COMPLETE (Holter) [place] [facility]-[address] [address] Phone: tel: fax: Sabino Ambrose MD 3 [facility] [address] [place] [address] Phone: tel: fax: Referral ID Status Reason Start Date Expiration Date Visits Re quested Visits Authorized [id number] Closed 01/01/2025 01/01/2026 1 1 Encounter Details Date Type Department Care Team (Late st Contact Info) Description 01/07/2025 1:00 PM CDT Telephone [place] [facility] [address] [place] [address] Sabino Ambrose MD 3 [facility] [address] [place] [phone] Holter Monitor Social History Tobacco Use Types Packs/Day Years [...] Sex Assigned at Female 11/16/2024 8:34 AM FORM WORKER Legal Sex Female 6:38 AM CDT Gender Identity Female 11/16/2024 8:34 AM FORM WORKER Sexual Orientation Not on file 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 Not on file Not on file documented as of this encounter Progress Notes * Stephenie Vera - 01/07/2025 9:52 AM CDT 4 day bg shipped out Out [phone] In [phone] documented in this encounter Plan of Treatment Upcoming Encounters Date Type Department Care Team (Late st Contact Info) Description 01/18/2025 8:00 AM CDT Office Visit [facility] - [address], [address] [place] [phone] Kavita Mandujano NP 3 [facility] [address] [place] [address] 02/25/2025 9:40 AM CDT Office Visit [facility] - [address] [place] [phone] Tierney Constantino NP [address] [place] [address] [address] [place] [address] 02/25/2025 1:30 PM CDT Appointment [facility] [place] [address] Sabino Ambrose MD 3 [facility] [address] [place] [phone] 07/02/2025 9:30 AM CDT Office Visit [facility] [address] Sabino Ambrose MD 3 [facility] [address] [place] [address] documented as of this encounter Visit Diagnoses Diagnosis Ventricular arrhythmia Cardiac dysrhythmia, unspecified documented in this encounter Care Teams Mortgage Loan Originator Relationship Specialty Start Date End Date William Bradley MD [address] [facility] [address] [place] [phone] PCP - General FAMILY PRACTICE 09/16/23 documented as of this encounter
--- OUTSIDE RECORDS SUMMARY | 2025-01-07 20:26 | XMS_ITS | Encounter Summary ---
Author Organization [facility] Address [address] [place] [address] Phone Care Team Providers Care Online Project Manager Name Role Phone William Bradley MD Primary Care Provider [phone] Erik Reed MD Unavailable Abebe Moreau MD Unavailable Kanu Bustos MD Unavailable Karly Villarreal MD Unavailable Boogie Reilly MD Unavailable Encounter Details Date Type Department Care Team (Late st Contact Info) Description 12/28/2024 Results Follow-Up [facility] Endocrinology Metabolism and Lipid [address] [facility] 5[address] [place] [address] [place] [address] Keren Olson MD [address] [place] [address] Social History Tobacco Use Types Packs/Day Years [...] on file Legal Sex Female 1:50 AM TRANSCRIBING 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 Gender Identity Female 05/17/2021 10:31 AM CDT Sexual Orientation Straight 05/17/2021 10 :31 AM CDT 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 Not on file Not on file documented as of this encounter Plan of Treatment Not on file documented as of this encounter Visit Diagnoses Not on filedocumented in this encounter Care Teams Online Project Manager Relationship Specialty Start Date End Date William Bradley MD PCP - General Family Medicine 05/12/24 Erik Reed MD [address] [place] [address] 3 [place], [place] [address] Referring Physician Interventional Cardiology 09/21/24 Abebe Moreau MD [address] [address] Consulting Physician Pulmonary Disease 09/21/24 Kanu Bustos MD [address] [facility] 1 [place] [address] Consulting Physician Internal Medicine 09/21/24 [place] [address] [facility] [address] [place] [address] Consulting Physician Rheumatology 09/21/24 Boogie Reilly MD [address] [facility] 100 [facility] 100 [place] [address] Referring Physician Hematology and Oncology 09/21/24 documented as of this encounter
--- OUTSIDE RECORDS SUMMARY | 2025-01-07 20:26 | XMS_ITS | Encounter Summary ---
Author Organization [facility] Facility Care Team Providers Care Geodesy Teacher Name Role Phone William Bradley MD Primary Care Provider Nini Grewal Primary Care Provider Nini Grewal Primary Care Provider William Bradley MD Primary Care Provider [phone] William Bradley MD Primary Care Provider [phone] Erik Reed MD Unavailable [phone] Abebe Moreau MD Unavailable Kanu Bustos MD Unavailable Karly Villarreal MD Unavailable Boogie Reilly MD Unavailable [phone] Encounter Details Date Type Department Care Team (Latest Contact Info) Description 10/10/2018 Orders Only [facility] CLINCONV Provider, MD Walker [address] [place] [address] Social History Tobacco Use Types Packs/Day Years Used Date Smoking Tobacco: Every Day Comments Unknown Sex and Gender Information Value Date Recorded Sex Assigned at Not on file Legal Sex Female 1:50 AM SHOE MAKER Gender Identity Female 05/17/2021 10:31 AM CDT Sexual Orientation Straight 05/17/2021 10 :31 AM CDT documented as of this encounter Plan of Treatment Not on file documented as of this encounter Procedures Procedure Name Priority Date/Time Associated Diagnosis Comments CARDIOLOGY REPORT 10/10/2018 12: 00 AM SHOE MAKER documented in this encounter Results * CARDIOLOGY REPORT (10/10/2018 12:00 AM SHOE MAKER) Anatomical Region Laterality Modality Other Narrative 10/10/2018 12:00 AM SHOE MAKER Ordered by an unspecified provider. us Historical Provider [facility] Final Result documented in this encounter Visit Diagnoses Not on filedocumented in this encounter Additional Health Concerns Infection Onset Date Last Indicated Resolved Time COVID: Suspected 05/18/2021 05/18/2021 06/01/2021 3:05 AM CDT documented as of this encounter Care Teams Geodesy Teacher Relationship Specialty Start Date End Date William Bradley MD PCP - General 05/14/18 06/17/22 Nini Grewal PA PCP - General Family Medicine 06/18/22 03/21/23 Nini Grewal PA [address] [facility] [address] [place] [address] PCP - General Family Medicine 03/25/23 04/24/23 William rBadley MD [address] [facility] [address] [place] [address] PCP - General Family Medicine 04/25/23 05/11/24 William Bradley MD [address] [facility] [address] [place] [address] PCP - General Family Medicine 05/12/24 Erik Reed MD [address] [place] [address] [address] [place] [address] Referring Physician Interventional Cardiology 09/21/24 Abebe Moreau MD [address] [facility] 350 [place], [place] [address] Consulting Physician Pulmonary Disease 09/21/24 Kanu Bustos MD [address] [facility] 1 [place] [address] Consulting Physician Internal Medicine 09/21/24 [place] [address] [facility] [address] [place] [address] Consulting Physician Rheumatology 09/21/24 Boogie Reilly MD [address] [facility] 100 [facility] 100 [place] [address] Referring Physician Hematology and Oncology 09/21/24 documented as of this encounter
[2025-01-07 20:28] VITALS: BP 133/81; PULSE 96; RESP 15; TEMP 35.7; O2SAT 98
--- NOTE | 2025-01-07 20:35 | ECG_ITS ---
Test Date: 2025-01-07 20:38:57 Measurements Intervals [place] Rate: 98 P: 55 MA: 134 QRS: 56 QRSD: 82 T: 45 QT: 325 QTc: 416 Interpretive Statements SINUS RHYTHM BASELINE ARTIFACT- I, II, III, AVR, AVL NORMAL ECG No previous ECG available for comparison Electronically Signed On 01-08-2025 07:07:06 CDT by Slava Jenkins D.O.
[2025-01-07 20:58] VITALS: PULSE 93
[2025-01-07 21:00] VITALS: BP 133/83; PULSE 91; RESP 17; O2SAT 98
--- NOTE | 2025-01-07 21:00 | ED.GENADULT ---
HPI - General Adult General Chief complaint: Unspecified Stated complaint: sweating, nausea, shoulder pain and heartburn Time Seen by Provider: 01/07/25 20:58 History of Present Illness HPI narrative: This is a 49-year-old female presenting ED with chief chest pain. Patient says she has been having chest pain for the last 2 days. It became worse tonight. It is a burning pain in the center of her chest. It does not radiate, it is 6/10 intensity and constant. She took some Pepcid which improved the pain. No exacerbating factors. She does have nausea but vomiting. She has also had other strange symptoms over last several months including sweats, diarrhea. There is no exertional component to her chest pain. No difficulty breathing fevers or productive cough. Related Data Home Medications ?Medication ?Instructions ?Recorded ?Confirmed ?Last Taken ?Type atorvastatin 20 mg tablet 01/27/21 01/27/21 Unknown History buspirone 7.5 mg tablet mg 01/27/21 Unknown History ergocalciferol (vitamin D2) 1,250 01/27/21 Unknown History mcg (50,000 unit) capsule (Vitamin D2) metoprolol succinate 25 mg PO 01/27/21 Unknown History tablet,extended release 24 hr spironolactone 100 mg tablet 01/27/21 01/27/21 Unknown History Allergies Allergy/AdvReac Type Severity Reaction Status Date / Time nitrofurantoin Allergy Intermediate HIVES Verified 01/07/25 23:21 adhesive tape Allergy Unknown Unknown Verified 01/07/25 23:21 Cephalosporins Allergy Unknown Unknown Verified 01/07/25 23:21 erythromycin base Allergy Unknown Unknown Verified 01/07/25 23:21 Iodinated Contrast Media Allergy Unknown Unknown Verified 01/07/25 23:21 meperidine Allergy Unknown Unknown Verified 01/07/25 23:21 morphine Allergy Unknown Unknown Verified 01/07/25 23:21 adhesive AdvReac Unknown BLISTERS Verified 01/07/25 23:21 NITROFURANTOIN MACROCRYSTAL Allergy Intermediate HIVES Uncoded 01/07/25 23:21 Contrast Media Allergy Unknown CT DYE Uncoded 01/07/25 23:21 GENERALANESTHET Allergy Unknown VASOVAGAL Uncoded 01/07/25 23:21 EFFECT -- HR DROP, N/V, TINGLING PMFSH Past Medical History Medical History (Updated 01/08/25 @ 00:29 by Raymond Murguia MD) Hypercholesterolemia History of kidney stones Irritable bowel syndrome Anxiety Vasovagal syncope Surgical History Surgical History (Updated 04/12/22 @ 22:06 by Henrry Hamilton MD) H/O shoulder surgery Right History of tonsillectomy Family History Family History (System 02/09/21 @ 12:31 by Radha Healy) Mother Family history of diabetes mellitus in first degree relative Other Diabetes mellitus Family history of arthritis Family history of cardiac disorder Family history of seizure disorder Hypertension Social History Social History (System 02/09/21 @ 12:31 by Radha Healy) Alcohol intake: current Exam Narrative: APPEARANCE: No apparent distress. Head: atraumatic. EYES: EOMI, NOSE: Atraumatic NECK: Trachea midline RESPIRATORY: No increased rate of breathing CTAB CARDIOVASCULAR: RRR, no peripheral edema ABDOMINAL: Non-distended soft nontender MUSCULOSKELETAl: No obvious deformities NEURO: Alert. Moving 4/4 extremities SKIN:: Warm, dry. Normal color PSYCHIATRIC: Normal affect Course Vital Signs Vital signs: Vital Signs Temperature 96.3 F L 01/07/25 20:28 Pulse Rate 96 01/07/25 20:28 Respiratory Rate 15 01/07/25 20:28 Blood Pressure 133/81 01/07/25 20:28 Pulse Oximetry 98 01/07/25 20:28 Oxygen Delivery Room Air 01/07/25 20:28 Temperature 96.3 F L 01/07/25 20:28 Pulse Rate 91 01/07/25 21:00 Respiratory Rate 18 01/07/25 21:04 Blood Pressure 133/83 01/07/25 21:00 Pulse Oximetry 98 01/07/25 21:04 Oxygen Delivery Room Air 01/07/25 20:28 Medical Decision Making [facility] Narrative Medical decision making narrative: -Course: 49-year-old female presenting with burning chest pain. Chest pain workup was unremarkable. Her symptoms improved greatly with Maalox. Pain likely related to GERD. She is comfortable going home follow-up primary care physician or GI doctor for further management. Given return precautions. -DDX includes but is not limited to: GERD, ACS, pneumothorax, pneumonia, dissection Vital Signs Vital Signs: Vital Signs Temperature 96.3 F L 01/07/25 20:28 Pulse Rate 96 01/07/25 20:28 Respiratory Rate 15 01/07/25 20:28 Blood Pressure 133/81 01/07/25 20:28 Pulse Oximetry 98 01/07/25 20:28 Oxygen Delivery Room Air 01/07/25 20:28 Temperature 96.3 F L 01/07/25 20:28 Pulse Rate 91 01/07/25 21:00 Respiratory Rate 18 01/07/25 21:04 Blood Pressure 133/83 01/07/25 21:00 Pulse Oximetry 98 01/07/25 21:04 Oxygen Delivery Room Air 01/07/25 20:28 Lab Data 01/07/25 21:30 01/07/25 21:30 Labs: Lab Results 01/07/25 01/07/25 Range/Units 21:30 23:46 WBC 6.4 (4.5-10.0) K/mm3 RBC 4.25 (4.2-5.4) M/mm3 Hgb 13.6 (12.0-15.0) g/dL Hct 40.1 (37.0-47.0) % MCV 94.4 (80-100) fl MCH 32.0 (26-34) pg MCHC 33.9 (32-36) g/dl RDW 12.9 (11.5-14.5) % Plt Count 154 (150-375) k/mm3 MPV 10.8 H (7.4-10.4) fl Immature Gran % (Auto) 0.6 H (0-0.5) % Neut % (Auto) 72.2 (45.5-73.1) % Lymph % (Auto) 14.9 L (18.3-44.2) % Garrett % (Auto) 9.5 H (2.6-8.5) % Eos % (Auto) 2.2 (0-4.4) % Baso % (Auto) 0.6 (0.2-1.2) % Lymph # (Auto) 0.96 (0.9-3.2) K/mm3 Garrett # (Auto) 0.6 (0.1-0.6) K/mm3 Eos # (Auto) 0.1 (0-0.3) K/mm3 Baso # (Auto) 0.0 (0.0-0.1) K/mm3 Abs Immat Gran (auto) 0.04 H (0.00-0.031) K/mm3 Absolute Neuts (auto) 4.7 (1.3-6.7) K/mm3 Absolute Nucleated RBC 0.000 (0.0-0.012) K/mm3 Nucleated RBC % 0.0 (0.0-0.2) % PT 14.0 (11.1-14.7) Seconds INR 1.0 APTT 28.5 (22.3-36.8) Seconds Sodium 136 L (137-145) mmol/L Potassium 4.0 (3.4-5.0) mmol/L Chloride 100 (98-107) mmol/L Carbon Dioxide 23 (22-30) mmol/L Anion Gap 13 H (4-12) mmol/L BUN 15 (7-17) mg/dL Creatinine 0.84 (0.7-1.0) mg/dL Estim Creat Clear Calc 85 ml/min Estimated GFR > 60 (59 - ) Glucose 98 (65-110) mg/dL Calcium 8.6 (8.4-10.2) mg/dL Total Bilirubin 0.7 (0.2-1.3) mg/dL AST 30 (14-36) U/L ALT 27 (6-35) U/L Alkaline Phosphatase 52 (38-126) U/L Troponin I < 0.012 < 0.012 (0.000-0.034) ng/mL Total Protein 7.0 (6.3-8.2) g/dL Albumin 4.1 (3.5-5.1) g/dL Lipase 65 (23-300) U/L Discharge Plan Discharge Clinical Impression: Chest pain due to gastrointestinal reflux disease Patient Disposition: Home Condition: Stable Instructions: Antibiotic Form, Chest Pain (DC) Additional Instructions: You were seen in the emergency department for chest pain. Workup here was negative for heart attack or other serious causes of chest pain. Her pain improved with Maalox. That could be purchased [id number]. Please follow-up with your primary care physician or GI doctor for further management develop worsening chest or any new symptoms please return to the ED for re-evaluation. Patient Language: Ukrainian Prescriptions: No Action atorvastatin 20 mg tablet spironolactone 100 mg tablet buspirone 7.5 mg tablet metoprolol succinate 25 mg tablet extended release 24 hr PO ergocalciferol (vitamin D2) [Vitamin D2] 1,250 mcg (50,000 unit) capsule Follow-up/Referrals: Kirk,William Colbert MD [Primary Care Provider] -
[2025-01-07 21:04] VITALS: RESP 18; O2SAT 98
--- OUTSIDE RECORDS SUMMARY | 2025-01-07 21:22 | XMS_ITS | Clinical Summary ---
Author Organization [facility] Address [address] [place] [address] Phone Care Team Providers Care Ice Cream Man Name Role Phone William Bradley MD Primary Care Provider [phone] Boogie Reilly MD Unavailable [phone] Allergies Active Allergy Reactions Criticality Noted Date [...] other by Other route. Catalyn vitamin Active [place] 3 1000 MG Capsule Take 2 g by mouth. Active ANIMAL CHIROPRACTOR Thyroid 30 MG Tablet 4 Active Cholecalciferol [...] EACH EYE TWICE DAILY Active nystatin (MYCOSTATIN) 788435 UNIT/ML Suspension Take 5 mL 4 times a day by oral route for 7 days. 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 Plan of Treatment Upcoming Encounters Date Type Department Care Team (Late st Contact Info) Description 02/25/2025 11:00 AM CDT Lab [facility] [address] [phone] Lab, Cc [facility] 02/25/2025 11:15 AM CDT Office Visit [facility] [address] [address] Boogie Reilly MD [address] [place] [address] Health Maintenance Due Date Last Done [...] patient's age to complete this topic Insurance [facility] Care Teams Ice Cream Man Relationship Specialty Start Date End Date William Bradley MD [address] [place] [address] PCP - General Family Medicine 01/13/24 Boogie Reilly MD [address] [place] [phone] Consulting Physician Oncology 01/13/24
--- OUTSIDE RECORDS SUMMARY | 2025-01-07 21:22 | XMS_ITS | Encounter Summary ---
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 Question Answer Date of Assessment Author Status Little interest or pleasure in doing things Not at all 11/16/2024 8:33 AM SHOE STICKS REPAIRER Vicky Alston MA Active Feeling down, depressed, or hopeless Not at all 11/16/2024 8:33 AM SHOE STICKS REPAIRER Barbara Alston MA Active Patient Health Questionnaire-2 Score 0 11/16/2024 8:33 AM SHOE STICKS REPAIRER Camilla Alston MA Active documented as of this encounter Plan of Treatment Upcoming Encounters Date Type Department Care Team (Late st Contact Info) Description 01/18/2025 8:00 AM CDT Office Visit [facility] [address] [facility], [address] [place] [address] Kavita Mandujano NP [address] [facility] [address] [place] [address] 02/25/2025 9:40 AM CDT Office Visit [facility] [address] [facility] [place] [address] Tierney Constantino NP [address] [facility] [address] [place] [address] 02/25/2025 1:30 PM CDT Appointment [facility] [place] [address] Sabino Ambrose MD [address] [facility] [address] [place] [phone] 07/02/2025 9:30 AM CDT Office Visit [facility] [address] Sabino Ambrose MD [address] [facility] [address] [place] [address] documented as of this encounter Procedures Procedure Name Priority Date/Time Associated Diagnosis Comments ECG GENERIC (SCAN ORDER) Routine 04/07/2024 documented in this encounter Results * ECG (04/07/2024) us Doc Pccl Scanned SCANNING Final Result [facility] ONBASE documented in this encounter Visit Diagnoses Not on filedocumented in this encounter Care Teams Water Mechanic Relationship Specialty Start Date End Date William Bradley MD [address] [facility] [address] [place] [phone] PCP - General FAMILY PRACTICE 09/16/23 documented as of this encounter
--- OUTSIDE RECORDS SUMMARY | 2025-01-07 21:22 | XMS_ITS | Clinical Summary ---
Author Organization [facility] Address [address] [facility] [place] [address] Care Team Providers Care Studio Producer Name Role Phone Blake Herbert MD Primary Care Provider [phone] Source Comments [facility],non-owned Affiliates and Associated Physician Practices is amultiple site organization consisting of ambulatory clinics and hospital sitesin [place], [place], [place] and [place]. This disclosure is being madepursuant to the Care Everywhere program and may not contain all information available regarding this patient. Last updated 18.[facility] Sape Allergies Active Allergy Reactions Criticality Noted Date [...] on file Legal Sex Female 7:32 PM CERTIFIED [employer] Gender Identity Not on file Sexual Orientation [...] patient's age to complete this topic Insurance [facility] Address: [facility] [id number] [place] [address] Care Teams Studio Producer Relationship Specialty Start Date End Date Blake Herbret MD [address] [place] [address] PCP - General 03/10/09
--- OUTSIDE RECORDS SUMMARY | 2025-01-07 21:22 | XMS_ITS | Encounter Summary ---
Author Organization [facility] Address [address] [facility] [place] [address] Care Team Providers Care Organ Grinder Name Role Phone Blake Herbert MD Primary Care Provider [phone] Encounter Details Date Type Department Care Team (Late st Contact Info) Description 03/23/2022 Lab Requisition [facility] [address] [facility] [place] [id number] Jefry Smith MD [address] [facility] [address] [address] Social History Tobacco Use Types Packs/Day Years Used Date Smoking Tobacco: Never Assessed Alcohol Use Standard Drinks/Week Comments Yes 0.8 (1 standard drink = 0.6 oz p ure alcohol) Comments Unknown Sex and Gender Information Value Date Recorded Sex Assigned at Not on file 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 Gender Identity Not on file Sexual Orientation Not on file documented as of this encounter Plan of Treatment Not on file documented as of this encounter Procedures Procedure Name Priority Date/Time Associated Diagnosis Comments DERMATOPATHOLOGY Routine 03/23/2022 12:0 0 AM CDT documented in this encounter Results * DERMATOPATHOLOGY (03/23/2022 12:00 AM CDT) Case Report Dermatopathology Report Case: [id number] Authorizing Provider: Jefry Smith MD Collected: 03/23/2022 12:00 AM Ordering Location: [facility] DermPath Lab Received: 03/23/2022 04:49 PM Pathologist: Mary Arcos MD Specimen: Skin, right shoulder 12:18 PM CDT DERMATOPATHOLOGY LABORATORY Final Diagnosis Specimen A. SKIN, right shoulder: SEBORRHEIC KERATOSIS, IRRITATED AND INFLAMED (L82.0) 12:18 PM CDT DERMATOPATHOLOGY LABORATORY Clinical History Nevus vs. SK vs. Other. Path# [id number] 12:18 PM CDT DERMATOPATHOLOGY LABORATORY Gross Description Specimen A: Received is one formalin filled container labeled with the patient's name and designated right shoulder. The specimen consists of a shave biopsy measuring [id number]. Jar 0. 12:18 PM CDT DERMATOPATHOLOGY LABORATORY [...] characteristic determined by the Dermatopathology Laboratory at [facility], directed by Dr. Micha Gilbert. These tests need not be, and therefore are not, approved by the [place] Food and Drug Administration. The tests are used for clinical purposes. Billing Codes Specimen Charges Stain Charges 29717 1 2 12:18 PM CDT DERMATOPATHOLOGY LABORATORY Embedded Images 12:18 PM CDT DERMATOPATHOLOGY LABORATORY Pathology/Cytolog y TISSUE SPECIMEN FROM SKIN / Unknown 03/23/2022 03/23/2022 4:49 PM CDT us Jefry Smith MD LAB - PATHOLOGY/CYTOLOGY ORDER BATOOL Final Result DERMATOPATHOLOGY LABORATORY [facility] - Department of Dermatology [facility] Specialized Medicine [address] [place] [address], [address] [phone] documented in this encounter Visit Diagnoses Not on filedocumented in this encounter Care Teams Organ Grinder Relationship Specialty Start Date End Date Blake Herbert MD [address] [place] [address] PCP - General 03/10/09 documented as of this encounter
--- OUTSIDE RECORDS SUMMARY | 2025-01-07 21:23 | XMS_ITS | Referral Summary ---
Author Organization [facility] Address [address] [place] [address] Care Team Providers Care Finisher Hand Name Role Phone William Bradley MD Primary Care Provider [phone] Erik Reed MD Unavailable [phone] Abebe Moreau MD Unavailable [phone] Kanu Bustos MD Unavailable Karly Villarreal MD Unavailable Boogie Reilly MD Unavailable Encounters Date Type Department Care Team Description 12/28/2024 Results Follow-Up [facility] Endocrinology Metabolism and Lipid [address] [facility] 5th [place] [address] [place] [address] Keren Olson MD 12/25/2024 9:46 AM CDT - 12/25/2024 11:59 PM CDT Hospital Encounter [facility] [address] [place] [address] Fatigue, unspecified type; Hypothyroidism, unspecified type Discharge Disposition: Discharge to home or self care 12/25/2024 9:50 AM CDT Lab [facility] Infectious Diseases [address] [facility] [address] [place] [address] 12/25/2024 8:40 AM CDT Office Visit [facility] Endocrinology Metabolism and Lipid 1 [facility] [address] [place] [address] Keren Olson MD Fatigue, unspecified type (Primary Dx); Hypothyroidism, unspecified type; H/O systemic steroid therapy 12/15/2024 12:00 PM CDT Office Visit [facility] [address] [facility] [address] [place] [phone] Abebe Moreau MD Sarcoidosis (Primary Dx); Mediastinal lymphadenopathy; Pulmonary nodule; Seasonal allergic rhinitis, unspecified trigger; Gastroesophageal reflux disease without esophagitis 12/04/2024 Telephone [facility] Otolaryngology [address] [place] [address] Daphne Eleni 11/16/2024 7:39 AM REPORTING COORDINATOR - 11/16/2024 11:59 PM REPORTING COORDINATOR Hospital Encounter [facility] [place] [address] [place] [address] Sarcoidosis; Mediastinal lymphadenopathy Discharge Disposition: Discharge to home or self care 10/15/2024 9:45 AM REPORTING COORDINATOR Lab [facility] Medical Office Building 1 Lab [address] [place] [address] Acute cough 10/15/2024 9:00 AM REPORTING COORDINATOR Office Visit [facility] [place] [address] [facility] [address] [place] [phone] Abebe Moreau MD Sarcoidosis (Primary Dx); Acute [...] by mouth daily 02/13/20 24 Active thyroid ([place] Thyroid) 30 mg tablet 1 tablet (30 mg total) daily Active PUBLICIST Thyroid 60 mg tablet 0.5 tablets (30 [...] 09/01/2024 Assessment & Plan (09/01/2024 7:56 PM REPORTING COORDINATOR): I am recommending a sinus CT scan for further evaluation this. She would like to go ahead and pursue that. I did note that she has a severe deviation of nasal septum to the right side with enlarged inferior turbinates. That could be causing some of her symptoms. She understands. Ear fullness, bilateral 09/01/2024 Assessment & Plan (09/01/2024 7:57 PM REPORTING COORDINATOR): I reassured her that her ears look [...] 01/25/2023 Assessment & Plan (08/29/2023 11:28 AM REPORTING COORDINATOR): Complains of abdominal pain since COVID vaccination [...] 01/25/2023 Assessment & Plan (08/29/2023 11:28 AM REPORTING COORDINATOR): Intermittent bright red blood per rectum. -colonoscopy [...] 01/25 Assessment & Plan (08/29/2023 11:30 AM REPORTING COORDINATOR): Chronic constipation for the past 2 years. -high-fiber diet -continue probiotics -continue Linzess Constipation 01/25/2023 Assessment & Plan (08/29/2023 11:18 AM REPORTING COORDINATOR): Chronic constipation for the past 2 years, [...] 06/16/2021 Assessment & Plan (08/29/2023 11:27 AM REPORTING COORDINATOR): Intermittent dysphagia to solids. EGD June 2023 with irregular Z-line, status post dilation to 54 Citizen [place]. Pathology unremarkable. No further dysphagia since dilation. [...] on file Legal Sex Female 1:50 AM REPORTING COORDINATOR Gender Identity Female 05/17/2021 10:31 AM CDT [...] CHEST WO CONTRAST Routine 11/16/2024 7:44 AM REPORTING COORDINATOR Sarcoidosis Mediastinal lymphadenopathy INFLUENZA A/B, RSV, AND COVID-19 PCR Routine 10/15/2024 9:58 AM REPORTING COORDINATOR Acute cough COLONOSCOPY 01/08/2024 11:02 AM CDT HEPATITIS PANEL, ACUTE Routine 09/24/2022 7:13 AM REPORTING COORDINATOR Dizziness SOB (shortness of breath) Benign essential HTN Chronic fatigue HM MAMMOGRAPHY Routine 06/07/2022 PAP SMEAR Routine 09/14/2020 from Last 3 Months or Most Recently Relevant to Health Maintenance Results * Reflex thyroglobulin, tumor marker, IA, S (12/25/2024 9:46 AM CDT) Thyroglobulin, Tumor Marker 13 < or = 33 ng/mL [facility] Thyroglobulin interp See Footnote ULISES [...] testing methods are immunoenzymatic assays manufactured by [employer] and performed on the [employer] DXI 800. Values obtained from different assay methods or kits may be different and cannot be used interchangeably. The results cannot be interpreted as absolute evidence for the presence or absence of malignant disease. Test Performed by: [place] [address] Welding Lead Burner: Kitty Azevedo Ph.D.; CLIA# [id number] Blood 12/25/2024 9:46 AM CDT 12/25/2024 7:50 PM CDT Keren Olson MD LAB BLOOD ORDERABLES Final Resul t Performing Organization Address [facility] Co de Phone Number ULISES [address] [address] [employer] [place] [address] [facility] * Thyroglobulin reflex to MS or IA (12/25/2024 9:46 AM CDT) Anti-thyroglobulin <1.8 <1.8 IUnits/mL [facility] Comment: Thyroglobulin Antibody < 1.8 IU/mL. Thyroglobulin performed by Immunoassay to follow. Test Performed by: [place] [address] Welding Lead Burner: Kitty Azevedo Ph.D.; CLIA# [id number] Blood 12/25/2024 9:46 AM CDT 12/25/2024 7:50 PM CDT Keren Olson MD LAB BLOOD ORDERABLES Final Resul t Performing Organization Address City/[facility]/ZIP Co de Phone Number ULISES [address] [address] [employer] [place] [address] [facility] * Thyroid peroxidase antibody (TPO) (12/25/2024 9:46 AM CDT) Anti Thyroid Peroxidase <30 <=34 IUnits/mL Comment: ATPO Interpretive Data Results may be up to 28% higher in patients receiving Itraconazole. Current interpretive data was last revised 2020. Testing performed by: [facility], [address] [place]., [address] Blood 12/25/2024 9:46 AM CDT 12/26/2024 12:02 AM CDT us Keren Olson MD LAB BLOOD ORDERABLES Final Resul t ULISES [address] [address] Mendez Department [place] [address] * T3, free (12/25/2024 9:46 AM CDT) Free T3 3.2 2.0 - 4.4 pg/mL Blood 12/25/2024 9:46 AM CDT 12/25/2024 7:09 PM CDT us Keren Olson MD LAB BLOOD ORDERABLES Final Resul t Performing Organization Address City/[facility]/ZIP Co de Phone Number ULISES [address] [address] Department [employer] [place] [address] * TSH (12/25/2024 9:46 AM CDT) Thyroid Stimulating Hormone 2.08 0.30 - 4.20 mcIUnit/mL Blood 12/25/2024 9:46 AM CDT 12/25/2024 7:09 PM CDT us Keren Olson MD LAB BLOOD ORDERABLES Final Resul t Performing Organization Address City/[facility]/ZIP Co de Phone Number ULISES [address] [address] Mendez Department [employer] [place] [address] * T4, free (12/25/2024 9:46 AM CDT) Free T4 1.12 0.90 - 1.70 ng/dL Blood 12/25/2024 9:46 AM CDT 12/25/2024 7:09 PM CDT us Keren Olson MD LAB BLOOD ORDERABLES Final Resul t ULISES TERRAZAS [address] [address] Mendez Department of [place] [address] * CT Chest WO Contrast (11/16/2024 7:44 AM REPORTING COORDINATOR) Anatomical Region Laterality Modality Body N/A Computed Tomogra phy 11/19/2024 3:20 AM REPORTING COORDINATOR Narrative 11/19/2024 3:49 AM REPORTING COORDINATOR EXAM DESCRIPTION: CT CHEST WO CONTRAST REASON [...] Steffen Erazo M.D. BB: GAIL Report ID: [id number] Reading Location: [place] [address] Procedure Note Steffen Erazo MD PhD - [...] Steffen Erazo M.D. BB: BB Report ID: [id number] Reading Location: [place] [address] Abebe Moreau MD IMG CT PROCEDURES Melania l Result * Influenza A/B, RSV, and COVID-19 PCR Nasopharyngeal (10/15/2024 9:58 AM REPORTING COORDINATOR) COVID-19 RNA Negative Negative Comment:Testing performed by : [address] [address] Influenza A RNA Negative Negative [facility] Comment:Testing performed by : [address] [address] Influenza B RNA Negative Negative [facility] Comment:Testing performed by : [address] [address] RSV RNA Negative Negative [facility] Comment: Interpretive data: Testing performed by [facility] [place] Laboratory. This test is performed using the [employer] Xpert Xpress CoV-2/Flu/RSV plus assay. This is a multiplex, real-time reverse transcriptase PCR assay intended for the qualitative detection of nucleic acid from SARS-CoV-2, influenza A, influenza B, and respiratory syncytial virus. This assay has been cleared by the [place] Food and Drug administration. The performance characteristics have been verified by the [facility] [place]. Results must be considered in the clinical context, and a negative result does not rule out infection. Interpretive Data last revised 2023 Testing performed by: [facility], [address] [place] [address], [place]., [address] Nasopharyngeal 10/15/2024 9: 58 AM REPORTING COORDINATOR 10/15/2024 10:38 AM REPORTING COORDINATOR Narrative ULISES - 10/15/2024 11:17 AM REPORTING COORDINATOR Is the Patient experiencing symptoms consistent with COVID?->No Abebe Moreau MD LAB MICROBIOLOGY - GEN ERAL ORDERABLES Final Result ULISES [address] [facility] [place] [address] * Colonoscopy (01/08/2024 11:02 AM CDT) Anatomical Region Laterality Modality Other Narrative Procedure Note Dewayne Briggs MD - 01/08/2024 11:02 AM CDT [facility] GI ENDOSCOPY Patient Name: Petra Hackett Procedure Date: 01/08/2024 11:02 AM Date of : 1975 Admit Type: Outpatient Age: 48 Gender: Female Attending MD: Dewayne Briggs M.D. Room: [facility] ENDOSCOPY ROOM 06 Note Status: Finalized Procedure: [...] The scope was passed under direct vision.The [id number]-[id number] colonoscope was introduced through theanus and advanced [...] On: 01/08/2024 11:02 AM Recognized by the [employer] for promoting quality in endoscopy us Dewayne Briggs MD ENDOSCOPY PROCEDURES Final Resul t * Hepatitis panel, acute (09/24/2022 7:13 AM REPORTING COORDINATOR) Hep A IgM Negative Negative [facility] - 01 HepBsAg Negative Negative [facility] - 01 Hep B core IgM Negative Negative [facility] - 01 Hep C Ab <0.1 0.0 - 0.9 s/co ratio [facility] - 01 Blood 09/24/2022 7:13 AM REPORTING COORDINATOR 09/24/2022 Narrative [facility] - 09/25/2022 6:09 AM REPORTING COORDINATOR Performed at: [facility] [address] [id number] Welding Lead Burner: Jose Dacosta PhD, Phone: [phone] us Nini MCCORMICK LAB MICROBIOLOGY - GENE RAL ORDERABLES Final Result [facility] - 01 * HM MAMMOGRAPHY (06/07/2022) Historical Provider HEALTH MAINTENANCE Final Result * Pap Smear (09/14/2020) 09/14/2020 Historical Provider LAB PATHOLOGY ORDERABLES Final Result from Last 3 Months or Most Recently Relevant to Health Maintenance Insurance Estately Estately MRA ACCESS CHOICE Advance Directives For more information, please contact: [phone] * Full Code (Latest Code Status on File) Date Activated Date Inactivated Comments 06/15/2024 2:04 PM 06/15/2024 7:50 PM * Full Code Date Activated Date Inactivated Comments 11/01/2022 1:53 PM 11/02/2022 6:56 PM Care Teams Finisher Hand Relationship Specialty Start Date End Date William Bradley MD PCP - General Family Medicine 05/12/24 Erik Reed MD [address] [place] [address] 3 [place] [address] Referring Physician Interventional Cardiology 09/21/24 Abebe Moreau MD [address] [address] Consulting Physician Pulmonary Disease 09/21/24 Kanu Bustos MD [address] [facility] 1 [place] [address] Consulting Physician Internal Medicine 09/21/24 [place] [address] [facility] 70 [place] [address] Consulting Physician Rheumatology 09/21/24 Boogie Reilly MD 321 [facility] [address] [address] Referring Physician Hematology and Oncology 09/21/24
--- OUTSIDE RECORDS SUMMARY | 2025-01-07 21:23 | XMS_ITS | Encounter Summary ---
Author Organization [facility] Facility Care Team Providers Care Track Fitter Name Role Phone William Bradley MD Primary Care Provider [phone] Nini Grewal Primary Care Provider Nini Grewal Primary Care Provider William Bradley MD Primary Care Provider [phone] William Bradley MD Primary Care Provider [phone] Erik Reed MD Unavailable [phone] Abebe Moreau MD Unavailable Kanu Bustos MD Unavailable Karly Villarreal MD Unavailable Boogie Reilly MD Unavailable [phone] Encounter Details Date Type Department Care Team (Latest Contact Info) Description 10/24/2018 Orders Only [facility] Provider, MD [place] [address] [place] [address] Social History Tobacco Use Types Packs/Day Years Used Date Smoking Tobacco: Every Day Comments Unknown Sex and Gender Information Value Date Recorded Sex Assigned at Not on file Legal Sex Female 1:50 AM BULLET 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 us Historical Provider [facility] Final Result documented in this encounter Visit Diagnoses Not on filedocumented in this encounter Additional Health Concerns Infection Onset Date Last Indicated Resolved Time COVID: Suspected 05/18/2021 05/18/2021 06/01/2021 3:05 AM CDT documented as of this encounter Care Teams Track Fitter Relationship Specialty Start Date End Date William Bradley MD PCP - General 05/14/18 06/17/22 Nini Grewal PA PCP - General Family Medicine 06/18/22 03/21/23 Nini Grewal PA [address] [facility] [address] [place] [address] [place] [address] PCP - General Family Medicine 03/25/23 04/24/23 William Bradley MD [address] [facility] [address] [place] [address] PCP - General Family Medicine 04/25/23 05/11/24 William Bradley MD [address] [facility] 210 [place] [address] PCP - General Family Medicine 05/12/24 Erik Reed MD [address] [place] [address] 3 [place] [address] Referring Physician Interventional Cardiology 09/21/24 Abebe Moreau MD 1418 [facility] 350 [place], [place] [address] Consulting Physician Pulmonary Disease 09/21/24 Kanu Bustos MD [address] [facility] 1 [place] [address] Consulting Physician Internal Medicine 09/21/24 [place] [address] [facility] 70 [place] [address] Consulting Physician Rheumatology 09/21/24 Boogie Reilly MD [address] [facility] 100 [facility] 100 [place] [address] Referring Physician Hematology and Oncology 09/21/24 documented as of this encounter
--- OUTSIDE RECORDS SUMMARY | 2025-01-07 21:23 | XMS_ITS | Encounter Summary ---
Author Organization [facility] Address [address] [place] [address] Phone Care Team Providers Care Crowd Controller Name Role Phone William Bradley MD Primary Care Provider Erik Reed MD Unavailable Abebe Moreau MD Unavailable Kanu Bustos MD Unavailable Karly Villarreal MD Unavailable Boogie Reilly MD Unavailable [phone] Encounter Details Date Type Department Care Team (Late st Contact Info) Description 12/28/2024 Results Follow-Up [facility] Endocrinology Metabolism and Lipid [address] [facility] 5th [place] [address] [place] [address] Keren Olson MD [address] [place] [address] Social History Tobacco Use Types [...] on file Legal Sex Female 1:50 AM WOOD FINISHER Gender Identity Female 05/17/2021 10:31 AM CDT Sexual Orientation Straight 05/17/2021 10 :31 AM CDT 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 Not on file Not on file documented as of this encounter Plan of Treatment Not on file documented as of this encounter Visit Diagnoses Not on filedocumented in this encounter Care Teams Crowd Controller Relationship Specialty Start Date End Date William Bradley MD PCP - General Family Medicine 05/12/24 Erik Reed MD [address] [place] [address] 3 [place], [place] [address] Referring Physician Interventional Cardiology 09/21/24 Abebe Moreau MD [address] [address] Consulting Physician Pulmonary Disease 09/21/24 Kanu Bustos MD [address] [facility] 1 [place] [address] Consulting Physician Internal Medicine 09/21/24 [place] [address] [facility] 70 [place] [address] Consulting Physician Rheumatology 09/21/24 Boogie Reilly MD 321 [facility] 100 [facility] 100 [place] [address] Referring Physician Hematology and Oncology 09/21/24 documented as of this encounter
--- OUTSIDE RECORDS SUMMARY | 2025-01-07 21:23 | XMS_ITS | Encounter Summary ---
Author Organization [facility] Address [address] [place] [address] Care Team Providers Care Marketing Operations Specialist Name Role Phone William Bradley MD Primary Care Provider Reason for Referral * Imaging (Routine) - Closed Specialty Diagnoses / Procedures Referred By Johnny mera Referred To Contact RADIOLOGY Diagnoses Indigestion Procedures NM GASTRIC EMPTYING STUDY Consuelo Constantino NP 3 [place] [address] Phone: tel: fax: Referral ID Status Reason Start Date Expiration Date Visits Re quested Visits Authorized Closed 11/16/2024 11/16/2025 1 1 Reason for Visit * Imaging (Routine) - Closed Specialty Diagnoses / Procedures Referred By Johnny mera Referred To Contact RADIOLOGY Diagnoses Indigestion Procedures NM GASTRIC EMPTYING STUDY Consuelo Constantino NP [address] [address] Phone: tel: fax: Referral ID Status Reason Start Date Expiration Date Visits Re quested Visits Authorized Closed 11/16/2024 11/16/2025 1 1 Encounter Details Date Type Department Care Team (Latest Contact Info) Description 01/05/2025 6:57 AM CDT - 01/05/2025 11:59 PM CDT Hospital Encounter [facility] Nuclear Medicine [address] [place] [address] Consuelo Constantino NP 3 [facility] [address] [place] [address] Arrived Discharge Disposition: Home or Self Care [...] Sex Assigned at Female 11/16/2024 8:34 AM RETAIL DISTRICT MANAGER Legal Sex Female 6:38 AM CDT Gender Identity Female 11/16/2024 8:34 AM RETAIL DISTRICT MANAGER Sexual Orientation Not on file 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 [employer] DIGITAL STRATEGIST THYROID 30 MG tablet Take 1 tablet [...] Description 01/18/2025 8:00 AM CDT [facility] [address], [address] [place] [phone] Kavita Mandujano NP 3 [facility] [address] [place] [id number] 02/25/2025 9:40 AM CDT [facility] - [address] [place] [phone] Consuelo Constantino NP 3 [facility] [address] [place] [address] 02/25/2025 1:30 PM CDT Appointment [facility] Non Invasive Cardiology [address] [place] [address] Sabino Ambrose MD 3 [facility] [address] [place] [phone] 07/02/2025 9:30 AM CDT Office Visit [facility] [address] [address] Sabino Ambrose MD 3 [facility] 2800 [place] [address] documented as of this encounter [...] AM Narrative 01/05/2025 3:56 PM CDT [facility] [place] [address] EXAMINATION: GASTRIC EMPTYING STUDY Exam date/time: 01/05/2025 [...] Procedure Note Rubina Gallardo MD - 01/05/2025 [place] [address] EXAMINATION: GASTRIC EMPTYING STUDY Exam date/time: 01/05/2025 [...] MD, 01/05/2025 11:42 AM us Consuelo Constantino DIGITAL STRATEGIST NUC MED Final Resul t documented in [...] millicuries documented in this encounter Care Teams Marketing Operations Specialist Relationship Specialty Start Date End Date William Bradley MD [address] [place] [phone] PCP - General FAMILY PRACTICE 09/16/23 documented as of this encounter
--- OUTSIDE RECORDS SUMMARY | 2025-01-07 21:23 | XMS_ITS | Clinical Summary ---
Author Organization [facility] Address [facility] [place] [address] Care Team Providers Care Telecine Operator Name Role Phone William Bradley MD Primary Care Provider [phone] Allergies Active Allergy Reactions Criticality Noted Date [...] DAILY FOR 30 DAYS 02/13/20 24 Active MANAGER LAN THYROID 30 MG tablet Take 1 tablet [...] irregular Z-line, status post dilation to 54 [place]. Pathology unremarkable. No further dysphagia since dilation. [...] Date Moderate persistent asthma w ithout complication ([facility]) 10/30/2022 01/01/2025 Allergic rhinitis due to ani mal hair and dander 10/30/2022 01/01/2025 Encounters Date Type Department Care Team Description 01/07/2025 1:00 PM CDT Telephone [facility] [place] [address] [place] [address] Sabino Ambrose MD Holter Monitor 01/07/2025 Results Follow-Up [facility] Multispecialty Care - [facility] [address] [facility] [address] [place] [phone] Tierney Holder NP [place] GASTRIC EMPTYING STUDY 01/07/2025 Telephone [facility] Pulmonology Specialty Clinic - [address] [address] Amrita Brooks DO Question 01/05/2025 6:57 AM CDT - 01/05/2025 11:59 PM CDT Hospital Encounter [facility] [place] [address] Tierney Holder NP Arrived Discharge Disposition: Home or Self Care (Routine Discharge) 01/05/2025 Travel 01/01/2025 12:45 PM CDT Office Visit [facility] [address] [address] Sabino Ambrose MD Mitral Valve Disorders (New Patient) 01/01/2025 Telephone [facility] [address] [address] Christo Azevedo Chago Schedule Test (ECHO & EM) 01/01/2025 Travel 12/25/2024 Telephone [facility] - [place] [address] [place] [address] Amirta Brooks DO Results 11/25/2024 4:38 PM CDT - 11/25/2024 11:59 PM CDT Hospital Encounter [facility] [address] [place] [address] Amrita Brooks DO Snoring; Obesity Discharge Disposition: Home or Self Care (Routine Discharge) 11/25/2024 Travel 11/19/2024 8:40 AM DROP WIRE ALINER Office Visit [facility]ty Care - [facility] [address] [facility], [address] [place] [phone] Amrita Brooks DO Obstructive Sleep Apnea ( has been told that she snores; sometimes wakes with a dry mouth ) 11/19/2024 8:10 AM DROP WIRE ALINER - 11/19/2024 11:59 PM DROP WIRE ALINER Hospital Encounter [facility] [place] [address] Abebe Moreau MD Discharge Disposition: Home or Self Care (Routine Discharge) 11/19/2024 8:09 AM DROP WIRE ALINER Hospital Encounter [facility] [place] [address] Kanu Bustos MD Discharge Disposition: Home or Self Care (Routine Discharge) 11/19/2024 Orders Only [facility] [place] [address] Abebe Moreau MD 11/19/2024 Orders Only [facility] [place] [address] Kanu Bustos MD 11/19/2024 Travel 11/16/2024 10:20 AM DROP WIRE ALINER Office Visit [facility] Medical Group Orthopedic & Sports Medicine - [address] [address] Bryan Parr MD New Patient (LT thumb pain) 11/16/2024 8:40 AM DROP WIRE ALINER Office Visit [facility] Medical [facility] Multispecialty Care - [address] [place] [phone] Tierney Holder NP New Patient; IBS (Referral [...] Miscarriages / Stillbirths Mother Stent Cardiac Mother Summerfield's disease Sister Asthma Sister Crohns Disease Sister [...] Sex Assigned at Female 11/16/2024 8:34 AM DROP WIRE ALINER Legal Sex Female 6:38 AM CDT Gender Identity Female 11/16/2024 8:34 AM DROP WIRE ALINER Sexual Orientation Not on file 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 Not on file Not on file Last Filed Vital Signs Vital Sign Reading Time Taken Comments Blood Pressure 116/70 01/01/2025 12:53 PM CDT Pulse 83 01/01/2025 12:53 PM CDT Temperature 36.4 C (97.6 F) 11/16/2024 10:18 AM DROP WIRE ALINER Respiratory Rate 16 11/19/2024 8:32 AM DROP WIRE ALINER Oxygen Saturation 97% 01/01/2025 12:53 PM CDT Inhaled Oxygen Concentration - - Weight 96.2 kg (212 lb) 01/01/2025 12:53 PM CDT Height 172.7 cm (5' 8 ) 01/01/2025 12:53 PM CDT Body Mass Index 32.23 01/01/2025 12:53 PM CDT Plan of Treatment Upcoming Encounters Date Type Department Care Team (Late st Contact Info) Description 01/18/2025 8:00 AM CDT [facility] - [address], [address] [place] [phone] Kavita Mandujano NP [address] [place] [address] [place] [address] 02/25/2025 9:40 AM CDT [facility] - [address] [place] [phone] Tierney Holder NP 3 [facility] [address] [place] [address] 02/25/2025 1:30 PM CDT Appointment [facility] Non Invasive Cardiology [address] [facility] [place] [address] Sabino Ambrose MD 3 [facility] [address] [place] [phone] 07/02/2025 9:30 AM CDT Office Visit [place] [facility] [address] Sabino Ambrose MD 3 [facility] [address] [place] [phone] Health Maintenance Due Date Last Done [...] Td or Tdap) 12/17/2030 12/17/2020 PHQ-2 (Physician [place]) Completed 11/16/2024 Meningococcal B Vaccine Aged Out [...] AUTO W/O MICRO Routine 11/19/2024 8:24 AM DROP WIRE ALINER Chronic kidney disease, stage II (mild) Essential hypertension, malignant HC CREATININE OTH SOURCE Routine 11/19/2024 8:24 AM DROP WIRE ALINER Chronic kidney disease, stage II (mild) Essential hypertension, malignant ANGIOTENSIN I ENZYME SERUM Routine 11/19/2024 8:20 AM DROP WIRE ALINER Sarcoidosis VITAMIN D, 25 OH Routine 11/19/2024 8:20 AM DROP WIRE ALINER Chronic kidney disease, stage II (mild) Essential hypertension, malignant RENAL FUNCTION PANEL Routine 11/19/2024 8:20 AM DROP WIRE ALINER Chronic kidney disease, stage II (mild) Essential hypertension, malignant CBC W/DIFF AUTOMATED Routine 11/19/2024 8:20 AM DROP WIRE ALINER Chronic kidney disease, stage II (mild) Essential [...] content of this report. Ordered By: TIERNEY HODLER Interpreted By: Alin Francisco MD, 01/05/2025 11:42 AM Narrative 01/05/2025 3:56 PM CDT [address] [address] EXAMINATION: GASTRIC EMPTYING STUDY Exam date/time: 01/05/2025 [...] Procedure Note Rubina Gallardo MD - 01/05/[address] [address] EXAMINATION: GASTRIC EMPTYING STUDY Exam date/time: 01/05/2025 [...] MD, 01/05/2025 11:42 AM us Tierney Holder MANAGER LAN NUC MED Final Resul t * Home Sleep Study - WatchPat ([id number]) (11/25/2024 7:30 PM CDT) Narrative [facility] - 11/25/2024 7:30 PM CDT Edward Laura MD 12/24/2024 11:27 AM Patient Information First Name: ALONSO Last Name: JOSESITO SAENZ ID: [id number] Date: 1975 Age: 49 Gender: Female BMI: [...] seconds may be artifact) Rev. Printed on:12/24/2024 12/18/2024,[id number],1975,Female *The automatic analysis events or stages have been edited. 539 Page 1 of 2 Sleep Study Report SUMMARY/DIAGNOSIS 1.) Moderate Obstructive Sleep Apnea. 2.) This patient's oxygen saturation was at or below 88.0% for 15.2 minutes during this study. RECOMMENDATIONS Rand treatment option should be discussed with the [...] snoring and other sleep-related issues, such as CRUSHER TENDER depressants, especially at bedtime. Raw data reviewed and electronically signed by: Edward Laura on 12/24/2024 11:25:43 AM at 4:25:47PM, [facility] Amrita Brooks SLEEP CENTER ORDERABLES Fi nal Result [facility] [address] [place] [address], * (ABNORMAL) PROTEIN CREAT RATIO URINE (11/19/2024 8:24 AM DROP WIRE ALINER) PROTEIN URINE TOTAL RANDOM 10.4(H) <10 MG/DL 11/19/2024 3:27 PM DROP WIRE ALINER [facility] CREATININE (U) 83.4 28 - 217 MG/DL 11/19/2024 3:27 PM DROP WIRE ALINER [facility] PROTEIN/CREATIN INE RATIO 0.1 11/19/2024 3:27 PM [facility] URINE SPECIMEN / Unknown 11/19/2024 8:24 AM DROP WIRE ALINER Kanu Bustos MD URINE ORDERABLES Final Result [facility] [address] [place] [address], * (ABNORMAL) URINALYSIS (11/19/2024 8:24 AM DROP WIRE ALINER) SPECIMEN TYPE URINE CLEAN CATCH 11/19/2024 8:24 AM [facility] COLOR (U) LIGHT YELLOW 11/19/2024 8:57 AM [facility] TRANSPARENCY CLEAR 11/19/2024 8:57 AM [facility] SPECIFIC GRAVITY (U) 1.016 1.001 - 1.030 11/19/2024 8:57 AM [facility] U PH 6.5 5.0 - 9.0 11/19/2024 8:57 AM [facility] LEUKOCYTES (U) 25(A) NEGATIVE 11/19/2024 8:57 AM [facility] NITRITES NEGATIVE NEGATIVE 11/19/2024 8:57 AM [facility] PROTEIN RANDOM (U) NEGATIVE <30 MG/DL 11/19/2024 8:57 AM [facility] GLUCOSE (U) NORMAL NORMAL MG/DL 11/19/2024 8:57 AM [facility] KETONES MG/DL (U) NEGATIVE NEGATIVE MG/DL 11/19/2024 8:57 AM [facility] UROBILINOGEN NORMAL NORMAL MG/DL 11/19/2024 8:57 AM DROP WIRE ALINER [facility] BILIRUBIN (U) NEGATIVE NEGATIVE MG/DL 11/19/2024 8:57 AM [facility] BLOOD (U) NEGATIVE NEGATIVE 11/19/2024 8:57 AM [facility] MUCUS RARE /LPF 11/19/2024 8:57 AM [facility] WBC/HPF 4 <6 /HPF 11/19/2024 8:57 AM [facility] RBC/HPF 1 <6 /HPF 11/19/2024 8:57 AM [facility] SQUAMOUS EPITHELIALS FEW /HPF 11/19/2024 8:57 AM [facility] URINE SPECIMEN OBTAINED BY CLEAN CATCH PROCEDURE / Unknown 11/19/2024 8:24 AM [facility] Kanu Bustos MD URINE ORDERABLES Final Result [facility] [address] [place] [address], * (ABNORMAL) RENAL FUNCTION PANEL (11/19/2024 8:20 AM DROP WIRE ALINER) GLUCOSE 94 70 - 99 MG/DL 11/19/2024 9:20 AM [facility] BUN 19(H) 7 - 18 MG/DL 11/19/2024 9:20 AM [facility] CREATININE S/P/B 0.88 0.55 - 1.02 MG/DL 11/19/2024 9:20 AM [facility] SODIUM S/P/B 142 136 - 145 MMOL/L 11/19/2024 9:20 AM [facility] POTASSIUM S/P/B 4.4 3.5 - 5.1 MMOL/L 11/19/2024 9:20 AM [facility] CHLORIDE S/P/B 108 97 - 115 MMOL/L 11/19/2024 9:20 AM [facility] CO2 32.1(H) 21 - 32 MMOL/L 11/19/2024 9:20 AM [facility] CALCIUM S/P/B 9.5 8.5 - 10.1 MG/DL 11/19/2024 9:20 AM [facility] ALBUMIN S/P/B 3.5 3.4 - 5.0 G/DL 11/19/2024 9:20 AM [facility] PHOSPHORUS 4.1 2.5 - 4.9 MG/DL 11/19/2024 9:20 AM [facility] ANION GAP 1.9(L) 2 - 10 MMOL/L 11/19/2024 9:20 AM [facility] BUN CREATININE RATIO 21.6 6 - 26 11/19/2024 9:20 AM [facility] GFR ESTIMATE 81(L) >90 ML/MIN/1.7 3 M2 11/19/2024 9:20 AM [facility] Comment: NOTE: eGFR is not calculated for patients <18 years of age or gender unknown. This is an estimated GFR calculation using the new CKD EPI creatinine equation without race and so does not require a correction factor for race. This estimated GFR should not be used for calculating drug doses. 11/19/2024 8:20 AM DROP WIRE ALINER Kanu Bustos MD LABORATORY Final Result [facility] [address] [place] [address], [place] [phone] * (ABNORMAL) CBC W/DIFF AUTOMATED (11/19/2024 8:20 AM DROP WIRE ALINER) [facility] WBC 7.97 4.5 - 11.0 x10'3/uL 11/19/2024 8:47 AM [facility] RBC 4.15(L) 4.20 - 5.40 x10'6/uL 11/19/2024 8:47 AM [facility] HGB 13.2 12.0 - 16.0 G/DL 11/19/2024 8:47 AM [facility] HCT 40.0 38.0 - 48.0 % 11/19/2024 8:47 AM [facility] MCV 96.4 81.0 - 99.0 FL 11/19/2024 8:47 AM [facility] MCH 31.8(H) 27.0 - 31.0 PG 11/19/2024 8:47 AM [facility] MCHC 33.0 32.0 - 36.0 G/DL 11/19/2024 8:47 AM [facility] RDW 12.7 11.5 - 14.5 % 11/19/2024 8:47 AM [facility] PLT 192 130 - 400 x10'3/uL 11/19/2024 8:47 AM [facility] MPV 10.9 9.3 - 12.2 FL 11/19/2024 8:47 AM [facility] DIFFERENTIAL TYPE AUTOMATED DIFFERENTIAL 11/19/2024 8:47 AM [facility] NEUTROPHILS % 66.8 % 11/19/2024 8:47 AM [facility] LYMPHOCYTES % 21.1 % 11/19/2024 8:47 AM [facility] MONOCYTES % 8.5 % 11/19/2024 8:47 AM [facility] EOSINOPHILS 2.8 % 11/19/2024 8:47 AM [facility] BASOPHILS 0.4 % 11/19/2024 8:47 AM [facility] IMMATURE GRANS % 0.4 % 11/20/19 8:47 AM [facility] ABS. NEUTROPHILS 5.33 1.80 - 7.70 x10'3/uL 11/19/2024 8:47 AM [facility] ABS. LYMPHOCYTES 1.68 1.00 - 4.80 x10'3/uL 11/19/2024 8:47 AM [facility] ABS. MONOCYTES 0.68 0.24 - 0.86 x10'3/uL 11/19/2024 8:47 AM [facility] ABS. EOSINOPHILS 0.22 0.04 - 0.36 x10'3/uL 11/19/2024 8:47 AM [facility] ABS. BASOPHILS 0.03 0.01 - 0.08 x10'3/uL 11/19/2024 8:47 AM [facility] ABS. IMMATURE GRANULOCYTES 0.03 0.00 - 0.49 x10'3/uL 11/19/2024 8:47 AM [facility] 11/19/2024 8:20 AM [facility] Kanu Bustos MD LABORATORY Final Result [facility] [address] [place] [address], * VITAMIN D, 25 OH (11/19/2024 8:20 AM [facility]) Pathologist [facility] VITAMIN D 25 HYDROXY S/P/B 34 30 - 100 NG/ML 11/19/2024 9:20 AM [facility] Comment: INTERPRETATION DEFICIENT <20 INSUFFICIENT 20-29 SUFFICIENT 30-100 11/19/2024 8:20 AM DROP WIRE ALINER Kanu Bustos MD LABORATORY Final Result [facility] [address] [place] [address], [place] [phone] * ANGIOTENSIN I ENZYME SERUM (11/19/2024 8:20 AM DROP WIRE ALINER) HELENE S/P/B 11 9 - 67 U/L 11/23/2024 8:05 PM CDT [employer] GILBERT PAULINO Comment: Test Performed by Benoit Glez, [employer] [facility], [address] [place] [address] Mendez See M.D., Ph.D., Director of Laboratories , [facility] [id number] 11/19/2024 8:20 AM DROP WIRE ALINER Abebe Moreau MD LABORATORY Final Result Performing Organization Address City/[facility]/ZIP Co de Phone Number [employer] [place] [id number] [place] [address], [place] [phone] from Last 3 Months Insurance Care Teams Telecine Operator Relationship Specialty Start Date End Date William Bradley MD [address] [place], [place] [phone] PCP - General FAMILY PRACTICE 09/16/23
--- OUTSIDE RECORDS SUMMARY | 2025-01-07 21:23 | XMS_ITS | Encounter Summary ---
Author Organization [facility] Address [address] [place] [address] Care Team Providers Care Biological Science Technician Fish Name Role Phone William Bradley MD Primary Care Provider [phone] Reason for Visit * Reason Onset Date Comments Holter Monitor 01/07/2025 * Imaging (Routine) - Closed Specialty Diagnoses / Procedures Referred By Johnny mera Referred To Contact Diagnoses Ventricular arrhythmia Procedures CLINIC - OUTPATIENT EVENT RECORDER (ECG) UP TO 30 DAYS COMPLETE (Holter) [facility] [address] Phone: tel: fax: Sabino Ambrose MD [address] [facility] [address] [place] [phone] Phone: tel: fax: Referral ID Status Reason Start Date Expiration Date Visits Re quested Visits Authorized [id number] Closed 01/01/2025 01/01/2026 1 1 Encounter Details Date Type Department Care Team (Late st Contact Info) Description 01/07/2025 1:00 PM CDT Telephone [facility] [facility] [address] [place] [address] Sabino Ambrose MD 3 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 Not on file Not on file documented as of this encounter Progress Notes * Stephenie Vera - 01/07/2025 9:52 AM CDT 4 day bg shipped out Out [phone] [place] [id number] documented in this encounter Plan of Treatment Upcoming Encounters Date Type Department Care Team (Late st Contact Info) Description 01/18/2025 8:00 AM CDT Office Visit [facility] - [address], [address] [place] [phone] Kavita Mandujano NP 3 [facility] [address] [place] [address] 02/25/2025 9:40 AM CDT Office Visit [facility] - [address] [place] [phone] Tierney Constantino NP [address] [place] [address] [address] [place] [address] 02/25/2025 1:30 PM CDT Appointment [facility] [place] [address] Sabino Ambrose MD 3 [facility] [address] [place] [phone] 07/02/2025 9:30 AM CDT Office Visit [facility] [phone] Sabino Ambrose MD 3 [facility] [address] [place] [address] documented as of this encounter Visit Diagnoses Diagnosis Ventricular arrhythmia Cardiac dysrhythmia, unspecified documented in this encounter Care Teams Biological Science Technician Fish Relationship Specialty Start Date End Date William Bradley MD [address] [facility] [address] [place] [phone] PCP - General FAMILY PRACTICE 09/16/23 documented as of this encounter
--- OUTSIDE RECORDS SUMMARY | 2025-01-07 21:23 | XMS_ITS | Encounter Summary ---
Author Organization [facility] Healthcare Address [address] [place] [address] Care Team Providers Care Heavy Equipment Operator/Paver Name Role Phone William Bradley MD Primary Care Provider [phone] William Bradley MD Primary Care Provider Erik Reed MD Unavailable Abebe Moreau MD Unavailable Kanu Bustos MD Unavailable Karly Villarreal MD Unavailable Boogie Reilly MD Unavailable [phone] Encounter Details Date Type Department Care Team (Late st Contact Info) Description 03/05/2024 E-Visit [facility] Medical Group Pulmonary [place] 14[address] [facility] [address] [place] [phone] Abebe Moreau MD [address] [facility] [address] [place] [address] Side effects/surgery Social History Tobacco Use [...] on file Legal Sex Female 1:50 AM SUPERVISOR GARAGE Gender Identity Female 05/17/2021 10:31 AM CDT Sexual Orientation Straight 05/17/2021 10 :31 AM CDT 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 [address] [place] [address] Consulting Physician Pulmonary Disease 09/21/24 Kanu Bustos MD 5003 [facility] 1 [place] [address] Consulting Physician Internal Medicine 09/21/24 [place] [address] [facility] [address] [place] [address] Consulting Physician Rheumatology 09/21/24 Boogie Reilly MD 321 [facility] 100 [facility] 100 [place] [address] Referring Physician Hematology and Oncology 09/21/24 documented as of this encounter
--- OUTSIDE RECORDS SUMMARY | 2025-01-07 21:23 | XMS_ITS | Encounter Summary ---
Author Organization [facility] Care Team Providers Care Bean Roaster Name Role Phone Unknown, Notinfile Primary Care Provider Unavail able William Bradley MD Primary Care Provider Nini Grewal Primary Care Provider Nini Grewal Primary Care Provider Wililam Bradley MD Primary Care Provider [phone] William Bradley MD Primary Care Provider [phone] Erik Reed MD Unavailable [phone] Abebe Moreau MD Unavailable [phone] Kanu Bustos MD Unavailable Karly Villarreal MD Unavailable Boogie Reilly MD Unavailable [phone] Encounter Details Date Type Department Care Team (Latest Contact Info) Description 01/30/2017 Orders Only [facility] CLINCON[facility] ProviderWalker MD [address] [place] [address] Social History Tobacco Use Types Packs/Day Years Used Date Smoking Tobacco: Every Day Comments Unknown Sex and Gender Information Value Date Recorded Sex Assigned at Not on file Legal Sex Female 1:50 AM 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 Gender Identity Female 05/17/2021 10:31 AM CDT [...] documented as of this encounter Care Teams Bean Roaster Relationship Specialty Start Date End Date Unknown, Notinfile PCP - General 04/30/18 05/13/18 William Bradley MD PCP - General 05/14/18 06/17/22 Nini Grewal PA PCP - General Family Medicine 06/18/22 03/21/23 Nini Grewal PA [address] [facility] [address] [place] [address] PCP - General Family Medicine 03/25/23 04/24/23 William Bradley MD [address] [facility] [address] [place] [address] PCP - General Family Medicine 04/25/23 05/11/24 William Bradley MD [address] [facility] [address] [place] [address] PCP - General Family Medicine 05/12/24 Erik Reed MD [address] [place] [address] 3 [place] [address] Referring Physician Interventional Cardiology 09/21/24 [place] [address] [place] [address] [address] [place] [address] Consulting Physician Pulmonary Disease 09/21/24 Kanu Bustos MD 5[address] [facility] 1 [place] [address] Consulting Physician Internal Medicine 09/21/24 [place] [address] [facility] [address] [place] [address] Consulting Physician Rheumatology 09/21/24 Boogie Reilly MD [address] [place] [address] Referring Physician Hematology and Oncology 09/21/24 documented as of this encounter
--- OUTSIDE RECORDS SUMMARY | 2025-01-07 21:23 | XMS_ITS | Encounter Summary ---
Author Organization [facility] Facility Care Team Providers Care Diesel Fitter Mechanic Name Role Phone Unknown, Notinfile Primary Care Provider Unavail able William Bradley MD Primary Care Provider Nini Grewal Primary Care Provider Nini Grewal Primary Care Provider William Bradley MD Primary Care Provider [phone] William Bradley MD Primary Care Provider [phone] Erik Reed MD Unavailable [phone] Abebe Moreau MD Unavailable [phone] Kanu Bustos MD Unavailable Karly Villarreal MD Unavailable Boogie Reilly MD Unavailable [phone] Encounter Details Date Type Department Care Team (Latest Contact Info) Description 08/20/2017 Orders Only [facility] CLINCONV ProviderWalker MD [address] [place] [address] Social History Tobacco Use Types Packs/Day Years Used Date Smoking Tobacco: Every Day Comments Unknown Sex and Gender Information Value Date Recorded Sex Assigned at Not on file Legal Sex Female 1:50 AM DRAPERY INSPECTOR Gender Identity Female 05/17/2021 10:31 AM CDT Sexual Orientation Straight 05/17/2021 10 :31 AM CDT documented as of this encounter Plan of Treatment Not on file documented as of this encounter Procedures Procedure Name Priority Date/Time Associated Diagnosis Comments SCAN - LABS 08/21/2017 12:00 AM DRAPERY INSPECTOR documented in this encounter Results * SCAN - LABS (08/21/2017 12:00 AM DRAPERY INSPECTOR) Narrative 08/21/2017 12:00 AM DRAPERY INSPECTOR Ordered by an unspecified provider. us Historical Provider Final Res ult documented in this encounter Visit Diagnoses Not on filedocumented in this encounter Additional Health Concerns Infection Onset Date Last Indicated Resolved Time COVID: Suspected 05/18/2021 05/18/2021 06/01/2021 3:05 AM CDT documented as of this encounter Care Teams Diesel Fitter Mechanic Relationship Specialty Start Date End Date Unknown, Notinfile PCP - General 04/30/18 05/13/18 William Bradley MD PCP - General 05/14/18 06/17/22 Nini Grewal PA PCP - General Family Medicine 06/18/22 03/21/23 Nini Grewal PA [address] [facility] [address] [address] [place] [address] PCP - General Family Medicine 03/25/23 04/24/23 William Bradley MD [address] [facility] [address] [place] [address] [place] [address] PCP - General Family Medicine 04/25/23 05/11/24 William Bradley MD [address] [facility] 210 [place] [address] PCP - General Family Medicine 05/12/24 Erik Reed MD [address] [place] [address] 3 [place] [address] Referring Physician Interventional Cardiology 09/21/24 Abebe Moreau MD [address] [place] [address] [address] [place] [address] Consulting Physician Pulmonary Disease 09/21/24 Kanu Bustos MD [address] [facility] 1 [place] [address] Consulting Physician Internal Medicine 09/21/24 [place] [address] [facility] 70 [place] [address] Consulting Physician Rheumatology 09/21/24 Boogie Reilly MD [address] [address] Referring Physician Hematology and Oncology 09/21/24 documented as of this encounter
--- OUTSIDE RECORDS SUMMARY | 2025-01-07 21:23 | XMS_ITS | Clinical Summary ---
Author Organization [facility] Address [facility] [place] [address] Care Team Providers Care Family Practice Md Name Role Phone Unavailable Primary Care Provider Unavailabl e Social History Tobacco Use Types Packs/Day Years Used Date Smoking Tobacco: Never Assessed Comments Unknown Sex and Gender Information Value Date Recorded Sex Assigned at Not on file Legal Sex Female 5:44 PM CERAMIC PAINTER Gender Identity Not on file Sexual Orientation [...] (2 - Td or Tdap) 12/17/2030 Insurance backstitch
--- OUTSIDE RECORDS SUMMARY | 2025-01-07 21:23 | XMS_ITS | Encounter Summary ---
Author Organization [facility] Address [address] [place] [address] Care Team Providers Care Automotive Professional Name Role Phone William Bradley MD Primary Care Provider [phone] Reason for Visit * Reason Onset Date Comments Question 01/07/2025 Encounter Details Date Type Department Care Team (Late st Contact Info) Description 01/07/2025 Telephone [facility] [address] [address] Ad Sawyer DO 3 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 Authorzation [id number] valid 01/07/25 through 04/06 documented in this encounter Plan of Treatment Upcoming Encounters Date Type Department Care Team (Late st Contact Info) Description 01/18/2025 8:00 AM CDT Office Visit [facility] 3 Health system, [address] [place] [phone] Kavita Mandujano NP 3 [facility] [address] [place] [address] 02/25/2025 9:40 AM CDT Office Visit [facility] 3 Health system[address] [place] [phone] Tierney Constantino NP 3 [facility] [address] [place] [address] 02/25/2025 1:30 PM CDT Appointment [facility] [place] [address] Sabino Ambrose MD 3 [facility] [place] [address] [place] [phone] 07/02/2025 9:30 AM CDT Office Visit [facility]-[address] [address] Sabino Ambrose MD 3 [facility] [address] [place] [phone] documented as of this encounter Visit Diagnoses Not on filedocumented in this encounter Care Teams Automotive Professional Relationship Specialty Start Date End Date William Bradley MD [address] [place] [address] PCP - General FAMILY PRACTICE 09/16/23 documented as of this encounter
--- OUTSIDE RECORDS SUMMARY | 2025-01-07 21:23 | XMS_ITS | Encounter Summary ---
Author Organization [facility] Address [address] [place] [address] Care Team Providers Care Electrician Locomotive Name Role Phone William Bradley MD Primary Care Provider [phone] Encounter Details Date Type Department Care Team (Latest Contact Info) Description 01/07/2025 Results Follow-Up [facility] Medical Group Multispecialty Care - [facility] 3 [facility], [address] [place] [phone] Tierney Constantino NP 3 [facility] [address] [place] [address] [place] GASTRIC EMPTYING STUDY Social History Tobacco Use [...] Sex Assigned at Female 11/16/2024 8:34 AM REAL ESTATE COORDINATOR Legal Sex Female 6:38 AM CDT Gender Identity Female 11/16/2024 8:34 AM REAL ESTATE COORDINATOR Sexual Orientation Not on file Occupation Industry Job Start Date Job End Date [employer] Not on file Not on file Not on file documented as of this encounter Plan of Treatment Upcoming Encounters Date Type Department Care Team (Late st Contact Info) Description 01/18/2025 8:00 AM CDT Office Visit [facility] 3 [facility], [address] [place] [phone] Kavita Mandujano NP 3 [facility] [address] [place] [address] 02/25/2025 9:40 AM CDT Office Visit [facility] - [address] [place] [phone] Tierney Constantino NP 3 [facility] [address] [place] [address] 02/25/2025 1:30 PM CDT Appointment [facility] [place] [address] Sabino Ambrose MD 3 [facility] [address] [place] [phone] 07/02/2025 9:30 AM CDT Office Visit [facility] [phone] Sabino Ambrose MD 3 [facility] [address] [place] [address] documented as of this encounter Visit Diagnoses Not on filedocumented in this encounter Care Teams Electrician Locomotive Relationship Specialty Start Date End Date William Bradley MD [address] [place] [address] PCP - General FAMILY PRACTICE 09/16/23 documented as of this encounter
--- OUTSIDE RECORDS SUMMARY | 2025-01-07 21:23 | XMS_ITS | Encounter Summary ---
Author Organization [facility] Facility Care Team Providers Care Peoplesoft Name Role Phone William Bradley MD Primary Care Provider Nini Grewal Primary Care Provider Nini Grewal Primary Care Provider William Bradley MD Primary Care Provider [phone] William Bradley MD Primary Care Provider [phone] Erik Reed MD Unavailable [phone] Abebe Moreau MD Unavailable Kanu Bustos MD Unavailable Karly Villarreal MD Unavailable Boogie Reilly MD Unavailable [phone] Encounter Details Date Type Department Care Team (Latest Contact Info) Description 10/10/2018 Orders Only [facility] CLINCONV Provider, MD Walker [address] [place] [address] Social History Tobacco Use Types Packs/Day Years Used Date Smoking Tobacco: Every Day Comments Unknown Sex and Gender Information Value Date Recorded Sex Assigned at Not on file Legal Sex Female 1:50 AM MANUAL QA TESTER Gender Identity Female 05/17/2021 10:31 AM CDT Sexual Orientation Straight 05/17/2021 10 :31 AM CDT documented as of this encounter Plan of Treatment Not on file documented as of this encounter Procedures Procedure Name Priority Date/Time Associated Diagnosis Comments CARDIOLOGY REPORT 10/10/2018 12: 00 AM MANUAL QA TESTER documented in this encounter Results * CARDIOLOGY REPORT (10/10/2018 12:00 AM MANUAL QA TESTER) Anatomical Region Laterality Modality Other Narrative 10/10/2018 12:00 AM MANUAL QA TESTER Ordered by an unspecified provider. us Historical Provider [facility] Final Result documented in this encounter Visit Diagnoses Not on filedocumented in this encounter Additional Health Concerns Infection Onset Date Last Indicated Resolved Time COVID: Suspected 05/18/2021 05/18/2021 06/01/2021 3:05 AM CDT documented as of this encounter Care Teams Peoplesoft Relationship Specialty Start Date End Date William Bradley MD PCP - General 05/14/18 06/17/22 Nini Grewal PA PCP - General Family Medicine 06/18/22 03/21/23 Nini Grewal PA [address] [facility] [address] [place] [address] PCP - General Family Medicine 03/25/23 04/24/23 William Bradley MD [address] [facility] [address] [place] [address] PCP - General Family Medicine 04/25/23 05/11/24 William Bradley MD [address] [facility] 210 [place] [address] PCP - General Family Medicine 05/12/24 Erik Reed MD [address] [place] [address] 3 [place] [address] Referring Physician Interventional Cardiology 09/21/24 Abebe Moreau MD 14[address] [facility] 350 [place], [place] [address] Consulting Physician Pulmonary Disease 09/21/24 Kanu Bustos MD 5[address] [facility] 1 [place] [address] Consulting Physician Internal Medicine 09/21/24 [place] [address] [facility] 70 [place] [address] Consulting Physician Rheumatology 09/21/24 Boogie Reilly MD 321 [facility] 100 [facility] 100 [place] [address] Referring Physician Hematology and Oncology 09/21/24 documented as of this encounter
--- OUTSIDE RECORDS SUMMARY | 2025-01-07 21:23 | XMS_ITS | Encounter Summary ---
Author Organization [facility] Address [address] [place] [address] Care Team Providers Care Steam Finisher Name Role Phone William Bradley MD Primary Care Provider [phone] Encounter Details Date Type Department Care Team (Late Contact Info) Description 02/20/2024 [employer] Message Enc [facility] Medical [facility] Orthopedic & Sports Medicine - [place] [address] [place] [address] Aashish, [facility] Provider MRI cervical spine Social History Tobacco Use Types Packs/Day Years Used Date Smoking Tobacco: Former Cigarettes 0.5 25 1 987 - 2011 Smokeless Tobacco: Never Alcohol Use Standard Drinks/Week Comments Not Currently 0 (1 standard drink = 0.6 oz pur e alcohol) Comments No Sex and Gender Information Value Date Recorded Sex Assigned at Female 11/16/2024 8:34 AM SENIOR MOBILE WEB DEVELOPER Legal Sex Female 6:38 AM CDT Gender Identity Female 11/16/2024 8:34 AM SENIOR MOBILE WEB DEVELOPER Sexual Orientation Not on file documented as of this encounter Plan of Treatment Upcoming Encounters Date Type Department Care Team (Late Contact Info) Description 01/18/2025 8:00 AM CDT Office Visit [facility] Multispecialty Care - [address], [address] [place] [address] Kavita Mandujano NP 3 [facility] [address] [place] [address] 02/25/2025 9:40 AM CDT Office Visit [facility] Medical Group Multispecialty Care - [facility] 3 [facility] [address] [place] [address] Tierney Constantino NP 3 [facility] [address] [place] [address] 02/25/2025 1:30 PM CDT Appointment [facility] Non Invasive Cardiology ONE [facility] [place] [address] Sabino Ambrose MD 3 [facility] [address] [place] [phone] 07/02/2025 9:30 AM CDT Office Visit [facility]-[address] [address] Sabino Ambrose MD 3 [facility] [address] [place] [phone] documented as of this encounter Visit Diagnoses Not on filedocumented in this encounter Care Teams Steam Finisher Relationship Specialty Start Date End Date William Bradley MD [address] [place] [address] PCP - General FAMILY PRACTICE 09/16/23 documented as of this encounter
--- OUTSIDE RECORDS SUMMARY | 2025-01-07 21:23 | XMS_ITS | Clinical Summary ---
Author Organization [facility] Address [address] [place] [address] Care Team Providers Care Bean Viner Name Role Phone William Bradley MD Primary Care Provider Erik Reed MD Unavailable [phone] Abebe Moreau MD Unavailable Kanu Bustos MD [...] by mouth daily 02/13/20 24 Active thyroid (Clifton Thyroid) 30 mg tablet 1 tablet (30 mg total) daily Active AIR POLLUTION ENGINEER Thyroid 60 mg tablet 0.5 tablets (30 [...] 09/01/2024 Assessment & Plan (09/01/2024 7:56 PM UNIT LEADER): I am recommending a sinus CT scan for further evaluation this. She would like to go ahead and pursue that. I did note that she has a severe deviation of nasal septum to the right side with enlarged inferior turbinates. That could be causing some of her symptoms. She understands. Ear fullness, bilateral 09/01/2024 Assessment & Plan (09/01/2024 7:57 PM UNIT LEADER): I reassured her that her ears look [...] 01/25/2023 Assessment & Plan (08/29/2023 11:28 AM UNIT LEADER): Complains of abdominal pain since COVID vaccination [...] 01/25/2023 Assessment & Plan (08/29/2023 11:28 AM UNIT LEADER): Intermittent bright red blood per rectum. -colonoscopy [...] 01/25 Assessment & Plan (08/29/2023 11:30 AM UNIT LEADER): Chronic constipation for the past 2 years. -high-fiber diet -continue probiotics -continue Linzess Constipation 01/25/2023 Assessment & Plan (08/29/2023 11:18 AM UNIT LEADER): Chronic constipation for the past 2 years, [...] 06/16/2021 Assessment & Plan (08/29/2023 11:27 AM UNIT LEADER): Intermittent dysphagia to solids. EGD June 2023 with irregular Z-line, status post dilation to 54 Italian. Pathology unremarkable. No further dysphagia since dilation. [...] Department Care Team Description 12/28/2024 Results Follow-Up [facility] Met[facility] and [facility]id [address] [facility] 5th [place] [address] [place] [address] Keren Olson MD 12/25/2024 9:50 AM CDT Lab [facility] [address] [facility] [address] [place] [address] 12/25/2024 9:46 AM CDT - 12/25/2024 11:59 PM CDT Hospital Encounter [facility] [address] [place] [address] Fatigue, unspecified type; Hypothyroidism, unspecified type Discharge Disposition: Discharge to home or self care 12/25/2024 8:40 AM CDT Office Visit [facility] [address] [facility] [address] [place] [address] Keren Olson MD Fatigue, unspecified type (Primary Dx); Hypothyroidism, unspecified type; H/O systemic steroid therapy 12/15/2024 12:00 PM CDT Office Visit [facility] Pulmonary [address] [place] [address] Abebe Moreau MD Sarcoidosis (Primary Dx); Mediastinal lymphadenopathy; Pulmonary nodule; Seasonal allergic rhinitis, unspecified trigger; Gastroesophageal reflux disease without esophagitis 12/04/2024 Telephone [facility] [place] [address] Serna Eleni 11/16/2024 7:39 AM UNIT LEADER - 11/16/2024 11:59 PM UNIT LEADER Hospital Encounter [facility] [address] [place] [address] Sarcoidosis; Mediastinal lymphadenopathy Discharge Disposition: Discharge to home or self care 10/15/2024 9:45 AM UNIT LEADER Lab [facility] 1 Lab [address] [place] [address] Acute cough 10/15/2024 9:00 AM UNIT LEADER Office Visit [facility] Pulmonary [address] [place] [address] Abebe Moreau MD Sarcoidosis (Primary Dx); Acute [...] on file Legal Sex Female 1:50 AM UNIT LEADER Gender Identity Female 05/17/2021 10:31 AM CDT [...] CHEST WO CONTRAST Routine 11/16/2024 7:44 AM UNIT LEADER Sarcoidosis Mediastinal lymphadenopathy INFLUENZA A/B, RSV, AND COVID-19 PCR Routine 10/15/2024 9:58 AM UNIT LEADER Acute cough COLONOSCOPY 01/08/2024 11:02 AM CDT HEPATITIS PANEL, ACUTE Routine 09/24/2022 7:13 AM UNIT LEADER Dizziness SOB (shortness of breath) Benign essential HTN Chronic fatigue HM MAMMOGRAPHY Routine 06/07/2022 PAP SMEAR Routine 09/14/2020 from Last 3 Months or Most Recently Relevant to Health Maintenance Results * Reflex thyroglobulin, tumor marker, IA, S (12/25/2024 9:46 AM CDT) Thyroglobulin, Tumor Marker 13 < or = 33 ng/mL [facility] Thyroglobulin interp See Footnote ULISES TERRAZAS [...] testing methods are immunoenzymatic assays manufactured by [employer] and performed on the [employer] DXI 800. Values obtained from different assay methods or kits may be different and cannot be used interchangeably. The results cannot be interpreted as absolute evidence for the presence or absence of malignant disease. Test Performed by: [place] [address] Physicians And Surgeons: Kitty Azevedo Ph.D.; CLIA# [id number] Blood 12/25/2024 9:46 AM CDT 12/25/2024 7:50 PM CDT us Keren Olson MD LAB BLOOD ORDERABLES Final Resul t ULISES TERRAZ[facility] [address] Department [place] [address] [place] ref Lab * Thyroglobulin reflex to MS or IA (12/25/2024 9:46 AM CDT) Anti-thyroglobulin <1.8 <1.8 IUnits/mL [facility] ref [facility] Comment: Thyroglobulin Antibody < 1.8 IU/mL. Thyroglobulin performed by Immunoassay to follow. Test Performed by: [facility] [address] [place] [address] Physicians And Surgeons: Kitty Azevedo Ph.D.; CLIA# [id number] Blood 12/25/2024 9:46 AM CDT 12/25/2024 7:50 PM CDT Keren Olson MD LAB BLOOD ORDERABLES Final Resul t [place] [place]RAZ[place] [address] [place] [address] [place] ref Lab * Thyroid peroxidase antibody (TPO) (12/25/2024 9:46 AM CDT) Anti Thyroid Peroxidase <30 <=34 IUnits/mL Comment: ATPO Interpretive Data Results may be up to 28% higher in patients receiving Itraconazole. Current interpretive data was last revised 2020. Testing performed by: [facility], [address] [place]., [address] Blood 12/25/2024 9:46 AM CDT 12/26/2024 12:02 AM CDT Keren Olson MD LAB BLOOD ORDERABLES Final Resul t ULISES NINI [address] [address] [place] [address] * T3, free (12/25/2024 9:46 AM CDT) Free T3 3.2 2.0 - 4.4 pg/mL Blood 12/25/2024 9:46 AM CDT 12/25/2024 7:09 PM CDT Keren Olson MD LAB BLOOD ORDERABLES Final Resul t Performing Organization Address [facility] Co de Phone Number ULISES TERRAZAS [address] [address] [facility] [place] [address] * TSH (12/25/2024 9:46 AM CDT) Thyroid Stimulating Hormone 2.08 0.30 - 4.20 mcIUnit/mL Blood 12/25/2024 9:46 AM CDT 12/25/2024 7:09 PM CDT Keren Olson MD LAB BLOOD ORDERABLES Final Resul t Performing Organization Address [facility] de Phone Number ULISES TERRAZAS [address] [address] [facility] [place] [address] * T4, free (12/25/2024 9:46 AM CDT) Free T4 1.12 0.90 - 1.70 ng/dL Blood 12/25/2024 9:46 AM CDT 12/25/2024 7:09 PM CDT Keren Olson MD LAB BLOOD ORDERABLES Final Resul t Performing Organization Address [facility] de Phone Number ULISES TERRAZAS [address] [address] [facility] [place] [address] * CT Chest WO Contrast (11/16/2024 7:44 AM UNIT LEADER) Anatomical Region Laterality Modality Body N/A Computed Tomogra phy 11/19/2024 3:20 AM UNIT LEADER Narrative 11/19/2024 3:49 AM UNIT LEADER EXAM DESCRIPTION: CT CHEST WO CONTRAST REASON [...] Steffen Erazo M.D. BB: GAIL Report ID: [id number] Reading Location: [id number] Procedure Note Steffen Erazo MD PhD - [...] Steffen Erazo M.D. BB: GAIL Report ID: [id number] Reading Location: [id number] Abebe Moreau MD IMG CT PROCEDURES Melania l Result * Influenza A/B, RSV, and COVID-19 PCR Nasopharyngeal (10/15/2024 9:58 AM UNIT LEADER) COVID-19 RNA Negative Negative Comment:Testing performed by : [address] [address] Influenza A RNA Negative Negative [facility] Comment:Testing performed by : [address] [address] Influenza B RNA Negative Negative [facility] Comment:Testing performed by : [address] [address] RSV RNA Negative Negative [facility] Comment: Interpretive data: Testing performed by [facility]. This test is performed using the [employer] Xpert Xpress CoV-2/Flu/RSV plus assay. This is a multiplex, real-time reverse transcriptase PCR assay intended for the qualitative detection of nucleic acid from SARS-CoV-2, influenza A, influenza B, and respiratory syncytial virus. This assay has been cleared by the [place] Food and Drug administration. The performance characteristics have been verified by the [facility]. Results must be considered in the clinical context, and a negative result does not rule out infection. Interpretive Data last revised 2023 Testing performed by: [address] [address] Nasopharyngeal 10/15/2024 9: 58 AM UNIT LEADER 10/15/2024 10:38 AM UNIT LEADER Narrative [facility] - 10/15/2024 11:17 AM UNIT LEADER Is the Patient experiencing symptoms consistent with COVID?->No Abebe Moreau MD LAB MICROBIOLOGY - GEN ERAL ORDERABLES Final Result [facility] [address] [facility] Department [place] [address] * Colonoscopy (01/08/2024 11:02 AM CDT) Anatomical Region Laterality Modality Other Narrative Procedure Note Dewayne Briggs MD - 01/08/2024 11:02 AM CDT [facility] GI ENDOSCOPY Patient Name: Petra Hackett Procedure Date: 01/08/2024 11:02 AM Date of : 1975 Admit Type: Outpatient Age: 48 Gender: Female Attending MD: Dewayne Briggs M.D. Room: [facility] ENDOSCOPY ROOM 06 Note Status: Finalized Procedure: [...] The scope was passed under direct vision.The PCF-BT080H colonoscope was introduced through theanus and advanced [...] On: 01/08/2024 11:02 AM Recognized by the [employer] for promoting quality in endoscopy us Dewayne Briggs MD ENDOSCOPY PROCEDURES Final Resul t * Hepatitis panel, acute (09/24/2022 7:13 AM UNIT LEADER) Hep A IgM Negative Negative [facility] - 01 HepBsAg Negative Negative [facility] - 01 Hep B core IgM Negative Negative [facility] - 01 Hep C Ab <0.1 0.0 - 0.9 s/co ratio [facility] - 01 Blood 09/24/2022 7:13 AM UNIT LEADER 09/24/2022 Narrative [facility] - 09/25/2022 6:09 AM UNIT LEADER Performed at: - [facility] [address] [id number] Physicians And Surgeons: Jose Dacosta PhD, Phone: [phone] Nini MCCORMICK LAB MICROBIOLOGY - GENE RAL ORDERABLES Final Result [facility] - * HM MAMMOGRAPHY (06/07/2022) Historical Provider HEALTH MAINTENANCE Final Result * Pap Smear (09/14/2020) 09/14/2020 Historical Provider MD LAB PATHOLOGY ORDERABLES Final Result from Last 3 Months or Most Recently Relevant to Health Maintenance Insurance [employer] [facility] ANTHEM ACCESS CHOICE Advance Directives For more information, please contact: [phone] * Full Code (Latest Code Status on File) Date Activated Date Inactivated Comments 06/15/2024 2:04 PM 06/15/2024 7:50 PM * Full Code Date Activated Date Inactivated Comments 11/01/2022 1:53 PM 11/02/2022 6:56 PM Care Teams Bean Viner Relationship Specialty Start Date End Date William Bradley MD PCP - General Family Medicine 05/12/24 Erik Reed MD [address] [place] [address] 3 [place] [address] Referring Physician Interventional Cardiology 09/21/24 Abebe Moreau MD [address] [facility] [address] [place], [place] [id number] Consulting Physician Pulmonary Disease 09/21/24 Kanu Bustos MD [address] [facility] 1 [place], [place] [id number] Consulting Physician Internal Medicine 09/21/24 [place] [address] [facility] [address] [place] [address] Consulting Physician Rheumatology 09/21/24 Boogie Reilly MD [address] [facility] [address] [place], [place] [id number] Referring Physician Hematology and Oncology 09/21/24
[2025-01-07 21:37] LABS: Basophils Percent Auto 0.6 % (0.2-1.2); Eosinophils Absolute Auto 0.1 K/mm3 (0-0.3); Eosinophils Percent Auto 2.2 % (0-4.4); Hematocrit 40.1 % (37.0-47.0); Hemoglobin 13.6 g/dL (12.0-15.0); Immature Granulocyte Absolute 0.04 K/mm3 (0.00-0.031); Immature Granulocyte Percent A 0.6 % (0-0.5); Lymphocytes Absolute Auto 0.96 K/mm3 (0.9-3.2); Lymphocytes Percent Auto 14.9 % (18.3-44.2); Mean Corpuscular HGB Conc 33.9 g/dl (32-36); Mean Corpuscular Volume 94.4 fl (80-100); Mean Platelet Volume 10.8 fl (7.4-10.4); Monocytes Absolute Auto 0.6 K/mm3 (0.1-0.6); Monocytes Percent Auto 9.5 % (2.6-8.5); Neutrophils Absolute Auto 4.7 K/mm3 (1.3-6.7); Neutrophils Percent Auto 72.2 % (45.5-73.1); Platelet Count Result 154 k/mm3 (150-375); Red Blood Count 4.25 M/mm3 (4.2-5.4); Red Cell Distribution Width 12.9 % (11.5-14.5); White Blood Count 6.4 K/mm3 (4.5-10.0)
[2025-01-07 21:49] LABS: Alanine Aminotransferase 27 U/L (6-35); Albumin Level 4.1 g/dL (3.5-5.1); Alkaline Phosphatase 52 U/L (38-126); Anion Gap 13 mmol/L (4-12); Aspartate Amino Transferase 30 U/L (14-36); Bilirubin,Total 0.7 mg/dL (0.2-1.3); Blood Urea Nitrogen 15 mg/dL (7-17); Calcium 8.6 mg/dL (8.4-10.2); Carbon Dioxide 23 mmol/L (22-30); Chloride 100 mmol/L (98-107); Estimated CRCL calculation 85 ml/min; Estimated Glomerular Filt Rate > 60; Glucose 98 mg/dL (65-110); Lipase 65 U/L (23-300); Partial Thromboplastin Time 28.5 Seconds (22.3-36.8); Sodium 136 mmol/L (137-145)
[2025-01-07 22:04] LABS: Troponin I < 0.012 ng/mL (0.000-0.034)
[2025-01-07] MEDS: MAG HYDROX/AL HYDROX/SIMETH 30 ML UDC PO (23:21)
[2025-01-08 00:11] LABS: Troponin I < 0.012 ng/mL (0.000-0.034)
[2025-01-08 00:36] VITALS: BP 127/79; PULSE 83; RESP 18; O2SAT 100
== END 2025-01-08 00:36 | disposition home or self-care (01) ==
PROVIDERS: Emergency Provider Emergency Medicine; PCP Family Medicine
DX: K21.9 Gastro-esophageal reflux disease without esophagitis (principal); E78.00 Pure hypercholesterolemia, unspecified
CPT/HCPCS: 36415; 71046; 80053; 83690; 84484; 85025; 85610; 85730; 93005; 99284; A9270

== ENCOUNTER 2025-04-22 11:32 | Outpatient (CLI) | payer BC, SELFPAY ==
--- NOTE | ~2025-04-22 | CT_ITS ---
EXAMINATION: CT abdomen pelvis wo con DATE: 04/22/2025 11:58 INDICATION: Acute appendicitis TECHNIQUE: Computed tomography (CT) of the abdomen and pelvis was performed without intravenous contr ast. The dose-length product was 738.99 mGy-cm. Automated exposure control and iterative reconstructi on technique were employed. COMPARISON: None. FINDINGS: Lung bases unremarkable. Heart size normal. No significant pleural or pericardial effusion. Status post cholecystectomy. The spleen, pancreas, adrenal glands and left kidney are unremarkable. There is a small right renal cysts with layering milk of calcium. Nonobstructive bowel gas pattern. N ormal appendix. No free fluid or free air. There is small amount of nondependent gas in the bladder, possibly from recent instrumentation. Clinically correlate. There are cholecystectomy clips. No signi ficant vascular abnormality. No lymphadenopathy. Mild lower thoracic and lumbar spondylosis with grad e 1 degenerative spondylolisthesis at L4-5. IMPRESSION: 1. No acute abdominal abnormality. Reviewed, dictated and finalized at location A.
--- OUTSIDE RECORDS SUMMARY | 2025-04-22 11:36 | XMS_ITS | Encounter Summary ---
Author Organization [facility] Address [address] [place] [address] Care Team Providers Care Social Insurance Specialist Name Role Phone Blake Herbert MD Primary Care Provider [phone] Encounter Details Date Type Department Care Team (Late st Contact Info) Description 03/23/2022 Lab Requisition [facility] Care DermPath Lab [address] [facility] [place] [phone] Jefry Smith MD [address] [address] Social History Tobacco Use Types Packs/Day Years Used Date Smoking Tobacco: Never Assessed Alcohol Use Standard Drinks/Week Comments Yes 0.8 (1 standard drink = 0.6 oz p ure alcohol) Comments Unknown Sex and Gender Information Value Date Recorded Sex Assigned at Not on file Legal Sex Female 7:32 PM PBX MECHANIC Gender Identity Not on file Sexual Orientation Not on file documented as of this encounter Plan of Treatment Not on file documented as of this encounter Procedures Procedure Name Priority Date/Time Associated Diagnosis Comments DERMATOPATHOLOGY Routine 03/23/2022 12:0 0 AM CDT documented in this encounter Results * DERMATOPATHOLOGY (03/23/2022 12:00 AM CDT) Case Report Dermatopathology Report Case: [id number] Authorizing Provider: Jefry Smith MD Collected: 03/23/2022 12:00 AM Ordering Location: [facility] DermPath Lab Received: 03/23/2022 04:49 PM Pathologist: Mary Arcos MD Specimen: Skin, right shoulder 12:18 PM CDT DERMATOPATHOLOGY LABORATORY Final Diagnosis Specimen A. SKIN, right shoulder: SEBORRHEIC KERATOSIS, IRRITATED AND INFLAMED (L82.0) 12:18 PM CDT DERMATOPATHOLOGY LABORATORY at 1218 CDT Clinical History Nevus vs. SK vs. Other. Path# [id number] 12:18 PM CDT DERMATOPATHOLOGY LABORATORY Gross Description Specimen A: Received is one formalin filled container labeled with the patient's name and designated right shoulder. The specimen consists of a shave biopsy measuring [id number]. Jar 0. 12:18 PM CDT DERMATOPATHOLOGY LABORATORY [...] characteristic determined by the Dermatopathology Laboratory at [facility], directed by Dr. Micha Gilbert. These tests need not be, and therefore are not, approved by the [place] Food and Drug Administration. The tests are used for clinical purposes. Billing Codes Specimen Charges Stain Charges 30503 1 2 12:18 PM CDT DERMATOPATHOLOGY LABORATORY Embedded Images 12:18 PM CDT DERMATOPATHOLOGY LABORATORY Pathology/Cytolog y TISSUE SPECIMEN FROM SKIN / Unknown 03/23/2022 03/23/2022 4:49 PM CDT us Jefry Smith MD LAB - PATHOLOGY/CYTOLOGY ORDER BATOOL Final Result DERMATOPATHOLOGY LABORATORY [facility] - Department of Dermatology [facility] Specialized Medicine [address] [place] [address], [address] [phone] documented in this encounter Visit Diagnoses Not on filedocumented in this encounter Care Teams Social Insurance Specialist Relationship Specialty Start Date End Date Blake Herbert MD [address] [place] [address] PCP - General 03/10/09 documented as of this encounter
--- OUTSIDE RECORDS SUMMARY | 2025-04-22 11:36 | XMS_ITS | Clinical Summary ---
Author Organization [facility] Address [address] [facility] [place] [address] Care Team Providers Care Hot Dog Vendor Name Role Phone Blake Herbert MD Primary Care Provider [phone] Source Comments [facility],non-owned Affiliates and Associated Physician Practices is amultiple site organization consisting of ambulatory clinics and hospital sitesin [place], [place], [place] and [place]. This disclosure is being madepursuant to the Care Everywhere program and may not contain all information available regarding this patient. Last updated 18.[facility] [employer] Allergies Active Allergy Reactions Criticality [...] on file Legal Sex Female 7:32 PM ADDICTIONS RECOVERY SPECIALIST Gender Identity Not on file Sexual Orientation Not on file Last Filed Vital Signs Vital Sign Reading Time Taken Comments Blood Pressure 117/71 05/27/2023 10:45 AM CDT Pulse 63 05/27/2023 10:45 AM CDT Temperature - - Respiratory Rate - - Oxygen Saturation - - Inhaled Oxygen Concentration - - Weight 91.6 kg (202 lb) 05/27/2023 10:45 AM CDT Height 172.7 cm (5' 8) 05/27/2023 10:45 AM CDT Body Mass Index 30.71 05/27/2023 10:45 AM CDT Plan of Treatment Health Maintenance Due Date Last Done Comments COLOGUARD (AGES 45-75) - COL ON CA SCREENING 1975 CT COLONOGRAPHY - COLON CA SCREENING 1975 FIT - COLON CA SCREENING 1975 FLEX SIG - COLON CA SCREENING 1975 MAMMOGRAM 1975 HIV SCREENING 1990 HEPATITIS C SCREENING 05/30/1993 DTAP/TDAP/TD VACCINES (1 - Tdap) 1994 HEPATITIS B VACCINE (1 of 3 - 19+ 3-dose series) 1994 PAP SMEAR 1996 COVID-19 VACCINE (3 - 2023-2 5 season) 2024 01/06/2021, 12/15/2020 DEPRESSION SCREENING 09/16/2024 INFLUENZA VACCINE (#1) 2025 07/16/2019 ZOSTER VACCINE (1 of 2) 2025 SCREENING FOR DIABETES 11/01/2025 3, 06/13/2022, 06/13/2022 COLON MONITORING 04/07/2031 04/07/2021 COLONOSCOPY - COLON CA SCREENING 04/07/2031 04/07/2021 [...] patient's age to complete this topic Insurance [facility] Care Teams Hot Dog Vendor Relationship Specialty Start Date End Date Blake Herbert MD [address] [place] [address] PCP - General 03/10/09
--- OUTSIDE RECORDS SUMMARY | 2025-04-22 11:36 | XMS_ITS | Clinical Summary ---
Author Organization [facility] Address [address], [address] [place] [address] Phone Care Team Providers Care Pipe Insulator Helper Name Role Phone William Bradley MD Primary Care Provider Boogie Reilly MD Unavailable [phone] Allergies Active Allergy Reactions Criticality Noted Date Comments Meperidine Anaphylaxis,Hives High 10/18/2022 Nitrofurantoin Hives,Other (see Comments),Rash,Unknown Medium 01/01/2019 Wound Dressing Adhesive Rash High 01/01/2019 Surgical tap, Medications atorvastatin (LIPITOR) 20 MG Tablet Take 1 Tablet by mouth daily. 3 Active propranolol (INDERAL LA) 60 MG CAPSULE SR 24 HR Take 60 mg by mouth. 3 Active minoxidil (LONITEN) 2.5 MG Tablet TAKE 1/4 (ONE-FOURTH) TABLET BY MOUTH ONCE DAILY Active spironolactone (ALDACTONE) 100 MG Tablet Take 100 mg by mouth daily. Active Magnesium Gluconate 550 MG Tablet Take 30 mg by mouth. Active other by Other route. Catalyn vitamin Active Causey 3 1000 MG Capsule Take 2 g by mouth. Active WAITER/WAITRESS CABIN CLASS Thyroid 30 MG Tablet 4 Active Cholecalciferol (D 5000) 125 mcg Capsule Take 5,000 Units by mouth. Active other by Other route. Ortho spore IG Active other by Other route. Christine colon CLR Active OIL OF OREGANO PO Take by mouth. Activ e Cetirizine HCl (ZYRTEC PO) Take by mouth. Act terri atovaquone (MEPRON) 750 MG/5ML Suspension TAKE 10 ML BY MOUTH ONCE DAILY Active metoprolol tartrate (LOPRESSOR) 25 MG Tablet 4 Active cyclobenzaprine (FLEXERIL) 5 MG Tablet Take 1 tablet 3 times a day by oral route as needed for 30 days. 4 Active Restasis 0.05 % Emulsion INSTILL 1 DROP INTO EACH EYE TWICE DAILY Active nystatin (MYCOSTATIN) 563635 UNIT/ML Suspension Take 5 mL 4 times a day by oral route for 7 days. Active nystatin (MYCOSTATIN) 554914 UNIT/GM Cream 4 Active hydrocortisone (CORTEF) 5 MG Tablet Take 3 tablets (15mg) PO in the AM, 1 tablet (5mg) at 2pm. Follow separate instruction for taper 5 Active estradiol (ESTRACE) 0.1 MG/GM Cream APPLY 1/2GM VAGINALLY TWICE WEEKLY 5 Active famotidine (PEPCID) 20 MG Tablet Take 20 mg by mouth 2 times daily. 4 Active Probiotic Product (Probiotic Blend) Capsule Take 1 Capsule by mouth. Active linaCLOtide (LINZESS) 72 MCG Capsule Take 72 mcg by mouth. 5 Active ondansetron (ZOFRAN-ODT) 8 MG TABLET DISPERSIBLE Take 8 mg by mouth. 5 Active Active Problems Problem Noted Date Diagnosed Date Coagulopathy 02/13/2024 Encounters Date Type Department Care Team Description 02/25/2025 11:15 AM CDT Office Visit [facility] [address] [phone] Wendy Corona, MANAGER INTELLIGENCE, TELEVISION NEWS VIDEO EDITOR Coagulopathy (HCC) (Primary Dx); Hypogammaglobulinemia (HCC); B12 deficiency 02/25/2025 11:00 AM CDT Lab [facility] [address] [phone] Lab, Cc [place] Coagulopathy (HCC) 02/25/2025 Travel from Last 3 Months Immunizations Immunization [...] Sign Reading Time Taken Comments Blood Pressure 130/86 02/25/2025 11:05 AM CDT Pulse 77 02/25/2025 11:05 AM CDT Temperature 36.6 C (97.8 F) 02/25/2025 11:05 AM CDT Respiratory Rate 18 02/25/2025 11:05 AM CDT Oxygen Saturation 99% 02/25/2025 11:05 AM CDT Inhaled Oxygen Concentration - - Weight 97.6 kg (215 lb 1.6 oz) 02/25/2025 11:05 AM CDT Height 171.5 cm (5' 7.5) 02/25/2025 11:05 AM CD T Body Mass Index 33.19 02/25/2025 11:05 AM CDT Plan of Treatment Upcoming Encounters Date Type Department Care Team (Late st Contact Info) Description 08/26/2025 8:00 AM STRATEGIC COMMUNICATIONS SPECIALIST Lab [facility] [address] [phone] Lab, Cc [facility] 08/26/2025 8:15 AM STRATEGIC COMMUNICATIONS SPECIALIST Office Visit [facility] [address] [phone] Boogie Reilly MD [address] [place] [address] Health Maintenance Due Date Last Done Comments Hepatitis C Virus (HCV) Screening 1975 Mammogram 1975 Hepatitis B Immunization (1 of 3 - 19+ 3-dose series) 1994 Pap Smear 1996 Cervical Cancer Screening (CCS) 2005 HPV/Cotest 2005 Discussion re Starting/Frequency of Mammograms 2015 Cologuard 2020 Immunochemical Fecal Occult Blood 2020 SARS-COV-2 Immunization ( season) 2024 01/06/2021, 12/15/2020 Influenza Immunization (#1) 2025 07/16/2019 Td Immunization Every 10 Yea rs (Adults With 1 Tdap) 12/17/2030 12/17/2020 Colonoscopy 01/07/2034 01/08/2024 Colorectal Cancer Screening 01/07/2034 Respiratory Syncytial Virus (RSV) Immunization (Adult) (1 - 1-dose 75+ series) 2050 TdaP Immunization Discontinued 12/17/2020 Human Papillomavirus (HPV) Immunization Aged Out No longer eligible based on patient's age to complete this topic Meningococcal Immunization (ACWY) Aged Out No longer eligible based on patient's age to complete this topic Pneumococcal Immunization Combined Aged Out No longer eligible based on patient's age to complete this topic Rotavirus Immunization Aged Out No lo nger eligible based on patient's age to complete this topic Procedures Procedure Name Priority Date/Time Associated Diagnosis Comments COMPLETE BLOOD COUNT (CBC) WITH DIFF Routine 02/25/2025 10:46 AM CDT Coagulopathy (HCC) IRON W/ IRON BINDING CAPACITY OH Routine 02/25/2025 10:46 AM CDT Coagulopathy (HCC) FERRITIN Routine 02/25/2025 10:46 AM CDT Coagulopathy (HCC) from Last 3 Months Results * IRON W/ IRON BINDING CAPACITY [place] (02/25/2025 10:46 AM CDT) IRON 72 50 - 212 ug/dL [facility] UIBC 289 155 - 355 ug/dL [facility] TIBC 361 261 - 478 ug/dl [facility] % Saturation 20 20 - 50 % [facility] Blood 02/25/2025 10:4 6 AM CDT [facility] - 02/25/2025 11:45 AM CDT Release to patient->Immediate us Boogie Reilly MD LAB SEND OUTS Final Result Performing Organization Address [facility]/ZIP Co de Phone Number [facility] [address] [place] [address], [place] [phone] * FERRITIN (02/25/2025 10:46 AM CDT) Ferritin 27 11 - 307 ng/mL [facility] Blood 02/25/2025 10:4 6 AM CDT [facility] - 02/26/2025 3:32 PM CDT Release to patient->Immediate us Boogie Reilly MD CHEMISTRY ORDERABLES Final R esult Performing Organization Address [facility] Co de Phone Number [facility] [address] [place] [address], [place] [phone] * (ABNORMAL) COMPLETE BLOOD COUNT (CBC) WITH DIFF (02/25/2025 10:46 AM CDT) WBC 6.8 4.0 - 10.0 10*3/uL [facility] HGB 12.9 11.2 - 15.7 g/dL [facility] HCT 37.9 34.1 - 44.9 % [facility] PLT 171 163 - 369 10*3/uL [facility] MPV 10.7 9.4 - 12.4 fL [facility] RBC 3.99 3.93 - 5.22 10*6/uL [facility] MCV 95 79 - 95 fL [facility] MCH 32.3(H) 25.6 - 32.2 pg [facility] MCHC 34.0 32.2 - 36.5 g/dL [facility] RDW 12.2 11.6 - 14.4 % [facility] Absolute Neutrophil Count 4,935 cells/uL [facility] Absolute Seg Count 4,935 1,440 - 6,600 cells/uL [facility] Absolute Lymph Count 1,217 760 - 4,000 cells/uL [facility] Absolute [place] Count 203 160 - 1,200 cells/uL [facility] Absolute Eos Count 406(H) 0 - 300 cells/uL [facility] Segmented Neutrophils 73(H) 36 - 66 % [facility] Lymphocytes 18(L) 19 - 40 % [facility] Monocytes 3(L) 4 - 12 % [facility] Eosinophils 6(H) 0 - 3 % [facility] WBC Estimate Normal [facility] Platelet Estimate Normal [facility] RBC Morphology Normal [facility] Blood 02/25/2025 10:4 6 AM CDT Narrative [facility] - 02/25/2025 12:57 PM CDT Release to patient->Immediate Boogie Reilly MD HEMATOLOGY ORDERABLES Final Result [facility] [place] [address], from Last 3 Months Insurance [facility] Care Teams Pipe Insulator Helper Relationship Specialty Start Date End Date William Bradley MD [address] [place] [address] PCP - General Family Medicine 01/13/24 Boogie Reilly MD [address] [place] [phone] Consulting Physician Oncology 01/13/24
--- OUTSIDE RECORDS SUMMARY | 2025-04-22 11:36 | XMS_ITS ---
Author Organization [facility] Address [address] [facility] [address] [place] [address] Care Team Providers Care Metalworking Specialist Name Role Phone Kirk NEGRON, William Primary Care Provider Agustin KOO NP, LESIA Mica Allergies Allergen (clinical drug ingredient) Drug/Non Drug [...] ce daily Orally Twice a day Active BURR FILER Thyroid 30 MG 1 tablet on an [...] 05/29/2024 Encounters Encounter Location Date Provider Diagnosis [facility] [address] [place] [address] 05/29/2024 LESIA KOO Abdominal distension (gaseous) R14.0 and Generalized abdominal pain R10.84 Assessments Encounter Date Diagnosis (ICD Code) Assessment Notes Treatment Notes Treatment Clinical Notes Section Notes 05/29/2024 Abdominal distension (gaseous) (ICD-10 - R14.0) discussed possible repeat SIBO testing recommended for her to start a daily probiotic like Align or Serina [employer]DR [employer] health she no longer has constipation with [...] time if normal discussed possible referral to binder stripper hand for further testing. 05/29/2024 Other Time spent: [...] a daily probiotic like Align or Serina [employer] health she no longer has constipation with [...] time if normal discussed possible referral to binder stripper hand for further testing. Other Time spent: 45minute [...] Reason: Progress Notes * Keke BARON:0 1975 (49 yo F)Acc No.[id number]:05/29/2024 Progress Notes Patient: Petra GALLARDO Appointment Provider: Kyler Koo CNP :1975 A ge:48 Y S ex:Female Date:05/29/2024 Address:[address] [place], [place] [phone] Pcp:William Bradley MD Subjective: * Chief Complaints: [...] day prn , stop date 05/29/2024, Taking BURR FILER Thyroid 30 MG Tablet 1 tablet on [...] time if normal discussed possible referral to binder stripper hand for further testing. 3. O thers Notes: [...] Electronic signature of FLO KOO NP, MSN INDUSTRIAL AUTOMATION SPECIALIST-BC on 04/22/2025 at 12:36 PM EDT Sign off status: Pending * Appointment Provider: Kyler Koo CNP Date: 05/29/2024 Generated for Printing/Faxing/eTransmitting on: 04/22/2025 12:36 PM EDT History and Physical Notes * HPI [...] General Examination GENERAL APPEARANCE: in no ac [place] distress, well developed, well nourished HEART: no murmurs, regular rate and rhythm, S1, S2 normal LUNGS: clear to auscultatio n bilaterally ABDOMEN: normal, bowel sounds present, soft, nontender, nondistended NEUROLOGIC: alert and oriented, sensory exam intact
--- OUTSIDE RECORDS SUMMARY | 2025-04-22 11:37 | XMS_ITS ---
Author Organization [facility] [employer] [place] ([address]) Address [address] [place] [address] Care Team Providers Care Conveyor Monitor Name Role Phone Uri Nini Primary Care Provider Unavail able Radha Lewis Unavailable [phone] ZZ-Migration, Provider Unavailable Unavailab le Allergies Allergen (clinical drug ingredient) Drug/Non Drug Allergy documented on EMR Reaction Allergy Type Onset Date Status amoxicillin / clavulanate Augmentin hives Drug Allergy Active meperidine Demerol hives Drug Allergy Active nitrofurantoin Macrodantin hives Drug Allergy Active Penicillin shortness of breath Drug Allergy Active REASON FOR VISIT [facility] Conversion Encounter Medications Medication SIG (Take, [...] Active Encounters Encounter Location Date Provider Diagnosis [address] [address] 02/29/2024 Provider ZZ-Migration Plan Of Treatment No Information Progress Notes * Rae DEWITTB: (49 yo F)Acc No.[id number]:02/29/2024 Patient: Carmelita Petra RUDD Provider: Naomi Chase :1975 A ge:48 Y S ex:Female Date:02/29/2024 [facility] Pcp:Nini Grewal Subjective: * Chief Complaints: [...] Electronic signature of Prov mirtar ZZ-Migration on 04/22/2025 at 11:37 AM CDT Sign off status: Pending * Provider: Noami Chase Date: 02/29/2024 Generated for Thomas garner/Benjy/Emile on: 0 04/22/2025 11:37 AM CDT
--- OUTSIDE RECORDS SUMMARY | 2025-04-22 11:37 | XMS_ITS | Encounter Summary ---
Author Organization [facility] Address [address] [place] [address] Phone Care Team Providers Care Cattyman Name Role Phone William Bradley MD Primary Care Provider [phone] Erik Reed MD Unavailable Abebe Moreau MD Unavailable Kanu Bustos MD Unavailable Karly Villarreal MD Unavailable Booige Reilly MD Unavailable Encounter Details Date Type Department Care Team (Late st Contact Info) Description 04/01/2025 Results Follow-Up [facility] Endocrinology Metabolism and Lipid [address] 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 Not on file Not on file documented as of this encounter Plan of Treatment Not on file documented as of this encounter Visit Diagnoses Not on filedocumented in this encounter Care Teams Cattyman Relationship Specialty Start Date End Date William Bradley MD PCP - General Family Medicine 05/12/24 Erik Reed MD [address] [place] [address] [address] [place], [place] [address] Referring Physician Interventional Cardiology 09/21/24 Abebe Moreau MD [address] [address] Consulting Physician Pulmonary Disease 09/21/24 Kanu Bustos MD [address] [facility] [address] [place] [address] Consulting Physician Internal Medicine 09/21/24 [place] [address] [facility] [address] [place] [address] Consulting Physician Rheumatology 09/21/24 Boogie Reilly MD [address] [place] [address] [address] [facility] [address] [place] [address] Referring Physician Hematology and Oncology 09/21/24 documented as of this encounter
--- OUTSIDE RECORDS SUMMARY | 2025-04-22 11:37 | XMS_ITS | Clinical Summary ---
Author Organization [facility] Address [facility] [place] [address] Care Team Providers Care Home Appliance Washing Machine Mechanic Name Role Phone Unavailable Primary Care Provider Unavailabl e Social History Tobacco Use Types Packs/Day Years Used Date Smoking Tobacco: Never Assessed Comments Unknown Sex and Gender Information Value Date Recorded Sex Assigned at Not on file Legal Sex Female 5:44 PM FLOOR INSTALLATION MECHANIC Gender Identity Not on file Sexual [...] Q 5 years 2020 INFLUENZA VACCINE (#1) 2025 07/16/2019 DTAP/TDAP/TD VACCINES (2 - Td or Tdap) 12/17/2030 Insurance [employer]
--- OUTSIDE RECORDS SUMMARY | 2025-04-22 11:37 | XMS_ITS | Encounter Summary ---
Author Organization [facility] Address [address] [place] [address] Care Team Providers Care Billing And Insurance Coordinator Name Role Phone William Bradley MD Primary Care Provider [phone] Reason for Referral * Imaging (Routine) - Authorized Specialty Diagnoses / Procedures Referred By Johnny mera Referred To Contact RADIOLOGY Diagnoses Upper abdominal pain Procedures NM HEPATOBILIARY WO GB EJECTION FRACTION Tierney Constantino NP [address] [facility] [address] [place] [address] Phone: tel: fax: Referral ID Status Reason Start Date Expiration Date V isits Requested Visits Authorized [id number] Authorized 03/26/2025 03/26/2026 1 1 Encounter Details Date Type Department Care Team (Latest Contact Info) Description 03/01/2025 Results Follow-Up [facility] Multispecialty [facility] - [facility] [address] [facility] [address] [place] [phone] Tierney Constantino NP [address] [facility] [address] [place] [phone] HEPATIC FUNCTION PANEL, LIPASE, MRI ABD WWO CON, MRCP Social History Tobacco Use Types Packs/Day Years Used Date Smoking Tobacco: Former Cigarettes Q uit: 2012 Smokeless Tobacco: Never Comments:On and off for 10-1 5 years; 0.5 pack a day Alcohol Use Standard Drinks/Week Comments Not Currently 0 (1 standard drink = 0.6 oz pur e alcohol) PHQ-2 Answer Date Recorded Patient Health Questionnaire-2 Score 0 02/25/2025 Comments No Sex and Gender Information Value Date Recorded Sex Assigned at Female 11/16/2024 8:34 AM ASSISTANT PROFESSOR OF NURSING Legal Sex Female 6:38 AM CDT Gender Identity Female 11/16/2024 8:34 AM ASSISTANT PROFESSOR OF NURSING Sexual Orientation Not on file 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 Not on file Not on file documented as of this encounter Plan of Treatment Upcoming Encounters Date Type Department Care Team (Late st Contact Info) Description 04/29/2025 7:40 AM CDT Office Visit [facility] - [facility] [address] [facility], [address] [place] [address] Kavita Mandujano NP [address] [facility] [address] [place] [address] 05/06/2025 11:00 AM CDT Appointment [facility] [place] [address] Tierney Constantino NP 3 [facility] [address] [place] [address] 07/02/2025 9:30 AM CDT Office Visit [facility] [address] Sabino Ambrose MD [address] [facility] [address] [place] [phone] 07/21/2025 9:00 AM ASSISTANT PROFESSOR OF NURSING Office Visit [facility]pec[facility] - [facility] [address] [facility] [address] [place] [phone] Ad Sawyer DO [address] [facility] [address] [place] [address] Scheduled Orders Name Type Priority Associated Diagnoses Orde r Schedule NM HEPATOBILIARY WO GB EJECTION FRACTION NUC MED Routine Upper abdominal pain Expected: 03/26/2025, Expires: 03/26/2026 documented as of this encounter Visit Diagnoses Diagnosis Upper abdominal pain- Primary Abdominal pain, other specified site documented in this encounter Care Teams Billing And Insurance Coordinator Relationship Specialty Start Date End Date William Bradley MD [address] [facility] [address] [place] [phone] PCP - General FAMILY PRACTICE 09/16/23 documented as of this encounter
--- OUTSIDE RECORDS SUMMARY | 2025-04-22 11:37 | XMS_ITS | Clinical Summary ---
Author Organization [facility] Address [address] [place] [address] Phone Care Team Providers Care Settlement Technician Name Role Phone William Bradley MD Primary Care Provider [phone] Allergies Active Allergy Reactions Criticality Noted Date Comments Meperidine throat issue 05/07/2024 Nitrofurantoin Hives 05/07/2024 Protective Adhesive Powder blisters 4 Medications metoprolol tartrate (LOPRESSOR) 25 MG tablet Take [...] mouth 1 (one) time each day Active Hickman-3 Fatty Acids (OMEGA-3 FISH OIL PO) Take by mouth Active Vitamin D-Vitamin K (D3 + K2 PO) Take 5,000 Units by mouth 1 (one) time each day Drops Active predniSONE (DELTASONE) 10 MG tablet Take 10 mg by mouth 1 (one) time each day Active sucralfate (CARAFATE) 1 g tablet Take 1 g by mouth in the morning and 1 g at noon and 1 g in the evening and 1 g before bedtime. Active famotidine (PEPCID) 20 MG tablet Take 20 mg by mouth in the morning and 20 mg in the evening. Active Specialty Vitamins Products (Vitamins for Hair) tablet Take by mouth Active Active Problems Problem Noted Date Diagnosed Date Sarcoidosis 11/27/2024 Anemia in chronic kidney disease 11/27/2024 Stage 3a chronic kidney disease 06/08/2024 Essential hypertension 06/08/2024 Proteinuria 06/08/2024 Vitamin D deficiency 06/08/2024 Resolved Problems Problem Noted Date Diagnosed Date Resolved Date Dysuria 05/07/2024 07/02/2024 Hypothyroidism 05/07/2024 06/08/2024 Hyperlipidemia 05/07/2024 06/08/2024 Family History Medical History Relation Comments Heart [...] at Not on file Legal Sex Female 1:55 PM MDT Gender Identity Not on file Sexual Orientation Not on file Last Filed Vital Signs Vital Sign Reading Time Taken Comments Blood Pressure 146/81 12/01/2024 3:24 PM CDT Pulse 93 12/01/2024 3:24 PM CDT Temperature - - Respiratory Rate - - Oxygen Saturation - - Inhaled Oxygen Concentration - - Weight 94.8 kg (209 lb) 12/01/2024 3:24 PM CDT Height 170.2 cm (5' 7) 12/01/2024 3:24 PM CDT Body Mass Index 32.73 12/01/2024 3:24 PM CDT Plan of Treatment Upcoming Encounters Date Type Department Care Team ([facility] Contact Info) Description 07/01/2025 11:00 AM CDT Office Visit [facility] [address] [facility] 1 [place] [address] Kanu Bustos MD [address] [address] Health Maintenance Due Date Last Done Comments Pneumococcal PPSV23 Highest Risk Adult (1 of 3 - PCV13) 1994 Influenza Vaccine (#1) 2025 07/16/2019, 2018 Insurance [facility] [employer]URANCE Care Teams Settlement Technician Relationship Specialty Start Date End Date William Bradley MD [address] [place] [address] [address] [place] [address] PCP - General 05/11/24
--- OUTSIDE RECORDS SUMMARY | 2025-04-22 11:37 | XMS_ITS | Encounter Summary ---
Author Organization [facility] Address [address] [place] [address] Care Team Providers Care Head Of Product Name Role Phone William Bradley MD Primary Care Provider [phone] Encounter Details Date Type Department Care Team (Late Contact Info) Description 02/20/2024 VIAP Message Enc [facility] Medical [facility] - [place] [address] [place] [address] Aashish, [facility] Provider MRI cervical spine Social History Tobacco Use Types Packs/Day Years Used Date Smoking Tobacco: Former Cigarettes 0.5 25 1 987 - 2011 Smokeless Tobacco: Never Alcohol Use Standard Drinks/Week Comments Not Currently 0 (1 standard drink = 0.6 oz pur e alcohol) Comments No Sex and Gender Information Value Date Recorded Sex Assigned at Female 11/16/2024 8:34 AM DATA MINING ANALYST Legal Sex Female 6:38 AM CDT Gender Identity Female 11/16/2024 8:34 AM DATA MINING ANALYST Sexual Orientation Not on file documented as of this encounter Plan of Treatment Upcoming Encounters Date Type Department Care Team (Late Contact Info) Description 04/29/2025 7:40 AM CDT Office Visit [facility] - [address], [address] [place] [phone] Kavita Mandujano NP [address] [place] [address] [place] [address], [place] [address] 05/06/2025 11:00 AM CDT Appointment [facility] [place] [address] Tierney Constantino NP 3 [facility] [address] [place] [address] 07/02/2025 9:30 AM CDT Office Visit [facility] [phone] Sabino Ambrose MD 3 [facility] [place] [address] [place] [phone] 07/21/2025 9:00 AM DATA MINING ANALYST Office Visit [facility] - [facility] 3 [facility] [address] [place] [phone] Ad Sawyer DO 3 [facility] [address] [place] [address] documented as of this encounter Visit Diagnoses Not on filedocumented in this encounter Care Teams Head Of Product Relationship Specialty Start Date End Date William Bradley MD [address] [place] [phone] PCP - General FAMILY PRACTICE 09/16/23 documented as of this encounter
--- OUTSIDE RECORDS SUMMARY | 2025-04-22 11:38 | XMS_ITS | Encounter Summary ---
Author Organization [facility] Facility Care Team Providers Care Lift Operator Name Role Phone William Bradley MD Primary Care Provider Nini Grewal Primary Care Provider Nini Grewal Primary Care Provider William Bradley MD Primary Care Provider [phone] William Bradley MD Primary Care Provider [phone] Erik Reed MD Unavailable [phone] Abebe Moreau MD Unavailable [phone] Kanu Bustos MD Unavailable Karly Villarreal MD Unavailable Boogie Reilly MD Unavailable [phone] Encounter Details Date Type Department Care Team (Latest Contact Info) Description 10/24/2018 Orders Only [facility] Provider, MD Walker [address] [place] [address] Social History Tobacco Use Types Packs/Day Years Used Date Smoking Tobacco: Every Day Comments Unknown Sex and Gender Information Value Date Recorded Sex Assigned at Not on file Legal Sex Female 1:50 AM REPORTING LEAD Gender Identity Female 05/17/2021 10:31 AM CDT Sexual Orientation Straight 05/17/2021 10 :31 AM CDT documented as of this encounter Plan of Treatment Not on file documented as of this encounter Procedures Procedure Name Priority Date/Time Associated Diagnosis Comments CARDIOLOGY REPORT 10/27/2018 12: 00 AM REPORTING LEAD documented in this encounter Results * CARDIOLOGY REPORT (10/27/2018 12:00 AM REPORTING LEAD) Anatomical Region Laterality Modality Other Narrative 10/27/2018 12:00 AM REPORTING LEAD Ordered by an unspecified provider. us Historical Provider [facility] Final Result documented in this encounter Visit Diagnoses Not on filedocumented in this encounter Additional Health Concerns Infection Onset Date Last Indicated Resolved Time COVID: Suspected 05/18/2021 05/18/2021 06/01/2021 3:05 AM CDT documented as of this encounter Care Teams Lift Operator Relationship Specialty Start Date End Date William Bradley MD PCP - General 05/14/18 06/17/22 Nini Grewal PA PCP - General Family Medicine 06/18/22 03/21/23 Nini Grewal PA [address] [facility] [address] [place] [address] PCP - General Family Medicine 03/25/23 04/24/23 William Bradley MD [address] [facility] [address] [place] [address] PCP - General Family Medicine 04/25/23 05/11/24 William Bradley MD [address] [facility] [address] [place] [address] PCP - General Family Medicine 05/12/24 Erik Reed MD [address] [place] [address] 3 [place] [address] Referring Physician Interventional Cardiology 09/21/24 Abebe Moreau MD [address] [facility] 350 [place], [place] [address] Consulting Physician Pulmonary Disease 09/21/24 Kanu Bustos MD [address] [facility] 1 [place] [address] Consulting Physician Internal Medicine 09/21/24 [place] [address] [facility] 70 [place] [address] Consulting Physician Rheumatology 09/21/24 Boogie Reilly MD [address] [facility] 100 [facility] 100 [place] [address] Referring Physician Hematology and Oncology 09/21/24 documented as of this encounter
--- OUTSIDE RECORDS SUMMARY | 2025-04-22 11:38 | XMS_ITS | Patient Health Record ---
Author Organization [facility] Address [address] [facility] [address] [place] [address] Care Team Providers Care Fringe Weaver Name Role Phone Kirk NEGRON, William Primary Care Provider Agustin KOO NP, LESIA Mica Allergies Allergen (clinical drug ingredient) Drug/Non Drug Allergy documented on EMR Reaction Allergy Type Onset Date Status meperidine Demerol throat swelling Drug Allergy Active nitrofurantoin Macrodantin hives Drug Allergy Active Adhesive blisters Allergy Active Reason For Referral Reason EUS to assess pancre atic parenchyma; r/o chronic pancreatitis, papillary stenosis Scheduled for 06/15/24 1330 Diagnosis 1 Generalized abdomina l pain (R10.84) Diagnosis 2 Abdominal distension (gaseous) (R14.0) Referral Organization [facility] Referring Provider First Name LESIA Referring Provider Last Name HAYES Referring Provider Speciality Gastrofaith perez Referred Organization [facility] - Op Referred Provider Tanner Rehman Referred Address [address],[place], [place],[id number], Referred Provider Specialty Gastroentero logy Procedure 1 ENDOSCOPIC ULTRASOUN D EXAM (18349) Referral Priority Routine Referral Appointment Date 06/15/2024 Reason Please consult for c onsideration of cholecystectomy Scheduled for 08/20/24 0945 Diagnosis 1 Abdominal distension (gaseous) (R14.0) Diagnosis 2 Generalized abdomina l pain (R10.84) Diagnosis 3 Abnormal findings on dx imaging of prt digestive tract (R93.3) Referral Organization [facility] Referring Provider First Name LESIA Referring Provider Bang Name HAYES Referring Provider Speciality Gastroente rology Referred Provider Pastor Webb Referred Provider Specialty Surgery Referral Priority Routine Referral Appointment Date 08/20/2024 Medications Medication SIG (Take, Route, Frequency, Duration) Notes Start Date End Date Status Metoprolol Tartrate 25 MG 1 tablet with food Orally Twice a day Active Propranolol HCl ER 60 MG 1 capsule Orall y Once a day Active Spironolactone 100 MG 1 tablet Orally On ce a day Active AP OPERATOR Thyroid 30 MG 1 tablet on an [...] empty stomach Orally Once a day Not-Taking Problems Problem Type SNOMED Code ICD Code Onset Dates Problem Status W/U Status Risk Notes Problem Constipation (09844725) Constipation, unspecified (K59.00) Active confirmed Problem Irritable bowel syndrome characterized by constipation (219471214) Irritable bowel syndrome with constipation (K58.1) Active confirmed Vital Signs Heart Rate 66 /min 06/23/2024 Blood pressure diastolic 85 mm Hg 06/23/2024 Height 68 in 06/23/2024 Blood pressure systolic 133 mm Hg 06/23/2024 Weight 203 lbs 06/23/2024 BMI 30.86 kg/m2 06/23/2024 Encounters Encounter Location Date Provider Diagnosis [facility] [address] [place] [address] 05/29/2024 LESIA KOO Abdominal distension (gaseous) R14.0 and Generalized abdominal pain R10.84 [facility] [address] [facility] [address] [place] [address] 06/23/2024 LESIA KOO Generalized abdominal pain R10.84 ; Abdominal distension (gaseous) R14.0 and Irritable bowel syndrome with constipation K58.1 [facility] [address] [facility] [address] [place] [address] 05/29/2024 LESIA KOO [facility] [address] [facility] [address] [place] [address] 06/23/2024 LESIA KOO [facility] [address] [facility] [address] [place] [address] 07/15/2024 LESIA KOO [facility] [address] [facility] [address] [place] [address] 08/17/2024Corie KOO Assessments Encounter Date Diagnosis (ICD Code) Assessment [...] time if normal discussed possible referral to assistant cook for further testing. 05/29/2024 Abdominal distension (gaseous) (ICD-10 - R14.0) discussed possible repeat SIBO testing recommended for her to start a daily probiotic like Align or Recipharm she no longer has constipation with using [...] of compliance with plan. Plan Of Treatment Pending Test Test Name Order Date HIDA Scan 06/25/2024 Insurance Providers Payer Name Payer Address Payer Phone Subscriber Number Group Number Insured Name Patient Relationship to Insured Coverage Start Date Coverage End Date [facility] [address] [place], [place] [phone] [id number] Petra Morejon Self - patient is the insured Medical (General) History Medical History History ICD Code Hypothyroidism hypercholesterolemia hyperlipidemia anxiety irritable bowel syndrome sarcoidosis Surgical History Surgery Date(Month/Year) thyroidectomy tubal ligation EUS 06/15 Ori
--- OUTSIDE RECORDS SUMMARY | 2025-04-22 11:38 | XMS_ITS | Encounter Summary ---
Author Organization [facility] Care Team Providers Care Historic Site Administrator Name Role Phone William Bradley MD Primary Care Provider Nini Grewal Primary Care Provider Nini Grewal Primary Care Provider Wililam Bradley MD Primary Care Provider [phone] William Bradley MD Primary Care Provider [phone] Erik Reed MD Unavailable [phone] Abebe Moreau MD Unavailable [phone] Kanu Bustos MD Unavailable Karly Villarreal MD Unavailable Boogie Reilly MD Unavailable [phone] Encounter Details Date Type Department Care Team (Latest Contact Info) Description 10/10/2018 Orders Only [facility] Provider, MD Walker [address] [place] [address] Social History Tobacco Use Types Packs/Day Years Used Date Smoking Tobacco: Every Day Comments Unknown Sex and Gender Information Value Date Recorded Sex Assigned at Not on file Legal Sex Female 1:50 AM ACID PATROLLER Gender Identity Female 05/17/2021 10:31 AM CDT Sexual Orientation Straight 05/17/2021 10 :31 AM CDT documented as of this encounter Plan of Treatment Not on file documented as of this encounter Procedures Procedure Name Priority Date/Time Associated Diagnosis Comments CARDIOLOGY REPORT 10/10/2018 12: 00 AM ACID PATROLLER documented in this encounter Results * CARDIOLOGY REPORT (10/10/2018 12:00 AM ACID PATROLLER) Anatomical Region Laterality Modality Other Narrative 10/10/2018 12:00 AM ACID PATROLLER Ordered by an unspecified provider. us Historical Provider [facility] Final Result documented in this encounter Visit Diagnoses Not on filedocumented in this encounter Additional Health Concerns Infection Onset Date Last Indicated Resolved Time COVID: Suspected 05/18/2021 05/18/2021 06/01/2021 3:05 AM CDT documented as of this encounter Care Teams Historic Site Administrator Relationship Specialty Start Date End Date William Bradley MD PCP - General 05/14/18 06/17/22 Nini Grewal PA PCP - General Family Medicine 06/18/22 03/21/23 iNni Grewal PA [address] [facility] [address] [place] [address] PCP - General Family Medicine 03/25/23 04/24/23 William Bradley MD [address] [facility] [address] [place] [address] PCP - General Family Medicine 04/25/23 05/11/24 William Bradely MD [address] [facility] [address] [place] [address] PCP - General Family Medicine 05/12/24 Erik Reed MD [address] [place] [address] 3 [place] [address] Referring Physician Interventional Cardiology 09/21/24 Abebe Moreau MD [address] [facility] 350 [place], [place] [address] Consulting Physician Pulmonary Disease 09/21/24 Kanu Bustos MD [address] [facility] 1 [place] [address] Consulting Physician Internal Medicine 09/21/24 [place] [address] [facility] 70 [place] [address] Consulting Physician Rheumatology 09/21/24 Boogie Reilly MD [address] [facility] 100 [facility] 100 [place] [address] Referring Physician Hematology and Oncology 09/21/24 documented as of this encounter
--- OUTSIDE RECORDS SUMMARY | 2025-04-22 11:38 | XMS_ITS | Patient Health Record ---
Author Organization [facility] ([address]) Address [address] [place] [address] Care Team Providers Care Foster Care Case Manager Name Role Phone Uri, Nini Primary Care Provider Unavail able Radha Lewis Unavailable [phone] Allergies Allergen (clinical drug ingredient) Drug/Non Drug [...] Status Risk Notes Problem Chronic allergic conjunctivitis (08444469) Other chronic allergic conjunctivitis (H10.45) Active confirmed Problem Allergic rhinitis caused by pollen (disorder) (66871457) Allergic rhinitis due to pollen (J30.1) Active confirmed Problem Allergic rhinitis (38361872) Other allergic rhinitis (J30.89) Active confirmed Problem Chronic rhinitis (40752393) Chronic rhinitis (J31.0) Active confirmed Problem Uncomplicated mild persistent asthma (658567758) Mild persistent asthma, uncomplicated (J45.30) Active confirmed Problem Uncomplicated moderate persistent asthma (111642593) Moderate persistent asthma, uncomplicated (J45.40) Active confirmed Problem Uncomplicated severe persistent asthma (929044017) Severe persistent asthma, uncomplicated (J45.50) Active confirmed Problem Adverse reaction to food (864901871) Other adverse food reactions, not elsewhere classified, initial encounter (T78.1XXA) Active confirmed Problem Allergic rhinitis caused by animal hair and dander (962523373839893) Allergic rhinitis due to animal (cat) (dog) hair and dander (J30.81) Active confirmed Problem Chronic rhinitis (06337220) Chronic rhinitis (J31.0) Active confirmed Problem Idiopathic urticaria (06314325) Idiopathic urticaria (L50.1) Active confirmed Problem Allergy to penicillin (20007195) Allergy status to penicillin (Z88.0) Active confirmed Encounters Encounter Location Date Provider Diagnosis [facility] [address] [place] [address] 01/07/2025 Radha Lewis Plan Of Treatment No Information Insurance Providers Payer Name Payer Address Payer Phone Subscriber Number Group Number Insured Name Patient Relationship to Insured Coverage Start Date Coverage End Date [facility] [address] [place] [address] [id number] Petra Will Self - patient is the insured Medical (General) History Surgical History Surgery Date(Month/Year) tonsillectomy 09/16/1981 shoulder recon 09/16/1996 TUBAL AND ABLATION 09/16/2016 TVT 09/16/2006
--- OUTSIDE RECORDS SUMMARY | 2025-04-22 11:38 | XMS_ITS | Clinical Summary ---
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 description: Awake: In the waking state, a continuous generalized medium-amplitude mixed-frequency background was noted; a symmetric posterior dominant rhythm of 9 Hz was recorded in the occipital regions bilaterally. The posterior dominant rhythm attenuated with eye opening and enhanced with eye closure. Drowsiness: There was waxing and waning of posterior dominant rhythm with appearance of diffuse synchronous and asynchronous theta-alpha activity during drowsiness. Provocative maneuvers: Photic stimulation: Intermittent photic stimulation produced Provocative maneuvers photic stimulation: symmetrical bi-occipital response ECG: Single ECG channel showed regular cardiac rhythm. Impression/Clinical Correlation This extended EEG (>60) recorded in awake and drowsy states is normal. Of note, a normal EEG does not rule out seizure/epilepsy. us Yoanna Mandujano NP NEUROLOGY ORDERABLES Final R esult [facility] [address] [id number], * USE ECHOCARDIOGRAM (02/25/2025 2:18 PM CDT) Anatomical Region Laterality Modality Cardiac Echocardiogram 02/25/2025 1:43 PM CDT Narrative 02/26/2025 6:16 PM CDT Echocardiography Report Pat.Name: CONSUELO SAENZ ALONSO M Pat.ID: [id number] .Date: 02/25/2025 Refer.: [id number] CHADWICK Alberts Exam Time: 1:43:00 PM Study Type:ECHO WITH CARDIAC DOPPLER COMP Height: 68 in Weight: 211 lb BSA: 2.09 m2 Age: 9 1975,49Y Sex: F HR: 71 bpm Sonogrphr: Valerie Thomas Pat. Stat.:Outpatient Reason for Study:Arrhythmia Procedures: 2D, M-mode, Doppler, Color Flow, The study quality is technically fair. Race: W ++++++++++++++++++++++++++++++++++++ SUMMARY: ++++++++++++++++++++++++++++++++++++ The left ventricular size is normal. The left ventricular systolic function is normal. Estimated left ventricular ejection fraction is 60-65%. Left ventricular diastolic function is normal. Wall motion appears normal in all segments. No evidence of aortic valve stenosis. No evidence of aortic valve regurgitation. Trace mitral regurgitation. Trace pulmonic regurgitation. Mild tricuspid regurgitation. Right ventricular systolic pressure is 20-25 mmHg. ++++++++++++++++++++++++++++++++++++ FINDINGS: ++++++++++++++++++++++++++++++++++++ LV: The left ventricular size is normal. The left ventricular systolic function is normal. Estimated left ventricular ejection fraction is 60-65%. There is no left ventricular hypertrophy. Left ventricular diastolic function is normal. WM: Wall motion appears normal in all segments. RV: The right ventricular size is normal. Right ventricular systolic function is normal. IVS: No evidence of ventricular septal defect. LA: The left atrial volume is normal ( less than 34 ml/M2). RA: Right atrial size is normal. IAS: Atrial septum appears intact. MALLY: No evidence of pericardial effusion. AO: Aorta is normal. PA: Estimated right atrial pressure of 8 mmHg. SVn: Inferior vena cava is mildly enlarged. Inferior vena cava shows <50% collapse with respiration consistent with elevated right atrial pressure. AV: The aortic valve is trileaflet. No evidence of aortic valve stenosis. No evidence of aortic valve regurgitation. MV: Trace mitral regurgitation. No evidence of mitral stenosis. PV: Trace pulmonic regurgitation. No evidence of pulmonic valve stenosis. Pulmonic valve not well visualized. TV: Mild tricuspid regurgitation. Right ventricular systolic pressure is 20-25 mmHg. No evidence of tricuspid valve stenosis. ++++++++++++++++++++++++++++++++++++ MEASUREMENTS: ++++++++++++++++++++++++++++++++++++ 2D Left Ventricle LVIDd 4.74 cm (3.6-5.2) Aorta Ao Asc 3.54 cm (zsc 3.2)* Aortic Valve Aortic Root Alberto 3.42 cm Left atrial alberto 3.83 cm Left Atrium Left Atrium Vol 34.4 ml/m2 LA Biplane Left Atrium Vol 71.8 ml LA Single Plane Left Atrium adan 5.95 cm Left Atrium adan 5.93 cm Left Atrium Vol 67.3 ml Left Atrium Vol 77.3 ml LV Teichholz Interventricula 0.96 cm Left Ventricle 2.96 cm Left Ventricle 0.85 cm Heart rate 70 Heart beat per minute Right Atrium RA sys Area 17.6 cm2 Right Ventricle Right Ventricul 3.14 cm RVIDd 3.55 cm MMODE Tricuspid Valve Tricuspid annul 2.81 cm DOPPLER Pulmonary Veins PVnpkVeld 58 cm/s AR-wave velocit 0.27 m/s Pulmonary Vein 1.01 m/s PVn A Dur 0.117 second Aortic Valve Cardiovascular 2.13 cm LVOT/AoV (PROCESSING TECHNOLOGIST) ( 1.01 LA/Ao 1.12 AV Antegrade Flow Peak Velocity ( 1.17 m/s Mean Velocity ( 0.82 m/s Velocity Time I 26 cm AV Antegrade Flow Simplified Bernoulli Gradient pressu 5.5 mmHg Gradient pressu 3 mmHg AV Continuity Equation by Velocity Time Integral Aortic Valve Ar 3.33 cm2 AoV Area Index 1.59 Left Ventricle Stroke Volume ( 86.4 ml Cardiac Output 6.05 liter per minute LV Antegrade Flow Peak Velocity ( 1.18 m/s Mean Velocity ( 0.75 m/s Velocity Time I 24.3 cm LV Antegrade Flow Simplified Bernoulli Gradient pressu 5.6 mmHg Gradient pressu 2.6 mmHg Mitral Valve Mitral Valve E- 0.177 second Mean Myocardial 10.4 centimeter/second Myocardial Velo 11.2 centimeter/second Ratio of Mitral 10.1 Myocardial Velo 9.6 centimeter/second Ratio of Mitral 9.37 Mitral Valve E 1.49 Ratio of Mitral 10.9 MV Antegrade Flow Mitral Valve E- 1.05 m/s Mitral Valve A- 0.7 m/s PV Antegrade Flow PV Vmax (Diasto 0.84 m/s PV Antegrade Flow Simplified Bernoulli PV PGmax (Systo 2.8 mmHg TV Regurgitant Flow MaximumTricuspi 1.99 m/s MaximumTricuspi 15.9 mmHg <Electronic Signature> 02/26/2025 06:16 PM Sabino Ambrose M.D. Procedure Note Sabino Ambrose MD - 02/26/2025 Echocardiography Report Pat.Name: ALONSO BARON Pat.ID: [id number] .Date: 02/25/2025 Refer.MD: [id number] [facility]ts Exam Time: 1:43:00 PM Study Type:ECHO WITH CARDIAC DOPPLER COMP Height: 68 in Weight: 211 lb BSA: 2.09 m2 Age: 9 1975,49Y Sex: F HR: 71 bpm Sonogrphr: Valerie Thomas Pat. Stat.:Outpatient Reason for Study:Arrhythmia Procedures: 2D, M-mode, Doppler, Color Flow, The study quality is technically fair. Race: W ++++++++++++++++++++++++++++++++++++ SUMMARY: ++++++++++++++++++++++++++++++++++++ The left ventricular size is normal. The left ventricular systolic function is normal. Estimated left ventricular ejection fraction is 60-65%. Left ventricular diastolic function is normal. Wall motion appears normal in all segments. No evidence of aortic valve stenosis. No evidence of aortic valve regurgitation. Trace mitral regurgitation. Trace pulmonic regurgitation. Mild tricuspid regurgitation. Right ventricular systolic pressure is 20-25 mmHg. ++++++++++++++++++++++++++++++++++++ FINDINGS: ++++++++++++++++++++++++++++++++++++ LV: The left ventricular size is normal. The left ventricular systolic function is normal. Estimated left ventricular ejection fraction is 60-65%. There is no left ventricular hypertrophy. Left ventricular diastolic function is normal. WM: Wall motion appears normal in all segments. RV: The right ventricular size is normal. Right ventricular systolic function is normal. IVS: No evidence of ventricular septal defect. LA: The left atrial volume is normal ( less than 34 ml/M2). RA: Right atrial size is normal. IAS: Atrial septum appears intact. MALLY: No evidence of pericardial effusion. AO: Aorta is normal. PA: Estimated right atrial pressure of 8 mmHg. SVn: Inferior vena cava is mildly enlarged. Inferior vena cava shows <50% collapse with respiration consistent with elevated right atrial pressure. AV: The aortic valve is trileaflet. No evidence of aortic valve stenosis. No evidence of aortic valve regurgitation. MV: Trace mitral regurgitation. No evidence of mitral stenosis. PV: Trace pulmonic regurgitation. No evidence of pulmonic valve stenosis. Pulmonic valve not well visualized. TV: Mild tricuspid regurgitation. Right ventricular systolic pressure is 20-25 mmHg. No evidence of tricuspid valve stenosis. ++++++++++++++++++++++++++++++++++++ MEASUREMENTS: ++++++++++++++++++++++++++++++++++++ 2D Left Ventricle LVIDd 4.74 cm (3.6-5.2) Aorta Ao Asc 3.54 cm (zsc 3.2)* Aortic Valve Aortic Root Alberto 3.42 cm Left atrial alberto 3.83 cm Left Atrium Left Atrium Vol 34.4 ml/m2 LA Biplane Left Atrium Vol 71.8 ml LA Single Plane Left Atrium adan 5.95 cm Left Atrium adan 5.93 cm Left Atrium Vol 67.3 ml Left Atrium Vol 77.3 ml LV Teichholz Interventricula 0.96 cm Left Ventricle 2.96 cm Left Ventricle 0.85 cm Heart rate 70 Heart beat per minute Right Atrium RA sys Area 17.6 cm2 Right Ventricle Right Ventricul 3.14 cm RVIDd 3.55 cm MMODE Tricuspid Valve Tricuspid annul 2.81 cm DOPPLER Pulmonary Veins PVnpkVeld 58 cm/s AR-wave velocit 0.27 m/s Pulmonary Vein 1.01 m/s PVn A Dur 0.117 second Aortic Valve Cardiovascular 2.13 cm LVOT/AoV (PROCESSING TECHNOLOGIST) ( 1.01 LA/Ao 1.12 AV Antegrade Flow Peak Velocity ( 1.17 m/s Mean Velocity ( 0.82 m/s Velocity Time I 26 cm AV Antegrade Flow Simplified Bernoulli Gradient pressu 5.5 mmHg Gradient pressu 3 mmHg AV Continuity Equation by Velocity Time Integral Aortic Valve Ar 3.33 cm2 AoV Area Index 1.59 Left Ventricle Stroke Volume ( 86.4 ml Cardiac Output 6.05 liter per minute LV Antegrade Flow Peak Velocity ( 1.18 m/s Mean Velocity ( 0.75 m/s Velocity Time I 24.3 cm LV Antegrade Flow Simplified Bernoulli Gradient pressu 5.6 mmHg Gradient pressu 2.6 mmHg Mitral Valve Mitral Valve E- 0.177 second Mean Myocardial 10.4 centimeter/second Myocardial Velo 11.2 centimeter/second Ratio of Mitral 10.1 Myocardial Velo 9.6 centimeter/second Ratio of Mitral 9.37 Mitral Valve E 1.49 Ratio of Mitral 10.9 MV Antegrade Flow Mitral Valve E- 1.05 m/s Mitral Valve A- 0.7 m/s PV Antegrade Flow PV Vmax (Diasto 0.84 m/s PV Antegrade Flow Simplified Bernoulli PV PGmax (Systo 2.8 mmHg TV Regurgitant Flow MaximumTricuspi 1.99 m/s MaximumTricuspi 15.9 mmHg <Electronic Signature> 02/26/2025 06:16 PM Sabino Ambrose M.D. Sabino Ambrose MD ECHO Final Result * (ABNORMAL) HEPATIC FUNCTION PANEL (02/25/2025 12:10 PM CDT) TOTAL PROTEIN S/P/B 6.9 6.4 - 8.2 G/DL 02/25/2025 1:14 PM CDT [facility] ALBUMIN S/P/B 3.6 3.4 - 5.0 G/DL 02/25/2025 1:14 PM CDT [facility] BILIRUBIN TOTAL S/P/B 0.6 0.2 - 1.2 MG/DL 02/25/2025 1:14 PM CDT [facility] Comment: THIS ASSAY IS NOT RECOMMENDED FOR PATIENTS UNDERGOING TREATMENT WITH ELTROMBOPAG DUE TO THE POTENTIAL FOR FALSELY ELEVATED RESULTS. BILIRUBIN DIRECT S/P/B 0.1 0.0 - 0.20 MG/DL 02/25/2025 1:14 PM CDT [facility] BILIRUBIN INDIRECT S/P/B 0.5 0.0 - 0.9 MG/DL 02/25/2025 1:14 PM CDT [facility] ALKALINE PHOSPHATASE S/P/B 66 50 - 136 U/L 02/25/2025 1:14 PM CDT [facility] AST 11(L) 15 - 37 U/L 02/25/2025 1:14 PM CDT [facility] ALT 20 14 - 55 U/L 02/25/2025 1:14 PM CDT [facility] A/G RATIO 1.1 1.0 - 2.0 RATIO 02/25/2025 1:14 PM CDT [facility] 02/25/2025 12:1 0 PM CDT Tierney Hloder NP LABORATORY Final Resul t [facility] [address] [place] [address], [place] [phone] * (ABNORMAL) LIPASE (02/25/2025 12:10 PM CDT) LIPASE 96(H) 13 - 75 UNITS/L 02/25/2025 1:14 PM CDT [facility] 02/25/2025 12:1 0 PM CDT Tierney Holder NP LABORATORY Final Resul t [facility] [address] [place] [address], [place] [phone] * MRI CERV SPINE WWO CON (02/18/2025 8:40 AM CDT) Anatomical Region Laterality Modality Spine Magnetic Resonan ce 02/19/2025 5:58 PM CDT Impressions 02/19/2025 8:58 PM CDT IMPRESSION: 1. Normal appearance of the internal auditory canals. 2. Mild cervical spondylosis, as described above. 3. Prominence of the central spinal canal at the C6-7 level which may relate to variant prominence versus a tiny syrinx. No abnormal enhancement within this region of the cord. 4. Right thyroid nodule. Thyroid nodule recommendation: No follow-up recommended unless deemed clinically necessary. Referred By: YOANNA MANDUJANO Interpreted By: Sreedhar Best MD, 02/19/2025 5:58 PM Narrative 02/19/2025 8:58 PM CDT [place] [address] EXAMINATION: MRI BRAIN WWO CON, MRI CERV SPINE WWO CON, 02/19/2025 5:58 PM TECHNIQUE: Multiplanar multisequence magnetic resonance images of the brain/IACs and cervical spine were obtained before and after the administration of 20 mL of Dotarem injected through the right antecubital fossa IV, without evidence of adverse reaction. HISTORY: Dizziness when turning head to the right, headaches COMPARISON: CT cervical spine 03/10/2023 FINDINGS: MRI brain/IAC's: Preserved welch-white matter differentiation. No abnormally enhancing intracranial parenchymal or mass. Internal auditory canals, cochlea and semicircular canals have a normal follicle GP. No abnormal enhancement of the posterior fossa structures. MRI cervical spine: The cervical vertebral bodies and facets are well aligned. The cervical vertebral body heights are preserved. No abnormal prevertebral or paraspinal soft tissue swelling. The cervical spinal cord otherwise has normal signal throughout its course. Prominence of the central spinal canal measuring up to 0.1 cm in caliber at the C6-7 level which may relate to variant prominence versus a tiny syrinx. No abnormal enhancement within this region of the cord. There is a 1.1 cm right thyroid nodule. C2-3: No significant spinal canal or neural foraminal stenosis. C3-4: No significant spinal canal or neural foraminal stenosis. C4-5: No significant spinal canal or neural foraminal stenosis. C5-6: Disc bulge impressing the ventral thecal sac. Mild spinal canal stenosis. Uncovertebral joint hypertrophy. Mild bilateral neural foraminal stenosis. C6-7: Disc bulge impressing the ventral thecal sac. Mild spinal canal stenosis. Uncovertebral joint hypertrophy. Mild bilateral neural foraminal stenosis. C7-T1: No significant spinal canal or neural foraminal stenosis. Procedure Note Sreedhar Best MD - 02/19/[address] [address] EXAMINATION: MRI BRAIN WWO CON, MRI CERV SPINE WWO CON, 02/19/2025 5:58 PM TECHNIQUE: Multiplanar multisequence magnetic resonance images of thebrain/IACs and cervical spine were obtained before and after theadministration of 20 mL of Dotarem injected through the right antecubitalfossa IV, without evidence of adverse reaction. HISTORY: Dizziness when turning head to the right, headaches COMPARISON: CT cervical spine 03/10/2023 FINDINGS: MRI brain/IAC's: Preserved welch-white matter differentiation. Noabnormally enhancing intracranial parenchymal or mass. Internal auditorycanals, cochlea and semicircular canals have a normal follicle GP. Noabnormal enhancement of the posterior fossa structures. MRI cervical spine: The cervical vertebral bodies and facets are wellaligned. The cervical vertebral body heights are preserved. No abnormalprevertebral or paraspinal soft tissue swelling. The cervical spinal cordotherwise has normal signal throughout its course. Prominence of thecentral spinal canal measuring up to 0.1 cm in caliber at the C6-7 levelwhich may relate to variant prominence versus a tiny syrinx. No abnormalenhancement within this region of the cord. There is a 1.1 cm rightthyroid nodule. C2-3: No significant spinal canal or neural foraminal stenosis. C3-4: No significant spinal canal or neural foraminal stenosis. C4-5: No significant spinal canal or neural foraminal stenosis. C5-6: Disc bulge impressing the ventral thecal sac. Mild spinal canalstenosis. Uncovertebral joint hypertrophy. Mild bilateral neuralforaminal stenosis. C6-7: Disc bulge impressing the ventral thecal sac. Mild spinal canalstenosis. Uncovertebral joint hypertrophy. Mild bilateral neuralforaminal stenosis. C7-T1: No significant spinal canal or neural foraminal stenosis. IMPRESSION: 1. Normal appearance of the internal auditory canals. 2. Mild cervical spondylosis, as described above. 3. Prominence of the central spinal canal at the C6-7 level which mayrelate to variant prominence versus a tiny syrinx. No abnormal enhancementwithin this region of the cord. 4. Right thyroid nodule. Thyroid nodule recommendation: No follow-up recommended unless deemedclinically necessary. Referred By: YOANNA MANDUJANO Interpreted By: Sreedhar Best MD, 02/19/2025 5:58 PM Yoanna Mandujano MRI Final Result * MRI BRAIN WWO CON (02/18/2025 8:39 AM CDT) Anatomical Region Laterality Modality Head Magnetic Resonan ce 02/19/2025 5:58 PM CDT Impressions 02/19/2025 8:58 PM CDT IMPRESSION: 1. Normal appearance of the internal auditory canals. 2. Mild cervical spondylosis, as described above. 3. Prominence of the central spinal canal at the C6-7 level which may relate to variant prominence versus a tiny syrinx. No abnormal enhancement within this region of the cord. 4. Right thyroid nodule. Thyroid nodule recommendation: No follow-up recommended unless deemed clinically necessary. Referred By: YOANNA MANDUJANO Interpreted By: Sreedhar Best MD, 02/19/2025 5:58 PM Narrative 02/19/2025 8:[address] PM [address] [address] EXAMINATION: MRI BRAIN WWO CON, MRI CERV SPINE WWO CON, 02/19/2025 5:58 PM TECHNIQUE: Multiplanar multisequence magnetic resonance images of the brain/IACs and cervical spine were obtained before and after the administration of 20 mL of Dotarem injected through the right antecubital fossa IV, without evidence of adverse reaction. HISTORY: Dizziness when turning head to the right, headaches COMPARISON: CT cervical spine 03/10/2023 FINDINGS: MRI brain/IAC's: Preserved welch-white matter differentiation. No abnormally enhancing intracranial parenchymal or mass. Internal auditory canals, cochlea and semicircular canals have a normal follicle GP. No abnormal enhancement of the posterior fossa structures. MRI cervical spine: The cervical vertebral bodies and facets are well aligned. The cervical vertebral body heights are preserved. No abnormal prevertebral or paraspinal soft tissue swelling. The cervical spinal cord otherwise has normal signal throughout its course. Prominence of the central spinal canal measuring up to 0.1 cm in caliber at the C6-7 level which may relate to variant prominence versus a tiny syrinx. No abnormal enhancement within this region of the cord. There is a 1.1 cm right thyroid nodule. C2-3: No significant spinal canal or neural foraminal stenosis. C3-4: No significant spinal canal or neural foraminal stenosis. C4-5: No significant spinal canal or neural foraminal stenosis. C5-6: Disc bulge impressing the ventral thecal sac. Mild spinal canal stenosis. Uncovertebral joint hypertrophy. Mild bilateral neural foraminal stenosis. C6-7: Disc bulge impressing the ventral thecal sac. Mild spinal canal stenosis. Uncovertebral joint hypertrophy. Mild bilateral neural foraminal stenosis. C7-T1: No significant spinal canal or neural foraminal stenosis. Procedure Note Sreedhar Best MD - 02/19/[address] [address] EXAMINATION: MRI BRAIN WWO CON, MRI CERV SPINE WWO CON, 02/19/2025 5:58 PM TECHNIQUE: Multiplanar multisequence magnetic resonance images of thebrain/IACs and cervical spine were obtained before and after theadministration of 20 mL of Dotarem injected through the right antecubitalfossa IV, without evidence of adverse reaction. HISTORY: Dizziness when turning head to the right, headaches COMPARISON: CT cervical spine 03/10/2023 FINDINGS: MRI brain/IAC's: Preserved welch-white matter differentiation. Noabnormally enhancing intracranial parenchymal or mass. Internal auditorycanals, cochlea and semicircular canals have a normal follicle GP. Noabnormal enhancement of the posterior fossa structures. MRI cervical spine: The cervical vertebral bodies and facets are wellaligned. The cervical vertebral body heights are preserved. No abnormalprevertebral or paraspinal soft tissue swelling. The cervical spinal cordotherwise has normal signal throughout its course. Prominence of thecentral spinal canal measuring up to 0.1 cm in caliber at the C6-7 levelwhich may relate to variant prominence versus a tiny syrinx. No abnormalenhancement within this region of the cord. There is a 1.1 cm rightthyroid nodule. C2-3: No significant spinal canal or neural foraminal stenosis. C3-4: No significant spinal canal or neural foraminal stenosis. C4-5: No significant spinal canal or neural foraminal stenosis. C5-6: Disc bulge impressing the ventral thecal sac. Mild spinal canalstenosis. Uncovertebral joint hypertrophy. Mild bilateral neuralforaminal stenosis. C6-7: Disc bulge impressing the ventral thecal sac. Mild spinal canalstenosis. Uncovertebral joint hypertrophy. Mild bilateral neuralforaminal stenosis. C7-T1: No significant spinal canal or neural foraminal stenosis. IMPRESSION: 1. Normal appearance of the internal auditory canals. 2. Mild cervical spondylosis, as described above. 3. Prominence of the central spinal canal at the C6-7 level which mayrelate to variant prominence versus a tiny syrinx. No abnormal enhancementwithin this region of the cord. 4. Right thyroid nodule. Thyroid nodule recommendation: No follow-up recommended unless deemedclinically necessary. Referred By: YOANNA MANDUJANO Interpreted By: Sreedhar Best MD, 02/19/2025 5:58 PM Yoanna Mandujano MRI Final Result * (ABNORMAL) KAPPA LAMBDA FREE RATIO (QST) (02/09/2025 8:53 AM CDT) KAPPA FREE LIGHT CHAIN 17.7 3.3 - 19.4 mg/L 02/11/2025 12:08 AM CDT [employer] [facility] LAMBDA FREE LIGHT CHAIN 10.5 5.7 - 26.3 mg/L 02/11/2025 12:08 AM CDT [employer] [facility] KAPPA/LAMBDA FREE 1.69(H) 0.26 - 1.65 02/11/2025 12:08 AM CDT [employer] [facility] Comment: Free kappa/lambda ratio in serum of normal individuals is 0.26-1.65. Excess production of free kappa or lambda chains can alter the ratio. Monoclonal free light chains are found in the serum of patients with multiple myeloma, Waldenstrom's macroglobulinemia, mu-heavy chain disease, primary amyloidosis, light chain deposition disease, monoclonal gammopathy of undetermined significance, and lymphoproliferative disorders. Measurement of free light chain concen- tration in serum is useful for diagnosis, prognosis, monitoring disease activity and following response to therapy of these disorders. Test Performed by [employer], [employer] [facility], [address] [place] [address] Mendez See M.D., Ph.D., Director of Laboratories , [place] [id number] 02/09/2025 8:53 AM CDT Yoanna Mandujano NP LABORATORY Final Result [employer] , * VITAMIN B-12 (02/09/2025 8:53 AM CDT) VITAMIN B12 S/P/B 510 254 - 1,320 PG/ML 02/09/2025 12:54 PM CDT [facility] 02/09/2025 8:53 AM CDT Yoanna Mandujano AGRICULTURAL EDUCATION INSTRUCTOR LABORATORY Final Result [facility] [address] [place] [address], [place] [phone] * (ABNORMAL) FOLIC ACID SERUM (02/09/2025 8:53 AM CDT) FOLATE 17.9(H) 3.1 - 17.5 NG/ML 02/09/2025 12:54 PM CDT [facility] 02/09/2025 8:53 AM CDT Yoanna Mandujano AGRICULTURAL EDUCATION INSTRUCTOR LABORATORY Final Result Performing Organization Address City/[facility]/ZIP Co de Phone Number [facility] [address] [place] [address], * VITAMIN B6 (02/09/2025 8:53 AM CDT) VITAMIN B6 S/P/B 11.1 2.1 - 21.7 ng/mL 02/13/2025 1:56 PM CDT [employer] GILBERT PAULINO Comment: Vitamin supplementation within 24 hours prior to blood draw may affect the accuracy of the results. This test was developed and its analytical performance characteristics have been determined by [facility] [place], [place]. It has not been cleared or approved by the U.S. Food and Drug Administration. This assay has been validated pursuant to the CLIA regulations and is used for clinical purposes. Test Performed by Benoit Glez, [employer] [facility], [address] [place] [address] Mendez See M.D., Ph.D., Director of Laboratories , CLIA [id number] 02/09/2025 8:53 AM CDT Yoanna Mandujano AGRICULTURAL EDUCATION INSTRUCTOR LABORATORY Final Result Performing Organization Address [facility]/ZIP Co de Phone Number TVShow Time [facility] [address] [place], [place] , [place] [phone] * VITAMIN B1 THIAMINE (02/09/2025 8:53 AM CDT) VITAMIN B1 S/P/B 11 8 - 30 nmol/L 02/12/2025 5:00 AM CDT TVShow Time GILBERT PAULINO Comment: Vitamin supplementation within 24 hours prior to blood draw may affect the accuracy of the results. This test was developed and its analytical performance characteristics have been determined by [facility] [place], [place]. It has not been cleared or approved by the U.S. Food and Drug Administration. This assay has been validated pursuant to the CLIA regulations and is used for clinical purposes. Test Performed by [facility], [facility], [address] [place], [place] Mendez See M.D., Ph.D., Director of Laboratories , CLIA [id number] 02/09/2025 8:53 AM CDT Yoanna Mandujano AGRICULTURAL EDUCATION INSTRUCTOR LABORATORY Final Result Performing Organization Address [facility] Co de Phone Number [employer] [facility] [address] [place], [place] , [place] [phone] * (ABNORMAL) PROTEIN, ELECTROPHORESIS (02/09/2025 8:53 AM CDT) TOTAL PROTEIN (ELECTROPHORESIS SERUM) 6.3 6.1 - 8.1 g/dL 02/11/2025 6:37 AM CDT TV[employer] Time QUENTIN BURGOS ALBUMIN ELECTROPHORESIS S/P/B 4.1 3.8 - 4.8 g/dL 02/11/2025 6:37 AM CDT [employer] Time QUENTIN BURGOS [id number]-[id number] S/P/B 0.3 0.2 - 0.3 g/dL 02/11/2025 6:37 AM CDT [facility] DANA-SUSANTI LLY ISQOL-5-[id number] S/P/B 0.6 0.5 - 0.9 g/dL 02/11/2025 6:37 AM CDT [facility] CORTEZ-SUSANTI LLY BETA 1 GLOBULIN S/P/B 0.4 0.4 - 0.6 g/dL 02/11/2025 6:37 AM CDT [facility] CORTE[place]-CHANTI LLY BETA 2 GLOBULIN S/P/B 0.3 0.2 - 0.5 g/dL 02/11/2025 6:37 AM CDT [facility] CORTE[place]-CHANTI LLY GAMMA GLOBULIN S/P/B 0.7(L) 0.8 - 1.7 g/dL 02/11/2025 6:37 AM CDT [facility] CORTE[place]US[place] L[place] ABNORMAL PROTEIN BAND 1 S/P/B REPORT 02/11/2025 6:37 AM CDT [facility]TE[place] [facility] Comment: No M Duncan detected. Reference Range: None Detected ABNORMAL PROTEIN BAND 3 S/P/B END OF REPORT 02/11/2025 6:37 AM CDT [facility] DANA-[facility]US[facility] ELECTROPHORESIS INTERPRETATION REPORT(A) 02/11/2025 6:37 AM CDT [facility] CORTE[facility]US[place] Comment: Consistent with hypogammaglobulinemia. Serum free light chains or urine immunofixation should be considered if plasma cell dyscrasias are a possible clinical diagnosis. Test Performed by [facility], [facility], [id number] [place] [address] Mendez See M.D., Ph.D., Director of Laboratories , [place] [id number] 02/09/2025 8:53 AM CDT Yoanna Mandujano NP LABORATORY Final Result [facility]Show Time [place] [id number] [place], [place] , * CLINIC - OUTPATIENT EVENT RECORDER (ECG) UP TO 30 DAYS COMPLETE (Holter) (01/29/2025 2:37 PM CDT) Narrative ARTEMIO CASEY - 01/29/2025 2:37 PM CDT EVENT MONITOR REPORT Patient Name: Alonso Saenz : 1975 Retail Seasonal Specialist Date: 01-22-25 Performed At: [place], [place] Interpreting Retail Tire Sales Manager: Dr. Ambrose PCP: LISA BRADLEY MD INDICATION: Arrhythmia DURATION OF MONITORIN days NUMBER OF TRANSMISSIONS: 5 INTERPRETATION: Sinus rhythm, rate 51 - 122 , average 75 No pauses Normal MT 0.16, QRS 0,08 , QTc 0.40 Low frequency PVCs Low frequency PACS One atrial triplet No repetitive arrhythmia including SVT, atrial fibrillation or ventricular tachycardia 5 patient- transmitted events show sinus rhythm rate 80s with no symptoms reported CONCLUSION: Sinus rhythm with no significant arrhythmia Patient -transmitted episodes show sinus rhythm , rate 80s Sabino Ambrose MD CV VASCULAR ORDERABLES Final Result ARTEMIO CASEY from Last 3 Months Insurance [facility] Care Teams Hot Air Furnace Installer And Repairer Relationship Specialty Start Date End Date Lisa Bradley MD [address] [place] [id number] PCP - General FAMILY PRACTICE 09/16/23
--- OUTSIDE RECORDS SUMMARY | 2025-04-22 11:38 | XMS_ITS | Encounter Summary ---
Author Organization [facility] Facility Care Team Providers Care Paste Up Copy Camera Operator Name Role Phone Unknown, Notinfile Primary Care Provider Unavail able William Bradley MD Primary Care Provider Nini Grewal Primary Care Provider Nini Grewal Primary Care Provider William Bradley MD Primary Care Provider [phone] William Bradley MD Primary Care Provider [phone] Erik Reed MD Unavailable [phone] Abebe Moreau MD Unavailable Kanu Bustos MD Unavailable Karly Villarreal MD Unavailable Boogie Reilly MD Unavailable [phone] Encounter Details Date Type Department Care Team (Latest Contact Info) Description 08/20/2017 Orders Only [facility] CLINCONV ProviderWalker MD [address] [place] [address] Social History Tobacco Use Types Packs/Day Years Used Date Smoking Tobacco: Every Day Comments Unknown Sex and Gender Information Value Date Recorded Sex Assigned at Not on file Legal Sex Female 1:50 AM FACULTY MEMBER Gender Identity Female 05/17/2021 10:31 AM CDT Sexual Orientation Straight 05/17/2021 10 :31 AM CDT documented as of this encounter Plan of Treatment Not on file documented as of this encounter Procedures Procedure Name Priority Date/Time Associated Diagnosis Comments SCAN - LABS 08/21/2017 12:00 AM FACULTY MEMBER documented in this encounter Results * SCAN - LABS (08/21/2017 12:00 AM FACULTY MEMBER) Narrative 08/21/2017 12:00 AM FACULTY MEMBER Ordered by an unspecified provider. us Historical Provider Final Res ult documented in this encounter Visit Diagnoses Not on filedocumented in this encounter Additional Health Concerns Infection Onset Date Last Indicated Resolved Time COVID: Suspected 05/18/2021 05/18/2021 06/01/2021 3:05 AM CDT documented as of this encounter Care Teams Paste Up Copy Camera Operator Relationship Specialty Start Date End Date Unknown, Notinfile PCP - General 04/30/18 05/13/18 William Bradley MD PCP - General 05/14/18 06/17/22 Nini Grewal PA PCP - General Family Medicine 06/18/22 03/21/23 Nini Grewal PA [address] [facility] [address] [place] [address] [place] [address] PCP - General Family Medicine 03/25/23 04/24/23 William Bradley MD [address] [facility] [address] [place] [address] [place] [address] PCP - General Family Medicine 04/25/23 05/11/24 William Bradley MD [address] [facility] [address] [place] [address] PCP - General Family Medicine 05/12/24 Erik Reed MD [address] [place] [address] [address] [place] [address] Referring Physician Interventional Cardiology 09/21/24 Abebe Moreau MD [address] [place] [address] [address] [place] [address] Consulting Physician Pulmonary Disease 09/21/24 Kanu Bustos MD [address] [facility] 1 [place] [address] Consulting Physician Internal Medicine 09/21/24 [place] [address] [facility] [address] [place] [address] Consulting Physician Rheumatology 09/21/24 Boogie Reilly MD [address] [address] Referring Physician Hematology and Oncology 09/21/24 documented as of this encounter
--- OUTSIDE RECORDS SUMMARY | 2025-04-22 11:38 | XMS_ITS | Clinical Summary ---
Author Organization [facility] Address [address] [place] [address] Care Team Providers Care Asl Interpreter Name Role Phone William Bradley MD Primary Care Provider Erik Reed MD Unavailable [phone] Abebe Moreau MD Unavailable [phone] Kanu Bustos MD Unavailable Karly Villarreal MD [...] PHARMACY Chapis Tomas's hair growth vitamin Active UNABLE TO FIND [...] total) by mouth daily 10/08/19 25 Active thyroid (Orient Thyroid) 30 mg tablet 1 tablet (30 mg total) daily Active hydrocortisone (CORTEF) 5 mg tabletIndications: Adrenal Cortical Insufficiency Follow separate instruction for taper, max 20mg (3 tabs am and one tab pm) a daily 120 tablet 03/17/20 25 025 Discontin ued(Thera py completed ) Active Problems Problem Noted Date Diagnosed Date H/O systemic steroid therapy 03/17/2025 Chronic pansinusitis 09/01/2024 Assessment & Plan (09/01/2024 7:56 PM COMPLETIONS ENGINEER): I am recommending a sinus CT scan for further evaluation this. She would like to go ahead and pursue that. I did note that she has a severe deviation of nasal septum to the right side with enlarged inferior turbinates. That could be causing some of her symptoms. She understands. Ear fullness, bilateral 09/01/2024 Assessment & Plan (09/01/2024 7:57 PM COMPLETIONS ENGINEER): I reassured her that her ears look [...] 01/25/2023 Assessment & Plan (08/29/2023 11:28 AM COMPLETIONS ENGINEER): Complains of abdominal pain since COVID vaccination [...] 01/25/2023 Assessment & Plan (08/29/2023 11:28 AM COMPLETIONS ENGINEER): Intermittent bright red blood per rectum. -colonoscopy [...] 01/25 Assessment & Plan (08/29/2023 11:30 AM COMPLETIONS ENGINEER): Chronic constipation for the past 2 years. -high-fiber diet -continue probiotics -continue Linzess Constipation 01/25/2023 Assessment & Plan (08/29/2023 11:18 AM COMPLETIONS ENGINEER): Chronic constipation for the past 2 years, [...] 06/16/2021 Assessment & Plan (08/29/2023 11:27 AM COMPLETIONS ENGINEER): Intermittent dysphagia to solids. EGD June 2023 with irregular Z-line, status post dilation to 54 [address]. Pathology unremarkable. No further dysphagia since dilation. [...] Encounters Date Type Department Care Team Description 04/01/2025 Results Follow-Up [facility] Endocrinology Metabolism and Lipid [address] [facility] Advanced Medicine 5th [place] [address] [place] [address] Keren Olson MD Cortisol 30 min 03/31/2025 8:12 AM CDT - 03/31/2025 11:59 PM CDT Hospital Encounter [facility] [address] [place] [address] H/O systemic steroid therapy Discharge Disposition: Discharge to home or self care 03/31/2025 8:00 AM CDT Infusion [facility] Infusion Therapy [address] [facility] [address] [place] [address] H/O systemic steroid therapy (Primary Dx) 03/17/2025 Orders Only [facility] Endocrinology Metabolism and Lipid [address] [facility] 5th [place] [address] [place] [phone] Keren Olson MD H/O systemic steroid therapy from Last 3 Months Immunizations Immunization Administration [...] on file Legal Sex Female 1:50 AM COMPLETIONS ENGINEER Gender Identity Female 05/17/2021 10:31 AM CDT Sexual Orientation Straight 05/17/2021 10 :31 AM CDT 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 Not on file Not on file Obstetrics History Last Filed Vital Signs Vital Sign Reading Time Taken Comments Blood Pressure 116/79 03/31/2025 8:05 AM CDT Pulse 64 03/31/2025 8:05 AM CDT Temperature 36.4 C (97.5 F) 12/25/2024 8:30 AM CDT Respiratory Rate 16 03/31/2025 8:05 AM CDT Oxygen Saturation 97% 12/15/2024 11:47 AM CDT Inhaled Oxygen Concentration - - Weight 96.9 kg (213 lb 9.6 oz) 12/25/2024 8:30 A M CDT Height 172.7 cm (5' 8) 12/25/2024 8:30 AM CDT Body Mass Index [...] - 2023-2 5 season) 2024 01/06/2021, 12/15/2020 Breast Cancer Screening-Mammogram 09/26/2024 09/26/2023, 06/07/2022, 03/02/2021 Influenza Vaccine (#1) 2025 07/16/2019 Colon Cancer Screening-Colonoscopy 01/07/2029 01/08/2024, 07/10/2023, 04/07/2021 DTaP/Tdap/Td Vaccine (2 - Td or Tdap) 12/17/2030 12/17/2020 Hepatitis C Screening Completed 09/24/2022 , 05/15/2021, 02/27/2021, Additional history exists Procedures Procedure Name Priority Date/Time Associated Diagnosis Comments CORTISOL 60 MIN Timed 03/31/2025 8:12 AM CDT H/O systemic steroid therapy CORTISOL 30 MIN Timed 03/31/2025 8:12 AM CDT H/O systemic steroid therapy CORTISOL BASELINE Timed 03/31/2025 8:1 2 AM CDT H/O systemic steroid therapy COSYNTROPIN STIMULATION TEST Timed 03/31/2025 8:12 AM CDT H/O systemic steroid therapy ACTH Routine 03/31/2025 8:12 AM CDT H/O systemic steroid therapy COLONOSCOPY 01/08/2024 11:02 AM CDT HEPATITIS PANEL, ACUTE Routine 09/24/2022 7:13 AM COMPLETIONS ENGINEER Dizziness SOB (shortness of breath) Benign essential HTN Chronic fatigue HM MAMMOGRAPHY Routine 06/07/2022 PAP SMEAR Routine 09/14/2020 from Last 3 Months or Most Recently Relevant to Health Maintenance Results * (ABNORMAL) Cortisol 30 min (03/31/2025 8:12 AM CDT) Cortisol, 30 min 20.0(H) 4.8 - 19.5 mcg/dL Comment: Interpretive Data Reference Values Cortisol cutoff of 14-15 ug/dL for cortrosyn stimulation testing. Lack of normal response can be seen in both primary and secondary adrenal failure. Some patients with secondary adrenal failure have normal response to cortrosyn. If pituitary disease is known or strongly suspected e.g. after pituitary surgery), the cortrosyn test alone should not be relied on to exclude adrenal failure. Literature References: 1. Jeffrey BR, German H, Yemi TB, et al. New cutoffs for the biochemical diagnosis of adrenal insufficiency after ACTH stimulation using specific cortisol assays. J Endocr Soc. 2020;5(4):bshq692. 2. Lawrence HEBERTP and Valerie LARA. New cutoffs for the biochemical diagnosis of Adrenal insufficiency after ACTH stimulation using specific cortisol assays. J. Endocrine Soc 2020;5:1-2. Current interpret data was last revised 24 Blood 03/31/2025 8:12 AM CDT 03/31/2025 7:48 PM CDT Narrative [facility] 03/31/2025 9:02 PM CDT Obtain pre, 30 minutes, and 60 minutes post cosyntropin adminstration. Keren Olson MD LAB BLOOD ORDERABLES Final Resul t Performing Organization Address [facility] de Phone Number [facility]ISES [address] [facility] [place] [address] * Cortisol baseline (03/31/2025 8:12 AM CDT) Cortisol, base 12.0 4.8 - 19.5 mcg/dL Blood 03/31/2025 8:12 AM CDT 03/31/2025 7:48 PM CDT [facility] 03/31/2025 8:53 PM CDT Obtain pre, 30 minutes, and 60 minutes post cosyntropin adminstration. Keren Olson MD LAB BLOOD ORDERABLES Final Resul t Performing Organization Address [facility] de Phone Number [facility] TERRAZAS [address] [facility] [place] [address] * (ABNORMAL) Cortisol 60 min (03/31/2025 8:12 AM CDT) Cortisol, 60 min 24.0(H) 4.8 - 19.5 mcg/dL Comment: Interpretive Data Reference Values Cortisol cutoff of 14-15 ug/dL for cortrosyn stimulation testing. Lack of normal response can be seen in both primary and secondary adrenal failure. Some patients with secondary adrenal failure have normal response to cortrosyn. If pituitary disease is known or strongly suspected e.g. after pituitary surgery), the cortrosyn test alone should not be relied on to exclude adrenal failure. Literature References: 1. Jeffrey BR, German H, Yemi RUBIO, et al. New cutoffs for the biochemical diagnosis of adrenal insufficiency after ACTH stimulation using specific cortisol assays. J Endocr Soc. 2020;5(4):wotx757. 2. Lawrence HEBERTP and Valerie LARA. New cutoffs for the biochemical diagnosis of Adrenal insufficiency after ACTH stimulation using specific cortisol assays. J. Endocrine Soc 2020;5:1-2. Current interpret data was last revised 24 Blood 03/31/2025 8:12 AM CDT 03/31/2025 7:48 PM CDT Narrative [facility] TERRAZAS - 03/31/2025 8:48 PM CDT Obtain pre, 30 minutes, and 60 minutes post cosyntropin adminstration. us Keren Olson MD LAB BLOOD ORDERABLES Final Resul t Performing Organization Address City/[facility]/ZIP Co de Phone Number [facility]ISES [address] [place] [address] * ACTH (03/31/2025 8:12 AM CDT) ACTH 30.0 7.0 - 63.0 pg/mL Comment:Testing performed by : [facility], [address] [place]., [address] Blood 03/31/2025 8:12 AM CDT 04/01/2025 10:02 AM CDT us Keren Olson MD LAB BLOOD ORDERABLES Final Resul t Performing Organization Address [facility] Co de Phone Number [facility] [address] [address] [place] [address] * Colonoscopy (01/08/2024 11:02 AM CDT) Anatomical Region Laterality Modality Other Narrative Procedure Note Dewayne Briggs MD - 01/08/2024 11:02 AM CDT [facility] END[facility] Patient Name: Petra Hackett Procedure Date: 01/08/2024 11:02 AM Date of : 1975 Admit Type: Outpatient Age: 48 Gender: Female Attending MD: Dewayne Briggs M.D. Room: [facility] ENDOSCOPY ROOM 06 Note Status: Finalized [...] The scope was passed under direct vision.The [id number]-[id number] colonoscope was introduced through theanus and advanced [...] On: 01/08/2024 11:02 AM Recognized by the [employer] for promoting quality in endoscopy us Dewayne Briggs MD ENDOSCOPY PROCEDURES Final Resul t * Hepatitis panel, acute (09/24/2022 7:13 AM COMPLETIONS ENGINEER) Hep A IgM Negative Negative [facility] - 01 HepBsAg Negative Negative [facility] - 01 Hep B core IgM Negative Negative [facility] - 01 Hep C Ab <0.1 0.0 - 0.9 s/co ratio [facility] - 01 Blood 09/24/2022 7:13 AM COMPLETIONS ENGINEER 09/24/2022 Narrative [facility] - 09/25/2022 6:09 AM COMPLETIONS ENGINEER Performed at: 01 - [facility] [address] [id number] Equity Holder: Jose Dacosta PhD, Phone: [phone] Nini MCCORMICK LAB MICROBIOLOGY - GENE RAL ORDERABLES Final Result [facility] - 01 * HM MAMMOGRAPHY (06/07/2022) Historical Provider HEALTH MAINTENANCE Final Result * Pap Smear (09/14/2020) 09/14/2020 Historical Provider LAB PATHOLOGY ORDERABLES Final Result from Last 3 Months or Most Recently Relevant to Health Maintenance Insurance [employer] ACCESS CHOICE [employer] ACCESS CHOICE [facility] ANTH ACCESS CHOICE Advance Directives For more information, please contact: [phone] * Full Code (Latest Code Status on File) Date Activated Date Inactivated Comments 06/15/2024 2:04 PM 06/15/2024 7:50 PM * Full Code Date Activated Date Inactivated Comments 11/01/2022 1:53 PM 11/02/2022 6:56 PM Care Teams Asl Interpreter Relationship Specialty Start Date End Date William Bradley MD PCP - General Family Medicine 05/12/24 Erik Reed MD [address] [place] [address] 3 [place] [address] Referring Physician Interventional Cardiology 09/21/24 [place] [address] [place] [address] Consulting Physician Pulmonary Disease 09/21/24 Kanu Bustos MD [address] [facility] 1 [place] [address] Consulting Physician Internal Medicine 09/21/24 [place] [address] [facility] [address] [place] [address] Consulting Physician Rheumatology 09/21/24 Boogie Reilly MD [address] [place] [address] Referring Physician Hematology and Oncology 09/21/24
--- OUTSIDE RECORDS SUMMARY | 2025-04-22 11:38 | XMS_ITS | Continuity of Care Document ---
Author Organization [employer] [address] Address [address] [place] [address] Phone Care Team Providers Care Exterior Work Helper Name Role Phone Lance Castellanos MD Unavailable [...] Available - Active Procedures Procedure Date OFFICE [id number] BODY MASS INDEX [facility] SYST BP LT 130 MM HG DIAST BP < 80 MM HG GI TRACT CAPSULE ENDOSCOPY OFFICE ZIEFV-DKC-[id number] BODY MASS INDEX DOCD SYST BP LT 130 MM HG DIAST BP < 80 MM HG OFFICE FPADA-IJV-JODKVVEK BODY MASS INDEX DOCD SYST BP LT 130 MM HG DIAST BP < 80 MM HG OFFICE GOBYU-WPR-FPDKCBWW BODY MASS INDEX DOCD SYST BP LT 130 MM HG DIAST BP < 80 MM HG COLONOSCOPY, FLEXIBLE, DIAGNOSTIC W/ COL LECTION OF SPECIMEN UPPER GI ENDOSCOPY BIOPSY DEAMIDATED GLADIN PEPTIDE IGA DEAMIDATED GLADIN PEPTIDE IGG TISSUE TRANSGLUTIMASE IGA TISSUE TRANSGLUTIMASE IGG ROUTINE VENIPUNCTURE OFFICE ZLLQG-PHB-[id number] BODY MASS INDEX DOCD SYST BP LT 130 MM HG DIAST BP < 80 MM HG FWEOHAY-XOTGZR-NWKM MED BODY MASS INDEX DOCD SYST BP LT 130 MM HG DIAST BP 80-89 MM HG Advance Directives Directive Yes / No Effective Date File Name No Information Encounters Encounter Description Practice Location Reason(s) For Visit Diagnoses Date Provider Providers Copied on Encounter [facility] [address], [address], [place], [place], [id number] , [place] tel:[phone] [facility] No Information [address] [facility] [place], [id number] , [place]. tel: [phone] [facility], [address], [place], [place], [address] , [place] tel: [phone] [facility] Enlarged thyroid 2 Jasmin Lucas. [address] [place] [address], [id number] , [place]. tel: [phone] [facility], [address], [place], [place], [address] , [place] tel: [phone] [facility] Deviated trachea 2 Jasmin Lucas. [address] [place] [address], [id number] , [place]. tel: [phone] OFFICE [id number] PANDED [facility], [address], [place], [place], [id number] , [place] tel: [phone] [facility] Dysphagia (chief complaint) Dysphagia, unspecified type 2 Juan Monet. [address] [place] [address], [id number] , [place]. tel: [phone] Referring Provider: William Bradley, [address] [place] [address], [facility]. tel:[phone] [facility], [address], [place], [place], [address] , [place] tel: [phone] [facility] Generalized abdominal pain 2 Jasmin Lucas. [address] [place] [address], [id number] , [place]. tel: [phone] [facility], [address], [place], [place], [id number] , [place] tel: [phone] [facility] Abdominal pain (chief complaint)C rohns flare up (chief complaint) No Information 2 Jasmin Lucas. [address] [place] [address], [id number] , [place]. tel: [phone] Referring Provider: Lance Castellanos, [address] [place] [address], [address] . tel:[phone] OFFICE [id number]-[id number]-MG [facility], [address], [place], [place], [id number] , [place] tel: [phone] [facility] GI problems (chief complaint) Abdominal bloatingGeneraliz ed abdominal painIrritable bowel syndrome, unspecified typeFH: Crohn's disease 2 Jasmin Lucas. [address], [place], [id number] , [place]. tel: [phone] Referring Provider: William Bradley, [address] [place] [address], [address]. tel:[phone] OFFICE [id number]-JRK-XM [facility], [address], [place], [place], [id number] , [place] tel: [phone] [facility] Abdominal pain (chief complaint) Irritable bowel syndrome with both constipation and diarrheaWeight lossGeneralized abdominal painAbdominal bloatingAbnormal finding on GI tract imaging 1 Juan Monet. [address] [place] [address], [id number] , [place]. tel: [phone] Referring Provider: Tierney Martinez, [address] [place] [address], [address] . tel:[phone] [facility], [address], [place], [place], [id number] , [place] tel: [phone] [facility] No Information 1 Juan Monet. [address] [place] [address], [id number] , [place]. tel: [phone] OFFICE [id number]-UX [facility], [address], [place], [place], [address] , [place] tel: [phone] [facility] Follow up from procedure (chief complaint) Generalized abdominal painIrritable bowel syndrome with both constipation and diarrheaWeight loss 1 Juan Monet. [address] [place] [address], [id number] , [place]. tel: [phone] Referring Provider: Willaim Bradley, [address] [place] [address], [address]. tel:[phone] [employer] [facility] [address] [facility], [address], [place], [place], [id number] , [place] tel: [phone] [facility] No Information 1 Jasminmark Lucas. [address] [place], [place], [id number] , . tel: [phone] Referring Provider: William Bradley, [address] [place] [address], [address]. tel:[phone] [facility], [address], [place], [place], [address] , [place] tel: [phone] [facility] Elevated liver enzymes 1 Juan Monet. [address] [place] [address], [id number] , [place]. tel: [phone] OFFICE [id number]-BAU-KE TAILED [facility], [address], [place], [place], [address] , tel: [phone] [facility] Epigastric pain (chief complaint) Other dysphagiaElevated liver enzymesGeneralize d abdominal painWeight loss 1 Juan Monet. [address] [place] [address], [id number] , [place]. tel: [phone] Referring Provider: William Bradley, [address] [place] [address], [address]. tel:[phone] CONSULT-OFFI CE-COMP [facility], [address] [place] [address], [id number] , [place] tel: [phone] [facility] IBS (chief complaint) Irritable bowel syndrome with both constipation and diarrheaGeneraliz ed abdominal painOther hemorrhoids 0 Juan Monet. [address] [place] [address], [id number] , [place]. tel: [phone] Referring Provider: William Bradley, [address] [place] [address], [address]. tel:[phone] Family History Family Member Type Diagnosis Age At Onset No Information Payers Payer name Insurance type Covered alliance party ID Katy pickett(s) [facility] ACCESS BL [id number] Social History Type Description Quantity Date Captured [...] Order: Lab Order Hepatic Function Panel (LFT) ([id number]), Collected on: , Sent on: Sent History [...]
--- OUTSIDE RECORDS SUMMARY | 2025-04-22 11:38 | XMS_ITS | Encounter Summary ---
Author Organization [facility] Address [facility] [place] [address] Care Team Providers Care Camp Program Director Name Role Phone William Bradley MD Primary Care Provider [phone] Reason for Referral * Consultation (Routine) - Authorized Specialty Diagnoses / Procedures Referred By Johnny mera Referred To Contact Diagnoses Hypogammaglobulinemia (HHS/HCC) Procedures OFFICE/OUTPATIENT NEW LOW MDM 30-44 MINUTES OFFICE/OUTPT VISIT,NEW,LEVL IV OFFICE/OUTPT VISIT,NEW,LEVL V OFFICE/OUTPT VISIT,EST,LEVL III OFFICE/OUTPT VISIT,EST,LEVL IV OFFICE/OUTPT VISIT,EST,LEVL V Kavita Mandujano NP [address] [facility] [address] [place] [address] Phone: tel: fax: [facility] [address] [place] [address] Phone: tel: fax: Referral ID Status Reason Start Date Expiration Date Visits Requested Visits Authorized [id number] Authorized Specialty Services 02/12/2025 03/14/2026 99 99 Reason for Visit * Reason Onset Date Comments Results 02/12/2025 Encounter Details Date Type Department Care Team (Latest Contact Info) Description 02/12/2025 Results Follow-Up [facility] Medical [facility] Multispecialty Care - [facility] [address] [facility], [address] [place] [id number] Kavita Mandujano, ROBIN [address] [facility] [address] [place] [address] VITAMIN B1 THIAMINE, VITAMIN B-12, FOLIC ACID SERUM, Additional followed-up results: 7 Social History Tobacco Use Types Packs/Day Years [...] Sex Assigned at Female 11/16/2024 8:34 AM CASKET TRIMMER Legal Sex Female 6:38 AM CDT Gender Identity Female 11/16/2024 8:34 AM CASKET TRIMMER Sexual Orientation Not on file 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 Question Answer Date of Assessment Author Status Little interest or pleasure in doing things Not at all 02/25/2025 9:43 AM CDT Vicky Alston MA Active Feeling down, depressed, or hopeless Not at all 02/25/2025 9:43 AM CDT Barbara Alston MA Active Patient Health Questionnaire-2 Score 0 02/25/2025 9:43 AM CDT Camilla Alston MA Active documented as of this encounter Progress Notes * Jannette Mckee - 03/09/2025 12:07 PM CDT Pt returned call, read her the below results and she stated an understanding * Gabrielle Moralez MA - 03/09/2025 11:39 AM CDT Called to inform patient of test results, no answer from patient left message for patient to returnoffice call. * Hramony Mandujano MA - 02/15/2025 2:06 PM CDT Spoke with patient, results were given. Pt also sent my chart with some concerns, questions she hadfor Kavita have been forwarded to her. documented in this encounter Plan of Treatment Upcoming Encounters Date Type Department Care Team (Late st Contact Info) Description 04/29/2025 7:40 AM CDT Office Visit [facility] Medical Group Multispecialty Care - [facility] [address] [facility], [address] [place] [address] Kavita Mandujano NP [address] [facility] [address] [place] [address] 05/06/2025 11:00 AM CDT Appointment [facility] [place] [address] Tierney Constantino NP 3 [facility] [address] [place] [address] 07/02/2025 9:30 AM CDT Office Visit [facility] [address] Sabino Ambrose MD 3 [facility] [address] [place] [address] 07/21/2025 9:00 AM CASKET TRIMMER Office Visit [facility] Medical Group Multispecialty Care - [facility] [address] [facility] [address] [place] [address] Ad Sawyer DO [address] [facility] [address] [place] [address] Scheduled Referrals Name Type Priority Associated Diagnoses Orde r Schedule Ambulatory referral to Hematology Referral Routine Hypogammaglobulinemia (HHS/HCC) Ordered: 02/12/2025 documented as of this encounter Visit Diagnoses Diagnosis Hypogammaglobulinemia (HHS/HCC)- Primary Hypogammaglobulinaemia, unspecified documented in this encounter Care Teams Camp Program Director Relationship Specialty Start Date End Date William Bradley MD [address] [facility] [address] [place] [address] PCP - General FAMILY PRACTICE 09/16/23 documented as of this encounter
--- OUTSIDE RECORDS SUMMARY | 2025-04-22 11:38 | XMS_ITS | Encounter Summary ---
Author Organization [facility] Address [address] [place] [address] Care Team Providers Care Reagent Tender Helper Name Role Phone William Bradley MD Primary Care Provider [phone] Reason for Visit * Reason Comments EMG (SCAN) Encounter Details Date Type Department Care Team (Latest Contact Info) Description 04/20/2025 Scan HEALTH INFO [facility] Scanned, Doc Med Group EMG (SCAN) Social History Tobacco Use Types Packs/Day Years [...] Sex Assigned at Female 11/16/2024 8:34 AM SUPERVISOR AUDIT CLERKS Legal Sex Female 6:38 AM CDT Gender Identity Female 11/16/2024 8:34 AM SUPERVISOR AUDIT CLERKS Sexual Orientation Not on file 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 Not on file Not on file documented as of this encounter Plan of Treatment Upcoming Encounters Date Type Department Care Team (Late st Contact Info) Description 04/29/2025 7:40 AM CDT Office Visit [facility] Medical [facility] Multispecialty Care - [address], [address] [place] [phone] Kavita Mandujano NP [address] [facility] [address] [place] [address] 05/06/2025 11:00 AM CDT Appointment [facility] [place] [address] Tierney Constantino NP [address] [facility] [address] [place] [address] 07/02/2025 9:30 AM CDT Office Visit [facility] [phone] Sabino Ambrose MD 3 [facility] [address] [place] [address] 07/21/2025 9:00 AM SUPERVISOR AUDIT CLERKS Office Visit [facility] Medical Group Multispecialty Care - [facility] [address] [facility] [address] [place] [address] Ad Sawyer DO [address] [facility] [address] [place] [address] documented as of this encounter Procedures Procedure Name Priority Date/Time Associated Diagnosis Comments EMG GENERIC (SCAN ORDER) 04/20/2025 documented in this encounter Results * EMG GENERIC (SCAN ORDER) (04/20/2025) 04/20/2025 us Doc Med Group Scanned SCANNING Final Resu lt documented in this encounter Visit Diagnoses Not on filedocumented in this encounter Care Teams Reagent Tender Helper Relationship Specialty Start Date End Date William Bradley MD [address] [facility] [address] [place] [address] PCP - General FAMILY PRACTICE 09/16/23 documented as of this encounter
--- OUTSIDE RECORDS SUMMARY | 2025-04-22 11:38 | XMS_ITS | Encounter Summary ---
Author Organization [facility] Care Team Providers Care Seater Grinder Name Role Phone Unknown, Notinfile Primary Care Provider Unavail able William Bradley MD Primary Care Provider Nini Grewal Primary Care Provider Nini Grewal Primary Care Provider William Bradley MD Primary Care Provider [phone] William Bradley MD Primary Care Provider [phone] Erik Reed MD Unavailable [phone] Abebe Moreau MD Unavailable Kanu Bustos MD Unavailable Karly Villarreal MD Unavailable Boogie Reilly MD Unavailable [phone] Encounter Details Date Type Department Care Team (Latest Contact Info) Description 01/30/2017 Orders Only [facility] CLINCONV ProviderWalker MD [address] [place] [address] Social History Tobacco Use Types Packs/Day Years Used Date Smoking Tobacco: Every Day Comments Unknown Sex and Gender Information Value Date Recorded Sex Assigned at Not on file Legal Sex Female 1:50 AM ASSISTANT CORPORATION COUNSEL Gender Identity Female 05/17/2021 10:31 AM CDT [...] documented as of this encounter Care Teams Seater Grinder Relationship Specialty Start Date End Date Unknown, Notinfile PCP - General 04/30/18 05/13/18 William Bradley MD PCP - General 05/14/18 06/17/22 Nini Grewal PA PCP - General Family Medicine 06/18/22 03/21/23 Nini Grewal PA [address] [place] [address] PCP - General Family Medicine 03/25/23 04/24/23 William Bradley MD [address] [place] [address] PCP - General Family Medicine 04/25/23 05/11/24 William Bradley MD [address] [facility] [address] [place] [address] PCP - General Family Medicine 05/12/24 Erik Reed MD [address] [place] [address] 3 [place] [address] Referring Physician Interventional Cardiology 09/21/24 [place] [address] [place] [address] [address] [place] [address] Consulting Physician Pulmonary Disease 09/21/24 Kanu Bustos MD [address] [facility] [address] [place] [address] Consulting Physician Internal Medicine 09/21/24 [place] [address] [facility] [address] [place] [address] Consulting Physician Rheumatology 09/21/24 Boogie Reilly MD [address] [place] [address] Referring Physician Hematology and Oncology 09/21/24 documented as of this encounter
== END 2025-04-22 11:33 | disposition home or self-care (01) ==
LOC: ANHIMG 11:34
PROVIDERS: PCP Family Medicine; Visit Provider Family Medicine
DX: K35.30 Acute appendicitis with localized peritonitis, without perforation or gangrene (principal)
CPT/HCPCS: 74176

== ENCOUNTER 2025-06-07 07:05 | Emergency (ER) | payer BC, SELFPAY ==
--- OUTSIDE RECORDS SUMMARY | 2024-02-29 16:30 | XMS_ITS ---
Author Organization [facility] [employer] [address] ([address]) Address [address] [place] [address] Care Team Providers Care Telephone Recorder Name Role Phone Uri Nini Primary Care Provider Unavail able Radha Lewis Unavailable [phone] [facility], Provider Unavailable Unavailab le Allergies Allergen (clinical drug ingredient) Drug/Non Drug Allergy documented on EMR Reaction Allergy Type Onset Date Status amoxicillin / clavulanate Augmentin hives Drug Allergy Active meperidine Demerol hives Drug Allergy Active nitrofurantoin Macrodantin hives Drug Allergy Active Penicillin shortness of breath Drug Allergy Active REASON FOR VISIT [facility] To [facility] Conversion Encounter Medications Medication SIG (Take, Route, Frequency, Duration) Notes Start Date End Date Status MAGNESIUM ACETATE, 500 G *Please review for potential replacement for e-prescription and drug interaction check* Active busPIRone HCl 7.5 MG 1 tab(s) orally 2 times a day Active Atorvastatin Calcium 20 MG 1 tab(s) orally once a day Active Metoprolol Succinate ER 25 MG 1 tab(s) orally once a day Active Encounters Encounter Location Date Provider Diagnosis [address] [address] 02/29/2024 Provider [facility] Plan Of Treatment No Information Progress Notes * Rae DEWITTB: (50 yo F)Acc No.[id number]:02/29/2024 Patient: Carmelita Petra RUDD Provider: Naomi Chase :1975 A ge:48 Y S ex:Female Date:02/29/2024 [facility] Pcp:Nini Grewal Subjective: * Chief Complaints: * 1 . [facility] To [facility] Conversion Encounter. * Medical History: * Medications: T aking MAGNESIUM ACETATE, 500 G , Notes to Pharmacist: *Please review for potential replacement for e-prescription and drug interaction check*, Taking busPIRone HCl 7.5 MG Tablet 1 tab(s) orally 2 times a day , Taking Atorvastatin Calcium 20 MG Tablet 1 tab(s) orally once a day , Taking Metoprolol Succinate ER 25 MG Tablet Extended Release 24 Hour 1 tab(s) orally once a day * Allergies: A ugmentin: hives, Penicillin: shortness of breath, Macrodantin: hives, Demerol: hives. Objective: * Vitals: Assessment: Plan: * Treatment: * Billing Information: * Visit Code: * Procedure Codes: * Electronic signature of Prov mirtar [facility] on 06/07/2025 at 08:37 AM CDT Sign off status: Pending * Provider: Naomi Chase Date: 02/29/2024 Generated for Thomas garner/Benjy/Emile on: 06/07/2025 08:37 AM CDT
--- OUTSIDE RECORDS SUMMARY | 2024-05-29 04:00 | XMS_ITS ---
Author Organization [facility] Address [address] [facility] [address] [place] [address] Care Team Providers Care Lead Architect Name Role Phone Kirk NEGRON, William Primary Care Provider Agustin KOO NP, LESIA Mica [phone] Allergies Allergen (clinical drug ingredient) Drug/Non Drug Allergy documented on EMR Reaction Allergy Type Onset Date Status meperidine Demerol throat swelling Drug Allergy Active nitrofurantoin Macrodantin hives Drug Allergy Active Adhesive blisters Allergy Active REASON FOR VISIT Abd Pain Medications Medication SIG (Take, Route, Frequency, Duration) Notes Start Date End Date Status Ondansetron 4 MG 1 tablet on the tong ue and allow to dissolve Orally 4 times day prn 05/29/2024 Active Minoxidil 2.5 MG 1/2 tablet orally on ce daily Orally Twice a day Active CATERPILLAR DRIVER Thyroid 30 MG 1 tablet on an empty stomach Orally Once a day Active Linzess 145 MCG 1 capsule at least 3 0 minutes before the first meal of the day on an empty stomach Orally Once a day Active Metoprolol Tartrate 25 MG 1 tablet with food Orally Twice a day Active Propranolol HCl ER 60 MG 1 capsule Orall y Once a day Active Spironolactone 100 MG 1 tablet Orally On ce a day Active predniSONE 20 MG 1 tablet Orally Once a day Active Vital Signs Heart Rate 90 /min 05/29/2024 Blood pressure systolic 139 mm Hg 05/29/20 24 Blood pressure diastolic 70 mm Hg 024 Weight 197 lbs 05/29/2024 BMI 29.95 kg/m2 05/29/2024 Height 68 in 05/29/2024 Encounters Encounter Location Date Provider Diagnosis [facility] [address] [place] [address] 05/29/2024 LESIA KOO Abdominal distension (gaseous) R14.0 and Generalized abdominal pain R10.84 Assessments Encounter Date Diagnosis (ICD Code) Assessment Notes Treatment Notes Treatment Clinical Notes Section Notes 05/29/2024 Abdominal distension (gaseous) (ICD-10 - R14.0) discussed possible repeat SIBO testing recommended for her to start a daily probiotic like Align or Serina [employer] health she no longer has constipation with using natural regimen, may continue at this time 05/29/2024 Generalized abdominal pain (ICD-10 - R10.84) discussed possible etiologies including SOD, chronic pancreatitis, functional GI, IBS, visceral hypersensitivity, MAST cell activation syndrome and others will start with EUS for evaluation at this time will discuss results after testing discussed possible trial of medication but would like to avoid at this time if normal discussed possible referral to sharepoint application architect for further testing. 05/29/2024 Other Time spent: 45minutes. More than 50% spent reviewing diagnostic results, compliance with current medical therapy, counseling patient on low fat diet, weight reduction to normal BMI, normal BMI discussed, avoidance of ETOH/tobacco products, discussing treatment options. Have discussed details of EUS procedure including indications/risks/exp ected outcomes/limitations/ possible medication side effects, and alternatives to procedure. All questions answered and patient expresses understanding. No contraindications noted. Instructed patient regarding management plan, follow-up visits, and stressed importance of compliance with plan. Plan Of Treatment Treatment Notes Assessment Notes Abdominal distension (gaseous) discussed possible repeat SIBO testing recommended for her to start a daily probiotic like Align or Serina [employer] health she no longer has constipation with using natural regimen, may continue at this time Generalized abdominal pain discussed possible etiologies including SOD, chronic pancreatitis, functional GI, IBS, visceral hypersensitivity, MAST cell activation syndrome and others will start with EUS for evaluation at this time will discuss results after testing discussed possible trial of medication but would like to avoid at this time if normal discussed possible referral to sharepoint application architect for further testing. Other Time spent: 45minute s. More than 50% spent reviewing diagnostic results, compliance with current medical therapy, counseling patient on low fat diet, weight reduction to normal BMI, normal BMI discussed, avoidance of ETOH/tobacco products, discussing treatment options. Have discussed details of EUS procedure including indications/risks/expected outcomes/limitations/possible medication side effects, and alternatives to procedure. All questions answered and patient expresses understanding. No contraindications noted. Instructed patient regarding management plan, follow-up visits, and stressed importance of compliance with plan. Next Appt Details Follow Up: 2 Months, Reason: Progress Notes * Keke BARON:0 1975 (50 yo F)Acc No.[id number]:05/29/2024 Progress Notes Patient: Petra GALLARDO Appointment Provider: Kyler Koo CNP :1975 A ge:48 Y S ex:Female Date:05/29/2024 Address:[address] [place], [place] [id number] Pcp:William Bradley MD Subjective: * Chief Complaints: * 1 . Abd Pain. * HPI: C onstitutional: Puneet is a 48 year old female with history of hypothyroidism, anxiety, HLD, IBS who presents today with complaints of abdominal discomfort with bloating for the past few years. She states that after she was diagnosed with COVID a few years ago she began having complaints of abdominal pain of a uncomfortable feeling with abdominal bloating as well as constipation. She was tested for SIBO that was positive and received treatment of Xifixan and then another round of antibiotics as she tested negative but continued to have complaints. She then was seen by a holistic doctor who started her on a regimen of probotics and oregano oil and her complaints seemed to resolve. She then had a COVID vaccine and her complaints returned. She states that she has complaints of a discomfort in her RUQ and RLQ that can come on and is a pressure sensation. She states that she also has complaints of skin irritation as well as low grade temperature of 99. She states that she has had multiple testing completed (see below) that has all returned normal. She was diagnosed with sarcodosis shortly after her COVID exposure and has been following with rheumatology. She is currently on prednisone to help with complaints but is suspicious of her GI complaints and recommended for her to follow up with GI. She states that she has significantly changed her diet as she is now diary free, gluten free, does not eat sugar and eats small meals. She states that her complaints do not seem to be food triggered however she did feel better when she was on a vegan diet. She has no complaints of nausea, heartburn, diarrhea. She presents today for further management. Previous testin01/08/24 colonoscopy [facility] showed two diminutive polyps at the recto-sigmoid, non bleeding internal hemorrhoids, diverticulosis. Biopsy showed hyperplastic colon polyps, recommended repeat colonoscopy in 5 years. 07/10/23 colonoscopy [facility] showed inadequate prep, diverticulosis, int hemorrhoids, repeat in 6 months. 07/10/23 EGD [facility] showed z-line irregular, in the distal esophagus. Gastritis. Normal Duodenum, esophageal dilation performed. Biopsy showed 03/06/22 capsule study showed normal study. 04/07/21 colonoscopy [facility] normal colonoscopy. * ROS: G astrointestinal: Patient complaining of b loating. A dmits A bdominal pain. D enies B lood in stool. D enies C hange in bowel habits. D enies C olitis, d enies. A dmits C onstipation. D enies D ecreased appetite. D enies Diarrhea. D enies D ifficulty swallowing. D enies E xposure to hepatitis. D enies H eartburn. D enies H ematemesis. D enies H epatitis, d enies. D enies N ausea. D enies R ectal bleeding. D enies S tomach problems, d enies. D enies V omiting. D enies W eight loss. * Medical History: H ypothyroidism, Hypercholesterolemia, Hyperlipidemia, Anxiety, Irritable bowel syndrome, Sarcoidosis. * Surgical History: t hyroidectomy , tubal ligation . * Family History: F ather: , COVID,HTN, UC, HD. M other: , HTN, renal failure, calaphylaxis.?1 sister(s) . . Crohns. * Social History: T obacco Use: D o you smoke?: e-cigarettes. D rugs/Alcohol: C affeine I ntake: 1 -2 cups per day. D o you smoke marijuana?: Denies. Do you drink alcohol?: No. * Medications: T aking Metoprolol Tartrate 25 MG Tablet 1 tablet with food Orally Twice a day , Taking Spironolactone 100 MG Tablet 1 tablet Orally Once a day , Taking Propranolol HCl ER 60 MG Capsule Extended Release 24 Hour 1 capsule Orally Once a day , Taking predniSONE 20 MG Tablet 1 tablet Orally Once a day , Taking Ondansetron 4 MG Tablet Disintegrating 1 tablet on the tongue and allow to dissolve Orally 4 times day prn , stop date 05/29/2024, Taking CATERPILLAR DRIVER Thyroid 30 MG Tablet 1 tablet on an empty stomach Orally Once a day , Taking Minoxidil 2.5 MG Tablet 1/2 tablet orally once daily Orally Twice a day , Taking Linzess 145 MCG Capsule 1 capsule at least 30 minutes before the first meal of the day on an empty stomach Orally Once a day , Medication List reviewed and reconciled with the patient * Allergies: A dhesive: blisters, Demerol: throat swelling, Macrodantin: hives. Objective: * Vitals: H R:90/min, BP:139/70mm Hg, Wt:197lbs, BMI:29.95Index, Ht:68in, Ht-cm: 172.72 cm, Wt-k.36 kg. * Examination: G eneral Examination: GENERAL APPEARANCE: i n no acute distress, well developed, well nourished. HEART: n o murmurs, regular rate and rhythm, S1, S2 normal.? LUNGS: c lear to auscultation bilaterally. ABDOMEN: n ormal, bowel sounds present, soft, nontender, nondistended. NEUROLOGIC: a lert and oriented, sensory exam intact. ? Assessment: * Assessment: 1. A bdominal distension (gaseous) - R14.0 (Primary) 2 . G eneralized abdominal pain - R10.84 Plan: * Treatment: 2. G eneralized abdominal pain Notes: discussed possible etiologies including SOD, chronic pancreatitis, functional GI, IBS, visceral hypersensitivity, MAST cell activation syndrome and others will start with EUS for evaluation at this time will discuss results after testing discussed possible trial of medication but would like to avoid at this time if normal discussed possible referral to sharepoint application architect for further testing. 3. O thers Notes: Time spent: 45minutes. More than 50% spent reviewing diagnostic results, compliance with current medical therapy, counseling patient on low fat diet, weight reduction to normal BMI, normal BMI discussed, avoidance of ETOH/tobacco products, discussing treatment options. Have discussed details of EUS procedure including indications/risks/expected outcomes/limitations/possible medication side effects, and alternatives to procedure. All questions answered and patient expresses understanding. No contraindications noted. Instructed patient regarding management plan, follow-up visits, and stressed importance of compliance with plan. * Preventive Medicine: YOUR PREVENTIVE WELLNESS PLAN: C olorectal Cancer Screening: T he Recommended Frequency is: E very five years, Sigmoidoscopy with FOBS, S creening for colorectal cancer was last done on: 01/08/2024. HCG Diet: N utrition: E ducation Provided: a dequate fluid intake, breakfast, lunch, dinner, daily exercise, food portions, healthy snacks, ideal plate, increase vegatables intake, reducing fat, reducing sodium. N utrition Counseling: H ealthy Food Choices: l imit or eliminate junk food, low fat choices, W eight Management: r egular exercises, healthy diet with limited calories. * Follow Up: 2 Months * * Electronic signature of FLO KOO NP, MSN PUBLIC RECORDS OFFICER-BC on 06/07/2025 at 09:37 AM EDT Sign off status: Pending * Appointment Provider: Kyler Koo CNP Date: 05/29/2024 Generated for Printing/Faxing/eTransmitting on: 06/07/2025 09:37 AM EDT History and Physical Notes * HPI (History of Present Illness) Category Sub-Category Detail Notes Category Not es Constitutional Anglea is a 48 year old female with history of hypothyroidism, anxiety, HLD, IBS who presents today with complaints of abdominal discomfort with bloating for the past few years. She states that after she was diagnosed with COVID a few years ago she began having complaints of abdominal pain of a uncomfortable feeling with abdominal bloating as well as constipation. She was tested for SIBO that was positive and received treatment of Xifixan and then another round of antibiotics as she tested negative but continued to have complaints. She then was seen by a holistic doctor who started her on a regimen of probotics and oregano oil and her complaints seemed to resolve. She then had a COVID vaccine and her complaints returned. She states that she has complaints of a discomfort in her RUQ and RLQ that can come on and is a pressure sensation. She states that she also has complaints of skin irritation as well as low grade temperature of 99. She states that she has had multiple testing completed (see below) that has all returned normal. She was diagnosed with sarcodosis shortly after her COVID exposure and has been following with rheumatology. She is currently on prednisone to help with complaints but is suspicious of her GI complaints and recommended for her to follow up with GI. She states that she has significantly changed her diet as she is now diary free, gluten free, does not eat sugar and eats small meals. She states that her complaints do not seem to be food triggered however she did feel better when she was on a vegan diet. She has no complaints of nausea, heartburn, diarrhea. She presents today for further management. Previous testin01/08/24 colonoscopy [facility] showed two diminutive polyps at the recto-sigmoid, non bleeding internal hemorrhoids, diverticulosis. Biopsy showed hyperplastic colon polyps, recommended repeat colonoscopy in 5 years. 07/10/23 colonoscopy [facility] showed inadequate prep, diverticulosis, int hemorrhoids, repeat in 6 months. 07/10/23 EGD [facility] showed z-line irregular, in the distal esophagus. Gastritis. Normal Duodenum, esophageal dilation performed. Biopsy showed 03/06/22 capsule study showed normal study. 04/07/21 colonoscopy [facility] normal colonoscopy. Examination Category Sub-Category Detail Notes Category Not es General Examination GENERAL APPEARANCE: in no ac ariadna distress, well developed, well nourished HEART: no murmurs, regular rate and rhythm, S1, S2 normal LUNGS: clear to auscultatio n bilaterally ABDOMEN: normal, bowel sounds present, soft, nontender, nondistended NEUROLOGIC: alert and oriented, sensory exam intact
[2025-06-07] VITALS (7 sets, daily range): BP systolic 101–133; BP diastolic 47–70; PULSE 64–77; RESP 16–20; TEMP 36.6; O2SAT 98–100
--- NOTE | ~2025-06-07 | CT_ITS ---
Sob CT ABDOMEN AND PELVIS WITHOUT CONTRAST Clinical History: RUQ/RLQ pain Comparison: CT 04/22/2025 Technique: Unenhanced axial images lung bases to symphysis pubis Coronal, sagittal reformats CT images acquired with automatic exposure control for dose reduction DLP: 697 mGy-cm Findings: Without intravenous contrast, sensitivity for detecting visceral parenchymal abnormalities decreased. Lung bases: Clear. Visualized heart and pericardium: Unremarkable. Liver: Unremarkable. Gallbladder: Cholecystectomy. Spleen: Unremarkable. Pancreas: Unremarkable. Adrenal glands: Unremarkable. Kidneys: Right kidney- No hydronephrosis. No renal stones. Small cyst with layering calcium. Left kidney- No hydronephrosis. No renal stones. Small probable cyst. Retroaortic renal vein. A few tiny parenchymal calcifications. Distal esophagus/stomach: Unremarkable. Small bowel loops: Normal caliber and wall thickness. Colon: Normal caliber and wall thickness. Normal RLQ appendix. Liquid contents. Nodes: No enlarged nodes. Peritoneum: No ascites. No free intraperitoneal air. Urinary bladder: Unremarkable. Uterus: Unremarkable. Bones: No acute bony abnormality. Soft tissues: Unremarkable. Unopacified abdominal aorta: No aneurysmal dilatation. IMPRESSION: 1. No acute findings. Reviewed, dictated and finalized at location R. IMPRESSION: 1. No acute findings.
--- NOTE | 2025-06-07 07:15 | PC.NURSE ---
patient to bathroom to provide urine sample
[2025-06-07] MEDS: ONDANSETRON INJ 4 MG/2 ML VIAL IV PUSH (07:53)
[2025-06-07] MEDS: HYDROmorphone HCL INJ (*CRX) 1 MG/ML SYR 0.5 MG IV PUSH (07:53)
[2025-06-07] MEDS: SODIUM CHLORIDE 0.9% IV 1,000 ML 999 ML IV CONT (07:53)
[2025-06-07 07:56] LABS: BEDSIDEPREGUCG Negative (Negative)
[2025-06-07 07:59] LABS: Hematocrit 38.6 % (37.0-47.0); Hemoglobin 13.0 g/dL (12.0-15.0); Immature Granulocyte Percent A 0.3 % (0-0.5); Immature Platelet Fraction Pct 4.9 % (0.9-11.2); Lymphocytes Absolute Auto 0.46 K/mm3 (0.9-3.2); Mean Corpuscular HGB Conc 33.7 g/dl (32-36); Mean Corpuscular Hemoglobin 31.0 pg (26-34); Mean Corpuscular Volume 92.1 fl (80-100); Nucleated Red Blood Cells Absolute Auto 0.000 K/mm3 (0.0-0.012); Nucleated Red Blood Cells Perc 0.0 % (0.0-0.2); Platelet Count Result 126 k/mm3 (150-375); Red Blood Count 4.19 M/mm3 (4.2-5.4); White Blood Count 3.8 K/mm3 (4.5-10.0)
--- NOTE | 2025-06-07 08:00 | ED.ABDPAIN ---
HPI - Abdominal Pain General Chief Complaint: Abdominal Pain Stated Complaint: kidney stone Time Seen by Provider: 06/07/25 07:14 History of Present Illness HPI narrative: Patient is a 50-year-old female who presents to the ER with diarrhea. Ongoing for 1 week. Water in consistency. She was on antibiotics 2 months ago. She was traveling last week to [place] and had no fresh water exposure. She has tried taking a probiotic without improvement. Over last 24 hours she has developed significant pain on the right side of her abdomen in the right upper quadrant and right lower quadrant. No blood in her stool. No vomiting. Has history of kidney stones. Related Data Home Medications ?Medication ?Instructions ?Recorded ?Confirmed ?Last Taken ?Type atorvastatin 20 mg tablet 01/27/21 01/27/21 Unknown History buspirone 7.5 mg tablet mg 01/27/21 Unknown History ergocalciferol (vitamin D2) 1,250 01/27/21 Unknown History mcg (50,000 unit) capsule (Vitamin D2) metoprolol succinate 25 mg PO 01/27/21 Unknown History tablet,extended release 24 hr spironolactone 100 mg tablet 01/27/21 01/27/21 Unknown History Allergies Allergy/AdvReac Type Severity Reaction Status Date / Time nitrofurantoin Allergy Intermediate HIVES Verified 06/07/25 07:07 adhesive tape Allergy Unknown Unknown Verified 06/07/25 07:07 Cephalosporins Allergy Unknown Unknown Verified 06/07/25 07:07 erythromycin base Allergy Unknown Unknown Verified 06/07/25 07:07 meperidine Allergy Unknown Unknown Verified 06/07/25 07:07 morphine Allergy Unknown Unknown Verified 06/07/25 07:07 adhesive AdvReac Unknown BLISTERS Verified 06/07/25 07:07 NITROFURANTOIN MACROCRYSTAL Allergy Intermediate HIVES Uncoded 01/07/25 23:21 Contrast Media Allergy Unknown CT DYE Uncoded 01/07/25 23:21 GENERALANESTHET Allergy Unknown VASOVAGAL Uncoded 01/07/25 23:21 EFFECT -- HR DROP, N/V, TINGLING Review of Systems Review of Systems: All systems reviewed & are unremarkable except as noted in HPI and below Constitutional: Constitutional: Reports no additional constitutional complaints ENT: Reports system reviewed and no additional complaints, except as documented Cardiovascular: Cardiovascular: Reports no additional cardiovascular complaints Respiratory: Respiratory: Reports no additional respiratory complaints Gastrointestinal: Gastrointestinal: Reports no additional gastrointestinal complaints Genitourinary: Genitourinary: Reports no additional female genitourinary complaints [facility] Past Medical History Medical History (Updated 06/07/25 @ 10:25 by Henrry Hamilton MD) Hypercholesterolemia History of kidney stones Irritable bowel syndrome Anxiety Vasovagal syncope Surgical History Surgical History (Updated 04/12/22 @ 22:06 by Henrry Hamilton MD) H/O shoulder surgery Right History of tonsillectomy Family History Family History (System 02/09/21 @ 12:31 by Radha Healy) Mother Family history of diabetes mellitus in first degree relative Other Diabetes mellitus Family history of arthritis Family history of cardiac disorder Family history of seizure disorder Hypertension Social History Social History (System 02/09/21 @ 12:31 by Radha Healy) Alcohol intake: current Exam Narrative: GENERAL: Well-appearing, well-nourished, and in no acute distress. HEAD: Normocephalic, atraumatic. ENT: Mucous membranes moist. CHEST: Clear to auscultation. No respiratory distress. HEART: Regular rate and rhythm. Normal peripheral pulses. ABDOMEN: Soft, tender to palpation in the right upper quadrant and right lower quadrant with guarding, nondistended. EXTREMITIES: Normal range of motion. No edema. SKIN: Warm, dry, no rash. NEURO: Alert and oriented x3. PSYCH: Normal mood and affect. Course Course Emergency Course: Blood work unremarkable. CT without acute process. Urinalysis with 4+ bacteria but is contaminated with many squamous epithelial cells. C diff negative. Discharge home with supportive care. Vital Signs Vital signs: Vital Signs Temperature 97.8 F 06/07/25 07:22 Pulse Rate 77 06/07/25 07:22 Respiratory Rate 20 06/07/25 07:22 Blood Pressure 133/70 06/07/25 07:22 Pulse Oximetry 100 06/07/25 07:22 Oxygen Delivery Room Air 06/07/25 07:22 Temperature 97.8 F 06/07/25 07:22 Pulse Rate 71 06/07/25 10:01 Respiratory Rate 18 06/07/25 10:01 Blood Pressure 101/50 L 06/07/25 10:01 Pulse Oximetry 100 06/07/25 10:01 Oxygen Delivery Room Air 06/07/25 07:22 MDM - Abdominal Pain Lab Data 06/07/25 07:49 06/07/25 07:49 Labs: Lab Results 06/07/25 06/07/25 06/07/25 Range/Units 07:48 07:49 07:53 WBC 3.8 L (4.5-10.0) K/mm3 RBC 4.19 L (4.2-5.4) M/mm3 Hgb 13.0 (12.0-15.0) g/dL Hct 38.6 (37.0-47.0) % MCV 92.1 (80-100) fl MCH 31.0 (26-34) pg MCHC 33.7 (32-36) g/dl RDW 13.1 (11.5-14.5) % Plt Count 126 L (150-375) k/mm3 MPV 11.8 H (7.4-10.4) fl Immature Gran % (Auto) 0.3 (0-0.5) % Neut % (Auto) 73.3 H (45.5-73.1) % Lymph % (Auto) 12.0 L (18.3-44.2) % Mcduffie % (Auto) 10.2 H (2.6-8.5) % Eos % (Auto) 3.7 (0-4.4) % Baso % (Auto) 0.5 (0.2-1.2) % Lymph # (Auto) 0.46 L (0.9-3.2) K/mm3 Mcduffie # (Auto) 0.4 (0.1-0.6) K/mm3 Eos # (Auto) 0.1 (0-0.3) K/mm3 Baso # (Auto) 0.0 (0.0-0.1) K/mm3 Abs Immat Gran (auto) 0.01 (0.00-0.031) K/mm3 Absolute Neuts (auto) 2.8 (1.3-6.7) K/mm3 Absolute Nucleated RBC 0.000 (0.0-0.012) K/mm3 Nucleated RBC % 0.0 (0.0-0.2) % % Immature Plt Fraction 4.9 (0.9-11.2) % Sodium 136 L (137-145) mmol/L Potassium 4.1 (3.4-5.0) mmol/L Chloride 103 (98-107) mmol/L Carbon Dioxide 25 (22-30) mmol/L Anion Gap 8 (4-12) mmol/L BUN 11 (7-17) mg/dL Creatinine 0.80 (0.7-1.0) mg/dL Estim Creat Clear Calc 87 ml/min Estimated GFR > 60 (59 - ) Glucose 102 (65-110) mg/dL Calcium 9.5 (8.4-10.2) mg/dL Total Bilirubin 0.8 (0.2-1.3) mg/dL AST 29 (14-36) U/L ALT 24 (6-35) U/L Alkaline Phosphatase 68 (38-126) U/L Total Protein 7.3 (6.3-8.2) g/dL Albumin 4.4 (3.5-5.1) g/dL Lipase 89 (23-300) U/L Urine Color Yellow (Yellow) Urine Appearance Cloudy H (Clear) Urine pH 7.0 (5.0-9.0) Ur Specific [place] 1.014 (1.001-1.035) Urine Protein Negative (Negative) mg/dL Urine Glucose (UA) Negative (Negative) mg/dL Urine Ketones Negative (Negative) mg/dL Ur Blood (Man) Negative (Negative) Urine Nitrate Negative (Negative) Urine Bilirubin Negative (Negative) Urine Urobilinogen 0.2 (<2.0) mg/dL Leukocyte Esterase Rfl Negative (Negative) MAINE/UL Urine RBC 0-2 (0-2) /hpf Urine WBC 0-5 (0-3) /hpf Ur Squamous Epith Cells Many H (Few) /hpf Urine Bacteria 4+ H /hpf Urine Casts 0-2 POC Urine HCG, Qual Negative (Negative) C. difficile (PCR) (NEGATIVE) 06/07/25 Range/Units 08:25 WBC (4.5-10.0) K/mm3 RBC (4.2-5.4) M/mm3 Hgb (12.0-15.0) g/dL Hct (37.0-47.0) % MCV (80-100) fl MCH (26-34) pg MCHC (32-36) g/dl RDW (11.5-14.5) % Plt Count (150-375) k/mm3 MPV (7.4-10.4) fl Immature Gran % (Auto) (0-0.5) % Neut % (Auto) (45.5-73.1) % Lymph % (Auto) (18.3-44.2) % Mcduffie % (Auto) (2.6-8.5) % Eos % (Auto) (0-4.4) % Baso % (Auto) (0.2-1.2) % Lymph # (Auto) (0.9-3.2) K/mm3 Mcduffie # (Auto) (0.1-0.6) K/mm3 Eos # (Auto) (0-0.3) K/mm3 Baso # (Auto) (0.0-0.1) K/mm3 Abs Immat Gran (auto) (0.00-0.031) K/mm3 Absolute Neuts (auto) (1.3-6.7) K/mm3 Absolute Nucleated RBC (0.0-0.012) K/mm3 Nucleated RBC % (0.0-0.2) % % Immature Plt Fraction (0.9-11.2) % Sodium (137-145) mmol/L Potassium (3.4-5.0) mmol/L Chloride (98-107) mmol/L Carbon Dioxide (22-30) mmol/L Anion Gap (4-12) mmol/L BUN (7-17) mg/dL Creatinine (0.7-1.0) mg/dL Estim Creat Clear Calc ml/min Estimated GFR (59 - ) Glucose (65-110) mg/dL Calcium (8.4-10.2) mg/dL Total Bilirubin (0.2-1.3) mg/dL AST (14-36) U/L ALT (6-35) U/L Alkaline Phosphatase (38-126) U/L Total Protein (6.3-8.2) g/dL Albumin (3.5-5.1) g/dL Lipase (23-300) U/L Urine Color (Yellow) Urine Appearance (Clear) Urine pH (5.0-9.0) Ur Specific [place] (1.001-1.035) Urine Protein (Negative) mg/dL Urine Glucose (UA) (Negative) mg/dL Urine Ketones (Negative) mg/dL Ur Blood (Man) (Negative) Urine Nitrate (Negative) Urine Bilirubin (Negative) Urine Urobilinogen (<2.0) mg/dL Leukocyte Esterase Rfl (Negative) MAINE/UL Urine RBC (0-2) /hpf Urine WBC (0-3) /hpf Ur Squamous Epith Cells (Few) /hpf Urine Bacteria /hpf Urine Casts POC Urine HCG, Qual (Negative) C. difficile (PCR) Negative (NEGATIVE) Imaging Data Radiologist's impression: ITS Impressions Abdomen/Pelvis CT 06/07/25 07:53 IMPRESSION: 1. No acute findings. Discharge Plan Discharge Clinical Impression: Gastroenteritis Patient Disposition: Home Condition: Stable Instructions: Gastroenteritis (ED) Additional Instructions: Please drink plenty of fluids at home. Return to the emergency department if you develop high fevers, have persistent severe abdominal pain, or have bloody stools or vomit, as these could be signs of a more serious medical emergency. Return to the emergency department if you are unable to keep down liquids because of severe nausea/vomiting. Patient Language: Cameroonian Prescriptions: New simethicone 125 mg capsule 125 mg PO QID Qty: 20 0RF Rx Instructions: administer after meals and at bedtime dicyclomine 20 mg tablet 20 mg PO QID Qty: 20 0RF No Action atorvastatin 20 mg tablet spironolactone 100 mg tablet buspirone 7.5 mg tablet metoprolol succinate 25 mg tablet extended release 24 hr PO ergocalciferol (vitamin D2) [Vitamin D2] 1,250 mcg (50,000 unit) capsule Follow-up/Referrals: Kirk,William Colbert MD [Primary Care Provider]
[2025-06-07 08:01] LABS: Add Urine Microscopic? YES; Appearance Urine Cloudy (Clear); Glucose Urine UA Negative (Negative); Leukocyte Esterase Ur Negative LEU/UL (Negative); Nitrate Urine Negative (Negative); Non Pathogenic Casts 0-2; Specific Grav Ur 1.014 (1.001-1.035)
[2025-06-07 08:09] LABS: Alanine Aminotransferase 24 U/L (6-35); Albumin Level 4.4 g/dL (3.5-5.1); Alkaline Phosphatase 68 U/L (38-126); Anion Gap 8 mmol/L (4-12); Aspartate Amino Transferase 29 U/L (14-36); Bilirubin,Total 0.8 mg/dL (0.2-1.3); Blood Urea Nitrogen 11 mg/dL (7-17); Calcium 9.5 mg/dL (8.4-10.2); Carbon Dioxide 25 mmol/L (22-30); Chloride 103 mmol/L (98-107); Estimated CRCL calculation 87 ml/min; Estimated Glomerular Filt Rate > 60; Glucose 102 mg/dL (65-110); Lipase 89 U/L (23-300); Potassium 4.1 mmol/L (3.4-5.0); Sodium 136 mmol/L (137-145); Total Protein 7.3 g/dL (6.3-8.2)
[2025-06-07] MEDS: SIMETHICONE 125 MG CHEW TAB PO (08:23)
[2025-06-07] MEDS: DICYCLOMINE HCL 10 MG CAPSULE 20 MG PO (08:24)
--- OUTSIDE RECORDS SUMMARY | 2025-06-07 08:37 | XMS_ITS | Clinical Summary ---
Author Organization [facility] Address [address] [place] [address] Phone Care Team Providers Care Him Assistant Name Role Phone William Bradley MD Primary Care Provider [phone] Boogie Reilly MD Unavailable [phone] Allergies Active Allergy Reactions Criticality Noted Date [...] other by Other route. Catalyn vitamin Active Waldo 3 1000 MG Capsule Take 2 g by mouth. Active BACK LINE COOK Thyroid 30 MG Tablet 4 Active Cholecalciferol [...] EACH EYE TWICE DAILY Active nystatin (MYCOSTATIN) 763859 UNIT/ML Suspension Take 5 mL 4 times a day by oral route for 7 days. Active nystatin (MYCOSTATIN) 223439 UNIT/GM Cream 4 Active hydrocortisone (CORTEF) 5 [...] st Contact Info) Description 08/26/2025 8:00 AM EATING DISORDER SPECIALIST Lab [facility] [address] [phone] Lab, [facility] 08/26/2025 8:15 AM EATING DISORDER SPECIALIST Office Visit [facility] [address] [phone] Boogie Reilly MD [facility] [place] [address] [phone] Health Maintenance Due Date Last Done Comments Hepatitis C Virus (HCV) Screening 1975 Mammogram 1975 Hepatitis B Immunization (1 of + 3-dose series) 1994 Pap Smear 1996 Cervical Cancer Screening (CCS) 2005 HPV/Cotest 2005 Cologuard 2020 Immunochemical Fecal Occult Blood 2020 Influenza Immunization (#1) 2025 07/16/2019 SARS-COV-2 Immunization (3 - 2025-26 season) 2025 01/06/2021, 12/15/2020 Pneumococcal Immunization (5 0+ years) (1 of 1 - PCV) 2025 Zoster Immunization (1 of 2) 2025 Td Immunization Every 10 Yea rs (Adults [...] patient's age to complete this topic Insurance [facility] Care Teams Him Assistant Relationship Specialty Start Date End Date William Bradley MD [address] [place] [address] [address] [place] [address] PCP - General Family Medicine 01/13/24 Boogie Reilly MD [address] [place] [phone] Consulting Physician Oncology 01/13/24
--- OUTSIDE RECORDS SUMMARY | 2025-06-07 08:38 | XMS_ITS | Clinical Summary ---
Author Organization [facility] Address [address] [facility] [place] [address] Care Team Providers Care Composition Mixer Name Role Phone Blake Herbert MD Primary Care Provider Source Comments [facility],non-owned Affiliates and Associated Physician Practices is amultiple site organization consisting of ambulatory clinics and hospital sitesin [place], [place], [place] and [place]. This disclosure is being madepursuant to the Care Everywhere program and may not contain all information available regarding this patient. 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
--- OUTSIDE RECORDS SUMMARY | 2025-06-07 08:38 | XMS_ITS | Encounter Summary ---
Author Organization [facility] Address [address] [facility] [place] [address] Care Team Providers Care Artificial Stone Applicator Name Role Phone Blake Herebrt MD Primary Care Provider [phone] Encounter Details Date Type Department Care Team (Late st Contact Info) Description 03/23/2022 Lab Requisition [facility] [address] [facility] [place] [phone] Jefry Smith MD [address] [facility] [address] [address] [place] [address] Social History Tobacco Use Types Packs/Day Years Used Date Smoking Tobacco: Never Assessed Alcohol Use Standard Drinks/Week Comments Yes 0.8 (1 standard drink = 0.6 oz p ure alcohol) Comments Unknown Sex and Gender Information Value Date Recorded Sex Assigned at Not on file 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 Gender Identity Not on file Sexual Orientation Not on file documented as of this encounter Plan of Treatment Not on file documented as of this encounter Procedures Procedure Name Priority Date/Time Associated Diagnosis Comments DERMATOPATHOLOGY Routine 03/23/2022 12:0 0 AM CDT documented in this encounter Results * DERMATOPATHOLOGY (03/23/2022 12:00 AM CDT) Case Report Dermatopathology Report Case: [id number] Authorizing Provider: Jefry Smith MD Collected: 03/23/2022 12:00 AM Ordering Location: [facility] DermPath Lab Received: 03/23/2022 04:49 PM Pathologist: Mary Arcos MD Specimen: Skin, right shoulder 12:18 PM CDT DERMATOPATHOLOGY LABORATORY Final Diagnosis Specimen A. SKIN, right shoulder: SEBORRHEIC KERATOSIS, IRRITATED AND INFLAMED (L82.0) 12:18 PM CDT DERMATOPATHOLOGY LABORATORY at 1218 CDT Clinical History Nevus vs. SK vs. Other. Path# [id number] 12:18 PM CDT DERMATOPATHOLOGY LABORATORY Gross Description Specimen A: Received is one formalin filled container labeled with the patient's name and designated right shoulder. The specimen consists of a shave biopsy measuring [id number]. Jar 0. 12:18 PM CDT DERMATOPATHOLOGY LABORATORY [...] characteristic determined by the Dermatopathology Laboratory at [facility], directed by Dr. Micha Gilbert. These tests need not be, and therefore are not, approved by the [place] Food and Drug Administration. The tests are used for clinical purposes. Billing Codes Specimen Charges Stain Charges 00134 1 12:18 PM CDT DERMATOPATHOLOGY LABORATORY Embedded Images 12:18 PM CDT DERMATOPATHOLOGY LABORATORY Pathology/Cytolog y TISSUE SPECIMEN FROM SKIN / Unknown 03/23/2022 03/23/2022 4:49 PM CDT us Jefry Smith MD LAB - PATHOLOGY/CYTOLOGY ORDER BATOOL Final Result DERMATOPATHOLOGY LABORATORY [facility] - Department of Dermatology [facility] Medicine [address] [place] [address], [address] [phone] documented in this encounter Visit Diagnoses Not on filedocumented in this encounter Care Teams Artificial Stone Applicator Relationship Specialty Start Date End Date Blake Herbert MD [address] [place] [address] PCP - General 03/10/09 documented as of this encounter
--- OUTSIDE RECORDS SUMMARY | 2025-06-07 08:38 | XMS_ITS | Encounter Summary ---
Author Organization [facility] Facility Care Team Providers Care Hand Lens Polisher Name Role Phone Unknown, Notinfile Primary Care Provider Unavail able William Bradley MD Primary Care Provider [phone] Nini Grewal Primary Care Provider Nini Grewal Primary Care Provider William Bradley MD Primary Care Provider [phone] William Bradley MD Primary Care Provider [phone] Erik Reed MD Unavailable [phone] Abebe Moreau MD Unavailable Kanu Bustos MD Unavailable Karly Villarreal MD Unavailable Boogie Reilly MD Unavailable [phone] Encounter Details Date Type Department Care Team (Latest Contact Info) Description 01/30/2017 Orders Only [facility] Provider, Historical, MD [address] [place] [address] Social History Tobacco Use Types Packs/Day Years Used Date Smoking Tobacco: Every Day Comments Unknown Sex and Gender Information Value Date Recorded Sex Assigned at Not on file 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 Gender Identity Female 05/17/2021 10:31 AM CDT [...] documented as of this encounter Care Teams Hand Lens Polisher Relationship Specialty Start Date End Date Unknown, Notinfile PCP - General 04/30/18 05/13/18 William Bradley MD PCP - General 05/14/18 06/17/22 Nini Grewal PA PCP - General Family Medicine 06/18/22 03/21/23 Nini Grewal PA [address] [facility] [address] [place] [address] PCP - General Family Medicine 03/25/23 04/24/23 William Bradley MD [address] [facility] [place] [address] PCP - General Family Medicine 04/25/23 05/11/24 William Bradley MD [address] [facility] [address] [place] [address] PCP - General Family Medicine 05/12/24 Erik Reed MD [address] [place] [address] [address] [place] [address] Referring Physician Interventional Cardiology 09/21/24 [place] [address] [place] [address] Consulting Physician Pulmonary Disease 09/21/24 Kanu Bustos MD [address] [address] Consulting Physician Internal Medicine 09/21/24 [place] [address] [facility] [address] [place] [address] Consulting Physician Rheumatology 09/21/24 Boogie Reilly MD [address] [place] [address] Referring Physician Hematology and Oncology 09/21/24 documented as of this encounter
--- OUTSIDE RECORDS SUMMARY | 2025-06-07 08:38 | XMS_ITS | Encounter Summary ---
Author Organization [facility] Facility Care Team Providers Care Route Delivery Supervisor Name Role Phone Unknown, Notinfile Primary Care Provider Unavail able William Bradley MD Primary Care Provider [phone] Nini Grewal Primary Care Provider Nini Grewal Primary Care Provider William Bradley MD Primary Care Provider [phone] William Bradley MD Primary Care Provider [phone] Erik Reed MD Unavailable [phone] Abebe Moreau MD Unavailable Kanu Bustos MD Unavailable Karly Villarreal MD Unavailable Boogie Reilly MD Unavailable [phone] Encounter Details Date Type Department Care Team (Latest Contact Info) Description 08/20/2017 Orders Only [facility] Provider, Historical, MD [address] [place] [address] Social History Tobacco Use Types Packs/Day Years Used Date Smoking Tobacco: Every Day Comments Unknown Sex and Gender Information Value Date Recorded Sex Assigned at Not on file 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 Historical Provider Final Res ult documented in this encounter Visit Diagnoses Not on filedocumented in this encounter Additional Health Concerns Infection Onset Date Last Indicated Resolved Time COVID: Suspected 05/18/2021 05/18/2021 06/01/2021 3:05 AM CDT documented as of this encounter Care Teams Route Delivery Supervisor Relationship Specialty Start Date End Date Unknown, Notinfile PCP - General 04/30/18 05/13/18 William Bradley MD PCP - General 05/14/18 06/17/22 Nini Grewal PA PCP - General Family Medicine 06/18/22 03/21/23 Nini Grewal PA [address] [facility] [address] [place] [address] PCP - General Family Medicine 03/25/23 04/24/23 William Bradley MD [address] [facility] [place] [address] PCP - General Family Medicine 04/25/23 05/11/24 William Bradley MD [address] [facility] [address] [place] [address] PCP - General Family Medicine 05/12/24 Erik Reed MD [facility] [address] [place] [address] 3 [place] [address] Referring Physician Interventional Cardiology 09/21/24 Abebe Moreau MD [address] [place] [address] Consulting Physician Pulmonary Disease 09/21/24 Kanu Bustos MD [address] [facility] [address] [place] [address] Consulting Physician Internal Medicine 09/21/24 [place] [address] [facility] [address] [place] [address] Consulting Physician Rheumatology 09/21/24 Boogie Reilly MD [address] [place] [address] Referring Physician Hematology and Oncology 09/21/24 documented as of this encounter
--- OUTSIDE RECORDS SUMMARY | 2025-06-07 08:38 | XMS_ITS | Encounter Summary ---
Author Organization [facility] Facility Care Team Providers Care Rail Signal Designer Name Role Phone William Bradley MD Primary Care Provider Nini Grewal Primary Care Provider Nini Grewal Primary Care Provider William Bradley MD Primary Care Provider [phone] William Bradley MD Primary Care Provider [phone] Erik Reed MD Unavailable [phone] Abebe Moreau MD Unavailable [phone] Kanu Bustos MD Unavailable Karly Villarreal MD Unavailable Boogie Reilly MD Unavailable [phone] Encounter Details Date Type Department Care Team (Latest Contact Info) Description 10/10/2018 Orders Only [facility]INCON[facility] ProviderWalker MD [address] [place] [id number] Social History Tobacco Use Types Packs/Day Years Used Date Smoking Tobacco: Every Day Comments Unknown Sex and Gender Information Value Date Recorded Sex Assigned at Not on file 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 us Historical Provider [facility] Final Result documented in this encounter Visit Diagnoses Not on filedocumented in this encounter Additional Health Concerns Infection Onset Date Last Indicated Resolved Time COVID: Suspected 05/18/2021 05/18/2021 06/01/2021 3:05 AM CDT documented as of this encounter Care Teams Rail Signal Designer Relationship Specialty Start Date End Date William Bradley MD PCP - General 05/14/18 06/17/22 Nini Grewal PA PCP - General Family Medicine 06/18/22 03/21/23 Nini Grewal PA [address] [facility] [address] [place] [address] PCP - General Family Medicine 03/25/23 04/24/23 William Bradley MD [address] [facility] [address] [place] [address] PCP - General Family Medicine 04/25/23 05/11/24 William Bradley MD [address] [facility] [address] [place] [address] PCP - General Family Medicine 05/12/24 Erik Reed MD [address] [place] [address] [address] [place], [place] [address] Referring Physician Interventional Cardiology 09/21/24 [place] [address] [place] [address] [address] [place], [place] [id number] Consulting Physician Pulmonary Disease 09/21/24 Kanu Bustos MD [address] [facility] [address] [place], [place] [id number] Consulting Physician Internal Medicine 09/21/24 [place] [address] [facility] [address] [place] [address] Consulting Physician Rheumatology 09/21/24 Boogie Reilly MD [address] [id number] Referring Physician Hematology and Oncology 09/21/24 documented as of this encounter
--- OUTSIDE RECORDS SUMMARY | 2025-06-07 08:38 | XMS_ITS | Clinical Summary ---
Author Organization [facility] Medical Office Building B Address [address] [place] [address] Care Team Providers Care Data Entry Name Role Phone William Bradley MD Primary [...] ia TAKE 1 TABLET DAILY 90 tablet 3 Active propranolol LA (INDERAL LA) 60 mg 24 hr capsule Take 1 capsule (60 mg total) by mouth daily 3 Active omega-3 fatty acids-fish oil 300-1,000 mg capsule Take 2 capsules (2 g total) by mouth daily Active UNABLE TO FIND - ENTER DRUG NAME IN NOTES TO PHARMACY Albaplex Ac tive UNABLE TO FIND - ENTER DRUG NAME IN NOTES TO PHARMACY Arginex Ac tive UNABLE TO FIND - ENTER DRUG NAME IN NOTES TO PHARMACY [facility] hair growth vitamin Active UNABLE TO FIND - ENTER DRUG NAME IN NOTES TO PHARMACY Scrofulara Intrinsics ( inverted) Active Restasis 0.05 % ophthalmic emulsion 1 drop 2 (two) times a day Active famotidine (PEPCID) 20 mg tablet Take 1 tablet (20 mg total) by mouth 2 (two) times a day 4 Active ondansetron ODT (ZOFRAN-ODT) 8 mg disintegrating tablet Take 1 tablet (8 mg total) by mouth every 8 (eight) hours as needed for nausea 20 tablet 5 Active UNABLE TO FIND Gutflora complex Active albuterol HFA (ProAir HFA) 90 mcg/actuation inhaler Inhale 2 puffs every 4 (four) hours as needed for wheezing or shortness of breath 8.5 g [address] (PROTONIX) 40 mg EC tablet Take 1 tablet (40 mg total) by mouth daily 5 Active thyroid (Redding Thyroid) 30 mg tablet 1 tablet (30 mg total) daily Active Active Problems Problem Noted Date Diagnosed Date Femoroacetabular impingement of right hip 2024 H/O systemic steroid therapy 03/17/2025 Chronic pansinusitis 09/01/2024 Assessment & Plan (09/01/2024 7:56 PM CLAY MAKER): I am recommending a sinus CT scan for further evaluation this. She would like to go ahead and pursue that. I did note that she has a severe deviation of nasal septum to the right side with enlarged inferior turbinates. That could be causing some of her symptoms. She understands. Ear fullness, bilateral 09/01/2024 Assessment & Plan (09/01/2024 7:57 PM CLAY MAKER): I reassured her that her ears look [...] 01/25/2023 Assessment & Plan (08/29/2023 11:28 AM CLAY MAKER): Complains of abdominal pain since COVID vaccination [...] 01/25/2023 Assessment & Plan (08/29/2023 11:28 AM CLAY MAKER): Intermittent bright red blood per rectum. -colonoscopy [...] 01/25 Assessment & Plan (08/29/2023 11:30 AM CLAY MAKER): Chronic constipation for the past 2 years. -high-fiber diet -continue probiotics -continue Linzess Constipation 01/25/2023 Assessment & Plan (08/29/2023 11:18 AM CLAY MAKER): Chronic constipation for the past 2 years, [...] 06/16/2021 Assessment & Plan (08/29/2023 11:27 AM CLAY MAKER): Intermittent dysphagia to solids. EGD June 2023 with irregular Z-line, status post dilation to [address] [place]. Pathology unremarkable. No further dysphagia since dilation. [...] Encounters Date Type Department Care Team Description 05/25/2025 2:20 PM CDT Lab [facility] Lab [address] [place] [id number] Sarcoidosis; Recurrent UTI; Mediastinal lymphadenopathy 05/25/2025 2:02 PM CDT - 05/25/2025 11:59 PM CDT Hospital Encounter [facility] CT [address] [place] [address] Sarcoidosis Discharge Disposition: Discharge to home or self care 05/25/2025 2:00 PM CDT Lab [facility] Lab [address] [place] [address] 05/24/2025 Telephone [facility] Medicine Scheduling [address] [place] [address] Raquel Baezana 05/20/2025 9:15 AM CDT Office Visit [facility] Medical [facility] Pulmonary [address] [address] Abebe Moreau MD Sarcoidosis (Primary Dx); Mediastinal lymphadenopathy; Recurrent UTI; Seasonal allergic rhinitis, unspecified trigger 05/19/[address] [address] Abebe Moreau MD 05/14/2025 8:15 AM CDT Office Visit [facility] [address] [address] Ruba Kerr PA Right hip pain (Primary Dx); Femoroacetabular impingement of right hip 05/06/2025 10:02 AM CDT - 05/06/2025 11:59 PM CDT Hospital Encounter [facility] Diagnostic Imaging [facility] [place] [address] Pelvic pain Discharge Disposition: Discharge to home or self care 04/29/2025 12:08 PM CDT - 04/29/2025 11:59 PM CDT Hospital Encounter [facility] Diagnostic Imaging [facility] [place] [address] Right hip pain Discharge Disposition: Discharge to home or self care 04/01/2025 Results Follow-Up [facility] Endocrinology Metabolism and Lipid [address] [facility] 5th [place] [address] [place] [address] Keren Olson MD Cortisol 30 min 03/31/2025 8:12 AM CDT - 03/31/2025 11:59 PM CDT Hospital Encounter [facility] [address] [place] [address] H/O systemic steroid therapy Discharge Disposition: Discharge to home or self care 03/31/2025 8:00 AM CDT [facility] [address] [facility] [address] [place] [address] H/O systemic steroid therapy (Primary Dx) 03/17/2025 Orders Only [facility] Medicine Endocrinology Metabolism and Lipid [address] [facility] 5th [place] [address] [place] [address] Keren Olson MD H/O systemic steroid therapy [...] Date Comments tachycardia history--control led with meds--sees Almousjairoi Arthritis Kidney stone 10/18/2022 has 2 currently, [...] on file Legal Sex Female 1:50 AM CLAY MAKER Gender Identity Female 05/17/2021 10:31 AM CDT Sexual Orientation Straight 05/17/2021 10 :31 AM CDT 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 Not on file Not on file Obstetrics History Last Filed Vital Signs Vital Sign Reading Time Taken Comments Blood Pressure 120/78 05/20/2025 8:57 AM CDT Pulse 93 05/20/2025 8:57 AM CDT Temperature 36.7 C (98 F) 05/20/2025 8:57 AM CDT Respiratory Rate 16 05/20/2025 8:57 AM CDT Oxygen Saturation 99% 05/20/2025 8:57 AM CDT Inhaled Oxygen Concentration - - Weight 93.4 kg (206 lb) 05/20/2025 8:57 AM CDT Height 172.7 cm (5' 8) 05/20/2025 8:57 AM CDT Body Mass Index 31.32 05/20/2025 8:57 AM CDT Plan of Treatment Health Maintenance Due Date Last Done Comments Hepatitis B Screening 1993 Pneumococcal vaccine <65 (1 of 2 - PCV) 1994 Cervical Cancer Screening 09/14/2021 09/14/2020 Depression Screening 10/30/2023 10/30/2022, 02/08/2021, 11/21/2020, Additional history exists Regular Well Visit/Exam 18-64 10/30/2023 10/30/2022 Breast Cancer Screening-Mammogram 09/26/2024 09/26/2023, 06/07/2022, 03/02/2021 Covid-19 Vaccine (3 - 2024-2 6 season) 2025 01/06/2021, 12/15/2020 Influenza Vaccine (#1) 2025 07/16/2019 Zoster Vaccine (1 of 2) 2025 Colon Cancer Screening-Colonoscopy 01/07/2029 01/08/2024, 07/10/2023, 04/07/2021 DTaP/Tdap/Td Vaccine (2 - Td or Tdap) 12/17/2030 12/17/2020 Hepatitis C Screening Completed 09/24/2022 , 05/15/2021, 02/27/2021, Additional history exists Procedures Procedure Name Priority Date/Time Associated Diagnosis Comments EGFR Routine 05/25/2025 2:40 PM CDT DIFFERENTIAL AUTO Routine 05/25/2025 2:4 0 PM CDT CBC WITH AUTO DIFFERENTIAL Routine 05/25/2025 2:40 PM CDT COMPREHENSIVE METABOLIC PANEL Routine 05/25/2025 2:40 PM CDT IGG Routine 05/25/2025 2:39 PM CDT Mediastinal lymphadenopathy IGA Routine 05/25/2025 2:39 PM CDT Recurrent UTI IGM Routine 05/25/2025 2:39 PM CDT Recurrent UTI ANGIOTENSIN CONVERTING ENZYME Routine 05/25/2025 2:[address] CHEST WO CONTRAST Routine 05/25/2025 2:24 PM CDT Sarcoidosis XR PELVIS 1 OR 2 VIEWS Schedule HIMANSHU, Read HIMANSHU (Appt Today, Awaiting Results) 05/06/2025 10:21 AM CDT Pelvic pain XR HIP RIGHT W PELVIS 2 OR 3 VIEWS Schedule Routine, Read Routine (OP Routine) 04/29/2025 12:25 PM CDT Right hip pain CORTISOL 60 MIN Timed 03/31/2025 8:12 AM [...] HEPATITIS PANEL, ACUTE Routine 09/24/2022 7:13 AM CLAY MAKER Dizziness SOB (shortness of breath) Benign essential HTN Chronic fatigue HM MAMMOGRAPHY Routine 06/07/2022 PAP SMEAR Routine 09/14/2020 from Last 3 Months or Most Recently Relevant to Health Maintenance Results * eGFR (05/25/2025 2:40 PM CDT) eGFR 69 >=60 mL/min/1. 73 m2 Comment: Interpretive Data [...] was last reviewed 2021. Testing performed by: [facility], [address] [place] [address]., [address] Blood 05/25/2025 2:40 PM CDT 05/25/2025 2:48 PM CDT us William Bradley MD LAB BLOOD ORDERABLES Final Resu lt [facility] [address] [facility] [place] [address] * Differential, auto (05/25/2025 2:40 PM CDT) Neutrophil abs 5.64 1.50 - 6.50 K/cumm Comment:Testing performed by : [address] [address] Imm gran abs 0.03 0.00 - 0.10 K/cumm [facility] Comment:Testing performed by : [address] [address] Lymphocyte abs 1.32 0.80 - 3.30 K/cumm [facility] Comment:Testing performed by : [address], [place]., [address] Monocyte abs 0.59 0.20 - 0.80 K/cumm [facility] Comment:Testing performed by : [address], [place]., [address] Eosinophil abs 0.37 0.00 - 0.50 K/cumm [facility] Comment:Testing performed by : [address] [address] Basophil abs 0.03 0.00 - 0.10 K/cumm [facility] Comment:Testing performed by : [address] [address] Neutrophil pct 70.7 % [facility] Comment: Interpretive Data Percent cell count reference ranges are not reported, since discordance with absolute values may lead to misinterpretation of CBC data. Current Interpretive Data was last revised on 2017. Testing performed by: [address] [address] Imm gran pct 0.4 % [facility] Comment: Interpretive Data Percent cell count reference ranges are not reported, since discordance with absolute values may lead to misinterpretation of CBC data. Current Interpretive Data was last revised on 2017. Testing performed by: [address] [address] Lymphocyte pct 16.5 % [facility] Comment: Interpretive Data Percent cell count reference ranges are not reported, since discordance with absolute values may lead to misinterpretation of CBC data. Current Interpretive Data was last revised on 2017. Testing performed by: [address] [address] Monocyte pct 7.4 % [facility] Comment: Interpretive Data Percent cell count reference ranges are not reported, since discordance with absolute values may lead to misinterpretation of CBC data. Current Interpretive Data was last revised on 2017. Testing performed by: [address] [address] Eosinophil pct 4.6 % [facility] Comment: Interpretive Data Percent cell count reference ranges are not reported, since discordance with absolute values may lead to misinterpretation of CBC data. Current Interpretive Data was last revised on 2017. Testing performed by: [address] [address] Basophil pct 0.4 % [facility] Comment: Interpretive Data Percent cell count reference ranges are not reported, since discordance with absolute values may lead to misinterpretation of CBC data. Current Interpretive Data was last revised on 2017. Testing performed by: [address] [address] Blood 05/25/2025 2:40 PM CDT 05/25/2025 2:48 PM CDT us William Bradley MD LAB BLOOD ORDERABLES Final Resu lt [facility] Department [place] [address] * CBC with auto differential (05/25/2025 2:40 PM CDT) WBC 7.98 3.80 - 9.90 K/cumm Comment:Testing performed by : [address] [address] Hgb 13.0 11.9 - 15.5 g/dL [facility] Comment:Testing performed by : [address] [address] Hct 37.4 35.6 - 45.5 % [facility] Comment:Testing performed by : [address] [address] Plt 193 150 - 400 K/cumm [facility] Comment:Testing performed by : [address] [address] MPV 11.0 9.1 - 12.3 fL [facility] Comment:Testing performed by : [address] [address] RBC 4.08 3.90 - 5.20 M/cumm [facility] Comment:Testing performed by : [address] [address] MCV 91.7 81.3 - 96.4 fL [facility] Comment:Testing performed by : [address] [address] MCH 31.9 27.1 - 33.3 pg [facility] Comment:Testing performed by : [address] [address] MCHC 34.8 32.3 - 35.7 g/dL [facility] Comment:Testing performed by : [address], [address] RDW CV 13.1 11.1 - 14.9 % [facility] Comment:Testing performed by : [address] [address] RDW SD 43.3 35.7 - 48.1 fL [facility] Comment:Testing performed by : [address] [address] NRBC abs 0.00 0.00 - 0.01 K/cumm [facility] Comment:Testing performed by : [address] [address] Blood 05/25/2025 2:40 PM CDT 05/25/2025 2:48 PM CDT us William Bradley MD LAB BLOOD ORDERABLES Final Resu lt [facility] [address] [facility] Department of Laboratories [place], [place] [id number] * (ABNORMAL) Comprehensive metabolic panel (05/25/2025 2:40 PM CDT) Sodium 138 135 - 145 mmol/L Comment:Testing performed by : [address], [address] Potassium, pl 3.9 3.3 - 4.9 mmol/L [facility] Comment:Testing performed by : [address] [place]., [address] Chloride 101 97 - 110 mmol/L [facility] Comment:Testing performed by : [address] [address] CO2 27 22 - 32 mmol/L [facility] Comment:Testing performed by : [address] [address] Anion gap 10 2 - 15 mmol/L [facility] Comment:Testing performed by : [address] [address] BUN 19 6 - 25 mg/dL [facility] Comment:Testing performed by : [address], [place]., [address] Creatinine 1.00 0.60 - 1.10 mg/dL [facility] Comment:Testing performed by : [address] [address] Glucose 121 70 - 199 mg/dL [facility] Comment: Interpretive Data Fasting glucose >/= 126 [...] was last revised 2022. Testing performed by: [address] [address] Calcium 9.1 8.5 - 10.3 mg/dL [facility] Comment:Testing performed by : [address] [address] Bilirubin, total 0.5 0.1 - 1.2 mg/dL [facility] Comment:Testing performed by : [address] [address] Protein, pl 6.3(L) 6.5 - 8.5 g/dL [facility] Comment:Testing performed by : [address] [address] Albumin 4.2 3.5 - 5.0 g/dL [facility] Comment:Testing performed by : [facility], [address] [place] [address]., [address] Alk phos 71 40 - 130 Units/L [facility] Comment:Testing performed by : [facility], [address] [place] [address]., [address] ALT 14 7 - 45 Units/L [facility] Comment:Testing performed by : [address] [address] AST 15 10 - 45 Units/L [facility] Comment:Testing performed by : [address] [address] Blood 05/25/2025 2:40 PM CDT 05/25/2025 2:48 PM CDT us William Bradley MD LAB BLOOD ORDERABLES Final Resu lt Performing Organization Address City/[facility]/ZIP Co de Phone Number [address] [place] [address] * Angiotensin converting enzyme (05/25/2025 2:39 PM CDT) HELENE 22 10 - 55 Units/L Comment:Testing performed by : [facility], [address] [place]., [address] Blood 05/25/2025 2:39 PM CDT 05/25/2025 5:46 PM CDT us Abebe Moreau MD LAB BLOOD ORDERABLES F inal Result [address] [place] [address] * IgA (05/25/2025 2:39 PM CDT) Immunoglobulin A 84 70 - 400 mg/dL Blood 05/25/2025 2:39 PM CDT 05/25/2025 5:00 PM CDT Abebe Moreau MD LAB BLOOD ORDERABLES F inal Result Performing Organization Address [facility] Co de Phone Number [address] [place] [address] * IgM (05/25/2025 2:39 PM CDT) Immunoglobulin M 114 40 - 230 mg/dL Blood 05/25/2025 2:39 PM CDT 05/25/2025 5:00 PM CDT Abebe Moreau MD LAB BLOOD ORDERABLES F inal Result Performing Organization Address [facility] de Phone Number [address] [place] [address] * IgG (05/25/2025 2:39 PM CDT) Immunoglobulin G 753 700 - 1,600 mg/dL Blood 05/25/2025 2:39 PM CDT 05/25/2025 5:00 PM CDT Abebe Moreau MD LAB BLOOD ORDERABLES F inal Result Performing Organization Address [facility] de Phone Number [address] [place] [address] * CT Chest WO Contrast (05/25/2025 2:24 PM CDT) Anatomical Region Laterality Modality Body N/A Computed Tomogra phy 06/02/2025 11:3 6 AM CDT Narrative 06/02/2025 12:01 PM CDT EXAM DESCRIPTION: CT CHEST WO CONTRAST REASON FOR STUDY: Diffuse/interstitial lung disease, Sarcoidosis TECHNIQUE: CT scan of the chest performed without intravenous contrast using helical scanning technique. Reconstructed coronal and sagittal MPR images reviewed. All images stored on PACS. Automated exposure control was used as a dose optimization technique for this examination. COMPARISON: November 16, 2024 FINDINGS: The sensitivity for detection of solid visceral lesions is diminished without the use of intravenous contrast. LUNGS: 4 mm noncalcified pulmonary nodule in the posteromedial left upper lobe (transverse image 34) has increased in size measuring only 1-2 mm on the prior study. Multiple additional bilateral scattered small noncalcified pulmonary nodules measuring in the 3-5 mm range have probably not changed significantly. No other nodules or masses. No pneumonia. PLEURA: No effusion. No pneumothorax. MEDIASTINUM/KERRY: Multiple mildly to moderately enlarged noncalcified mediastinal lymph nodes are unchanged. Hilar lymph nodes are not adequately evaluated on this noncontrast exam. Very small or absent left thyroid lobe. HEART: Heart size is normal with no pericardial effusion. CORONARY ARTERY CALCIFICATION: None VASCULATURE: No thoracic aortic aneurysm. AXILLA: No adenopathy. CHEST WALL: No masses. No subcutaneous air. HARDWARE/LINES/TUBES: None. UPPER ABDOMEN: Prior cholecystectomy. No significant abnormality. MUSCULOSKELETAL: Moderate multilevel thoracic spondylosis. No acute bony abnormality. OTHER: No other significant abnormality. IMPRESSION: 1. 4 mm noncalcified pulmonary nodule in posteromedial left upper lobe has increased in size measuring only 1-2 mm on the prior study. Multiple additional bilateral scattered small noncalcified pulmonary nodules measuring in the 3-5 mm range have probably not changed significantly. Follow-up non-contrast CT chest in 6 months is recommended. 2. No focal infiltrates or effusions. No adenopathy. 3. Multiple mildly to moderately enlarged noncalcified mediastinal lymph nodes are unchanged. Hilar lymph nodes are not adequately evaluated on this noncontrast exam. 4. Very small or absent left thyroid lobe. 5. Prior cholecystectomy. THIS IS AN ELECTRONICALLY VERIFIED FINAL REPORT 06/02/2025 12:01 PM - Electronically signed by Reginald Page M.D. RB: JANES Report ID: [id number] Reading Location: [id number] Procedure Note Reginald Page MD - 06/02/2025 EXAM DESCRIPTION: CT CHEST WO CONTRAST REASON FOR STUDY: Diffuse/interstitial lung disease, Sarcoidosis TECHNIQUE: CT scan of the chest performed without intravenous contrastusing helical scanning technique. Reconstructed coronal and sagittal MPR images reviewed. All images stored on PACS. Automated exposure control was usedas a dose optimization technique for this examination. COMPARISON: November 16, 2024 FINDINGS: The sensitivity for detection of solid visceral lesions is diminished without the use of intravenous contrast. LUNGS: 4 mm noncalcified pulmonary nodule in the posteromedial leftupper lobe (transverse image 34) has increased in size measuring only 1-2 mm onthe prior study. Multiple additional bilateral scattered small noncalcified pulmonary nodules measuring in the 3-5 mm range have probably not changed significantly. No other nodules or masses. No pneumonia. PLEURA: No effusion. No pneumothorax. MEDIASTINUM/KERRY: Multiple mildly to moderately enlarged noncalcified mediastinal lymph nodes are unchanged. Hilar lymph nodes are notadequately evaluated on this noncontrast exam. Very small or absent left thyroidlobe. HEART: Heart size is normal with no pericardial effusion. CORONARY ARTERY CALCIFICATION: None VASCULATURE: No thoracic aortic aneurysm. AXILLA: No adenopathy. CHEST WALL: No masses. No subcutaneous air. HARDWARE/LINES/TUBES: None. UPPER ABDOMEN: Prior cholecystectomy. No significant abnormality. MUSCULOSKELETAL: Moderate multilevel thoracic spondylosis. No acutebony abnormality. OTHER: No other significant abnormality. IMPRESSION: 1. 4 mm noncalcified pulmonary nodule in posteromedial left upper lobehas increased in size measuring only 1-2 mm on the prior study. Multiple additional bilateral scattered small noncalcified pulmonary nodulesmeasuring in the 3-5 mm range have probably not changed significantly. Follow-up non-contrast CT chest in 6 months is recommended. 2. No focal infiltrates or effusions. No adenopathy. 3. Multiple mildly to moderately enlarged noncalcified mediastinal lymph nodes are unchanged. Hilar lymph nodes are not adequately evaluated onthis noncontrast exam. 4. Very small or absent left thyroid lobe. 5. Prior cholecystectomy. THIS IS AN ELECTRONICALLY VERIFIED FINAL REPORT 06/02/2025 12:01 PM - Electronically signed by Reginald Page M.D. RB: JANES Report ID: [id number] Reading Location: [place] [address] Abebe Moreau MD IM CT PROCEDURES Melania l Result * XR Pelvis 1 or 2 Views (05/06/2025 10:21 AM CDT) Anatomical Region Laterality Modality Body, Pelvis N/A Computed Radiogr aphy 05/07/2025 5:23 AM CDT Narrative 05/07/2025 5:24 AM CDT EXAM DESCRIPTION: 1. XR PELVIS 1 OR 2 VIEWS REASON FOR STUDY: Pelvic pain Pain x 6 weeks w/o injury especially with walking and going from sitting to standing position (hears click with walking) right groin, recently had Lumbar spine and bilateral hip imaging for same FINDINGS: Single-view submitted with comparison 08/30/2024, 04/29/2025. No acute fracture. Alignment is normal. The femoral heads are well seated. Mild bilateral hip osteoarthritis. 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 IMPRESSION: 1. Mild bilateral hip osteoarthritis. 2. 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 THIS IS AN ELECTRONICALLY VERIFIED FINAL REPORT 05/07/2025 5:24 AM - Electronically signed by Darian Mackenzie M.D. T: Report ID: [id number] Reading Location: [place] [address] Procedure Note Darian Mackenzie MD - 05/07/2025 EXAM DESCRIPTION: 1. XR PELVIS 1 OR 2 VIEWS REASON FOR STUDY: Pelvic pain Pain x 6 weeks w/o injury especially with walking and going from sittingto standing position (hears click with walking) right groin, recently hadLumbar spine and bilateral hip imaging for same FINDINGS: Single-view submitted with comparison 08/30/2024, 04/29/2025. No acute fracture. Alignment is normal. The femoral heads are wellseated. Mild bilateral hip osteoarthritis. Inferior lumbar degenerative discdisease with facet osteoarthritis. IMPRESSION: 1. Mild bilateral hip osteoarthritis. 2. Inferior lumbar degenerative disc disease with facetosteoarthritis. THIS IS AN ELECTRONICALLY VERIFIED FINAL REPORT 05/07/2025 5:24 AM - Electronically signed by Darian Mackenzie M.D. T: Report ID: [id number] Reading Location: [place] [address] us William Bradley MD IMG XR PROCEDURES Final Result * XR Hip Right 2 or 3 Views W Pelvis (04/29/2025 12:25 PM CDT) Anatomical Region Laterality Modality Lower Extremities, Hip, Pelvis Right C omputed Radiography 05/07/2025 11:1 7 AM CDT Narrative 05/07/2025 11:18 AM CDT EXAM DESCRIPTION: 1. XR HIP RIGHT 2 OR 3 VIEWS W PELVIS REASON FOR STUDY: pain Pt states she has been experiencing a clicking and locking up in her right hip for 2-3 months. States the pain is worse when going from sitting to standing and the pain starts posterior and wraps around anteriorly. FINDINGS: Three views submitted with comparison 08/30/2024. No acute fracture. Alignment is normal. Mild bilateral hip osteoarthritis. 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 IMPRESSION: 1. Mild bilateral hip osteoarthritis. 2. 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 THIS IS AN ELECTRONICALLY VERIFIED FINAL REPORT 05/07/2025 11:18 AM - Electronically signed by Darian Mackenzie M.D. T: Report ID: [id number] Reading Location: [place] [address] Procedure Note Darian Mackenzie MD - 05/07/2025 EXAM DESCRIPTION: 1. XR HIP RIGHT 2 OR 3 VIEWS W PELVIS REASON FOR STUDY: pain Pt states she has been experiencing a clicking and locking up in her righthip for 2-3 months. States the pain is worse when going from sitting tostanding and the pain starts posterior and wraps around anteriorly. FINDINGS: Three views submitted with comparison 08/30/2024. No acute fracture. Alignment is normal. Mild bilateral hiposteoarthritis. 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 IMPRESSION: 1. Mild bilateral hip osteoarthritis. 2. Inferior lumbar degenerative disc disease with facetosteoarthritis. THIS IS AN ELECTRONICALLY VERIFIED FINAL REPORT 05/07/2025 11:18 AM - Electronically signed by Darian Mackenzie M.D. T: Report ID: [id number] Reading Location: [place] [address] Ruba MCCORMICK IMG XR PROCEDURES Final R esult * (ABNORMAL) Cortisol 30 min (03/31/2025 8:12 [...] using specific cortisol assays. J Endocr Soc. 2020;5(4):ymrk707. 2. Lawrence HEBERTP and Valerie LARA. New cutoffs for the biochemical diagnosis of Adrenal insufficiency after ACTH stimulation using specific cortisol assays. J. Endocrine Soc 2020;5:1-2. Current interpret data was last revised 24 Blood 03/31/2025 8:12 AM CDT 03/31/2025 7:48 PM CDT Wil MONTGOMERY CH - 03/31/2025 9:02 PM CDT Obtain pre, 30 minutes, and 60 minutes post cosyntropin adminstration. Keren Olson MD LAB BLOOD ORDERABLES Final Resul t [facility] [address] [address] Department [place] [address] * Cortisol baseline (03/31/2025 8:12 AM CDT) Cortisol, base 12.0 4.8 - 19.5 mcg/dL Blood 03/31/2025 8:12 AM CDT 03/31/2025 7:48 PM CDT Narrative [facility] 03/31/2025 8:53 PM CDT Obtain pre, 30 minutes, and 60 minutes post cosyntropin adminstration. Keren Olson MD LAB BLOOD ORDERABLES Final Resul t [facility] [address] [address] Department [place] [address] * (ABNORMAL) Cortisol 60 min (03/31/2025 8:12 AM CDT) [facility] Signature Cortisol, 60 min 24.0(H) 4.8 - 19.5 [...] using specific cortisol assays. J Endocr Soc. 2020;5(4):ipbq646. 2. Lawrence HEBERTP and Valerie LARA. New cutoffs for the biochemical diagnosis of Adrenal insufficiency after ACTH stimulation using specific cortisol assays. J. Endocrine Soc 2020;5:1-2. Current interpret data was last revised 24 Blood 03/31/2025 8:12 AM CDT 03/31/2025 7:48 PM CDT Narrative [facility] 03/31/2025 8:48 PM CDT Obtain pre, 30 minutes, and 60 minutes post cosyntropin adminstration. Keren Olson MD LAB BLOOD ORDERABLES Final Resul t [facility] [address] [address] Department [place] [address] * ACTH (03/31/2025 8:12 AM CDT) [facility] Signature ACTH 30.0 7.0 - 63.0 pg/mL Comment:Testing performed by : [facility], [address] [place]., [address] Blood 03/31/2025 8:12 AM CDT 04/01/2025 10:02 AM CDT us Keren Olson MD LAB BLOOD ORDERABLES Final Resul t [facility] [place] [address] [address] Department [place] [address] * Colonoscopy (01/08/2024 11:02 AM CDT) Anatomical Region Laterality Modality Other Narrative Procedure Note Dewayne Briggs MD - 01/08/2024 11:02 AM CDT [facility] GI ENDOSCOPY Patient Name: Petra Hackett [...] The scope was passed under direct vision.The [id number] colonoscope was introduced through theanus and advanced [...] On: 01/08/2024 11:02 AM Recognized by the [place] [employer] for promoting quality in endoscopy Dewayne Briggs MD ENDOSCOPY PROCEDURES Final Resul t * Hepatitis panel, acute (09/24/2022 7:13 AM CLAY MAKER) Hep A IgM Negative Negative [facility] - 01 HepBsAg Negative Negative [facility] - 01 Hep B core IgM Negative Negative [facility] - 01 Hep C Ab <0.1 0.0 - 0.9 s/co ratio [facility] - 01 Blood 09/24/2022 7:13 AM CLAY MAKER 09/24/2022 Narrative [facility] - 09/25/2022 6:09 AM CLAY MAKER Performed at: 01 - [facility] [address] [id number] Construction Accountant: Jose Dacotsa PhD, Phone: [phone] Nini MCCORMICK LAB MICROBIOLOGY - GENE RAL ORDERABLES Final Result [facility] - 01 * HM MAMMOGRAPHY (06/07/2022) Historical Provider HEALTH MAINTENANCE Final Result * Pap Smear (09/14/2020) 09/14/2020 us Historical Provider LAB PATHOLOGY ORDERABLES Final Result from Last 3 Months or Most Recently Relevant to Health Maintenance Insurance Autopilot [employer] [facility] Member Subscriber Plan / Payer ( fective 2023-Present) Name:Petra Hyatt Relation to Subscriber:Self Name:Petra Hyatt Payer ID:Not on file Group ID:Not on file Type:OTHER Address: [address] [facility] Address: [facility] [address] [place] [address] Advance Directives For more information, please contact: [phone] * Full Code (Latest Code Status on File) Date Activated Date Inactivated Comments 06/15/2024 2:04 PM 06/15/2024 7:50 PM * Full Code Date Activated Date Inactivated Comments 11/01/2022 1:53 PM 11/02/2022 6:56 PM Care Teams Data Entry Relationship Specialty Start Date End Date William Bradley MD PCP - General Family Medicine 05/12/24 Erik Reed MD [address] [place] [address] 3 [place] [address] Referring Physician Interventional Cardiology 09/21/24 Abebe Moreau MD [address] [address] Consulting Physician Pulmonary Disease 09/21/24 Kanu Bustos MD [address] [address] Consulting Physician Internal Medicine 09/21/24 [place] [address] [facility] [address] [place] [address] Consulting Physician Rheumatology 09/21/24 Boogie Reilly MD [address] [place] [address] [address] Referring Physician Hematology and Oncology 09/21/24
--- OUTSIDE RECORDS SUMMARY | 2025-06-07 08:38 | XMS_ITS | Clinical Summary ---
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
--- OUTSIDE RECORDS SUMMARY | 2025-06-07 08:38 | XMS_ITS | Patient Health Record ---
Author Organization [facility] [employer] [place] ([address]) Address [address] [place] [address] Care Team Providers Care Stair Builder Name Role Phone Uri Nini Primary Care Provider Unavail able Radha Lewis Unavailable [phone] Allergies Allergen (clinical drug ingredient) Drug/Non Drug [...] Status Risk Notes Problem Chronic allergic conjunctivitis (29398136) Other chronic allergic conjunctivitis (H10.45) Active confirmed Problem Allergic rhinitis caused by pollen (disorder) (50896908) Allergic rhinitis due to pollen (J30.1) Active confirmed Problem Allergic rhinitis (96894347) Other allergic rhinitis (J30.89) Active confirmed Problem Chronic rhinitis (48701456) Chronic rhinitis (J31.0) Active confirmed Problem Uncomplicated mild persistent asthma (770261519) Mild persistent asthma, uncomplicated (J45.30) Active confirmed Problem Uncomplicated moderate persistent asthma (656006429) Moderate persistent asthma, uncomplicated (J45.40) Active confirmed Problem Uncomplicated severe persistent asthma (522039901) Severe persistent asthma, uncomplicated (J45.50) Active confirmed Problem Adverse reaction to food (598869239) Other adverse food reactions, not elsewhere classified, initial encounter (T78.1XXA) Active confirmed Problem Allergic rhinitis caused by animal hair and dander (524783193127402) Allergic rhinitis due to animal (cat) (dog) hair and dander (J30.81) Active confirmed Problem Chronic rhinitis (07259080) Chronic rhinitis (J31.0) Active confirmed Problem Idiopathic urticaria (22232849) Idiopathic urticaria (L50.1) Active confirmed Problem Allergy to penicillin (70744799) Allergy status to penicillin (Z88.0) Active confirmed Encounters Encounter Location Date Provider Diagnosis [facility] [address] [place] [address] 01/07/2025 Radha Lewis Plan Of Treatment No Information Insurance Providers Payer Name Payer Address Payer Phone Subscriber Number Group Number Insured Name Patient Relationship to Insured Coverage Start Date Coverage End Date [facility] [id number] [place] [address] [id number] Petra Will Self - patient is the insured Medical (General) History Surgical History Surgery Date(Month/Year) tonsillectomy 09/16/1981 shoulder recon 09/16/1996 TUBAL AND ABLATION 09/16/2016 TVT 09/16/2006
--- OUTSIDE RECORDS SUMMARY | 2025-06-07 08:38 | XMS_ITS | Clinical Summary ---
Author Organization [facility] ut[facility] Address [address] [place] [address] Phone Care Team Providers Care Brick Wheeler Name Role Phone William Bradley MD Primary Care Provider [phone] Allergies Active Allergy Reactions Criticality Noted Date [...] mouth 1 (one) time each day Active [place]-3 Fatty Acids (OMEGA-3 FISH OIL PO) Take [...] Upcoming Encounters Date Type Department Care Team ([facility] Contact Info) Description 07/15/2025 12:20 PM CDT Office Visit [facility] [address] [facility] 1 [place] [address] Kanu Bustos MD [address] [address] Health Maintenance Due Date Last Done Comments Pneumococcal PPSV23 Highest Risk Adult (1 of 3 - PCV13) 1994 Influenza Vaccine (#1) 2025 07/16/2019, 2018 Insurance [facility] INTERFACED INSURANCE Care Teams Brick Wheeler Relationship Specialty Start Date End Date William Bradley MD [address] [place] [address] [address] [place] [address] PCP - General 05/11/24
--- OUTSIDE RECORDS SUMMARY | 2025-06-07 08:38 | XMS_ITS | Encounter Summary ---
Author Organization [facility] Facility Care Team Providers Care Neurology Hospitalist Name Role Phone William Bradley MD Primary Care Provider Nini Grewal Primary Care Provider Nini Grewal Primary Care Provider William Bradley MD Primary Care Provider [phone] William Bradley MD Primary Care Provider [phone] Erik Reed MD Unavailable [phone] Abebe Moreau MD Unavailable [phone] Kanu Bustos MD Unavailable Karly Villarreal MD Unavailable Boogie Reilly MD Unavailable [phone] Encounter Details Date Type Department Care Team (Latest Contact Info) Description 10/24/2018 Orders Only [facility] CLINCONV ProviderWalker MD [address] [place], [place] [id number] Social History Tobacco Use Types Packs/Day Years Used Date Smoking Tobacco: Every Day Comments Unknown Sex and Gender Information Value Date Recorded Sex Assigned at Not on file 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 us Historical Provider [facility] Final Result documented in this encounter Visit Diagnoses Not on filedocumented in this encounter Additional Health Concerns Infection Onset Date Last Indicated Resolved Time COVID: Suspected 05/18/2021 05/18/2021 06/01/2021 3:05 AM CDT documented as of this encounter Care Teams Neurology Hospitalist Relationship Specialty Start Date End Date William Bradley MD PCP - General 05/14/18 06/17/22 Nnii Grewal PA PCP - General Family Medicine 06/18/22 03/21/23 Nini Grewal PA [address] [facility] [address] [place] [address] PCP - General Family Medicine 03/25/23 04/24/23 William Bradley MD [address] [facility] [address] [place] [address] PCP - General Family Medicine 04/25/23 05/11/24 William Bradley MD [address] [facility] [address] [place] [address] PCP - General Family Medicine 05/12/24 Erik Reed MD [address] [place] [address] [address] [place], [place] [address] Referring Physician Interventional Cardiology 09/21/24 [place] [address] [place] [address] [address] [place], [place] [id number] Consulting Physician Pulmonary Disease 09/21/24 Kanu Bustos MD [address] [facility] 1 [place], [place] [id number] Consulting Physician Internal Medicine 09/21/24 [place] [address] [facility] [address] [place] [address] Consulting Physician Rheumatology 09/21/24 Boogie Reilly MD [address] [address] Referring Physician Hematology and Oncology 09/21/24 documented as of this encounter
[2025-06-07 09:42] LABS: Toxigenic C. Diff NEGATIVE (NEGATIVE)
== END 2025-06-07 10:45 | disposition home or self-care (01) ==
PROVIDERS: Emergency Provider Emergency Medicine; PCP Family Medicine
DX: K52.9 Noninfective gastroenteritis and colitis, unspecified (principal); E78.00 Pure hypercholesterolemia, unspecified; K58.9 Irritable bowel syndrome, unspecified; F41.9 Anxiety disorder, unspecified; Z87.442 Personal history of urinary calculi; Z79.899 Other long term (current) drug therapy; Z90.49 Acquired absence of other specified parts of digestive tract
CPT/HCPCS: 36415; 74176; 80053; 81001; 81025; 83690; 85025; 85055; 87493; 96361; 96374; 96375; 99284; A9270; J1171; J2405; J7030

== ENCOUNTER 2025-06-09 07:11 | Emergency (ER) | payer BC, SELFPAY ==
--- NOTE | ~2025-06-09 | CT_ITS ---
EXAMINATION: CT abdomen pelvis w con DATE: 06/09/2025 08:18 INDICATION: Right lower quadrant abdominal pain. Nausea. Diarrhea. TECHNIQUE: Computed tomography (CT) of the abdomen and pelvis was performed with 100 mL Omnipaque 350 intravenous contrast. Automated exposure control and iterative reconstruction technique were employed. The dose-length product was 803.64 mGy-cm. COMPARISON: CT abdomen and pelvis 06/07/2025, 01/23/2008 FINDINGS: The visualized portions of the lung bases demonstrate mild atelectasis. There is a 5 mm nodule in left lower lobe, stable from 01/23/2008, likely benign. No pleural effusion. The heart size is normal. No pericardial effusion. The liver and spleen are normal. There are changes of cholecystectomy. The pancreas and adrenal glands are normal. There are cysts and hemorrhagic cysts in the kidneys measuring up to 1.9 cm on the right. There are no dilated loops of bowel. The appendix is normal. There are no pathologically enlarged lymph nodes. There is no free intraperitoneal fluid. There is mild thoracic and lumbar spondylosis. IMPRESSION: 1. No etiology for the patient's symptoms. Reviewed, dictated and finalized at location E.
[2025-06-09 07:16] VITALS: BP 118/50; PULSE 71; RESP 16; TEMP 36.8; O2SAT 100
[2025-06-09 07:37] LABS: Hematocrit 40.8 % (37.0-47.0); Hemoglobin 13.7 g/dL (12.0-15.0); Immature Granulocyte Percent A 0.2 % (0-0.5); Lymphocytes Absolute Auto 0.80 K/mm3 (0.9-3.2); Mean Corpuscular HGB Conc 33.6 g/dl (32-36); Mean Corpuscular Hemoglobin 31.2 pg (26-34); Mean Corpuscular Volume 92.9 fl (80-100); Nucleated Red Blood Cells Absolute Auto 0.000 K/mm3 (0.0-0.012); Nucleated Red Blood Cells Perc 0.0 % (0.0-0.2); Platelet Count Result 161 k/mm3 (150-375); Red Blood Count 4.39 M/mm3 (4.2-5.4); White Blood Count 4.8 K/mm3 (4.5-10.0)
[2025-06-09 07:57] LABS: Alanine Aminotransferase 22 U/L (6-35); Albumin Level 4.5 g/dL (3.5-5.1); Alkaline Phosphatase 68 U/L (38-126); Anion Gap 9 mmol/L (4-12); Aspartate Amino Transferase 33 U/L (14-36); Bilirubin,Total 0.8 mg/dL (0.2-1.3); Blood Urea Nitrogen 12 mg/dL (7-17); Calcium 9.0 mg/dL (8.4-10.2); Carbon Dioxide 26 mmol/L (22-30); Chloride 101 mmol/L (98-107); Estimated CRCL calculation 79 ml/min; Estimated Glomerular Filt Rate > 60; Glucose 99 mg/dL (65-110); Lipase 69 U/L (23-300); Potassium 3.9 mmol/L (3.4-5.0); Sodium 136 mmol/L (137-145); Total Protein 7.4 g/dL (6.3-8.2)
[2025-06-09] MEDS: fentaNYL CITRATE INJ (*CRX) 100 MCG/2 ML VIAL 50 MCG IV PUSH (08:02)
[2025-06-09] MEDS: SODIUM CHLORIDE 0.9% IV 1,000 ML 999 ML IV CONT (08:03)
[2025-06-09] MEDS: ONDANSETRON INJ 4 MG/2 ML VIAL IV PUSH (08:03)
[2025-06-09 08:49] LABS: Add Urine Microscopic? YES; Appearance Urine Cloudy (Clear); Budding Yeast Urine Present /hpf; Glucose Urine UA Negative (Negative); Leukocyte Esterase Ur Negative LEU/UL (Negative); Need Manual Microscopic Reviewed; Nitrate Urine Negative (Negative); Non Pathogenic Casts 0-2; Specific Grav Ur 1.014 (1.001-1.035)
--- NOTE | 2025-06-09 09:08 | ED.GENADULT ---
HPI - General Adult General Chief complaint: Nausea/Vomiting/Diarrhea Stated complaint: chronic diarrhea and possible UTI Time Seen by Provider: 06/09/25 07:17 Source: patient Mode of arrival: ambulatory Limitations: no limitations History of Present Illness HPI narrative: 50-year-old with a history of sarcoidosis, IBS here with the complaints of right lower abdominal pain associated with nausea and vomiting and diarrhea for past few days. Patient was seen in the ER 2 days ago for the same she states that she had 21 episodes of watery diarrhea yesterday and she feels dehydrated and nauseated denies any fever no recent antibiotic use. Onset (ago): day(s) (3) Radiation: non-radiation Severity: moderate Quality: aching Pain Consistency: constant Relieving factors: none Exacerbating factors: none Associated symptoms: denies other symptoms Related Data Home Medications ?Medication ?Instructions ?Recorded ?Confirmed ?Last Taken ?Type atorvastatin 20 mg tablet 01/27/21 01/27/21 Unknown History buspirone 7.5 mg tablet mg 01/27/21 Unknown History ergocalciferol (vitamin D2) 1,250 01/27/21 Unknown History mcg (50,000 unit) capsule (Vitamin D2) metoprolol succinate 25 mg PO 01/27/21 Unknown History tablet,extended release 24 hr spironolactone 100 mg tablet 01/27/21 01/27/21 Unknown History Allergies Allergy/AdvReac Type Severity Reaction Status Date / Time nitrofurantoin Allergy Intermediate HIVES Verified 06/09/25 07:31 adhesive tape Allergy Unknown Unknown Verified 06/09/25 07:31 Cephalosporins Allergy Unknown Unknown Verified 06/09/25 07:31 erythromycin base Allergy Unknown Unknown Verified 06/09/25 07:31 meperidine Allergy Unknown Unknown Verified 06/09/25 07:31 morphine Allergy Unknown Unknown Verified 06/09/25 07:31 adhesive AdvReac Unknown BLISTERS Verified 06/09/25 07:31 NITROFURANTOIN MACROCRYSTAL Allergy Intermediate HIVES Uncoded 01/07/25 23:21 GENERALANESTHET Allergy Unknown VASOVAGAL Uncoded 01/07/25 23:21 EFFECT -- HR DROP, N/V, TINGLING Review of Systems Review of Systems: All systems reviewed & are unremarkable except as noted in HPI and below Constitutional: Constitutional: Reports no additional constitutional complaints Eyes: Eyes: Reports no additional eye complaints ENT: Reports system reviewed and no additional complaints, except as documented Cardiovascular: Cardiovascular: Reports no additional cardiovascular complaints Respiratory: Respiratory: Reports no additional respiratory complaints Gastrointestinal: Gastrointestinal: Reports as per HPI and Reports no additional gastrointestinal complaints Musculoskeletal: Musculoskeletal: Reports no additional musculoskeletal complaints Neurologic: Reports system reviewed and no additional complaints, except as documented [facility] Past Medical History Medical History Hypercholesterolemia History of kidney stones Irritable bowel syndrome Anxiety Vasovagal syncope Surgical History Surgical History H/O shoulder surgery Right History of tonsillectomy Family History Family History Mother Family history of diabetes mellitus in first degree relative Other Diabetes mellitus Family history of arthritis Family history of cardiac disorder Family history of seizure disorder Hypertension Social History Social History (System 02/09/21 @ 12:31 by Radha Healy) Alcohol intake: current Exam Narrative: GENERAL: Well-appearing, well-nourished, and in no acute distress. HEAD: Normocephalic, atraumatic. EYES: PERRLA and EOMI. ENT: Nares clear, no rhinorrhea or epistaxis. Mucous membranes moist. NECK: Supple. CHEST: Clear to auscultation. No respiratory distress. HEART: Regular rate and rhythm. No murmur heard. Normal peripheral pulses. ABDOMEN: Soft, nontender, nondistended, normal active bowel sounds. EXTREMITIES: Normal range of motion. No edema. SKIN: Warm, dry, no rash. NEURO: No focal deficits. Alert and oriented x3. PSYCH: Normal mood and affect. Course Course Emergency Course: Notified patient about her lab work, CT findings cause of her symptoms could be most likely from irritable bowel. Advised her to take Imodium [id number]. Follow with a GI doctor. Drink more fluids continue to take Zofran and rest Vital Signs Vital signs: Vital Signs Temperature 36.8 C 06/09/25 07:16 Pulse Rate 71 06/09/25 07:16 Respiratory Rate 16 06/09/25 07:16 Blood Pressure 118/50 L 06/09/25 07:16 Pulse Oximetry 100 06/09/25 07:16 Oxygen Delivery Room Air 06/09/25 07:16 Temperature 36.8 C 06/09/25 07:16 Pulse Rate 71 06/09/25 07:16 Respiratory Rate 16 06/09/25 07:16 Blood Pressure 118/50 L 06/09/25 07:16 Pulse Oximetry 100 06/09/25 07:16 Oxygen Delivery Room Air 06/09/25 07:16 Medical Decision Making Differential Diagnosis Differential Diagnosis: Colitis, IBS, appendicitis Medical Records Medical records reviewed: Yes I reviewed the external patient's medical records. Vital Signs Vital Signs: Vital Signs Temperature 36.8 C 06/09/25 07:16 Pulse Rate 71 06/09/25 07:16 Respiratory Rate 16 06/09/25 07:16 Blood Pressure 118/50 L 06/09/25 07:16 Pulse Oximetry 100 06/09/25 07:16 Oxygen Delivery Room Air 06/09/25 07:16 Temperature 36.8 C 06/09/25 07:16 Pulse Rate 71 06/09/25 07:16 Respiratory Rate 16 06/09/25 07:16 Blood Pressure 118/50 L 06/09/25 07:16 Pulse Oximetry 100 06/09/25 07:16 Oxygen Delivery Room Air 06/09/25 07:16 Lab Data Lab results reviewed: Yes I reviewed the patient's lab results. 06/09/25 07:28 06/09/25 07:28 Labs: Lab Results 06/09/25 06/09/25 Range/Units 07:28 08:10 WBC 4.8 (4.5-10.0) K/mm3 RBC 4.39 (4.2-5.4) M/mm3 Hgb 13.7 (12.0-15.0) g/dL Hct 40.8 (37.0-47.0) % MCV 92.9 (80-100) fl MCH 31.2 (26-34) pg MCHC 33.6 (32-36) g/dl RDW 13.1 (11.5-14.5) % Plt Count 161 (150-375) k/mm3 MPV 11.5 H (7.4-10.4) fl Immature Gran % (Auto) 0.2 (0-0.5) % Neut % (Auto) 72.3 (45.5-73.1) % Lymph % (Auto) 16.8 L (18.3-44.2) % Bethel % (Auto) 7.4 (2.6-8.5) % Eos % (Auto) 2.9 (0-4.4) % Baso % (Auto) 0.4 (0.2-1.2) % Lymph # (Auto) 0.80 L (0.9-3.2) K/mm3 Bethel # (Auto) 0.4 (0.1-0.6) K/mm3 Eos # (Auto) 0.1 (0-0.3) K/mm3 Baso # (Auto) 0.0 (0.0-0.1) K/mm3 Abs Immat Gran (auto) 0.01 (0.00-0.031) K/mm3 Absolute Neuts (auto) 3.4 (1.3-6.7) K/mm3 Absolute Nucleated RBC 0.000 (0.0-0.012) K/mm3 Nucleated RBC % 0.0 (0.0-0.2) % Sodium 136 L (137-145) mmol/L Potassium 3.9 (3.4-5.0) mmol/L Chloride 101 (98-107) mmol/L Carbon Dioxide 26 (22-30) mmol/L Anion Gap 9 (4-12) mmol/L BUN 12 (7-17) mg/dL Creatinine 0.90 (0.7-1.0) mg/dL Estim Creat Clear Calc 79 ml/min Estimated GFR > 60 (59 - ) Glucose 99 (65-110) mg/dL Calcium 9.0 (8.4-10.2) mg/dL Total Bilirubin 0.8 (0.2-1.3) mg/dL AST 33 (14-36) U/L ALT 22 (6-35) U/L Alkaline Phosphatase 68 (38-126) U/L Total Protein 7.4 (6.3-8.2) g/dL Albumin 4.5 (3.5-5.1) g/dL Lipase 69 (23-300) U/L Urine Color Yellow (Yellow) Urine Appearance Cloudy H (Clear) Urine pH 5.5 (5.0-9.0) Ur Specific Ord 1.014 (1.001-1.035) Urine Protein Negative (Negative) mg/dL Urine Glucose (UA) Negative (Negative) mg/dL Urine Ketones Negative (Negative) mg/dL Ur Blood (Man) Negative (Negative) Urine Nitrate Negative (Negative) Urine Bilirubin Negative (Negative) Urine Urobilinogen 0.2 (<2.0) mg/dL Add Ur Microanalysis Reviewed Leukocyte Esterase Rfl Negative (Negative) MAINE/UL Urine RBC 0-2 (0-2) /hpf Urine WBC 6-10 H (0-3) /hpf Ur Squamous Epith Cells Many H (Few) /hpf Calcium Oxalate Crystal Present (None) /hpf Urine Bacteria 4+ H /hpf Urine Casts 0-2 Urine Yeast (Budding) Present H (None) /hpf Imaging Data Radiologist's impression: ITS Impressions Abdomen/Pelvis CT 06/09/25 08:23 IMPRESSION: 1. No etiology for the patient's symptoms. Discharge Plan Discharge Clinical Impression: Gastroenteritis Patient Disposition: Home Condition: Stable Instructions: Gastroenteritis (ED) Additional Instructions: Continue home medication , can take Imodium. Patient Language: Tristanian Prescriptions: New ondansetron 4 mg tablet,disintegrating 4 mg PO Q6-8H PRN (Reason: nausea and vomiting) Qty: 14 0RF No Action atorvastatin 20 mg tablet spironolactone 100 mg tablet buspirone 7.5 mg tablet metoprolol succinate 25 mg tablet extended release 24 hr PO ergocalciferol (vitamin D2) [Vitamin D2] 1,250 mcg (50,000 unit) capsule simethicone 125 mg capsule 125 mg PO QID Qty: 20 0RF Rx Instructions: administer after meals and at bedtime dicyclomine 20 mg tablet 20 mg PO QID Qty: 20 0RF Follow-up/Referrals: Kirk,William Colbert MD [Primary Care Provider] Time of Disposition: 09:12
[2025-06-09 09:53] VITALS: BP 90/55; PULSE 62; RESP 22; TEMP 36.4; O2SAT 100
== END 2025-06-09 09:54 | disposition home or self-care (01) ==
PROVIDERS: Emergency Provider Family Medicine; PCP Family Medicine
DX: K52.9 Noninfective gastroenteritis and colitis, unspecified (principal); D86.9 Sarcoidosis, unspecified; E78.00 Pure hypercholesterolemia, unspecified; Z87.442 Personal history of urinary calculi
CPT/HCPCS: 36415; 74177; 80053; 81001; 83690; 85025; 96361; 96374; 96375; 99284; J2405; J3010; J7030; Q9967

== ENCOUNTER 2025-08-09 13:11 | Outpatient (CLI) | payer BC, SELFPAY ==
--- NOTE | ~2025-08-09 | US_ITS ---
EXAMINATION: US pelvic complete w TV INDICATION: N80.9 - Endometriosis, unspecified TECHNIQUE: Multiple transabdominal and transvaginal sonographic images of the pelvis were obtained. COMPARISON: CT from June 09. FINDINGS: Uterus: The uterus appears normal in size, shape, and position. The endometrium appears heterogeneous in both echotexture and thickness. There is a hyperechoic structure in the lower body of the uterus in the region of the endometrium. It shows significant blood flow. The maximum dimension is 6 mm. It is uncertain if this represents an endometrial mass. There is a nabothian cyst in the cervix. There are some subendometrial calcifications, as seen by the prior CT. There is a small amount of fluid in the endometrial cavity. Right Ovary: A subtle hypoechoic mass is questioned in or on the right ovary. It is uncertain if this is a true mass. There is the possibility that this represents a hemorrhagic cyst or an endometrioma. Vascular flow is present. Left Ovary: There is some heterogeneity to the left ovary. There are some echogenic structures or areas in the left ovary. The technologist describes a mass within the ovary. I am not convinced that there is a mass there. Vascular flow is present. There is no significant degree of free fluid in the pelvis. IMPRESSION: 1. Grossly abnormal appearance of the endometrium. 2. There are masses questioned in both ovaries, for which additional evaluation is recommended. MR is recommended for further evaluation, if no intervention will be performed. Reviewed, dictated and finalized at location B. [employer] IMPRESSION: 1. Grossly abnormal appearance of the endometrium. 2. There are masses questioned in both ovaries, for which additional evaluation is recommended. MR is recommended for further evaluation, if no intervention w ill be performed.
== END 2025-08-09 13:12 | disposition home or self-care (01) ==
PROVIDERS: PCP Family Medicine; Visit Provider Obstetrics & Gynecology
DX: R93.89 Abnormal findings on diagnostic imaging of other specified body structures (principal); N80.9 Endometriosis, unspecified
CPT/HCPCS: 76830; 76856